=== PATIENT | female | born 1945 | race Caucasian/White ===

== ENCOUNTER 2017-09-17 10:46 | Inpatient (IN) | payer MEDICARE, OTHER ==
[~2017-09-17] VITALS: Ht 144.8 cm; Wt 75.5 kg
[~2017-09-17 10:46] MED LIST: ALEN1TAB48 PO; ASPI81TA23 PO; CALC1TAB55 PO; CLON0.1T PO; FENO145T2 PO; LISI10TA3 PO; LORA1CHW2 CHEW; PROZ40CA PO
[2017-09-17] MEDS: LACTATED RINGER'S 1000 ML IV PRN (11:48)
[2017-09-17] MEDS ORDERED: LACTATED RINGER'S 1000 ML INJ 2,000 ML IV ONE (12:00)
[2017-09-17] MEDS ORDERED: MIDAZOLAM HCL 2 MG/2 ML VIAL IV ONE (12:00)
[2017-09-17] MEDS ORDERED: PROPOFOL 200 MG/20 ML AMP IV ONE (12:00)
[2017-09-17] MEDS ORDERED: PHENYLEPHRINE HCL 10 MG/ML VIAL IV ONE (12:00)
[2017-09-17] MEDS ORDERED: ONDANSETRON HCL 4 MG/2 ML VIAL IV PUSH ONE (12:00)
[2017-09-17] MEDS ORDERED: LIDOCAINE HCL 1% PF 5 ML SYRINGE OTHER ONE (12:00)
[2017-09-17] MEDS ORDERED: ePHEDrine/NS 25 MG/5 ML SYRINGE IV ONE (12:00)
[2017-09-17] MEDS ORDERED: PHENYLEPH/NS 1000 MCG/10 ML SYR IV ONE (12:00)
[2017-09-17] MEDS ORDERED: DEXAMETHASONE SOD PHOS 4 MG/ML VIAL IV ONE (12:00)
[2017-09-17] MEDS ORDERED: ROCURONIUM INJ 50 MG/5 ML SYRINGE IV PUSH ONE (12:00)
[2017-09-17] MEDS ORDERED: NEOSTIGMINE 5 MG/5 ML SYRINGE IV PUSH ONE (12:00)
[2017-09-17] MEDS ORDERED: GLYCOPYRROLATE 1 MG/5 ML SYRINGE IV PUSH ONE (12:00)
[2017-09-17] MEDS ORDERED: CHLORHEXIDINE GLUCONATE 2 % 1 PACK (2 CLOTHS) TOPICAL PRN (12:15)
[2017-09-17] MEDS ORDERED: VANCOMYCIN 1000 MG/NS 250 ML (for <70 kg) IV SCH ×2 (12:15)
[2017-09-17] MEDS ORDERED: POVIDONE IODINE 7.5% SCRUB 118 ML BOTTLE TOPICAL SCH (12:15)
[2017-09-17] MEDS ORDERED: SODIUM CHLORID 0.9% 500 ML IV PRN (12:15)
[2017-09-17] MEDS ORDERED: INSULIN HUMAN REGULAR 1,000 UNITS/10 ML VIAL SQ PRN (12:15)
[2017-09-17] MEDS ORDERED: ceFAZolin 2 GM PREMIX 50 ML IV SCH (12:15)
[2017-09-17] MEDS ORDERED: POVIDONE IODINE 5% (ANTISEPSIS KIT) 4 APPLICATIONS EACH NARE PRN (12:15)
[2017-09-17] MEDS ORDERED: METOPROLOL TARTRATE 25 MG TAB PO PRN (12:15)
[2017-09-17] MEDS ORDERED: GENTAMICIN SULFATE 80 MG/2 ML VIAL ONE (15:20)
[2017-09-17] MEDS ORDERED: VANCOMYCIN HCL 1000 MG VIAL OTHER ONE (18:59)
--- NOTE | 2017-09-17 19:44 | PD.OP ---
cc: Sreedhar Pinedo MD Operative Report Date of Surgery: Sep 17, 2017 Preoperative Diagnosis: Status post lumbar laminectomy and fusion L4 5. Status post lumbar laminectomy L3 4. Recurrent lumbar spinal stenosis L3 4. Instability, L3 4. Foraminal stenosis left L2-3 and L3 4. Herniated nucleus pulposis L2-3, left, foraminal. Left greater than right lumbosacral radiculopathy Postoperative Diagnosis: Same Procedure: Exploration of lumbar spinal fusion with removal of segmental instrumentation L4 to L5. Midline exposure, bilateral lumbar laminectomy from the left L2, L3 with subtotal facet resection and resection herniated nucleus pulposis L2-3, left. Revision lumbar laminectomy left L3 4 with subtotal facet resection, L3 4. Posterior spinal fusion, lateral transverse process technique L2 to the fusion mass of L4. Posterior lateral interbody fusion L4 to 3 and L3 4. Placement of interbody cages L2-3 and L3 4. Bone grafting of the lumbar spine Anesthesia: Gen. Surgeon: Sreedhar Pinedo Tongue Binder(s): AMBER Weiner Operation and Findings: EBL: 500 ml NOTE: Janelle Weiner PA-C was present for the entire surgical procedure as my assistant property manager. In my medical opinion her skill and care was necessary for proper management of this patient INDICATIONS: Is patient is a 72-year-old female status post previous lumbar fusion L4 5 who has done well. The patient had developed debilitating back left hip and leg pain extending into the thigh in a different location than her previous low back condition. Studies shows evidence of transitional instability at the L3 4 level with a high grade recurrent spinal stenosis. There is foraminal stenosis to the left at that level. At L2-3 there is a disc herniation extending into the foramen. She presents for surgical treatment. INSTRUMENTATION: Spine that/[employer] PROCEDURE: The patient brought to the operating room and anesthetized the supine position. The patient positioned prone on the Jamil frame on the Jose table. All pressure points are protected. The back was scrubbed with alcohol followed by Hibiclens followed by ChloraPrep and draped sterilely and antibiotics were given within a routine time window. A timeout was done. Lateral radiographic images used to identify the proper level for the procedure. Compared care for the preoperative studies. Skin markings were made anticipating surgical treatment. A midline incision was made. Exposure continued out to the transverse processes from L2 to the fusion mass of the L4 5 level. The previous instrumentation at the L4 5 level was explored. This was then removed with a sharri was removed and one of the 4 screws was removed. This was prepared for later approach and re-instrumentation. We utilized the same system. We first approached the L2-3 level. We started to the left off midline performing a left-sided laminectomy and extending across midline. A subtotal facet resection on that level on the left was accomplished. There was a large disc herniation extending into the foramen. The exiting L2 nerve root was protected. An annulotomy was performed in a total discectomy accomplished. We removed all cartilaginous material and then used combination of demineralized bone matrix and Nucel stem cells. These were impacted into the disc space to the far side. This then prepared for an expandable cage which was impacted. This was deployed to 10 millimeters. Additional bone grafting was placed in the disc space. The attention was directed to the L3 4 level. The screw on the left side was removed allowing access to that side. A revision laminectomy to the left was accomplished. A high-grade stenosis was found to have significant compression upon the crossing left L. There was a significant foraminal stenosis which was resected also compressing the exiting L3 nerve root. There was a significant amount of scar tissue. The microscope was used during this portion the case of the decompression at both levels. Decompression was felt be very satisfactory. We entered the disc space finding a high-grade instability. All the disc material was removed. We then packed in bone graft as we did at the L2-3 level. A similar cage was positioned and elevated having good correction of the overall sagittal alignment. Under fluoroscopic control, entrance point for made bilaterally L2 and L3. A sequence of a bur followed by a blunt awl and then a tap for placement of 6.5 x 45 mm screws. Each was charged with electric current and there were no motor potentials registered in either lower extremity. We then replaced the left L4 screw with a new screw. We took 90 mm rods and bent them contouring and then reducing the deformity to normal sagittal alignment. This was tightened according to latin dance instructor's recommendation. The wound was irrigated copiously. Bone grafting was placed along the lateral gutter in the region of the transverse processes bilaterally from L2 to the fusion mass of L4. The wound was irrigated copiously. The fascia was closed with interrupted #1 Vicryl. Vancomycin powder was placed along the fascia. The subcutaneous tissue was approximated with interrupted 2-0 Vicryl suture and skin with running intradermal 3-0 Vicryl followed by benzoin and Steri-Strips and a sterile dressing. Intraoperative images were obtained. There is no complication from the hardware position that could be perceived. The sponge count needle counts and into counts were all correct. The patient tolerated procedure well as taken to recovery room in satisfactory condition FINDINGS: There was a high-grade left lateral recess and foraminal stenosis at L3 4. There was a disc herniation to the left at L2-3 associated with a crossing L5 III nerve root compression and exiting L2 nerve root compression. Instability at both levels was seen but was worse at the L3 4 level. Consultation was appreciated. Sreedhar Pinedo MD Sep 17, 2017 19:44
[2017-09-17] MEDS ORDERED: NALOXONE HCL 0.4 MG/ML AMP IV PUSH PRN (19:45)
[2017-09-17] MEDS ORDERED: ALUMINUM/MAGNESIUM/SIMETH 30 ML CUP PO PRN (19:45)
[2017-09-17] MEDS ORDERED: SOD PHOSPHATE/SOD BIPHOSPHATE (ADULT) ENEMA 133ML PR PRN (19:45)
[2017-09-17] MEDS ORDERED: Post-op Orders (for Pharmacy) XX ONE (19:45)
[2017-09-17] MEDS ORDERED: BISACODYL 10 MG SUPP RECTAL PRN (19:45)
[2017-09-17] MEDS ORDERED: HYDR-3580 PO (19:46)
[2017-09-17] MEDS ORDERED: DO NOT ADM ANY ANTICOAGULANT DRUGS PRN (20:08)
[2017-09-17] MEDS ORDERED: *morphine SULFATE 8 MG/ML PERIprocedure ONLY ONE ×3 (20:30→21:21)
[2017-09-17] MEDS ORDERED: PILL SPLITTER OTHER PRN (20:45)
[2017-09-17] MEDS: LACTATED RINGER'S 1000 ML INJ 1,000 ML IV SCH (20:54)
[2017-09-17] MEDS: MORPHINE SULFATE 30 MG/30 ML PCA IV SCH (20:54)
[2017-09-17] MEDS: FLUoxetine HCL 20 MG CAP PO SCH (21:00)
[2017-09-17] MEDS ORDERED: ZOLPIDEM TARTRATE 5 MG TAB PO PRN (21:00)
[2017-09-17] MEDS: LISINOPRIL 10 MG TAB PO SCH (21:00)
--- NOTE | 2017-09-17 21:07 | RADRPT ---
EXAM DATE/TIME: 09/17/2017 19:11 [facility] COMPARISON: No previous studies available for comparison. INDICATIONS : Lumbar fusion. MEDICAL HISTORY : Unobtainable SURGICAL HISTORY : Fusion, lumbar. ENCOUNTER: Initial ACUITY: 1 day PAIN SCORE: Non-responsive. LOCATION: Bilateral lumbar spine FINDINGS: Two view examination was performed. There is fusion of the lumbar spine across 4 contiguous levels. N o complications identified. CONCLUSION: 1. Lumbar spine fusion as above. London Whitman MD on September 17, 2017 at 21:04 Board Certified Radiologist. This report was verified electronically.
[2017-09-17] MEDS ORDERED: *HYDROmorphone PF 1 MG VIAL PERIprocedural Use ONLY ONE ×2 (21:30→21:42)
[2017-09-17] MEDS: PCA - TOTAL MG MORPHINE DELIVERED PER SHIFT SCH (22:00)
[2017-09-17] MEDS ORDERED: METOPROLOL TARTRATE 5 MG/5 ML VIAL ONE (22:25)
[2017-09-17] MEDS ORDERED: MEPERIDINE HCL 25 MG/ML VIAL IV SCH ×2 (22:25→23:26)
[2017-09-17] MEDS ORDERED: METOPROLOL TARTRATE 5 MG/5 ML VIAL IV SCH (22:25)
[2017-09-17] MEDS ORDERED: *MEPERIDINE 25 MG INJ VIAL PERIprocedural Use ONLY ONE (22:28)
[2017-09-17] MEDS ORDERED: *RESP: ALBUTEROL 2.5 MG/3 ML NEB (PRN) PERIprocedural Use ONLY NEB ONE (23:09)
[2017-09-17] MEDS ORDERED: LORazepam 2 MG/ML VIAL ONE (23:18)
[2017-09-17] MEDS ORDERED: METOPROLOL TARTRATE 5 MG/5 ML VIAL IV PUSH SCH (23:26)
[2017-09-17] MEDS ORDERED: LORazepam 2 MG/ML VIAL IV SCH (23:26)
[2017-09-18] VITALS (7 sets, daily range): BP systolic 83–106; BP diastolic 52–63; PULSE 80–98; RESP 16–18; TEMP 96.5–98.9; O2SAT 93–97
--- NOTE | 2017-09-18 00:09 | RADRPT ---
EXAM DATE/TIME: 09/17/2017 23:44 [facility] COMPARISON: No previous studies available for comparison. INDICATIONS : Shortness of breath. MEDICAL HISTORY : Hypertension. SURGICAL HISTORY : None. ENCOUNTER: Initial ACUITY: 1 day PAIN SCORE: Non-responsive. LOCATION: Bilateral chest FINDINGS: A single view of the chest demonstrates the lungs to be symmetrically aerated without evidence of mas s, infiltrate or effusion. The heart is normal size. Moderate tortuosity thoracic aorta.. Osseous structures are intact. CONCLUSION: The lungs are clear. Ramez Milton MD on September 18, 2017 at 0:08 Board Certified Radiologist. This report was verified electronically.
[2017-09-18] MEDS ORDERED: SODIUM CHLORID 0.9% 500 ML INJ 500 ML IV SCH (00:15)
[2017-09-18] MEDS: PCA - TOTAL MG MORPHINE DELIVERED PER SHIFT SCH ×3 (06:00→22:00)
[2017-09-18] MEDS: ONDANSETRON HCL 4 MG/2 ML VIAL IV PUSH PRN (08:37)
[2017-09-18] MEDS: LACTATED RINGER'S 1000 ML INJ 1,000 ML IV SCH ×2 (08:39→20:32)
[2017-09-18] MEDS: FENOFIBRATE 145 MG TAB PO SCH (08:39)
[2017-09-18] MEDS: LISINOPRIL 10 MG TAB PO SCH ×2 (08:39→21:23)
[2017-09-18] MEDS: LORATADINE 10 MG TAB PO SCH (08:39)
[2017-09-18] MEDS ORDERED: WALKER WHEELS/F1 MIS (10:27)
[2017-09-18] MEDS ORDERED: COMMODE 3-IN-11 MIS (10:28)
--- NOTE | 2017-09-18 10:28 | HHI.DCPOC ---
Discharge Care Plan Diagnosis: (1) Degenerative disc disease, lumbar (2) Recurrent herniation of lumbar disc Your Health Problems Are: Difficulty with ADL Incision/Drains Inflammation Goals to Promote Your Health * To prevent worsening of your condition and complications * To maintain your health at the optimal level Directions to Meet Your Goals Take your medications as prescribed Follow your dietary instruction Follow activity as directed Keep your appointments as scheduled Take your immunizations and boosters as scheduled If your symptoms worsen call your PCP, if no PCP go to Urgent Care Center or Emergency Room Smoking is Dangerous to Your Health. Avoid second hand smoke Call the 24-hour hour crisis hotline for domestic abuse at [address] [facility] Sep 18, 2017 10:28
--- NOTE | 2017-09-18 10:31 | HHI.DS ---
Discharge Summary Admission Date Sep 17, 2017 at 10:46 Discharge Date: Sep 19, 2017 Admitting Diagnosis see below Diagnosis: (1) Recurrent herniation of lumbar disc Diagnosis: Principal ICD Codes: M51.26 - Other intervertebral disc displacement, lumbar region (2) Degenerative disc disease, lumbar Diagnosis: Principal ICD Codes: M51.36 - Other intervertebral disc degeneration, lumbar region (3) Lumbar spinal stenosis Diagnosis: Principal ICD Codes: M48.061 - Spinal stenosis, lumbar region without neurogenic claudication Procedures Revision Laminectomy L34, Laminectomy L23, Removal hardware L45, Posterior lumbar fusion L23, L34, Posterolateral interbody fusion with interbody cages L23 , L34, Posterior spinal segmental instrumentation L2-L5, bone graft. Brief History This is a 72 year old female patient.... previous lami L34, L45 with fusion L45. Did well until spring 2016. Increased back and thigh pain. Treatment with... Significant Findings Laboratory Tests Test 09/18/17 00:09 Troponin I LESS THAN 0.02 NG/ML Discharge Disposition: Discharge Home Discharge Instructions Diet Instructions: As Tolerated, No Restrictions, High Fiber Diet Activities You Can Perform: Weight Bearing as Clarisse, See Additionl Instruction Activities to Avoid: Strenuous Activity Additional Activity Instruc.: Brace full-time when out of bed New Medications: Commode 3-in-1 (Commode 3-in-1) 1 Mis Mis EA .ROUTE DIRECTED, #1 0 Refills Walker with Front Wheels (Walker with Front Wheels) 1 Mis Mis EA .ROUTE DIRECTED, #1 0 Refills Hydrocodone/Acetaminophen (Hydrocodone-Acetamin 7.5-325) 7.5 Mg-325 Mg Tablet 1 TAB PO Q4H PRN for PAIN, #50 TAB Continued Medications: Alendronate (Alendronate) 70 Mg Tab 70 MG PO Q7D for Osteporosis Treatment, #4 TAB [address] (Aspirin EC) 81 Mg Tabdr 81 MG PO DAILY, TAB 0 Refills Calcium Carbonate-Cholecalciferol (Calcium 500 +D3) 500-600 Mg-Unit Tab 2 TAB PO BID, TAB Fenofibrate (Fenofibrate) 145 Mg Tab 145 MG PO DAILY, #30 TAB 0 Refills Fluoxetine (Prozac) 40 Mg Cap 80 MG PO HS, #30 CAP 0 Refills Lisinopril (Lisinopril) 10 Mg Tab 10 MG PO BID, #30 TAB 0 Refills Loratadine (Claritin) 5 Mg Chew 5 MG CHEW DAILY for Allergy Management, TAB [address] [facility] Sep 18, 2017 10:31
--- NOTE | 2017-09-18 10:32 | HHI.FF ---
Face to Face Verification Diagnosis: (1) Lumbar spinal stenosis (2) Degenerative disc disease, lumbar (3) Recurrent herniation of lumbar disc Physical Therapy Gait training, Safety evaluation, Transfer training, bed to chair S/P Spinal Fusion: Gait training with walker, Weight bearing as tolerated, No twisting of torso, No bending Additional Instructions PT 4 days/wk for 1 week. Gait training. Out of bed with brace. Nursing RN Days per Week: 2 x Week(s): 1 Dressing Changes: Do not change dressing Additional Instructions No change dressing. Do not change unless saturated or erythema. Vitals assessment. I have seen patient Yissel Salamanca on 09/18/17. My clinical findings support the need for the requested home health care services because: Limited ability to care for self High risk of falls I certify that my clinical findings support that this patient is homebound because: Post-op weakness Unsteady gait/balance [facility] Sep 18, 2017 10:32
--- NOTE | 2017-09-18 13:10 | PD.ORT.PN ---
Subjective Subjective Remarks Doing 'ok'. Some nausea this morning. She has moderate back pain with spasms but her thigh pain is 'gone, its great'. Wheatley cath has not been taken out yet. She has questions about surgery. Denies CP or SOB. Objective Vitals Vital Signs Date Time Temp Pulse Resp B/P (MAP) Pulse Ox O2 Delivery O2 Flow Rate FiO2 09/18/17 12:00 96.5 89 18 97/58 (71) 96 09/18/17 09:31 96 09/18/17 08:52 Nasal Cannula 2.00 09/18/17 08:00 97.2 89 18 106/54 (71) 93 09/18/17 06:00 15 09/18/17 04:00 80 09/18/17 03:00 96.8 86 18 105/63 (77) 97 09/18/17 02:06 98.2 84 107/50 (69) 96 Nasal Cannula 4 09/18/17 02:00 79 12 96/52 (67) 97 Nasal Cannula 4 09/18/17 01:45 83 23 111/55 (73) 94 Nasal Cannula 4 09/18/17 01:30 75 12 103/49 (67) 94 Nasal Cannula 4 09/18/17 01:15 75 12 100/49 (66) 94 Nasal Cannula 4 09/18/17 01:00 79 12 98/50 (66) 94 Nasal Cannula 4 09/18/17 00:45 79 16 94/50 (65) 94 Nasal Cannula 4 09/18/17 00:30 77 13 98/49 (65) 96 Nasal Cannula 4 09/18/17 00:15 79 13 78/47 (57) 94 Nasal Cannula 4 09/18/17 00:00 88 13 82/52 (62) 96 Nasal Cannula 4 09/17/17 23:45 76 19 77/41 (53) 95 Nasal Cannula 4 09/17/17 23:30 79 12 92/55 (67) 95 Nasal Cannula 4 09/17/17 23:15 125 23 93/51 (65) 97 Nasal Cannula 4 09/17/17 23:00 105 20 107/51 (69) 94 Nasal Cannula 4 09/17/17 22:45 87 12 110/58 (75) 96 Nasal Cannula 4 09/17/17 22:30 93 15 122/58 (79) 98 Nasal Cannula 4 09/17/17 22:15 92 13 106/57 (73) 92 Nasal Cannula 2 09/17/17 22:00 20 09/17/17 22:00 114 13 116/57 (76) 92 Nasal Cannula 2 09/17/17 21:45 114 22 116/57 (76) 92 Nasal Cannula 2 09/17/17 21:30 87 22 135/58 (83) 98 Nasal Cannula 2 09/17/17 21:15 79 22 135/57 (83) 98 Nasal Cannula 2 09/17/17 21:00 77 15 112/59 (76) 99 Nasal Cannula 2 09/17/17 20:45 74 10 102/57 (72) 95 Nasal Cannula 4 09/17/17 20:30 85 20 102/55 (71) 97 Nasal Cannula 4 09/17/17 20:15 106 27 105/57 (73) 97 Nasal Cannula 4 09/17/17 20:07 98.1 110 51 108/51 (70) 94 Nasal Cannula 4 I/O 09/17/17 09/17/17 09/17/17 09/18/17 09/18/17 09/18/17 07:00 15:00 23:00 07:00 15:00 23:00 Intake Total 2100 ml 1060 ml Output Total 835 ml 300 ml Balance 1265 ml 760 ml Intake Oral 360 ml IV Total 700 ml Other 2100 ml Output Urine Total 335 ml 300 ml Estimated Blood Loss 500 ml # Bowel Movements 0 Procedures Revision Laminectomy L34, Laminectomy L23, Removal hardware L45, Posterior lumbar fusion L23, L34, Posterolateral interbody fusion with interbody cages L23 , L34, Posterior spinal segmental instrumentation L2-L5, bone graft. Objective Remarks Laying in bed NAD VSS L/S Dressing intact, mild drainage, some spasms paraspinals, no erythema +motor at bilat, +sens, +nvi Neg homans bilat Assessment & Plan Ortho Post Op Day #: 1 Problem List: (1) Recurrent herniation of lumbar disc ICD Codes: M51.26 - Other intervertebral disc displacement, lumbar region (2) Degenerative disc disease, lumbar ICD Codes: M51.36 - Other intervertebral disc degeneration, lumbar region (3) Lumbar spinal stenosis ICD Codes: M48.061 - Spinal stenosis, lumbar region without neurogenic claudication Assessment and Plan pod#1 s/p Rev lami L34, Lami L23, Removal hardward L45, PSF/PLIF L2-L4, PSSI L2- L5 Ortho stable. PO pain meds as needed. Nausea resolved but anti-emetics written as needed. PT - WBAT. Out of bed with brace for 10 weeks. Hold dressing change unless saturated. Encouraged IS. Encouraged hydration. D/C wheatley cath today. D/C planning, home w [facility] tomorrow. F2F written. [facility] Sep 18, 2017 13:10
--- NOTE | 2017-09-18 15:25 | EKG ---
Date Performed: 09/17/2017 Time Performed: 23:46:10 PTAGE: 72 years EKG: Sinus rhythm MODERATE VOLTAGE CRITERIA FOR LVH, CONSIDER NORMAL VARIANT BORDERLINE ECG NO PREVIOUS TRACING DOCTOR: Zach Lane Interpretating Date/Time 09/18/2017 15:23:35
--- NOTE | 2017-09-18 16:00 | EKG ---
Date Performed: 09/17/2017 Time Performed: 12:35:14 PTAGE: 72 years EKG: Sinus rhythm MODERATE VOLTAGE CRITERIA FOR LVH, CONSIDER NORMAL VARIANT BORDERLINE ECG NO PREVIOUS TRACING DOCTOR: Zach Lane Interpretating Date/Time 09/18/2017 15:58:35
[2017-09-18] MEDS: DOCUSATE SODIUM 100 MG CAP PO SCH (21:24)
[2017-09-18] MEDS: FLUoxetine HCL 20 MG CAP PO SCH (21:25)
[2017-09-18 21:32] LABS: HEMATOCRIT 26.7 % (35.0-46.0); REVIEW FLAG FINAL
[2017-09-19] VITALS (10 sets, daily range): BP systolic 76–125; BP diastolic 43–81; PULSE 88–105; RESP 16–18; TEMP 97.1–99.2; O2SAT 90–95
[2017-09-19] MEDS: PCA - TOTAL MG MORPHINE DELIVERED PER SHIFT SCH ×2 (06:00→14:00)
[2017-09-19] MEDS: MORPHINE SULFATE 30 MG/30 ML PCA IV SCH (06:48)
[2017-09-19] MEDS: LORATADINE 10 MG TAB PO SCH (07:57)
[2017-09-19] MEDS: FENOFIBRATE 145 MG TAB PO SCH (07:57)
[2017-09-19] MEDS: LISINOPRIL 10 MG TAB PO SCH ×2 (07:57→21:24)
[2017-09-19] MEDS: DOCUSATE SODIUM 100 MG CAP PO SCH ×2 (07:57→21:24)
--- NOTE | 2017-09-19 07:57 | PD.ORT.PN ---
Subjective Subjective Remarks Complain of spasm of her back. Having some difficulty with breathing because of low back spasm. No leg pain Objective Vitals Vital Signs Date Time Temp Pulse Resp B/P (MAP) Pulse Ox O2 Delivery O2 Flow Rate FiO2 09/19/17 06:48 15 09/19/17 06:00 15 09/19/17 04:00 98.5 102 16 98/50 (66) 94 09/19/17 00:00 98.0 105 16 108/54 (72) 94 09/18/17 22:00 15 09/18/17 20:00 98.9 98 16 92/52 (65) 94 09/18/17 16:00 96.9 90 18 83/54 (64) 96 09/18/17 12:00 96.5 89 18 97/58 (71) 96 09/18/17 09:31 96 09/18/17 08:52 Nasal Cannula 2.00 09/18/17 08:00 97.2 89 18 106/54 (71) 93 I/O 09/18/17 09/18/17 09/18/17 09/19/17 09/19/17 09/19/17 07:00 15:00 23:00 07:00 15:00 23:00 Intake Total 1060 ml 650 ml 240 ml 240 ml Output Total 300 ml 450 ml Balance 760 ml 200 ml 240 ml 240 ml Intake Oral 360 ml 650 ml 240 ml 240 ml IV Total 700 ml Output Urine Total 300 ml 450 ml # Voids 1 1 # Bowel Movements 0 0 0 0 Result Diagram: 09/18/172045 Procedures Revision Laminectomy L34, Laminectomy L23, Removal hardware L45, Posterior lumbar fusion L23, L34, Posterolateral interbody fusion with interbody cages L23 , L34, Posterior spinal segmental instrumentation L2-L5, bone graft. Objective Remarks Laying in bed NAD VSS L/S Dressing intact, mild drainage, some spasms paraspinals, no erythema +motor at bilat, +sens, +nvi Neg homans bilat Assessment & Plan Problem List: (1) Recurrent herniation of lumbar disc ICD Codes: M51.26 - Other intervertebral disc displacement, lumbar region (2) Degenerative disc disease, lumbar ICD Codes: M51.36 - Other intervertebral disc degeneration, lumbar region (3) Lumbar spinal stenosis ICD Codes: M48.061 - Spinal stenosis, lumbar region without neurogenic claudication Assessment and Plan pod#1 s/p Rev lami L34, Lami L23, Removal hardward L45, PSF/PLIF L2-L4, PSSI L2- L5 Ortho stable. PO pain meds as needed. Somma for spasm PT - WBAT. Out of bed with brace for 10 weeks. Hold dressing change unless saturated. Encouraged IS. Encouraged hydration. D/C planning, home w [facility] tomorrow. We'll watch for 1 more day unless she does very well this morning F2F written. Sreedhar Pinedo MD Sep 19, 2017 07:57
[2017-09-19] MEDS: ACETAMINOPHEN/HYDROcodone 325 MG/7.5 MG TAB PO PRN ×2 (08:02→14:27)
[2017-09-19 08:05] LABS: HEMATOCRIT 25.6 % (35.0-46.0); REVIEW FLAG FINAL
[2017-09-19] MEDS: LACTATED RINGER'S 1000 ML INJ 1,000 ML IV SCH ×2 (09:02→14:35)
[2017-09-19] MEDS: CARISOPRODOL 350 MG TAB PO PRN ×2 (09:43→21:24)
[2017-09-19] MEDS: FLUoxetine HCL 20 MG CAP PO SCH (21:24)
[2017-09-20] VITALS (8 sets, daily range): BP systolic 118–153; BP diastolic 60–72; PULSE 94–106; RESP 16–18; TEMP 97.8–99.9; O2SAT 91–94
[2017-09-20] MEDS: ACETAMINOPHEN/HYDROcodone 325 MG/7.5 MG TAB PO PRN ×3 (03:33→20:22)
[2017-09-20] MEDS: PCA - TOTAL MG MORPHINE DELIVERED PER SHIFT SCH (03:34)
--- NOTE | 2017-09-20 08:00 | PD.ORT.PN ---
Subjective Subjective Remarks Complain of spasm of her back, but doing better No leg pain Objective Vitals Vital Signs Date Time Temp Pulse Resp B/P (MAP) Pulse Ox O2 Delivery O2 Flow Rate FiO2 09/20/17 04:00 98.1 101 18 138/69 (92) 93 09/20/17 00:00 99.9 105 16 140/60 (86) 94 09/19/17 20:00 97.7 100 18 120/77 (91) 95 09/19/17 19:55 90 Nasal Cannula 2.00 09/19/17 19:53 96 09/19/17 19:53 Nasal Cannula 2.00 09/19/17 16:00 98.6 93 17 110/57 (74) 90 09/19/17 14:00 18 09/19/17 12:46 88 09/19/17 12:25 91 101/58 (72) 09/19/17 12:00 97.1 89 17 76/43 (54) 93 09/19/17 08:00 99.2 103 17 125/81 (96) 90 I/O 09/19/17 09/19/17 09/19/17 09/20/17 09/20/17 09/20/17 07:00 15:00 23:00 07:00 15:00 23:00 Intake Total 240 ml 698 ml 480 ml 360 ml Balance 240 ml 698 ml 480 ml 360 ml Intake Oral 240 ml 480 ml 480 ml 360 ml IV Total 218 ml # Voids 1 4 2 3 # Bowel Movements 0 0 Result Diagram: 09/19/17 0640 Procedures Revision Laminectomy L34, Laminectomy L23, Removal hardware L45, Posterior lumbar fusion L23, L34, Posterolateral interbody fusion with interbody cages L23 , L34, Posterior spinal segmental instrumentation L2-L5, bone graft. Objective Remarks Laying in bed NAD VSS L/S Dressing intact, mild drainage, some spasms paraspinals, no erythema +motor at bilat, +sens, +nvi Neg homans bilat Assessment & Plan Ortho Post Op Day #: 3 Problem List: (1) Recurrent herniation of lumbar disc ICD Codes: M51.26 - Other intervertebral disc displacement, lumbar region (2) Degenerative disc disease, lumbar ICD Codes: M51.36 - Other intervertebral disc degeneration, lumbar region (3) Lumbar spinal stenosis ICD Codes: M48.061 - Spinal stenosis, lumbar region without neurogenic claudication Assessment and Plan pod#3 s/p Rev lami L34, Lami L23, Removal hardward L45, PSF/PLIF L2-L4, PSSI L2- L5 Ortho stable. PO pain meds as needed. Soma for spasm PT - WBAT. Out of bed with brace for 10 weeks. Hold dressing change unless saturated. Encouraged IS. Encouraged hydration. Discharge today. Follow-up in 2 weeks Sreedhar Pinedo MD Sep 20, 2017 08:00
[2017-09-20] MEDS ORDERED: CARI350T25 PO (08:01)
[2017-09-20] MEDS: LISINOPRIL 10 MG TAB PO SCH ×2 (09:13→20:20)
[2017-09-20] MEDS: LORATADINE 10 MG TAB PO SCH (09:13)
[2017-09-20] MEDS: DOCUSATE SODIUM 100 MG CAP PO SCH ×2 (09:13→20:20)
[2017-09-20] MEDS: CARISOPRODOL 350 MG TAB PO PRN ×2 (09:13→17:37)
[2017-09-20] MEDS: FENOFIBRATE 145 MG TAB PO SCH (09:13)
[2017-09-20] MEDS: FLUoxetine HCL 20 MG CAP PO SCH (20:20)
[2017-09-21] VITALS (16 sets, daily range): BP systolic 123–152; BP diastolic 69–81; PULSE 91–110; RESP 18–28; TEMP 95.7–99; O2SAT 87–98
[2017-09-21] MEDS: ACETAMINOPHEN/HYDROcodone 325 MG/7.5 MG TAB PO PRN ×3 (02:06→19:00)
[2017-09-21] MEDS: PCA - TOTAL MG MORPHINE DELIVERED PER SHIFT SCH ×3 (06:00→21:20)
--- NOTE | 2017-09-21 07:37 | PD.ORT.PN ---
Subjective Subjective Remarks Improving significantly Objective Vitals Vital Signs Date Time Temp Pulse Resp B/P (MAP) Pulse Ox O2 Delivery O2 Flow Rate FiO2 09/21/17 05:00 20 90 09/21/17 00:00 98.7 91 18 124/69 (87) 92 09/20/17 20:26 Nasal Cannula 2.00 09/20/17 20:00 99.6 100 18 153/70 (97) 94 09/20/17 19:13 106 09/20/17 16:29 20 09/20/17 16:00 97.8 94 17 150/72 (98) 93 09/20/17 12:00 99.2 98 17 123/62 (82) 92 09/20/17 10:35 94 Nasal Cannula 2.00 09/20/17 08:00 98.4 104 17 118/62 (80) 91 I/O 09/20/17 09/20/17 09/20/17 09/21/17 09/21/17 09/21/17 07:00 15:00 23:00 07:00 15:00 23:00 Intake Total 360 ml 320 ml 720 ml 480 ml Balance 360 ml 320 ml 720 ml 480 ml Intake Oral 360 ml 320 ml 720 ml 480 ml # Voids 3 4 2 2 # Bowel Movements 1 Result Diagram: 09/19/17 0640 Procedures Revision Laminectomy L34, Laminectomy L23, Removal hardware L45, Posterior lumbar fusion L23, L34, Posterolateral interbody fusion with interbody cages L23 , L34, Posterior spinal segmental instrumentation L2-L5, bone graft. Objective Remarks Laying in bed NAD VSS L/S Dressing intact, mild drainage, some spasms paraspinals, no erythema +motor at bilat, +sens, +nvi Neg homans bilat Assessment & Plan Problem List: (1) Recurrent herniation of lumbar disc ICD Codes: M51.26 - Other intervertebral disc displacement, lumbar region (2) Degenerative disc disease, lumbar ICD Codes: M51.36 - Other intervertebral disc degeneration, lumbar region (3) Lumbar spinal stenosis ICD Codes: M48.061 - Spinal stenosis, lumbar region without neurogenic claudication Assessment and Plan pod#4 s/p Rev lami L34, Lami L23, Removal hardward L45, PSF/PLIF L2-L4, PSSI L2- L5 Ortho stable. PO pain meds as needed. Soma for spasm PT - WBAT. Out of bed with brace for 10 weeks. Hold dressing change unless saturated. Encouraged IS. Encouraged hydration. Discharge today. Follow-up in 2 weeks Da Al Jr. Sep 21, 2017 07:37
[2017-09-21] MEDS: FENOFIBRATE 145 MG TAB PO SCH (07:55)
[2017-09-21] MEDS: DOCUSATE SODIUM 100 MG CAP PO SCH ×2 (07:56→21:00)
[2017-09-21] MEDS: CARISOPRODOL 350 MG TAB PO PRN ×2 (07:56→16:16)
[2017-09-21] MEDS: LORATADINE 10 MG TAB PO SCH (07:56)
[2017-09-21] MEDS: LISINOPRIL 10 MG TAB PO SCH ×2 (09:00→21:00)
--- NOTE | 2017-09-21 10:15 | PD.CONS ---
HPI Service [facility] Consult Requested By Orthopedic surgery Reason for Consult Medical management Primary Care Physician No Primary Care Physician Diagnoses: History of Present Illness 72-year-old female with a history of hypertension, osteoporosis, anxiety, who had a previous lumbar fusion L4-5 , however recently she had developed debilitating back left hip and leg pain extending into the thigh in a different location than her previous low back condition, underwent Rev lami L34, Lami L23 , Removal hardward L45, PSF/PLIF L2-L4, PSSI L2-L5 POD#4. Over the past 24 hrs patient has become short of breath with episode of acute respiratory failure with Hypoxia. Patient reports recent treatment for community-acquired pneumonia 3 weeks ago with Z-Oleksandr .prior to this, she was treated with Medrol taper for some respiratory failure by her PCP. She denies any chest pain.[facility] was consulted for medical management Review of Systems Except as stated in HPI: all other systems reviewed are Neg Past Family Social History Allergies: Coded Allergies: No Known Allergies (Unverified Allergy, Unknown, 09/17/17) Past Medical History Hypertension Hyperlipidemia Anxiety Osteoporosis Past Surgical History s/p Rev lami L34, Lami L23, Removal hardward L45, PSF/PLIF L2-L4, PSSI L2-L5 09/22 Reported Medications See EMR Family History Noncontributory Social History Patient is a former smoker, denies alcohol or illicit drug intake Physical Exam Vital Signs Vital Signs Date Time Temp Pulse Resp B/P (MAP) Pulse Ox O2 Delivery O2 Flow Rate FiO2 09/21/17 09:11 103 09/21/17 08:03 90 Nasal Cannula 4.00 Humidified 09/21/17 07:25 95.7 99 24 141/81 (101) 90 09/21/17 05:00 20 90 09/21/17 00:00 98.7 91 18 124/69 (87) 92 09/20/17 20:26 Nasal Cannula 2.00 09/20/17 20:00 99.6 100 18 153/70 (97) 94 09/20/17 19:13 106 09/20/17 16:29 20 09/20/17 16:00 97.8 94 17 150/72 (98) 93 09/20/17 12:00 99.2 98 17 123/62 (82) 92 09/20/17 10:35 94 Nasal Cannula 2.00 Physical Exam GENERAL: This is a well-nourished, well-developed patient, in no apparent distress. SKIN: No rashes, ecchymoses or lesions. Cool and dry. HEAD: Atraumatic. Normocephalic. No temporal or scalp tenderness. EYES: Pupils equal round and reactive. Extraocular motions intact. No scleral icterus. No injection or drainage. ENT: Nose without bleeding, purulent drainage or septal hematoma. Throat without erythema, tonsillar hypertrophy or exudate. Uvula midline. Airway patent. NECK: Trachea midline. No JVD or lymphadenopathy. Supple, nontender, no meningeal signs. CARDIOVASCULAR: Regular rate and rhythm without murmurs, gallops, or rubs. RESPIRATORY: Clear to auscultation. Breath sounds equal bilaterally. No wheezes , rales, or rhonchi. GASTROINTESTINAL: Abdomen soft, non-tender, nondistended. No hepato-splenomegaly , or palpable masses. No guarding. MUSCULOSKELETAL: Extremities without clubbing, cyanosis, or edema. No joint tenderness, effusion, or edema noted. No calf tenderness. Negative Homans sign bilaterally. NEUROLOGICAL: Awake and alert. Cranial nerves II through XII intact. Motor and sensory grossly within normal limits. Five out of 5 muscle strength in all muscle groups. Normal speech. Laboratory Last Impressions Lumbar Spine X-Ray 09/17/17 0000 Signed Impressions: Service Date/Time: Sunday, September 17, 2017 19:11 - CONCLUSION: 1. Lumbar spine fusion as above. London Whitman MD Chest X-Ray 09/17/17 0000 Signed Impressions: Service Date/Time: Sunday, September 17, 2017 23:44 - CONCLUSION: The lungs are clear. Ramez Milton MD Result Diagram: 09/19/17 0640 Assessment and Plan Assessment and Plan 72 yrs old female with Back pain s/p Rev lami L34, Lami L23, Removal hardware L45, PSF/PLIF L2-L4, PSSI L2-L5 Management per orthopedic surgery Pain management accordingly Acute respiratory failure with hypoxemia Check CTA pulmonary rule out Pulmonary embolism and treat accordingly Continue with pulmonary toilet Incentive spirometry at bedside DuoNeb when necessary May require oxygen on discharge, therefore will perform walk test Hypertension, anxiety Continue Outpatient medications Thank you for this consultation Code Status Full code Discussed Condition With Patient, Samson Cade MD Sep 21, 2017 10:15
[2017-09-21] MEDS: ONDANSETRON HCL 4 MG/2 ML VIAL IV PUSH PRN (11:55)
[2017-09-21 12:36] LABS: AUTOMATED NEUTROPHIL # 16.3 TH/MM3 (1.8-7.7); BASOPHIL % 0.1 % (0.0-2.0); EOSINOPHIL # 0.1 TH/MM3 (0-0.4); EOSINOPHIL % 0.5 % (0.0-4.0); HEMATOCRIT 26.8 % (35.0-46.0); LYMPH % 3.9 % (9.0-44.0); LYMPHOCYTE # 0.7 TH/MM3 (1.0-4.8); MEAN CELL VOLUME 93.2 FL (80.0-100.0); MEAN CORPUSCULAR HGB CONC 33.3 % (32.0-36.0); MONO % 7.7 % (0.0-8.0); NEUT % 87.8 % (16.0-70.0); PLATELET COUNT 385 TH/MM3 (150-450); RED BLOOD COUNT 2.88 MIL/MM3 (4.00-5.30); RED CELL DISTRIBUTION WIDTH 12.5 % (11.6-17.2); WHITE BLOOD COUNT 18.6 TH/MM3 (4.0-11.0)
[2017-09-21 12:37] LABS: HEMO FLAGS AUTO DIFF
[2017-09-21] MEDS: RESP: ALBUTEROL 2.5 MG/IPRATROPIUM 0.5 MG NEB (SCH) NEB ×2 (12:55→15:18)
[2017-09-21 13:02] LABS: ALKALINE PHOSPHATASE 78 U/L (45-117); ALT (GPT) 32 U/L (10-53); ANION GAP 10 MEQ/L (5-15); AST (GOT) 36 U/L (15-37); BICARBONATE 25.5 MEQ/L (21.0-32.0); BLOOD UREA NITROGEN 5 MG/DL (7-18); CHLORIDE 98 MEQ/L (98-107); GLOMERULAR FILTRATION RATE 102 ML/MIN (>89); SODIUM (NA) 133 MEQ/L (136-145); TOTAL BILIRUBIN ADULT 0.6 MG/DL (0.2-1.0)
[2017-09-21 13:04] LABS: POTASSIUM 2.7 MEQ/L (3.5-5.1)
[2017-09-21 13:09] LABS: BANDS 10 % (0-6); EOSINOPHILS 2 % (0-4); METAMYELOCYTES 1 % (0-1); NEUTROPHIL # MANUAL DIFF 16.4 TH/MM3 (1.8-7.7); PLATELET ESTIMATE SMEAR NORMAL (NORMAL); PLATELET MORPHOLOGY NORMAL (NORMAL); POLYS (SEG NEUTROPHILS) 77 % (16-70); SCAN/DIFF FINAL DIFF MANUAL; WBC DIFF SAMPLE 100
[2017-09-21] MEDS ORDERED: POTASSIUM CHLORIDE 10 MEQ CONTROLLED RELEASE TAB PO ONE (13:30)
[2017-09-21] MEDS ORDERED: IOHEXOL 350 MG/ML 10 ML VIAL (for RAD DIAG) IVCONTRAST ONE (13:59)
--- NOTE | 2017-09-21 14:09 | RADRPT ---
EXAM DATE/TIME: 09/21/2017 13:47 [facility] COMPARISON: CHEST SINGLE AP, September 17, 2017, 23:44. INDICATIONS : Shortness of breath. IV CONTRAST: 65 cc Omnipaque 350 (iohexol) IV RADIATION DOSE: 23.00 CTDIvol (mGy) MEDICAL HISTORY : Hypertension. SURGICAL HISTORY : Cholecystectomy. Hysterectomy.Fusion, lumbar. ENCOUNTER: Initial ACUITY: 2 days PAIN SCALE: 0/10 LOCATION: chest TECHNIQUE: Volumetric scanning of the chest was performed using a pulmonary embolism protocol MIP images were re constructed. Using automated exposure control and adjustment of the mA and/or kV according to patien t size, radiation dose was kept as low as reasonably achievable to obtain optimal diagnostic quality images. DICOM format image data is available electronically for review and comparison. Follow-up recommendations for detected pulmonary nodules are based at a minimum on nodule size and pa tient risk factors according to Fleischner Society Guidelines. FINDINGS: PULMONARY ARTERIES: No filling defects are seen in the pulmonary arteries through the segmental level. LUNGS: Interval development of diffuse upper lobe predominant groundglass opacities. PLEURAE: Small bilateral pleural effusions. MEDIASTINUM: Heart is grossly unremarkable without significant pericardial effusion. Several nonspecific right hil ar nodes. MUSCULOSKELETAL: No abnormal lytic or blastic bony lesions. MISCELLANEOUS: The visualized upper abdominal organs demonstrate no acute abnormality. CONCLUSION: 1. No CT evidence for pulmonary embolism. 2. Interval development of diffuse bilateral upper lobe predominant groundglass opacities in a pulmon emily edema pattern. Differential considerations include atypical infection and developing ARDS. Tony Serna MD on September 21, 2017 at 14:02 Board Certified Radiologist. This report was verified electronically.
[2017-09-21] MEDS: LEVOFLOXACIN 750 MG PREMIX INJ 150 ML IV SCH (16:16)
[2017-09-21 16:35] LABS: BLOOD GAS BASE EXCESS 3.1 mmol/L (-2-2); BLOOD GAS CARBOXYHEMOGLOBIN 1.8 % (0-4); BLOOD GAS HCO3 26 mmol/L (22-26); BLOOD GAS METHEMOGLOBIN 0.6 % (0-2); BLOOD GAS O2 HGB SATURATION 93 % (90-100); BLOOD GAS OXYGEN CONTENT 9.5 Vol % (12.0-20.0); BLOOD GAS PCO2 34 mmHg (38-42); BLOOD GAS PO2 66 mmHg (61-120); BLOOD GAS TOTAL HGB 7.2 G/DL (12.0-16.0); CRITICAL VALUE NO; LITER FLOW 9 L/M; OXYGEN DEVICE SIMPLE MASK; TEMP CORR TO 98.6
[2017-09-21 16:36] LABS: DRAW SITE LT RADIAL; NUMBER OF ARTERIAL PUNCTURES 1; STAT YES
[2017-09-21] MEDS ORDERED: FUROSEMIDE 40 MG/4 ML VIAL IV PUSH STA (16:47)
[2017-09-21] MEDS ORDERED: VANCOMYCIN INJ 1,000 MG in SODIUM CHLOR 0.9% 250 ML INJ 250 ML IV ONE (17:00)
--- NOTE | 2017-09-21 17:01 | RADRPT ---
EXAM DATE/TIME: 09/21/2017 16:40 [facility] COMPARISON: CHEST SINGLE AP, September 17, 2017, 23:44. INDICATIONS : Halicat. Respiratory distress. MEDICAL HISTORY : Hypertension. SURGICAL HISTORY : Cholecystectomy. Hysterectomy.Fusion, lumbar. ENCOUNTER: Initial ACUITY: 1 day PAIN SCORE: 0/10 LOCATION: Bilateral chest FINDINGS: Compared with September 17 there is development of hazy airspace disease in both lungs characteristic of mild pulmonary edema. No effusion. No pneumothorax the heart size enlarged. Tortuous aorta. CONCLUSION: 1. Mild pulmonary edema pattern. Additional patchy airspace disease at the bases could represent pneu monia or aspiration. No effusion or pneumothorax. London Whitman MD on September 21, 2017 at 16:57 Board Certified Radiologist. This report was verified electronically.
[2017-09-21] MEDS ORDERED: POTASSIUM CHLORIDE 25 MEQ EFFERVESCENT TAB PO ONE (17:15)
--- NOTE | 2017-09-21 17:20 | PD.CONS ---
[facility] Service Critical Care Medicine Consult Requested By Dr. Camarena Reason for Consult Acute hypoxemic respiratory failure Pulmonary edema Probable pneumonia Severe sepsis Primary Care Physician No Primary Care Physician History of Present Illness Patient is a 72-year-old female with a history of hypertension, osteoporosis, anxiety, long-standing tobacco abuse quit about 10 years ago who underwent revision laminectomy, and lumbar spinal fusion by Dr. Fink on 09/17/17. ( Revision Laminectomy L34, Laminectomy L23, Removal hardware L45, Posterior lumbar fusion L23, L34, Posterolateral interbody fusion with interbody cages L23 , L34, Posterior spinal segmental instrumentation L2-L5, bone graft). Hospitalist was consulted today 09/21 for increasing shortness of breath for the last 24 hours. Recent treatment for community-acquired pneumonia 5 weeks ago with Z-Oleksandr. Patient was seen by Dr. Camarena today who ordered a CT pulmonary angiogram. This showed no pulmonary embolism but there was diffuse predominantly bilateral upper lobe ground glass opacities/ pulmonary edema. Differential atypical infection/ARDS vs CHF. Patient continued to require increasing oxygen and became more short of breath, tachypneic and critical care medicine was consulted [facility]. Patient is currently on 9 L oxygen by simple mask. She is tachypneic breathing 35 breaths per minute and short of breath, maintaining oxygen saturation. I have ordered stat 40 mg Lasix with potassium replacement and then schedule 40 mg every 12. 2-D echo had been ordered, check BNP lactic acid. WBC count is elevated at 18.6 with left shift and bandemia. I have started patient on Zosyn antipseudomonal dose, and one dose of vancomycin. IV Levaquin started by Dr. Camarena will be continued. BiPAP 07/11. With a history of long-standing smoking have added IV steroids and scheduled DuoNeb breathing treatments Review of Systems ROS Limitations: Clinical Condition Past Family Social History Allergies: Coded Allergies: No Known Allergies (Unverified Allergy, Unknown, 09/17/17) Past Medical History Hypertension Chronic back pain Anxiety Osteoporosis Past Surgical History Right total knee replacement Cholecystectomy YAZ Carpal tunnel surgery Previous laminectomy Reported Medications Claritin Carisoprodol Fenofibrate Lisinopril Aspirin Lortab Alendronate Calcium Active Ordered Medications Reviewed Family History Biological mother had cancer Social History Heavy smoker since age of 12 quit 10 years ago No alcohol use Physical Exam Vital Signs Vital Signs Date Time Temp Pulse Resp B/P (MAP) Pulse Ox O2 Delivery O2 Flow Rate FiO2 09/21/17 12:57 92 Nasal Cannula 4.00 09/21/17 11:24 96.1 104 28 147/72 (97) 89 09/21/17 09:11 103 09/21/17 08:03 90 Nasal Cannula 4.00 Humidified 09/21/17 07:25 95.7 99 24 141/81 (101) 90 09/21/17 05:00 20 90 09/21/17 00:00 98.7 91 18 124/69 (87) 92 09/20/17 20:26 Nasal Cannula 2.00 09/20/17 20:00 99.6 100 18 153/70 (97) 94 09/20/17 19:13 106 Physical Exam GENERAL: This is a well-nourished, well-developed patient, lying in bed in moderate distress, tachypneic SKIN: Cool and dry. HEAD: Atraumatic. Normocephalic. EYES: Pupils equal round and reactive. ENT: Uvula midline. Airway patent. NECK: Trachea midline. Positive JVD CARDIOVASCULAR: Regular rate and rhythm without murmurs, gallops, or rubs. RESPIRATORY: Breath sounds equal bilaterally. Bilateral crackles predominantly upper lung no wheezes. Tachypneic breathing about 35 breaths per minute GASTROINTESTINAL: Abdomen soft, non-tender, nondistended. No hepato-splenomegaly , or palpable masses. MUSCULOSKELETAL: Lumbosacral dressing intact NEUROLOGICAL: Awake and alert. Motor and sensory grossly within normal limits. Speech is normal though tachypneic Laboratory Laboratory Tests Test 09/21/17 11:30 09/21/17 16:25 White Blood Count 18.6 Red Blood Count 2.88 Hemoglobin 8.9 Hematocrit 26.8 Mean Corpuscular Volume 93.2 Mean Corpuscular Hemoglobin 31.0 Mean Corpuscular Hemoglobin Concent 33.3 Red Cell Distribution Width 12.5 Platelet Count 385 Mean Platelet Volume 7.6 Neutrophils (%) (Auto) 87.8 Lymphocytes (%) (Auto) 3.9 Monocytes (%) (Auto) 7.7 Eosinophils (%) (Auto) 0.5 Basophils (%) (Auto) 0.1 Neutrophils # (Auto) 16.3 Lymphocytes # (Auto) 0.7 Monocytes # (Auto) 1.4 Eosinophils # (Auto) 0.1 Basophils # (Auto) 0.0 CBC Comment AUTO DIFF Differential Total Cells Counted 100 Neutrophils % (Manual) 77 Band Neutrophils % 10 Lymphocytes % 1 Monocytes % 9 Eosinophils % 2 Neutrophils # (Manual) 16.4 Metamyelocytes 1 Differential Comment FINAL DIFF MANUAL Platelet Estimate NORMAL Platelet Morphology Comment NORMAL Blood Urea Nitrogen 5 Creatinine 0.58 Random Glucose 161 Total Protein 6.5 Albumin 2.2 Calcium Level 8.4 Alkaline Phosphatase 78 Aspartate Amino Transf (AST/SGOT) 36 Alanine Aminotransferase (ALT/SGPT) 32 Total Bilirubin 0.6 Sodium Level 133 Potassium Level 2.7 Chloride Level 98 Carbon Dioxide Level 25.5 Anion Gap 10 Estimat Glomerular Filtration Rate 102 Blood Gas Puncture Site LT RADIAL Blood Gas Patient Temperature 98.6 Blood Gas HCO3 26 Blood Gas Base Excess 3.1 Blood Gas Oxygen Saturation 93 Arterial Blood pH 7.50 Arterial Blood Partial Pressure CO2 34 Arterial Blood Partial Pressure O2 66 Arterial Blood Oxygen Content 9.5 Arterial Blood Carboxyhemoglobin 1.8 Arterial Blood Methemoglobin 0.6 Blood Gas Hemoglobin 7.2 Oxygen Delivery Device SIMPLE MASK Blood Gas Liter Flow 9 Result Diagram: 09/21/17 1130 09/21/[address] pulmonary angiogram - No CT evidence for pulmonary embolism. Interval development of diffuse bilateral upper lobe predominant groundglass opacities in a pulmonary edema pattern. Differential considerations include atypical infection and developing ARDS. Septic Shock Reassessment Septic shock perfusion: reassessment completed Assessment and Plan Assessment and Plan ASSESSMENT: Acute hypoxemic respiratory failure Pulmonary edema Healthcare associated pneumonia Severe sepsis Status status post lumbar laminectomy and fusion Hypokalemia Leukocytosis Hypertension Dyslipidemia Anxiety PLAN: NEURO: - As needed morphine for postoperative pain otherwise minimize sedation RESP: - Place on BiPAP 10 over 5, titrate to keep respiratory rate less than 30 oxygen saturation more than 90% - IV Solu-Medrol 60 mg every 12 hours - DuoNeb every 6 hours scheduled and when necessary - Sputum culture, urine for Legionella and pneumococcal antigen - Empiric Zosyn, Levaquin and one dose of vancomycin CV: - Discontinue all IV fluids - IV Lasix 40 mg 1 stat and 40 every 12 with potassium replacement - Check BNP, check 2-D echo - Cardiac enzymes, EKG GI: - Nothing by mouth except meds. IV famotidine : - Monitor renal function closely. Reza catheter. IV Lasix as above ID: - Blood sputum and urine cultures ordered. Urine for Legionella and pneumococcal antigen - Broad-spectrum antibiotics with single dose of vancomycin, scheduled antipseudomonal dosing of Zosyn and Levaquin IV HEME: - Monitor CBC, CMP ENDO: - Electrolyte Replacement per protocol PROPH: - Bilateral lower extremity SCDs. IV famotidine for GI prophylaxis. Discussed chemical DVT prophylaxis with Dr. Adair, he wants to wait another 24 hours and probably start 09/22/17 at Lovenox 30 mg sq daily LINES: - Utilize peripheral IVs, central line if needed CC time 45 min Code Status Full Discussed Condition With Ana Salinas MD Sep 21, 2017 17:20
[2017-09-21] MEDS ORDERED: POTASSIUM PHOSPHATE INJ 30 MMOL in SODIUM CHLOR 0.9% 250 ML INJ 250 ML IV PRN (17:30)
[2017-09-21] MEDS ORDERED: POTASSIUM PHOSPHATE MONOBASIC 500 MG TAB PO PRN (17:30)
[2017-09-21] MEDS ORDERED: MAGNESIUM SULFATE INJ 2 GM in SODIUM CHLORIDE 0.9% INJ 96 ML IV PRN (17:30)
[2017-09-21] MEDS ORDERED: POTASSIUM CHLORIDE 25 MEQ EFFERVESCENT TAB PO PRN (17:30)
[2017-09-21] MEDS ORDERED: POTASSIUM CHLOR 20 MEQ PREMIX 100 ML IV PRN ×2 (17:30)
[2017-09-21] MEDS ORDERED: POTASSIUM PHOSPHATE MONOBASIC 500 MG TAB PO/TUBE PRN (17:30)
[2017-09-21] MEDS ORDERED: MAGNESIUM SULFATE INJ 4 GM in SODIUM CHLORIDE 0.9% INJ 92 ML IV PRN (17:30)
[2017-09-21] MEDS ORDERED: SODIUM PHOSPHATE INJ 30 MMOL in SODIUM CHLOR 0.9% 250 ML INJ 240 ML IV PRN (17:30)
[2017-09-21] MEDS ORDERED: POTASSIUM CHLOR 40 MEQ PREMIX 100 ML IV PRN ×2 (17:30)
[2017-09-21] MEDS ORDERED: MAGNESIUM OXIDE 400 MG TAB PO PRN (17:30)
--- NOTE | 2017-09-21 18:15 | RADRPT ---
EXAM DATE/TIME: 09/21/2017 17:06 [facility] COMPARISON: CHEST SINGLE AP, September 21, 2017, 16:40. INDICATIONS : Short of breath. MEDICAL HISTORY : None. SURGICAL HISTORY : Fusion, lumbar. ENCOUNTER: Initial ACUITY: 4 - 6 days PAIN SCORE: 6/10 LOCATION: Bilateral chest FINDINGS: Redemonstration of diffuse patchy airspace disease and interstitial prominence. Cardiomedi some conto urs are stable. Remainder of the exam is unchanged. CONCLUSION: 1. Redemonstration of mild pulmonary edema pattern. 2. No significant interval change. Tony Serna MD on September 21, 2017 at 18:11 Board Certified Radiologist. This report was verified electronically.
[2017-09-21] MEDS: FUROSEMIDE 40 MG/4 ML VIAL IV PUSH SCH (18:45)
[2017-09-21] MEDS: FAMOTIDINE 20 MG/2 ML VIAL IV PUSH SCH (18:45)
[2017-09-21] MEDS: PIPERACIL-TAZO 4.5 GM PREMIX 100 ML IV SCH ×2 (18:45→23:16)
[2017-09-21] MEDS ORDERED: ENOXAPARIN SODIUM 40 MG/0.4 ML SYRINGE SQ SCH (19:00)
[2017-09-21 19:49] LABS: MAGNESIUM 1.7 MG/DL (1.5-2.5)
[2017-09-21] MEDS: RESP: ALBUTEROL 2.5 MG/IPRATROPIUM 0.5 MG NEB (PRN) NEB (20:14)
[2017-09-21] MEDS: methylPREDNISolone SOD SUCC 125 MG/2 ML VIAL IV PUSH SCH (20:25)
[2017-09-21] MEDS: POTASSIUM CHLORIDE 25 MEQ EFFERVESCENT TAB PO SCH (20:26)
[2017-09-21] MEDS: FLUoxetine HCL 20 MG CAP PO SCH (20:44)
--- NOTE | 2017-09-21 21:01 | EKG ---
Date Performed: 09/21/2017 Time Performed: 16:45:09 PTAGE: 72 years EKG: SINUS TACHYCARDIA POSSIBLE LEFT ATRIAL ENLARGEMENT NONSPECIFIC ST & T-WAVE ABNORMALITY ABNO RMAL RHYTHM ECG PREVIOUS TRACING : 09/17/2017 23.46 Compared to previous tracing, heart rate has increased. DOCTOR: Nathan Rehman Interpretating Date/Time 09/21/2017 20:59:50
[2017-09-21] MEDS: MORPHINE SULFATE 8 MG/ML INJ IV PUSH PRN (23:16)
[2017-09-22] VITALS (20 sets, daily range): BP systolic 68–175; BP diastolic 51–78; PULSE 68–111; RESP 18–27; TEMP 97.6–99.5; O2SAT 91–99
[2017-09-22] MEDS: RESP: ALBUTEROL 2.5 MG/IPRATROPIUM 0.5 MG NEB (PRN) NEB (03:41)
[2017-09-22] MEDS: CARISOPRODOL 350 MG TAB PO PRN (03:42)
[2017-09-22 04:39] LABS: BLOOD GAS BASE EXCESS 2.9 mmol/L (-2-2); BLOOD GAS CARBOXYHEMOGLOBIN 1.7 % (0-4); BLOOD GAS HCO3 27 mmol/L (22-26); BLOOD GAS METHEMOGLOBIN 0.4 % (0-2); BLOOD GAS O2 HGB SATURATION 93 % (90-100); BLOOD GAS OXYGEN CONTENT 11.2 Vol % (12.0-20.0); BLOOD GAS PCO2 39 mmHg (38-42); BLOOD GAS PO2 66 mmHg (61-120); BLOOD GAS TOTAL HGB 8.6 G/DL (12.0-16.0); CRITICAL VALUE NO; OXYGEN DEVICE BIPAP; TEMP CORR TO 98.6
[2017-09-22 04:40] LABS: DRAW SITE RT RADIAL; FIO2 50 %; NUMBER OF ARTERIAL PUNCTURES 1; STAT NO; ULNAR PULSE PRESENT; VENT SETTINGS IPAP12/EPAP5
[2017-09-22] MEDS: MORPHINE SULFATE 8 MG/ML INJ IV PUSH PRN (05:40)
[2017-09-22] MEDS: PCA - TOTAL MG MORPHINE DELIVERED PER SHIFT SCH ×3 (06:00→21:00)
[2017-09-22] MEDS: PIPERACIL-TAZO 4.5 GM PREMIX 100 ML IV SCH ×3 (06:36→17:19)
--- NOTE | 2017-09-22 07:14 | HHI.CCPN ---
Subjective Remarks/Hospital Course Patient is a 72-year-old female with a history of hypertension, osteoporosis, anxiety, long-standing tobacco abuse quit about 10 years ago who underwent revision laminectomy, and lumbar spinal fusion by Dr. Fink on 09/17/17. ( Revision Laminectomy L34, Laminectomy L23, Removal hardware L45, Posterior lumbar fusion L23, L34, Posterolateral interbody fusion with interbody cages L23 , L34, Posterior spinal segmental instrumentation L2-L5, bone graft). Hospitalist was consulted today 09/21 for increasing shortness of breath for the last 24 hours. Recent treatment for community-acquired pneumonia 5 weeks ago with Z-Oleksandr. Patient was seen by Dr. Camarena today who ordered a CT pulmonary angiogram. This showed no pulmonary embolism but there was diffuse predominantly bilateral upper lobe ground glass opacities/ pulmonary edema. Differential atypical infection/ARDS vs CHF. Patient continued to require increasing oxygen and became more short of breath, tachypneic and critical care medicine was consulted She is tachypneic breathing 35 breaths per minute and short of breath, maintaining oxygen saturation. I have ordered stat 40 mg Lasix with potassium replacement and then schedule 40 mg every 12. 2-D echo had been ordered, check BNP lactic acid. WBC count is elevated at 18.6 with left shift and bandemia. I have started patient on Zosyn antipseudomonal dose, and one dose of vancomycin. IV Levaquin started by Dr. Camarena will be continued. BiPAP 07/11. With a history of long-standing smoking have added IV steroids and scheduled DuoNeb breathing treatments. 09/22: Breathing with increased work today, still on FiO2 0.60. Persistent anxiety but respiratory distress considerably improved. Simple fluid overload would have responded to diuretics by now - suspicious for infectious process. She requires intubation and mechanical ventilation at this point. Objective Vital Signs Date Time Temp Pulse Resp B/P (MAP) Pulse Ox O2 Delivery O2 Flow Rate FiO2 09/22/17 06:00 96 09/22/17 05:45 26 09/22/17 04:30 88 Bi-Pap 09/22/17 04:00 98.5 120/59 (79) 09/22/17 03:43 50 09/21/17 21:44 8.00 Intake and Output 09/22/17 09/22/17 09/23/17 08:00 16:00 00:00 Intake Total 225 ml Output Total 350 ml Balance -125 ml Result Diagram: 09/21/17 1130 09/21/17 1723 Other Results Laboratory Tests Test 09/21/17 16:25 09/22/17 04:30 Blood Gas Puncture Site LT RADIAL RT RADIAL Blood Gas Patient Temperature 98.6 98.6 Blood Gas HCO3 26 mmol/L (22-26) 27 mmol/L (22-26) Blood Gas Base Excess 3.1 mmol/L (-2-2) 2.9 mmol/L (-2-2) Blood Gas Oxygen Saturation 93 % (90-100) 93 % (90-100) Arterial Blood pH 7.50 (7.380-7.420) 7.45 (7.380-7.420) Arterial Blood Partial Pressure CO2 34 mmHg (38-42) 39 mmHg (38-42) Arterial Blood Partial Pressure O2 66 mmHg (61-120) 66 mmHg (61-120) Arterial Blood Oxygen Content 9.5 Vol % (12.0-20.0) 11.2 Vol % (12.0-20.0) Arterial Blood Carboxyhemoglobin 1.8 % (0-4) 1.7 % (0-4) Arterial Blood Methemoglobin 0.6 % (0-2) 0.4 % (0-2) Blood Gas Hemoglobin 7.2 G/DL (12.0-16.0) 8.6 G/DL (12.0-16.0) Oxygen Delivery Device SIMPLE MASK BIPAP Blood Gas Liter Flow 9 L/M Blood Gas Ventilator Setting [id number] Blood Gas Inspired Oxygen 50 % Imaging CT pulmonary angiogram - No CT evidence for pulmonary embolism. Interval development of diffuse bilateral upper lobe predominant groundglass opacities in a pulmonary edema pattern. Differential considerations include atypical infection and developing ARDS. Objective Remarks GENERAL: This is an anxious elderly woman, labored tachypneic SKIN: Cool and dry. HEAD: Atraumatic. Normocephalic. EYES: Pupils equal round and reactive. ENT: Uvula midline. Airway patent. NECK: Trachea midline. Airway widely patent. CARDIOVASCULAR: Tachycardia, Regular rate and rhythm without murmurs, gallops, or rubs. Neck veins full. RESPIRATORY: Breath sounds equal bilaterally. Crackles predominantly upper lung vela, no wheezes. GASTROINTESTINAL: Abdomen soft, non-tender, nondistended. BS active, no guarding. MUSCULOSKELETAL: Lumbosacral dressing intact, dry, clean. NEUROLOGICAL: Awake and alert. Anxious. Motor and sensory grossly within normal limits. Speech is normal. A/P Assessment and Plan ASSESSMENT: Acute hypoxemic respiratory failure Pulmonary edema Healthcare associated pneumonia Status status post lumbar laminectomy and fusion Hypokalemia Leukocytosis Hypertension Dyslipidemia Anxiety PLAN: NEURO: - As needed morphine for postoperative pain otherwise minimize sedation - Propofol. RESP: - Continue BiPAP 10 over 5, titrate to keep respiratory rate less than 30 oxygen saturation more than 90% - IV Solu-Medrol 60 mg every 12 hours - DuoNeb every 6 hours scheduled and when necessary - Sputum culture, urine for Legionella and pneumococcal antigen - Empiric Zosyn, Levaquin and one dose of vancomycin - Intubation and ventilation, PEEP 10 CV: - Discontinue all IV fluids - IV Lasix 40 mg every 12 with potassium replacement - Check BNP -> 200, check 2-D echo - Cardiac enzymes, EKG - ECHO GI: - Nothing by mouth except meds. IV famotidine : - Monitor renal function closely. Reza catheter. IV Lasix as above ID: - Blood sputum and urine cultures ordered. Urine for Legionella and pneumococcal antigen - Broad-spectrum antibiotics with single dose of vancomycin, scheduled antipseudomonal dosing of Zosyn and Levaquin IV HEME: - Monitor CBC, CMP ENDO: - Electrolyte Replacement per protocol PROPH: - Bilateral lower extremity SCDs. IV famotidine for GI prophylaxis. Discussed chemical DVT prophylaxis with Dr. Adair, he wants to wait another 24 hours and probably start 09/22/17 at Lovenox 30 mg sq daily LINES: - Utilize peripheral IVs, central line if needed Overall impression: Patient remains critically ill with hypoxemic respiratory failure. Response to diuretics positive but underlying pneumonitis possible. Leukocytosis from steroids. I think this is simple fluid overload, consistent with bloody frothy red secretions, but she has required mechanical ventilation. Critical Care 60 mins aside from procedures Dominick Solis MD Sep 22, 2017 07:14
[2017-09-22] MEDS ORDERED: ALPRAZolam 0.5 MG TAB PO PRN (07:15)
--- NOTE | 2017-09-22 07:44 | RADRPT ---
EXAM DATE/TIME: 09/22/2017 07:02 [facility] COMPARISON: CHEST SINGLE AP, September 21, 2017, 17:06. INDICATIONS : Shortness of breath. MEDICAL HISTORY : None. SURGICAL HISTORY : None. ENCOUNTER: Initial ACUITY: 1 day PAIN SCORE: Non-responsive. LOCATION: Bilateral chest FINDINGS: Diffuse pulmonary infiltrates are noted bilaterally consistent with moderate to severe pulmonary richard a versus pneumonia. Clinical correlation is recommended. The heart is mildly enlarged. CONCLUSION: 1. Diffuse pulmonary infiltrates consistent with moderate to severe pulmonary edema versus pneumonia. Clinical correlation is recommended. 2. Mild cardiomegaly. Jacques Martínez MD on September 22, 2017 at 7:40 Board Certified Radiologist. This report was verified electronically.
[2017-09-22] MEDS: RESP: ALBUTEROL 2.5 MG/IPRATROPIUM 0.5 MG NEB (SCH) NEB ×3 (07:51→20:21)
[2017-09-22] MEDS: methylPREDNISolone SOD SUCC 125 MG/2 ML VIAL IV PUSH SCH ×2 (08:07→20:26)
[2017-09-22] MEDS: FUROSEMIDE 40 MG/4 ML VIAL IV PUSH SCH ×2 (08:07→17:59)
[2017-09-22 08:08] LABS: AUTOMATED NEUTROPHIL # 20.9 TH/MM3 (1.8-7.7); BASOPHIL % 0.1 % (0.0-2.0); EOSINOPHIL % 0.1 % (0.0-4.0); HEMO FLAGS DIFF FINAL; LYMPH % 2.7 % (9.0-44.0); LYMPHOCYTE # 0.6 TH/MM3 (1.0-4.8); MEAN CELL VOLUME 91.4 FL (80.0-100.0); MEAN CORPUSCULAR HEMOGLOBIN 30.6 PG (27.0-34.0); MEAN CORPUSCULAR HGB CONC 33.5 % (32.0-36.0); MONO % 7.7 % (0.0-8.0); NEUT % 89.4 % (16.0-70.0); PLATELET COUNT 474 TH/MM3 (150-450); RED BLOOD COUNT 2.63 MIL/MM3 (4.00-5.30); RED CELL DISTRIBUTION WIDTH 12.7 % (11.6-17.2); WHITE BLOOD COUNT 23.4 TH/MM3 (4.0-11.0)
[2017-09-22] MEDS: DOCUSATE SODIUM 100 MG CAP PO SCH ×2 (08:08→20:25)
[2017-09-22] MEDS: LORATADINE 10 MG TAB PO SCH (08:08)
[2017-09-22] MEDS: FENOFIBRATE 145 MG TAB PO SCH (08:08)
[2017-09-22] MEDS: POTASSIUM CHLORIDE 25 MEQ EFFERVESCENT TAB PO SCH ×2 (08:08→20:25)
[2017-09-22] MEDS: FAMOTIDINE 20 MG/2 ML VIAL IV PUSH SCH ×2 (08:08→20:26)
[2017-09-22] MEDS: LISINOPRIL 10 MG TAB PO SCH ×2 (08:08→20:25)
[2017-09-22 08:30] LABS: ANION GAP 11 MEQ/L (5-15); AST (GOT) 41 U/L (15-37); BLOOD UREA NITROGEN 8 MG/DL (7-18); CHLORIDE 99 MEQ/L (98-107); GLOMERULAR FILTRATION RATE 100 ML/MIN (>89); MAGNESIUM 1.8 MG/DL (1.5-2.5); POTASSIUM 3.4 MEQ/L (3.5-5.1); SODIUM (NA) 136 MEQ/L (136-145)
[2017-09-22 08:31] LABS: ALT (GPT) 33 U/L (10-53)
[2017-09-22 08:33] LABS: ALKALINE PHOSPHATASE 88 U/L (45-117); TOTAL BILIRUBIN ADULT 0.8 MG/DL (0.2-1.0)
--- NOTE | 2017-09-22 08:53 | PD.ORT.PN ---
Subjective Subjective Remarks pod#5 s/p Rev lami L34, Lami L23, Removal hardward L45, PSF/PLIF L2-L4, PSSI L2- L5 patient was transferred to [facility] yesterday for respiratory distress. doing well currently. no complaints. Objective Vitals Vital Signs Date Time Temp Pulse Resp B/P (MAP) Pulse Ox O2 Delivery O2 Flow Rate FiO2 09/22/17 07:51 93 60 09/22/17 06:00 96 09/22/17 05:45 26 09/22/17 04:42 20 09/22/17 04:30 88 Bi-Pap 09/22/17 04:00 98.5 96 26 120/59 (79) 99 09/22/17 04:00 96 09/22/17 03:43 94 50 09/22/17 02:00 86 09/22/17 00:56 94 50 09/22/17 00:00 92 09/22/17 00:00 97.6 92 24 120/60 (80) 95 09/21/17 22:30 97 50 09/21/17 22:30 90 Bi-Pap 09/21/17 22:00 92 09/21/17 21:44 89 Simple Mask 8.00 09/21/17 21:43 92 Simple Mask 8.00 09/21/17 21:11 90 Nasal Cannula 5.00 09/21/17 21:11 90 Nasal Cannula 5.00 09/21/17 20:00 103 09/21/17 20:00 99.0 103 22 123/73 (90) 94 09/21/17 19:55 96 50 09/21/17 19:00 96 Bi-Pap 09/21/17 18:00 106 09/21/17 17:45 98 50 09/21/17 17:30 98.1 107 23 152/76 (101) 97 09/21/17 16:00 98.8 110 27 133/73 (93) 87 09/21/17 12:57 92 Nasal Cannula 4.00 09/21/17 11:24 96.1 104 28 147/72 (97) 89 09/21/17 09:11 103 I/O 09/21/17 09/21/17 09/21/17 09/22/17 09/22/17 09/22/17 07:00 15:00 23:00 07:00 15:00 23:00 Intake Total 480 ml 480 ml 345 ml Output Total 1675 ml 2350 ml Balance 480 ml 480 ml -1675 ml -2005 ml Intake Oral 480 ml 480 ml 180 ml IV Total 165 ml Output Urine Total 1675 ml 2350 ml # Voids 2 2 # Bowel Movements 1 Result Diagram: 09/22/17 0755 09/22/17 0755 Imaging Last 24 hours Impressions Chest X-Ray 09/22/17 0000 Signed Impressions: Service Date/Time: Friday, September 22, 2017 07:02 - CONCLUSION: 1. Diffuse pulmonary infiltrates consistent with moderate to severe pulmonary edema versus pneumonia. Clinical correlation is recommended. 2. Mild cardiomegaly. Jacques Martínez MD Procedures Revision Laminectomy L34, Laminectomy L23, Removal hardware L45, Posterior lumbar fusion L23, L34, Posterolateral interbody fusion with interbody cages L23 , L34, Posterior spinal segmental instrumentation L2-L5, bone graft. Objective Remarks Laying in bed NAD VSS L/S Dressing intact, noticeable bloody drainage through central part of bandage +motor at bilat, +sens, +nvi Neg homans bilat Assessment & Plan Problem List: (1) Recurrent herniation of lumbar disc ICD Codes: M51.26 - Other intervertebral disc displacement, lumbar region (2) Degenerative disc disease, lumbar ICD Codes: M51.36 - Other intervertebral disc degeneration, lumbar region (3) Lumbar spinal stenosis ICD Codes: M48.061 - Spinal stenosis, lumbar region without neurogenic claudication Assessment and Plan pod#5 s/p Rev lami L34, Lami L23, Removal hardward L45, PSF/PLIF L2-L4, PSSI L2- L5 Ortho stable. PO pain meds as needed. Soma for spasm PT - WBAT. Out of bed with brace for 10 weeks. Encouraged IS. Encouraged hydration. will likely need a few more day of observation for respiratory issues. being managed by golf instructor will maintain drain and have Dr Shahida henning for possible dressing change tomorrow Johnny Silverio PA/[employer] MARICEL Sep 22, 2017 08:53
[2017-09-22] MEDS ORDERED: Vancomycin Consult Pharmacy 1 EA OTHER PRN (13:00)
[2017-09-22] MEDS ORDERED: MIDAZOLAM HCL 5 MG/ML VIAL (1 ML) ONE (13:30)
[2017-09-22] MEDS ORDERED: MIDAZOLAM HCL 5 MG/5 ML VIAL IV PUSH ONE (13:30)
[2017-09-22] MEDS ORDERED: ROCURONIUM INJ 50 MG/5 ML VIAL IV ONE (13:30)
[2017-09-22] MEDS ORDERED: PROPOFOL 500 MG/50 ML INJ 50 ML ONE (13:31)
--- NOTE | 2017-09-22 14:41 | PD.PROCEDR ---
Procedure Note Procedure DX: Hypoxemic Respiratory Failure (J96.01) OP: 1. Orotracheal intubation (64892) 2. Insertion Left Subclavian Central Venous Line (23888) Procedure: Time out. Bag mask ventilation after versed 5 mg iv. Rocuronium 50 mg iv. Intubated orally with 8.0 tube. Position confirmed with CO2 detection, breath sounds, improved sats. Sputum frothy red/sanguinous. Left chest prepped and draped. Left subclavian vein cannulated and wire easily advanced. Catheter passed over wire to 19 cm. Lumens aspirated and flushed. Dressing applied. CXR ordered, will review. Dominick Solis MD Sep 22, 2017 14:41
[2017-09-22] MEDS: PROPOFOL 1000 MG/100 ML INJ 100 ML IV PRN ×2 (14:54→21:14)
[2017-09-22] MEDS: LEVOFLOXACIN 750 MG PREMIX INJ 150 ML IV SCH (14:56)
[2017-09-22] MEDS: METOPROLOL TARTRATE 25 MG TAB PO SCH ×2 (15:34→20:25)
[2017-09-22] MEDS: fentaNYL DRIP 250 ML IV PRN (15:47)
--- NOTE | 2017-09-22 16:15 | RADRPT ---
EXAM DATE/TIME: 09/22/2017 15:32 [facility] COMPARISON: No previous studies available for comparison. INDICATIONS : Confirm placements of E-T tube and also left subclavian central line. MEDICAL HISTORY : Hypertension. SURGICAL HISTORY : None. ENCOUNTER: Subsequent ACUITY: 4 - 6 days PAIN SCORE: Non-responsive. LOCATION: Bilateral chest FINDINGS: A single view of the chest demonstrates the endotracheal tube, nasogastric tube, left central line al l in good position. There is mild pulmonary vascular congestion.. The cardiomediastinal contours are unremarkable. Osseous structures are intact. CONCLUSION: Endotracheal tube, nasogastric and central line all in excellent position. Zach Smith MD on September 22, 2017 at 16:12 Board Certified Radiologist. This report was verified electronically.
[2017-09-22] MEDS: VANCOMYCIN 1,500 MG/NS 500 ML IV SCH ×2 (17:19)
[2017-09-22] MEDS ORDERED: TERBUTALINE INJ 1 MG/ML AMP SQ PRN (18:00)
[2017-09-22] MEDS ORDERED: NOREPINEPHRINE INJ 4 MG in SODIUM CHLOR 0.9% 250 ML INJ 246 ML IV PRN (18:00)
[2017-09-22] MEDS: CHLORHEXIDINE 0.12% (ORAL KIT) 15 ML CUP MT SCH (20:00)
[2017-09-22] MEDS: FLUoxetine HCL 20 MG CAP PO SCH (20:26)
[2017-09-23] VITALS (20 sets, daily range): BP systolic 93–147; BP diastolic 52–78; PULSE 50–74; RESP 14–19; TEMP 98.2–99.3; O2SAT 96–99
[2017-09-23] MEDS: PROPOFOL 1000 MG/100 ML INJ 100 ML IV PRN ×5 (02:42→23:11)
[2017-09-23] MEDS: PIPERACIL-TAZO 4.5 GM PREMIX 100 ML IV SCH ×5 (02:44→18:14)
[2017-09-23 04:43] LABS: AUTOMATED NEUTROPHIL # 15.1 TH/MM3 (1.8-7.7); EOSINOPHIL % 0.3 % (0.0-4.0); LYMPH % 4.4 % (9.0-44.0); LYMPHOCYTE # 0.8 TH/MM3 (1.0-4.8); MEAN CELL VOLUME 92.7 FL (80.0-100.0); MEAN CORPUSCULAR HEMOGLOBIN 31.1 PG (27.0-34.0); MEAN CORPUSCULAR HGB CONC 33.5 % (32.0-36.0); MONO % 6.3 % (0.0-8.0); PLATELET COUNT 459 TH/MM3 (150-450); RED BLOOD COUNT 2.19 MIL/MM3 (4.00-5.30); RED CELL DISTRIBUTION WIDTH 13.1 % (11.6-17.2)
[2017-09-23 04:47] LABS: HEMO FLAGS DIFF FINAL
[2017-09-23 04:51] LABS: HEMATOCRIT 20.3 % (35.0-46.0)
[2017-09-23 04:53] LABS: BICARBONATE 28.4 MEQ/L (21.0-32.0); POTASSIUM 3.6 MEQ/L (3.5-5.1)
[2017-09-23] MEDS ORDERED: SODIUM CHLOR 0.9% 250 ML INJ 250 ML IV ONE (05:00)
[2017-09-23] MEDS: PCA - TOTAL MG MORPHINE DELIVERED PER SHIFT SCH ×3 (05:43→21:48)
[2017-09-23 05:56] LABS: BLOOD GAS BASE EXCESS 3.1 mmol/L (-2-2); BLOOD GAS CARBOXYHEMOGLOBIN 1.5 % (0-4); BLOOD GAS HCO3 28 mmol/L (22-26); BLOOD GAS METHEMOGLOBIN 0.7 % (0-2); BLOOD GAS O2 HGB SATURATION 95 % (90-100); BLOOD GAS OXYGEN CONTENT 9.9 Vol % (12.0-20.0); BLOOD GAS PCO2 47 mmHg (38-42); BLOOD GAS PO2 90 mmHg (61-120); BLOOD GAS TOTAL HGB 7.3 G/DL (12.0-16.0); CRITICAL VALUE NO; DRAW SITE RT RADIAL; FIO2 50 %; NUMBER OF ARTERIAL PUNCTURES 1; OXYGEN DEVICE VENTILATOR; STAT NO; TEMP CORR TO 98.6; ULNAR PULSE PRESENT; VENT SETTINGS PRVC14/500/1.0/+10
--- NOTE | 2017-09-23 06:39 | RADRPT ---
EXAM DATE/TIME: 09/23/2017 05:08 [facility] COMPARISON: CHEST SINGLE AP, September 22, 2017, 15:32. INDICATIONS : Short of breath. MEDICAL HISTORY : Hypertension. SURGICAL HISTORY : ENCOUNTER: Subsequent ACUITY: 4 - 6 days PAIN SCORE: 0/10 LOCATION: Bilateral chest FINDINGS: The tip of the ET tube is 1.4 cm from the jayden. There is a left subclavian line in place. The heart size is normal. There is diffuse increase interstitial markings. Surgical hardware seen in the lumba r spine. CONCLUSION: Diffuse increased interstitial markings likely related to edema. There may be mild improvement compar ed to the prior exam. Geoff Duarte MD on September 23, 2017 at 6:35 Board Certified Radiologist. This report was verified electronically.
--- NOTE | 2017-09-23 07:23 | HHI.CCPN ---
Subjective Remarks/Hospital Course Patient is a 72-year-old female with a history of hypertension, osteoporosis, anxiety, long-standing tobacco abuse quit about 10 years ago who underwent revision laminectomy, and lumbar spinal fusion by Dr. Fink on 09/17/17. ( Revision Laminectomy L34, Laminectomy L23, Removal hardware L45, Posterior lumbar fusion L23, L34, Posterolateral interbody fusion with interbody cages L23 , L34, Posterior spinal segmental instrumentation L2-L5, bone graft). Hospitalist was consulted today 09/21 for increasing shortness of breath for the last 24 hours. Recent treatment for community-acquired pneumonia 5 weeks ago with Z-Oleksandr. Patient was seen by Dr. Camarena today who ordered a CT pulmonary angiogram. This showed no pulmonary embolism but there was diffuse predominantly bilateral upper lobe ground glass opacities/ pulmonary edema. Differential atypical infection/ARDS vs CHF. Patient continued to require increasing oxygen and became more short of breath, tachypneic and critical care medicine was consulted She is tachypneic breathing 35 breaths per minute and short of breath, maintaining oxygen saturation. I have ordered stat 40 mg Lasix with potassium replacement and then schedule 40 mg every 12. 2-D echo had been ordered, check BNP lactic acid. WBC count is elevated at 18.6 with left shift and bandemia. I have started patient on Zosyn antipseudomonal dose, and one dose of vancomycin. IV Levaquin started by Dr. Camarena will be continued. BiPAP 07/11. With a history of long-standing smoking have added IV steroids and scheduled DuoNeb breathing treatments. 09/22: Breathing with increased work today, still on FiO2 0.60. Persistent anxiety but respiratory distress considerably improved. Simple fluid overload would have responded to diuretics by now - suspicious for infectious process. She requires intubation and mechanical ventilation at this point. 09/23: Frothy hemorrhagic sputum is worrisome. Looks like heart failure but BNP 49. CXR clearing with positive airway pressure. Cultures pending result. Upper lobe distribution of infiltrates may require renal workup, ANCA, AWA, etc. Will ask Pulmonary Service to see. Patient responds and communicates on Propofol 50 mics - liver enzymes appear to be revved up from chronic exposure to some 2- carbon fragment. Objective Vital Signs Date Time Temp Pulse Resp B/P (MAP) Pulse Ox O2 Delivery O2 Flow Rate FiO2 09/23/17 06:00 50 09/23/17 06:00 63 09/23/17 04:20 97 09/23/17 04:08 93/52 09/23/17 04:00 99.0 14 09/22/17 19:00 Mechanical Ventilator 09/21/17 21:44 8.00 Intake and Output 09/23/17 09/23/17 09/24/17 08:00 16:00 00:00 Intake Total 260 ml Output Total 400 ml Balance -140 ml Result Diagram: 09/23/17 0419 09/23/17 0419 Other Results Laboratory Tests Test 09/23/17 05:40 Blood Gas Puncture Site RT RADIAL Blood Gas Patient Temperature 98.6 Blood Gas HCO3 28 mmol/L (22-26) Blood Gas Base Excess 3.1 mmol/L (-2-2) Blood Gas Oxygen Saturation 95 % (90-100) Arterial Blood pH 7.39 (7.380-7.420) Arterial Blood Partial Pressure CO2 47 mmHg (38-42) Arterial Blood Partial Pressure O2 90 mmHg (61-120) Arterial Blood Oxygen Content 9.9 Vol % (12.0-20.0) Arterial Blood Carboxyhemoglobin 1.5 % (0-4) Arterial Blood Methemoglobin 0.7 % (0-2) Blood Gas Hemoglobin 7.3 G/DL (12.0-16.0) Oxygen Delivery Device VENTILATOR Blood Gas Ventilator Setting PRVC14/500/1.0/+10 Blood Gas Inspired Oxygen 50 % Imaging CT pulmonary angiogram - No CT evidence for pulmonary embolism. Interval development of diffuse bilateral upper lobe predominant groundglass opacities in a pulmonary edema pattern. Differential considerations include atypical infection and developing ARDS. Objective Remarks GENERAL: Anxious elderly woman, labored tachypneic SKIN: Warm and dry. HEAD: Atraumatic. Normocephalic. EYES: Pupils equal round and reactive. ENT: Uvula midline. Airway patent. NECK: Trachea midline. Orally intubated. CARDIOVASCULAR: Tachycardia, Regular rate and rhythm without murmurs, gallops, or rubs. No JVD. RESPIRATORY: Breath sounds equal bilaterally. Crackles few, no wheezes. Improved exam. GASTROINTESTINAL: Abdomen soft, non-tender, nondistended. BS active, no guarding. MUSCULOSKELETAL: Lumbosacral dressing intact, dry, clean. NEUROLOGICAL: Agitated despite very high dose sedation. Anxious. Motor and sensory grossly within normal limits. A/P Assessment and Plan ASSESSMENT: Acute hypoxemic respiratory failure Pulmonary edema Healthcare associated pneumonia Status status post lumbar laminectomy and fusion Hypokalemia Leukocytosis Hypertension Dyslipidemia Anxiety PLAN: NEURO: - As needed morphine for postoperative pain. - Propofol. Versed prn. RESP: - IV Solu-Medrol 60 mg every 12 hours - DuoNeb every 6 hours scheduled and when necessary - Sputum culture, urine for Legionella and pneumococcal antigen - Empiric Zosyn, Levaquin and one dose of vancomycin - Intubation and ventilation, PEEP 10 - FiO2 100 -> 50%, CXR clearing. Etiology unclear. - Pulmonary Consult for alveolar hemorrhage evaluation. CV: - Discontinue all IV fluids - IV Lasix 40 mg every 12 with potassium replacement - Check BNP -> 49, check 2-D echo - Cardiac enzymes, EKG - ECHO GI: - Nothing by mouth except meds. IV famotidine : - Monitor renal function closely. Reza catheter. IV Lasix as above ID: - Blood sputum and urine cultures ordered. Urine for Legionella and pneumococcal antigen - Broad-spectrum antibiotics with single dose of vancomycin, scheduled antipseudomonal dosing of Zosyn and Levaquin IV HEME: - Monitor CBC, CMP ENDO: - Electrolyte Replacement per protocol PROPH: - Bilateral lower extremity SCDs. IV famotidine for GI prophylaxis. Discussed chemical DVT prophylaxis with Dr. Adair, he wants to wait another 24 hours and probably start 09/22/17 at Lovenox 30 mg sq daily LINES: - Utilize peripheral IVs, central line placed 09/22 Left SCV. Overall impression: Patient remains critically ill with hypoxemic respiratory failure. Leukocytosis from steroids. I think this is simple fluid overload, consistent with bloody frothy red secretions, but she has required mechanical ventilation despite aggressive diuresis. Blood tinged sputum persists and alveolar hemorrhage arises in the differential. Increase steroids? I'll ask Bed Manager. Critical Care 44 mins Dominick Solis MD Sep 23, 2017 07:23
[2017-09-23] MEDS: CHLORHEXIDINE 0.12% (ORAL KIT) 15 ML CUP MT SCH ×2 (07:58→20:04)
[2017-09-23] MEDS: FAMOTIDINE 20 MG/2 ML VIAL IV PUSH SCH ×2 (08:28→20:47)
[2017-09-23] MEDS: methylPREDNISolone SOD SUCC 125 MG/2 ML VIAL IV PUSH SCH (08:28)
[2017-09-23] MEDS: LORATADINE 10 MG TAB PO SCH (08:29)
[2017-09-23] MEDS: POTASSIUM CHLORIDE 25 MEQ EFFERVESCENT TAB PO SCH ×2 (08:29→20:48)
[2017-09-23] MEDS: LISINOPRIL 10 MG TAB PO SCH ×2 (08:29→20:48)
[2017-09-23] MEDS: DOCUSATE SODIUM 100 MG CAP PO SCH ×2 (08:29→20:47)
[2017-09-23] MEDS: METOPROLOL TARTRATE 25 MG TAB PO SCH ×2 (08:29→20:48)
[2017-09-23] MEDS: FENOFIBRATE 145 MG TAB PO SCH (08:30)
[2017-09-23] MEDS: RESP: ALBUTEROL 2.5 MG/IPRATROPIUM 0.5 MG NEB (SCH) NEB ×3 (09:40→16:50)
[2017-09-23] MEDS: FUROSEMIDE 40 MG/4 ML VIAL IV PUSH SCH ×2 (09:58→17:17)
--- NOTE | 2017-09-23 12:38 | PD.ORT.PN ---
Subjective Subjective Remarks Patient intubated. In ISC No leg pain Objective Vitals Vital Signs Date Time Temp Pulse Resp B/P (MAP) Pulse Ox O2 Delivery O2 Flow Rate FiO2 09/23/17 10:00 74 09/23/17 10:00 98.2 74 19 108/60 98 09/23/17 09:33 97 Ventilator 50 09/23/17 09:33 98 50 09/23/17 09:15 98.8 60 18 144/77 98 09/23/17 08:57 98.8 67 19 133/70 98 09/23/17 08:00 50 09/23/17 08:00 98.6 55 18 128/67 (87) 98 09/23/17 08:00 56 09/23/17 07:00 Mechanical Ventilator 50 09/23/17 06:00 50 09/23/17 06:00 63 09/23/17 04:20 97 50 09/23/17 04:08 67 93/52 09/23/17 04:00 67 09/23/17 04:00 50 09/23/17 04:00 99.0 67 14 93/52 (66) 96 09/23/17 03:47 72 103/58 09/23/17 02:00 70 09/23/17 00:06 96 50 09/23/17 00:00 50 09/23/17 00:00 99.3 69 17 112/60 (77) 97 09/23/17 00:00 69 09/22/17 22:00 72 09/22/17 21:00 74 105/63 09/22/17 20:22 67 88/52 09/22/17 20:21 98 60 09/22/17 20:00 68 09/22/17 20:00 97.7 68 18 68/56 (60) 99 09/22/17 20:00 70 09/22/17 19:00 98 Mechanical Ventilator 70 09/22/17 19:00 66 80/50 09/22/17 18:00 80 09/22/17 16:05 98 80 09/22/17 16:00 99.5 84 18 95/51 (66) 95 09/22/17 16:00 84 09/22/17 16:00 80 09/22/17 14:00 111 09/22/17 13:55 95 100 09/22/17 13:45 100 I/O 09/22/17 09/22/17 09/22/17 09/23/17 09/23/17 09/23/17 07:00 15:00 23:00 07:00 15:00 23:00 Intake Total 345 ml 100 ml 1115 ml 260 ml 400 ml Output Total 2350 ml 1750 ml 400 ml Balance -2005 ml 100 ml -635 ml -140 ml 400 ml Intake Oral 180 ml 250 ml IV Total 165 ml 100 ml 865 ml 200 ml Packed Cells 400 ml Other 60 ml Output Urine Total 2350 ml 1750 ml 350 ml Gastric Drainage Total 50 ml # Bowel Movements 0 Result Diagram: 09/23/17 0419 09/23/17 0419 Imaging Last 24 hours Impressions Chest X-Ray 09/22/17 0000 Signed Impressions: Service Date/Time: Friday, September 22, 2017 07:02 - CONCLUSION: 1. Diffuse pulmonary infiltrates consistent with moderate to severe pulmonary edema versus pneumonia. Clinical correlation is recommended. 2. Mild cardiomegaly. Jacques Martínez MD Procedures Revision Laminectomy L34, Laminectomy L23, Removal hardware L45, Posterior lumbar fusion L23, L34, Posterolateral interbody fusion with interbody cages L23 , L34, Posterior spinal segmental instrumentation L2-L5, bone graft. Objective Remarks Laying in bed. Intubated. No focal complaints of pain. Dressing with minimal drainage. Motor examination both legs normal Assessment & Plan Ortho Post Op Day #: 6 Problem List: (1) Recurrent herniation of lumbar disc ICD Codes: M51.26 - Other intervertebral disc displacement, lumbar region (2) Degenerative disc disease, lumbar ICD Codes: M51.36 - Other intervertebral disc degeneration, lumbar region (3) Lumbar spinal stenosis ICD Codes: M48.061 - Spinal stenosis, lumbar region without neurogenic claudication Assessment and Plan pod#6 s/p Rev lami L34, Lami L23, Removal hardward L45, PSF/PLIF L2-L4, PSSI L2- L5 Orthopedically stable. Patient was intubated because of concern of infection/pulmonary edema. Case discussed with medication manager. Patient getting transfused. We'll reevaluate tomorrow Sreedhar Pinedo MD Sep 23, 2017 12:38
[2017-09-23] MEDS: fentaNYL DRIP 250 ML IV PRN (14:18)
--- NOTE | 2017-09-23 15:00 | ECHRPT ---
Indication: SHORTNESS OF BREATH CONCLUSIONS Normal LV systolic function (EF 60-65%) The left atrial size is satj-se-cwmvmtkzzl dilated. Mild mitral annular calcification. Dwswe-ig-mhqg mitral valve regurgitation. Aortic valve sclerosis is present. There is mild to moderate tricuspid valve regurgitation. The estimated pulmonary arterial pressure is 42 mmHg. Left atrial mobile density (? thrombus or vegetation). BP: 93 / 52 HR: 63 Rhythm: Sinus MEASUREMENTS (Male / Female) Normal Values Technical Quality:Fair 2D ECHO LV Diastolic Diameter PLAX 4.4 cm 4.2 - 5.9 / 3.9 - 5.3 cm LV Systolic Diameter PLAX 3.5 cm IVS Diastolic Thickness 0.8 cm 0.6 - 1.0 / 0.6 - 0.9 cm LVPW Diastolic Thickness 0.8 cm 0.6 - 1.0 / 0.6 - 0.9 cm LV Relative Wall Thickness 0.4 LVOT Diameter 1.9 cm Aortic Root Diameter 2.6 cm LA Systolic Diameter LX 2.7 cm 3.0 - 4.0 / 2.7 - 3.8 cm M-MODE AV Cusp Separation MM 1.6 cm DOPPLER AV Peak Velocity 221.5 cm/s AV Peak Gradient 19.6 mmHg AV Mean Gradient 10.0 mmHg AV Velocity Time Integral 45.5 cm LVOT Peak Velocity 113.0 cm/s LVOT Peak Gradient 5.1 mmHg LVOT Velocity Time Integral 26.6 cm AV Area Cont Eq vti 1.7 cm AV Area Cont Eq pk 1.4 cm Mitral E Point Velocity 72.5 cm/s Mitral A Point Velocity 68.1 cm/s Mitral E to A Ratio 1.1 LV E' Lateral Velocity 9.9 cm/s Mitral E to LV E' Lateral Ratio 7.3 LV E' Septal Velocity 7.2 cm/s Mitral E to LV E' Septal Ratio 10.1 TR Peak Velocity 281.0 cm/s TR Peak Gradient 31.6 mmHg Right Atrial Pressure 10.0 mmHg Pulmonary Artery Systolic Pressu 41.6 mmHg Right Ventricular Systolic Press 41.6 mmHg PV Peak Velocity 51.1 cm/s PV Peak Gradient 1.0 mmHg FINDINGS LEFT VENTRICLE Normal left ventricular size and wall thickness. The left ventricular systolic function is normal wi th an estimated ejection fraction in the range of 60-65%. Left ventricular diastolic function parameters a re normal. RIGHT VENTRICLE Normal right ventricular size and systolic function. LEFT ATRIUM The left atrial size is vcal-zr-gtwhhksygg dilated. Left atrial mobile density (? thrombus or vegetation). RIGHT ATRIUM The right atrial size is normal. ATRIAL SEPTUM Normal atrial septal thickness without atrial level shunting by limited color doppler interrogation. AORTA The aortic root and proximal ascending aorta are normal in size on limited imaging. MITRAL VALVE Mild mitral annular calcification. Dvezh-en-bqfj mitral valve regurgitation. AORTIC VALVE Aortic valve sclerosis is present. TRICUSPID VALVE There is mild to moderate tricuspid valve regurgitation. The estimated pulmonary arterial pressure is 41.6 mmHg. PULMONARY VALVE No pulmonary valve regurgitation or stenosis. VESSELS The inferior vena cava is normal in size. PERICARDIUM No pericardial effusion. Kip Carter MD, FACC (Electronically Signed) Final Date:23 September 2017 14:59 Amended: 23 September 2017 15:35
[2017-09-23] MEDS: LEVOFLOXACIN 750 MG PREMIX INJ 150 ML IV SCH (17:17)
[2017-09-23] MEDS: VANCOMYCIN 1,500 MG/NS 500 ML IV SCH ×2 (17:17)
[2017-09-23] MEDS: FLUoxetine HCL 20 MG CAP PO SCH (20:49)
[2017-09-23 20:58] LABS: APTT (PATIENT) 29.6 SEC (24.3-30.1); INTERNATIONAL NORMALIZED RATIO 1.2 RATIO; PROTHROMBIN TIME - PATIENT 12.2 SEC (9.8-11.6)
[2017-09-24] VITALS (16 sets, daily range): BP systolic 99–136; BP diastolic 56–75; PULSE 46–59; RESP 18–19; TEMP 98.4–99.1; O2SAT 98–100
[2017-09-24] MEDS: methylPREDNISolone SOD SUCC 125 MG/2 ML VIAL IV PUSH SCH ×5 (00:04→23:39)
[2017-09-24] MEDS: PIPERACIL-TAZO 4.5 GM PREMIX 100 ML IV SCH ×5 (00:04→23:39)
[2017-09-24] MEDS: fentaNYL DRIP 250 ML IV PRN ×2 (01:56→16:00)
[2017-09-24] MEDS: PROPOFOL 1000 MG/100 ML INJ 100 ML IV PRN ×5 (02:08→23:39)
[2017-09-24 05:03] LABS: AUTOMATED NEUTROPHIL # 14.4 TH/MM3 (1.8-7.7); BASOPHIL % 0.1 % (0.0-2.0); EOSINOPHIL # 0.6 TH/MM3 (0-0.4); EOSINOPHIL % 3.4 % (0.0-4.0); HEMATOCRIT 24.5 % (35.0-46.0); LYMPH % 6.7 % (9.0-44.0); LYMPHOCYTE # 1.1 TH/MM3 (1.0-4.8); MEAN CELL VOLUME 89.8 FL (80.0-100.0); MEAN CORPUSCULAR HEMOGLOBIN 30.6 PG (27.0-34.0); MONO % 5.2 % (0.0-8.0); NEUT % 84.6 % (16.0-70.0); PLATELET COUNT 524 TH/MM3 (150-450); RED BLOOD COUNT 2.73 MIL/MM3 (4.00-5.30); RED CELL DISTRIBUTION WIDTH 14.8 % (11.6-17.2)
[2017-09-24 05:06] LABS: HEMO FLAGS AUTO DIFF
[2017-09-24] MEDS: PCA - TOTAL MG MORPHINE DELIVERED PER SHIFT SCH ×3 (05:33→20:02)
[2017-09-24 05:37] LABS: BICARBONATE 25.8 MEQ/L (21.0-32.0); POTASSIUM 4.3 MEQ/L (3.5-5.1)
--- NOTE | 2017-09-24 05:55 | MB ---
cc: ESTER CARRANZA DATE OF CONSULTATION 09/23/[address] Neff REASON FOR CONSULTATION Pulmonary management. HISTORY OF PRESENT ILLNESS Ms. Salamanca is a 72-year-old female with history of hypertension, osteoporosis. She underwent revision laminectomy of L3-L4, removal of the hardware and posterior lumbar fusion. The patient did have shortness of breath. She was transferred to the intensive care unit. She was managed on BiPAP. Today she was worse, getting more shortness of breath and she is intubated. She had a CT scan of the chest done which he does not show any pulmonary embolism but it shows diffuse bilateral upper lobe predominance, ground glass opacities. She has a decrease in her hemoglobin, her WBC count is 17.0 and hemoglobin 6.8, hematocrit 20.3, MCV of 92, platelet count 459. Her BMP shows sodium of 131, potassium 3.6, chloride 99, CO2 28, BUN 17, creatinine 0.65. BNP is 49. Her echocardiogram shows ejection fraction of 60-65% and estimated pulmonary arterial pressure is 42. She has aortic valve sclerosis. The patient is intubated it is noted she has pink frothy secretions but no babak blood was noted. PAST MEDICAL HISTORY Significant for hypertension. PAST SURGICAL HISTORY Lumbar spine surgery. MEDICATIONS She is currently taking - 1. Vancomycin IV. 2. She was on Levophed which was weaned off. 3. Brethine 1 mg p.r.n. 4. Fentanyl drip. 5. Propofol drip. 6. Solu-Medrol 6 mg q. 12-hours. 7. Zosyn IV. 8. Lasix 40 mg twice a day. 9. Famotidine 20 mg a day. 10. Lisinopril 10 mg twice a day. ALLERGIES No known drug allergies. SOCIAL HISTORY Not available. REVIEW OF SYSTEMS Unavailable. The patient is intubated. PHYSICAL EXAMINATION GENERAL: An elderly female intubated and sedated. VITAL SIGNS: Her blood pressure is 120/68, heart rate 56, respirations 16, temperature 98.4. HEENT EXAMINATION: Pupils are equal and reactive. She is orally intubated. NECK: Supple. JVP not raised. CHEST: She has scattered rales. CV: S1 and S2 normal. ABDOMEN: Soft, nontender, nondistended. Bowel sounds are present. EXTREMITIES: No edema. IMPRESSION 1. Ventilator-dependent respiratory failure. 2. Diffuse bilateral pulmonary infiltrate. Her BNP is normal. Possible the patient has alveolitis. It is unlikely she has pulmonary hemorrhages. There is no significant blood in from the endotracheal tube with the suction. 3. Anemia. Loss of blood loss is not clear, unlikely from the lung. 4. Status post lumbar spine surgery. PLAN 1. We will increase her Solu-Medrol to 60 mg q. 6 hours. 2. Continue ventilator support. 3. Check her coagulation profile. 4. She is being diuresed. 5. Monitor her hemoglobin and hematocrit. If there is any further drop, then probably she will need abdominal CT scan to find any source for possible blood loss. Further treatment will depend on the course in the hospital. Thank you Dr. Neff for this consult. MD ARIELA Castaneda/SSB /7:28 PM /5:37 AM
[2017-09-24 05:56] LABS: CALCIUM-PROTEIN CORRECTED 7.8 MG/DL (8.5-10.1)
--- NOTE | 2017-09-24 06:18 | RADRPT ---
EXAM DATE/TIME: 09/24/2017 05:05 [facility] COMPARISON: CHEST SINGLE AP, September 23, 2017, 5:08. INDICATIONS : Short of breath. MEDICAL HISTORY : Hypertension. SURGICAL HISTORY : None. ENCOUNTER: Subsequent ACUITY: 4 - 6 days PAIN SCORE: Non-responsive. LOCATION: Bilateral chest FINDINGS: ET tube and NG tube and left subclavian line are well placed. The heart size is within normal limits. There is mild increased density at the left base. There is focal density at the right upper lung. CONCLUSION: Mild atelectasis or consolidation at the left base and the right upper lung. Geoff Duarte MD on September 24, 2017 at 6:16 Board Certified Radiologist. This report was verified electronically.
[2017-09-24 06:52] LABS: BANDS 9 % (0-6); EOSINOPHILS 3 % (0-4); METAMYELOCYTES 1 % (0-1); NEUTROPHIL # MANUAL DIFF 14.6 TH/MM3 (1.8-7.7); PLATELET ESTIMATE SMEAR HIGH (NORMAL); PLATELET MORPHOLOGY NORMAL (NORMAL); POLYS (SEG NEUTROPHILS) 76 % (16-70); WBC DIFF SAMPLE 100
[2017-09-24 06:53] LABS: SCAN/DIFF FINAL DIFF MANUAL
--- NOTE | 2017-09-24 07:35 | PD.ORT.PN ---
Subjective Subjective Remarks Patient intubated. In ISC No leg pain. On 40%, 100% saturation Objective Vitals Vital Signs Date Time Temp Pulse Resp B/P (MAP) Pulse Ox O2 Delivery O2 Flow Rate FiO2 09/24/17 06:00 51 09/24/17 04:30 40 09/24/17 04:27 100 40 09/24/17 04:00 50 09/24/17 04:00 99.0 56 18 126/61 (82) 100 09/24/17 04:00 56 09/24/17 02:00 57 09/24/17 00:09 100 50 09/24/17 00:00 55 09/24/17 00:00 98.6 55 18 122/59 (80) 100 09/24/17 00:00 50 09/23/17 22:00 55 09/23/17 21:14 99 50 09/23/17 20:00 50 09/23/17 20:00 98.2 50 18 101/59 (73) 98 09/23/17 20:00 50 09/23/17 19:00 95 Mechanical Ventilator 50 09/23/17 18:00 54 09/23/17 16:51 99 50 09/23/17 16:00 98.4 56 18 120/68 (85) 98 09/23/17 16:00 56 09/23/17 16:00 50 09/23/17 16:00 56 120/68 09/23/17 14:00 62 09/23/17 13:32 98 50 09/23/17 13:30 65 156/86 09/23/17 12:00 50 09/23/17 12:00 98.6 55 18 147/78 (101) 98 09/23/17 12:00 55 09/23/17 10:00 74 09/23/17 10:00 98.2 74 19 108/60 98 09/23/17 09:33 97 Ventilator 50 09/23/17 09:33 98 50 09/23/17 09:15 98.8 60 18 144/77 98 09/23/17 08:57 98.8 67 19 133/70 98 09/23/17 08:00 50 09/23/17 08:00 98.6 55 18 128/67 (87) 98 09/23/17 08:00 56 I/O 1209/23/17 09/23/17 09/24/17 09/24/17 09/24/17 07:00 15:00 23:00 07:00 15:00 23:00 Intake Total 260 ml 500 ml 1645 ml 850 ml Output Total 400 ml 1300 ml 1150 ml Balance -140 ml 500 ml 345 ml -300 ml IV Total 200 ml 100 ml 1645 ml 750 ml Packed Cells 400 ml Tube Irrigant 100 ml Other 60 ml Output Urine Total 350 ml 1250 ml 1100 ml Gastric Drainage Total 50 ml 50 ml 50 ml # Bowel Movements 0 0 0 Result Diagram: 09/24/177 09/24/177 Other Results Laboratory Tests Test 09/23/17 20:16 Prothromb Time International Ratio 1.2 RATIO Prothrombin Time 12.2 SEC (9.8-11.6) Imaging Last 24 hours Impressions Chest X-Ray 09/22/17 0000 Signed Impressions: Service Date/Time: Friday, September 22, 2017 07:02 - CONCLUSION: 1. Diffuse pulmonary infiltrates consistent with moderate to severe pulmonary edema versus pneumonia. Clinical correlation is recommended. 2. Mild cardiomegaly. Jacques Martínez MD Procedures Revision Laminectomy L34, Laminectomy L23, Removal hardware L45, Posterior lumbar fusion L23, L34, Posterolateral interbody fusion with interbody cages L23 , L34, Posterior spinal segmental instrumentation L2-L5, bone graft. Objective Remarks Laying in bed. Intubated. No focal complaints of pain. Dressing with minimal drainage, small area of dried blood. No active bleeding Motor examination both legs normal Assessment & Plan Ortho Post Op Day #: 7 Problem List: (1) Recurrent herniation of lumbar disc ICD Codes: M51.26 - Other intervertebral disc displacement, lumbar region (2) Degenerative disc disease, lumbar ICD Codes: M51.36 - Other intervertebral disc degeneration, lumbar region (3) Lumbar spinal stenosis ICD Codes: M48.061 - Spinal stenosis, lumbar region without neurogenic claudication Assessment and Plan Lumbar spinal stenosis. Status post lumbar fusion, L4 5. Transitional instability. Lumbar radiculopathy. Exploration lumbar spinal fusion, revision lumbar instrumentation, laminectomy L23 and L3 4, revision and L3 4, PSSI L2 to L5, PLIF, L2-3 and L3 4: POD #7 PLAN: Orthopedically stable. Palmar function improving Case discussed with nurses Hemoglobin improved after 1 unit packed red blood cells Okay to mobilize out of bed Sreedhar Pinedo MD Sep 24, 2017 07:35
[2017-09-24] MEDS: CHLORHEXIDINE 0.12% (ORAL KIT) 15 ML CUP MT SCH ×2 (08:00→20:13)
[2017-09-24] MEDS: RESP: ALBUTEROL 2.5 MG/IPRATROPIUM 0.5 MG NEB (SCH) NEB ×2 (08:42→19:19)
[2017-09-24] MEDS: DOCUSATE SODIUM 100 MG CAP PO SCH ×2 (09:00→20:13)
[2017-09-24] MEDS ORDERED: HEPARIN - 10,000 UNITS/ML IV ADDITIVE IV PUSH STA (09:04)
--- NOTE | 2017-09-24 09:14 | HHI.CCPN ---
Subjective Remarks/Hospital Course Patient is a 72-year-old female with a history of hypertension, osteoporosis, anxiety, long-standing tobacco abuse quit about 10 years ago who underwent revision laminectomy, and lumbar spinal fusion by Dr. Fink on 09/17/17. ( Revision Laminectomy L34, Laminectomy L23, Removal hardware L45, Posterior lumbar fusion L23, L34, Posterolateral interbody fusion with interbody cages L23 , L34, Posterior spinal segmental instrumentation L2-L5, bone graft). Hospitalist was consulted today 09/21 for increasing shortness of breath for the last 24 hours. Recent treatment for community-acquired pneumonia 5 weeks ago with Z-Oleksandr. Patient was seen by Dr. Camarena today who ordered a CT pulmonary angiogram. This showed no pulmonary embolism but there was diffuse predominantly bilateral upper lobe ground glass opacities/ pulmonary edema. Differential atypical infection/ARDS vs CHF. Patient continued to require increasing oxygen and became more short of breath, tachypneic and critical care medicine was consulted She is tachypneic breathing 35 breaths per minute and short of breath, maintaining oxygen saturation. I have ordered stat 40 mg Lasix with potassium replacement and then schedule 40 mg every 12. 2-D echo had been ordered, check BNP lactic acid. WBC count is elevated at 18.6 with left shift and bandemia. I have started patient on Zosyn antipseudomonal dose, and one dose of vancomycin. IV Levaquin started by Dr. Camarena will be continued. BiPAP 07/11. With a history of long-standing smoking have added IV steroids and scheduled DuoNeb breathing treatments. 09/22: Breathing with increased work today, still on FiO2 0.60. Persistent anxiety but respiratory distress considerably improved. Simple fluid overload would have responded to diuretics by now - suspicious for infectious process. She requires intubation and mechanical ventilation at this point. 09/23: Frothy hemorrhagic sputum is worrisome. Looks like heart failure but BNP 49. CXR clearing with positive airway pressure. Cultures pending result. Upper lobe distribution of infiltrates may require renal workup, ANCA, AWA, etc. Will ask Pulmonary Service to see. Patient responds and communicates on Propofol 50 mics - liver enzymes appear to be revved up from chronic exposure to some 2- carbon fragment. 09/24: Dayday exchange inproved. CXR clearing. Possible left atrial thrombus on ECHO. Will anticoagulate with heparin so I can reverse it if lung secretions appear hemorrhagic. Consult Cardiology for evaluation of mass in [place]. Objective Vital Signs Date Time Temp Pulse Resp B/P (MAP) Pulse Ox O2 Delivery O2 Flow Rate FiO2 09/24/17 08:51 98 40 09/24/17 08:51 Ventilator 09/24/17 06:00 51 09/24/17 04:00 99.0 18 126/61 (82) 09/21/17 21:44 8.00 Intake and Output 09/24/17 09/24/17 09/25/17 08:00 16:00 00:00 Intake Total 850 ml Output Total 1150 ml Balance -300 ml Result Diagram: 09/24/17 0447 09/24/17 0447 Other Results Microbiology Date/Time Source Procedure Growth Status 09/21/17 17:50 Urine Catheterized Urine Urine Culture - Final NO GROWTH IN [address] pulmonary angiogram - No CT evidence for pulmonary embolism. Interval development of diffuse bilateral upper lobe predominant groundglass opacities in a pulmonary edema pattern. Differential considerations include atypical infection and developing ARDS. Objective Remarks GENERAL: Anxious elderly woman, labored tachypneic SKIN: Warm and dry. HEAD: Atraumatic. Normocephalic. EYES: Pupils equal round and reactive. ENT: Uvula midline. Airway patent. NECK: Trachea midline. Orally intubated. CARDIOVASCULAR: Tachycardia, Regular rate and rhythm without murmurs, gallops, or rubs. No JVD. RESPIRATORY: Breath sounds equal bilaterally. Crackles few, no wheezes. Improved exam. GASTROINTESTINAL: Abdomen soft, non-tender, nondistended. BS active, no guarding. MUSCULOSKELETAL: Lumbosacral dressing intact, dry, clean. NEUROLOGICAL: Agitated despite very high dose sedation. Anxious. Motor and sensory grossly within normal limits. A/P Assessment and Plan ASSESSMENT: Acute hypoxemic respiratory failure Pulmonary edema Healthcare associated pneumonia Status status post lumbar laminectomy and fusion Hypokalemia Leukocytosis Hypertension Dyslipidemia Anxiety PLAN: NEURO: - As needed morphine for postoperative pain. - Propofol. Versed prn. RESP: - IV Solu-Medrol 60 mg every 12 hours - DuoNeb every 6 hours scheduled and when necessary - Sputum culture, urine for Legionella and pneumococcal antigen - Empiric Zosyn, Levaquin and one dose of vancomycin - Intubation and ventilation, PEEP 10 - FiO2 100 -> 50%, CXR clearing. Etiology unclear. - Pulmonary Consult for alveolar hemorrhage evaluation. - Steroids increased to 60 q6h. CV: - Discontinue all IV fluids - IV Lasix 40 mg every 12 with potassium replacement - Check BNP -> 49, check 2-D echo - Cardiac enzymes, EKG - ECHO GI: - Nothing by mouth except meds. IV famotidine : - Monitor renal function closely. Reza catheter. IV Lasix as above ID: - Blood sputum and urine cultures ordered. Urine for Legionella and pneumococcal antigen - Broad-spectrum antibiotics with single dose of vancomycin, scheduled antipseudomonal dosing of Zosyn and Levaquin IV HEME: - Monitor CBC, CMP ENDO: - Electrolyte Replacement per protocol PROPH: - Bilateral lower extremity SCDs. IV famotidine for GI prophylaxis. Discussed chemical DVT prophylaxis with Dr. Adair, he wants to wait another 24 hours and probably start 09/22/17 at Lovenox 30 mg sq daily LINES: - Utilize peripheral IVs, central line placed 09/22 Left SCV. Overall impression: Patient remains critically ill with hypoxemic respiratory failure. Leukocytosis from steroids. I think this is simple fluid overload, consistent with bloody frothy red secretions, but she has required mechanical ventilation despite aggressive diuresis. Appreciate input from Dr. Mott. Critical Care 39 mins Dominick Solis MD Sep 24, 2017 09:14
[2017-09-24] MEDS: METOPROLOL TARTRATE 25 MG TAB PO SCH ×2 (09:15→20:01)
[2017-09-24] MEDS ORDERED: HEPARIN-D5W 25,000 U/250 ML 250 ML IV PRN (09:15)
[2017-09-24] MEDS: POTASSIUM CHLORIDE 25 MEQ EFFERVESCENT TAB PO SCH ×2 (09:15→20:13)
[2017-09-24] MEDS: FUROSEMIDE 40 MG/4 ML VIAL IV PUSH SCH ×2 (09:16→17:40)
[2017-09-24] MEDS: FENOFIBRATE 145 MG TAB PO SCH (09:16)
[2017-09-24] MEDS: LISINOPRIL 10 MG TAB PO SCH ×2 (09:16→20:14)
[2017-09-24] MEDS: LORATADINE 10 MG TAB PO SCH (09:16)
[2017-09-24] MEDS: FAMOTIDINE 20 MG/2 ML VIAL IV PUSH SCH ×2 (09:16→20:13)
[2017-09-24] MEDS: METOCLOPRAMIDE HCL 10 MG/2 ML VIAL IV PUSH SCH ×2 (11:25→17:40)
[2017-09-24] MEDS ORDERED: HEPARIN SODIUM - IV 10,000 UNITS/10 ML VIAL IV PUSH PRN (15:15)
[2017-09-24] MEDS ORDERED: HEPARIN - 10,000 UNITS/ML IV ADDITIVE IV PUSH PRN (15:15)
[2017-09-24] MEDS: LEVOFLOXACIN 750 MG PREMIX INJ 150 ML IV SCH (15:56)
[2017-09-24] MEDS ORDERED: PHARMACY ORDERED LAB ONE (17:45)
--- NOTE | 2017-09-24 17:56 | ECHRPT ---
Indication: Left atrial mass CONCLUSIONS The left ventricular systolic function is normal with an estimated ejection fraction in the range of 60-65%. 3/4 pulmonary veins were found with no masses/thrombus noted. Normal left atrial appendage size with no evidence of thrombus formation. The velocities in the left atrial appendage are normal. [id number]-[id number] mitral valve regurgitation. There is trace tricuspid valve regurgitation. BP: / HR: Rhythm: Technical Quality: Medications Complications Proc. Components Patient intubated on sedation during the procedure. FINDINGS LEFT VENTRICLE Normal left ventricular size. The left ventricular systolic function is normal with an estimated ejection fraction in the range of 60-65%. No regional wall motion abnormalities are present. RIGHT VENTRICLE The right ventricular size is normal. LEFT ATRIUM The left atrial size is mildly dilated. No masses noted. 3/4 pulmonary veins were found with no masses/thrombus noted. RIGHT ATRIUM The right atrial size is normal. ATRIAL APPENDAGES Normal left atrial appendage size with no evidence of thrombus formation. The velocities in the left atrial appendage are normal. There is a shadowing noted in the ostium of the appendage, but is a mirror artifact. ATRIAL SEPTUM Normal atrial septal thickness. No atrial level shunt is demonstrated by color flow Doppler interrogation. No atrial level shunt is observed with agitated saline contrast administration. AORTA Descending aorta with no dissection noted MITRAL VALVE Structurally normal mitral valve. [id number] mitral valve regurgitation. No mitral valve stenosis. AORTIC VALVE Trileaflet aortic valve. No aortic valve regurgitation. No aortic valve stenosis. TRICUSPID VALVE Structurally normal tricuspid valve. There is trace tricuspid valve regurgitation. No tricuspid valv e stenosis. VESSELS Grossly normal. No pulmonary valve regurgitation. PERICADIUM There is no pericardial effusion. Cyril Aguillon DO (Electronically Signed) Final Date:24 September 2017 17:54
[2017-09-24] MEDS: VANCOMYCIN 1,500 MG/NS 500 ML IV SCH ×2 (19:05)
--- NOTE | 2017-09-24 19:37 | MB ---
cc: CYRIL MCGEE DO DATE OF CONSULTATION 09/24/2017 REASON FOR CONSULTATION Possible left atrial mass. HISTORY OF PRESENT ILLNESS Yissel Salamanca is a 72-year-old female who originally underwent a laminectomy on September 17, 2017. While in the hospital recovering from this she started to have acute hypoxia and was then seen by the critical care team and intubated. During this time she was noted to have frothy hemorrhagic sputum and there was a concern for heart failure although her BNP was 49. An echocardiogram was done and showed an ejection fraction of 60-65% but there was a question of possible left atrial mobile density noted. I was consulted for further recommendations on this. In seeing her she is currently hemodynamically stable on the ventilator. PAST MEDICAL HISTORY 1. Hypertension. 2. Hyperlipidemia. 3. Anxiety. 4. Osteoporosis. PAST SURGICAL HISTORY Status revision of lumbar laminectomy left L3-L4, posterior spinal fusion L2-L4, placement of interbody cage L2-L4 (September 17, 2017). ALLERGIES NO KNOWN DRUG ALLERGIES. MEDICATIONS 1. Claritin 5 mg daily. 2. Carisoprodol 350 mg every 8 hours as needed. 3. Fenofibrate 145 mg daily. 4. Lisinopril 10 mg b.i.d. 5. Aspirin 81 mg daily. 6. Hydrocodone / acetaminophen 7.5 / 325 mg every 4 hours as needed for pain. 7. Prozac 80 mg every night. 8. Alendronate 70 mg weekly. FAMILY HISTORY Denies premature coronary artery disease or sudden cardiac within the family. SOCIAL HISTORY The patient is a former smoker. Denies alcohol or drug abuse. REVIEW OF SYSTEMS Unable to obtain at this time as the patient is intubated and sedated. PHYSICAL EXAMINATION VITAL SIGNS: Temperature 99.1, heart rate 55, blood pressure 100/56, respirations 19, pulse ox 98% on the ventilator. GENERAL: In general the patient is currently lightly sedated on the ventilator unable to follow simple commands. HEENT: Pupils are equal and round bilaterally. Mucous membranes moist. ET tube in place. NECK: Supple. No JVD at 45 degrees. No carotid bruits heard bilaterally. Carotid upstroke is brisk in nature. CARDIOVASCULAR: Heart is regular rate and rhythm. Positive first and second heart sounds with no noted murmurs, gallops or rubs. LUNGS: Clear to auscultation bilaterally. No wheezes, rales or rhonchi. ABDOMEN: Soft, nontender, nondistended. No organomegaly noted. EXTREMITIES: Show no clubbing, cyanosis or edema. Femoral and distal pulses intact bilaterally. NEUROLOGIC: No focal deficits. SKIN: Warm, dry and intact. OSTEOPATHIC: Mild lordosis. No kyphoscoliosis or paraspinal tender points. LABORATORY FINDINGS Hemoglobin 8.3, hematocrit 24.5, platelets 524. Potassium 4.3, BUN 19, creatinine 0.64. Echocardiogram (September 23, 2017) ejection fraction 60-65%, trace to mild mitral regurgitation, mild to moderate tricuspid regurgitation, possible left atrial mobile density (thrombus versus vegetation). IMPRESSION 1. Possible left atrial mass noted on echocardiogram. 2. Acute hypoxic respiratory failure currently on ventilator. 3. Pulmonary edema of unknown cause. 4. Status post lumbar laminectomy and fusion. 5. History of hypertension. 6. History of dyslipidemia. RECOMMENDATIONS 1. Ms. Salamanca on echocardiogram was noted to possibly have a mass noted in the left atrium. 2. Because of this she will be recommended transesophageal echocardiogram for further definition. 3. Consents will be obtained from her . 4. Further recommendations will be made after AMANDA. Thank you for allowing me to see Yissel Salamanca. If there are any questions please do not hesitate to call. Cyril Mcgee DO VGP/KK /6:36 PM /7:07 PM
--- NOTE | 2017-09-24 20:02 | HHI.PR ---
Subjective Remarks 72 YOWF with VDRF,Mild hemoptysis Weaned to Fi02 40% Opens eyes follows commands Did't tolerate CPAP Had AMANDA Objective Vital Signs Vital Signs Date Time Temp Pulse Resp B/P (MAP) Pulse Ox O2 Delivery O2 Flow Rate FiO2 09/24/17 19:20 100 40 09/24/17 19:00 98 Mechanical Ventilator 40 09/24/17 17:25 99 40 09/24/17 16:00 99.0 53 18 128/68 (88) 99 09/24/17 16:00 53 09/24/17 12:37 98 40 09/24/17 12:00 55 09/24/17 12:00 99.1 55 19 99/56 (70) 98 09/24/17 08:51 98 40 09/24/17 08:51 98 Ventilator 40 09/24/17 08:45 40 09/24/17 08:00 40 09/24/17 08:00 46 09/24/17 08:00 98.4 46 18 136/75 (95) 98 09/24/17 06:00 51 09/24/17 04:30 40 09/24/17 04:27 100 40 09/24/17 04:00 50 09/24/17 04:00 99.0 56 18 126/61 (82) 100 09/24/17 04:00 56 09/24/17 02:00 57 09/24/17 00:09 100 50 09/24/17 00:00 55 09/24/17 00:00 98.6 55 18 122/59 (80) 100 09/24/17 00:00 50 09/23/17 22:00 55 09/23/17 21:14 99 50 09/23/17 20:00 50 09/23/17 20:00 98.2 50 18 101/59 (73) 98 09/23/17 20:00 50 I/O 09/23/17 09/23/17 09/23/17 09/24/17 09/24/17 09/24/17 07:00 15:00 23:00 07:00 15:00 23:00 Intake Total 260 ml 500 ml 1645 ml 850 ml 200 ml 600 ml Output Total 400 ml 1300 ml 1150 ml 1800 ml Balance -140 ml 500 ml 345 ml -300 ml 200 ml -1200 ml IV Total 200 ml 100 ml 1645 ml 750 ml 200 ml 600 ml Packed Cells 400 ml Tube Irrigant 100 ml Other 60 ml Output Urine Total 350 ml 1250 ml 1100 ml 1700 ml Gastric Drainage Total 50 ml 50 ml 50 ml 100 ml Tube Feeding Residual Discard 0 ml # Bowel Movements 0 0 0 0 Result Diagram: 09/24/1744609/24/17446 Objective Remarks GENERAL: Elderly WF, on Vent SKIN: Warm and dry. HEAD: Normocephalic. EYES: No scleral icterus. No injection or drainage. NECK: Supple, trachea midline. No JVD or lymphadenopathy. CARDIOVASCULAR: Regular rate and rhythm without murmurs, gallops, or rubs. RESPIRATORY: Breath sounds equal bilaterally. No accessory muscle use. GASTROINTESTINAL: Abdomen soft, non-tender, nondistended. MUSCULOSKELETAL: No cyanosis, or edema. BACK: Nontender without obvious deformity. No CVA tenderness. A/P Assessment and Plan VDRF Bilat infilt likly Alveolitis Mild Hemoptysis Anemea, had 1 unit PRBC yesterday PLAN: Cont Vent support IV Solumedrol Cont Abx CPAP trial in AM DW Dr. Will Mott,Jae Flanagan MD Sep 24, 2017 20:02
[2017-09-24] MEDS: FLUoxetine HCL 20 MG CAP PO SCH (20:14)
[2017-09-25] VITALS (12 sets, daily range): BP systolic 99–121; BP diastolic 54–70; PULSE 50–79; RESP 9–20; TEMP 98.4–99.7; O2SAT 20–98
[2017-09-25] MEDS: METOCLOPRAMIDE HCL 10 MG/2 ML VIAL IV PUSH SCH ×3 (03:04→18:00)
[2017-09-25 04:39] LABS: AUTOMATED NEUTROPHIL # 14.1 TH/MM3 (1.8-7.7); BASOPHIL % 0.1 % (0.0-2.0); EOSINOPHIL # 0.1 TH/MM3 (0-0.4); EOSINOPHIL % 0.6 % (0.0-4.0); HEMATOCRIT 25.3 % (35.0-46.0); LYMPH % 6.9 % (9.0-44.0); LYMPHOCYTE # 1.1 TH/MM3 (1.0-4.8); MEAN CELL VOLUME 89.7 FL (80.0-100.0); MEAN CORPUSCULAR HEMOGLOBIN 29.8 PG (27.0-34.0); MEAN CORPUSCULAR HGB CONC 33.3 % (32.0-36.0); MONO % 4.8 % (0.0-8.0); NEUT % 87.6 % (16.0-70.0); PLATELET COUNT 568 TH/MM3 (150-450); RED BLOOD COUNT 2.82 MIL/MM3 (4.00-5.30); RED CELL DISTRIBUTION WIDTH 14.7 % (11.6-17.2); WHITE BLOOD COUNT 16.1 TH/MM3 (4.0-11.0)
[2017-09-25] MEDS: PCA - TOTAL MG MORPHINE DELIVERED PER SHIFT SCH ×3 (04:39→20:55)
[2017-09-25] MEDS: PIPERACIL-TAZO 4.5 GM PREMIX 100 ML IV SCH ×3 (04:40→18:00)
[2017-09-25] MEDS: methylPREDNISolone SOD SUCC 125 MG/2 ML VIAL IV PUSH SCH ×3 (04:40→18:00)
[2017-09-25 04:49] LABS: HEMO FLAGS AUTO DIFF
[2017-09-25] MEDS: fentaNYL DRIP 250 ML IV PRN (04:49)
[2017-09-25 04:58] LABS: BICARBONATE 27.8 MEQ/L (21.0-32.0); POTASSIUM 4.2 MEQ/L (3.5-5.1)
[2017-09-25 05:10] LABS: CALCIUM-PROTEIN CORRECTED 7.9 MG/DL (8.5-10.1)
--- NOTE | 2017-09-25 05:58 | RADRPT ---
EXAM DATE/TIME: 09/25/2017 04:45 [facility] COMPARISON: CHEST SINGLE AP, September 24, 2017, 5:05. INDICATIONS : Shortness of breath. MEDICAL HISTORY : Hypertension. SURGICAL HISTORY : Cholecystectomy. Hysterectomy.Fusion, lumbar ENCOUNTER: Subsequent ACUITY: 1 week PAIN SCORE: Non-responsive. LOCATION: Bilateral chest FINDINGS: The ET tube, NG tube and left subclavian line are in good position. The heart is normal. There is mil d increased density at the left base with silhouetting the lateral aspect of the left hemidiaphragm. The right lung is clear. Surgical hardware seen in the lumbar spine. CONCLUSION: Mild persistent left lower lobe consolidation or atelectasis. Geoff Duarte MD on September 25, 2017 at 5:56 Board Certified Radiologist. This report was verified electronically.
[2017-09-25] MEDS: PROPOFOL 1000 MG/100 ML INJ 100 ML IV PRN (06:54)
[2017-09-25 07:40] LABS: BANDS 12 % (0-6); METAMYELOCYTES 2 % (0-1); MYELOCYTES 1 % (0-0); NEUTROPHIL # MANUAL DIFF 14.3 TH/MM3 (1.8-7.7); PLATELET ESTIMATE SMEAR HIGH (NORMAL); PLATELET MORPHOLOGY NORMAL (NORMAL); POLYS (SEG NEUTROPHILS) 74 % (16-70); SCAN/DIFF FINAL DIFF MANUAL; WBC DIFF SAMPLE 100
[2017-09-25] MEDS: CHLORHEXIDINE 0.12% (ORAL KIT) 15 ML CUP MT SCH ×2 (08:00→20:54)
[2017-09-25] MEDS: FUROSEMIDE 40 MG/4 ML VIAL IV PUSH SCH ×2 (08:20→18:00)
[2017-09-25] MEDS: FENOFIBRATE 145 MG TAB PO SCH (08:21)
[2017-09-25] MEDS: LORATADINE 10 MG TAB PO SCH (08:21)
[2017-09-25] MEDS: LISINOPRIL 10 MG TAB PO SCH ×2 (08:21→20:55)
[2017-09-25] MEDS: DOCUSATE SODIUM 100 MG CAP PO SCH ×2 (08:21→20:55)
[2017-09-25] MEDS: POTASSIUM CHLORIDE 25 MEQ EFFERVESCENT TAB PO SCH ×2 (08:21→20:55)
[2017-09-25] MEDS: FAMOTIDINE 20 MG/2 ML VIAL IV PUSH SCH ×2 (08:21→20:54)
[2017-09-25] MEDS: RESP: ALBUTEROL 2.5 MG/IPRATROPIUM 0.5 MG NEB (SCH) NEB ×2 (08:28→13:38)
[2017-09-25] MEDS: METOPROLOL TARTRATE 25 MG TAB PO SCH ×2 (09:00→20:55)
--- NOTE | 2017-09-25 11:10 | HHI.CCPN ---
Subjective Remarks/Hospital Course Patient is a 72-year-old female with a history of hypertension, osteoporosis, anxiety, long-standing tobacco abuse quit about 10 years ago who underwent revision laminectomy, and lumbar spinal fusion by Dr. Fink on 09/17/17. ( Revision Laminectomy L34, Laminectomy L23, Removal hardware L45, Posterior lumbar fusion L23, L34, Posterolateral interbody fusion with interbody cages L23 , L34, Posterior spinal segmental instrumentation L2-L5, bone graft). Hospitalist was consulted today 09/21 for increasing shortness of breath for the last 24 hours. Recent treatment for community-acquired pneumonia 5 weeks ago with Z-Oleksandr. Patient was seen by Dr. Camarena today who ordered a CT pulmonary angiogram. This showed no pulmonary embolism but there was diffuse predominantly bilateral upper lobe ground glass opacities/ pulmonary edema. Differential atypical infection/ARDS vs CHF. Patient continued to require increasing oxygen and became more short of breath, tachypneic and critical care medicine was consulted She is tachypneic breathing 35 breaths per minute and short of breath, maintaining oxygen saturation. I have ordered stat 40 mg Lasix with potassium replacement and then schedule 40 mg every 12. 2-D echo had been ordered, check BNP lactic acid. WBC count is elevated at 18.6 with left shift and bandemia. I have started patient on Zosyn antipseudomonal dose, and one dose of vancomycin. IV Levaquin started by Dr. Camarena will be continued. BiPAP 07/11. With a history of long-standing smoking have added IV steroids and scheduled DuoNeb breathing treatments. 09/22: Breathing with increased work today, still on FiO2 0.60. Persistent anxiety but respiratory distress considerably improved. Simple fluid overload would have responded to diuretics by now - suspicious for infectious process. She requires intubation and mechanical ventilation at this point. 09/23: Frothy hemorrhagic sputum is worrisome. Looks like heart failure but BNP 49. CXR clearing with positive airway pressure. Cultures pending result. Upper lobe distribution of infiltrates may require renal workup, ANCA, AWA, etc. Will ask Pulmonary Service to see. Patient responds and communicates on Propofol 50 mics - liver enzymes appear to be revved up from chronic exposure to some 2- carbon fragment. 09/24: Gas exchange improved. CXR clearing. Possible left atrial thrombus on ECHO. Will anticoagulate with heparin so I can reverse it if lung secretions appear hemorrhagic. Consult Cardiology for evaluation of mass in LA. 09/25: AMANDA shows no LA mass. Stop anticoagulation. Interestingly there was no lung bleeding with heparin. CXR clearing, continue to wean vent. Objective Vital Signs Date Time Temp Pulse Resp B/P (MAP) Pulse Ox O2 Delivery O2 Flow Rate FiO2 09/25/17 08:35 40 09/25/17 08:29 20 09/25/17 08:00 98.8 58 18 121/70 (87) 09/24/17 19:00 Mechanical Ventilator 09/21/17 21:44 8.00 Intake and Output 09/25/17 09/25/17 09/26/17 08:00 16:00 00:00 Intake Total 981 ml Output Total 975.0 ml Balance 6.0 ml Result Diagram: 09/25/17 0422 09/25/17 0422 Other Results Microbiology Date/Time Source Procedure Growth Status 09/22/17 14:45 Sputum Endotracheal Gram Stain - Final Complete 09/22/17 14:45 Sputum Endotracheal Sputum Culture - Final NO GROWTH IN [address] pulmonary angiogram - No CT evidence for pulmonary embolism. Interval development of diffuse bilateral upper lobe predominant groundglass opacities in a pulmonary edema pattern. Differential considerations include atypical infection and developing ARDS. Objective Remarks GENERAL: Anxious elderly woman, now sedated SKIN: Warm and dry. HEAD: Atraumatic. Normocephalic. EYES: Pupils equal round and reactive. ENT: Uvula midline. Airway patent. NECK: Trachea midline. Orally intubated. CARDIOVASCULAR: Regular rate and rhythm without murmurs, gallops, or rubs. No JVD. RESPIRATORY: Breath sounds equal bilaterally. Crackles resolved, no wheezes. Improved exam. GASTROINTESTINAL: Abdomen soft, non-tender, nondistended. BS active, no guarding. MUSCULOSKELETAL: Lumbosacral dressing intact, dry, clean. NEUROLOGICAL: Anxious. Motor and sensory grossly within normal limits. A/P Assessment and Plan ASSESSMENT: Acute hypoxemic respiratory failure Pulmonary edema Healthcare associated pneumonia Status status post lumbar laminectomy and fusion Hypokalemia Leukocytosis Hypertension Dyslipidemia Anxiety PLAN: NEURO: - As needed morphine for postoperative pain. - Propofol. Versed prn. RESP: - IV Solu-Medrol 60 mg every 12 hours - DuoNeb every 6 hours scheduled and when necessary - Sputum culture, urine for Legionella and pneumococcal antigen - Empiric Zosyn, Levaquin and one dose of vancomycin - Intubation and ventilation, PEEP 10 - FiO2 100 -> 50%, CXR clearing. Etiology unclear. - Pulmonary Consult for alveolar hemorrhage evaluation. - Steroids increased to 60 q6h. CV: - Discontinue all IV fluids - IV Lasix 40 mg every 12 with potassium replacement - Check BNP -> 49, check 2-D echo - Cardiac enzymes, EKG - ECHO GI: - Nothing by mouth except meds. IV famotidine : - Monitor renal function closely. Reza catheter. IV Lasix as above ID: - Blood sputum and urine cultures ordered. Urine for Legionella and pneumococcal antigen - Broad-spectrum antibiotics with single dose of vancomycin, scheduled antipseudomonal dosing of Zosyn and Levaquin IV HEME: - Monitor CBC, CMP ENDO: - Electrolyte Replacement per protocol PROPH: - Bilateral lower extremity SCDs. IV famotidine for GI prophylaxis. Discussed chemical DVT prophylaxis with Dr. Adair, he wants to wait another 24 hours and probably start 09/22/17 at Lovenox 30 mg sq daily LINES: - Utilize peripheral IVs, central line placed 09/22 Left SCV. Overall impression: Patient remains critically ill but improving with hypoxemic respiratory failure. Leukocytosis from steroids. Appreciate input from Dr. Mott. Continue steroids, continue antibiotics because of bandemia. Check procalcitonin. Critical Care 35 mins Dominick Solis MD Sep 25, 2017 11:10
--- NOTE | 2017-09-25 11:40 | PD.CARD.PN ---
Subjective Subjective Remarks No events overnight Awake and alert on the vent, answers simple question yes and no Objective Medications Current Medications Medications (Trade) Dose Ordered Sig/Nikki Route Start Time Stop Time Status Last Admin (Tricor) 145 mg DAILY PO 09/18/17 09:00 09/25/17 08:21 (Prinivil) 10 mg BID PO 09/17/17 21:00 09/25/17 08:21 (Claritin) 5 mg DAILY PO 09/18/17 09:00 09/25/17 08:21 (PROzac) 80 mg HS PO 09/17/17 21:00 09/24/17 20:14 (Hinkle 7.5-325 Mg) 1 tab Q4H PRN PO 09/17/17 19:45 09/21/17 11:41 (Hinkle 7.5-325 Mg) 2 tab Q6H PRN PO 09/17/17 19:45 09/21/17 19:00 (Zofran Inj) 4 mg Q6H PRN IV PUSH 09/17/17 19:45 09/21/17 11:55 (Colace) 100 mg BID PO 09/18/17 21:00 09/25/17 08:21 (Mag-Al Plus Susp Liq) 30 ml Q6H PRN PO 09/17/17 19:45 (Ambien) 5 mg HS PRN PO 09/17/17 21:00 (Dulcolax Supp) 10 mg DAILY PRN RECTAL 09/17/17 19:45 (Fleets Enema (Adult)) 133 ml DAILY PRN SC 09/17/17 19:45 09/20/17 12:15 (Narcan Inj) 0.4 mg UNSCH PRN IV PUSH 09/17/17 19:45 (Morphine 1 Mg/ ml GENER[employer]ER) 30 mg UNSCH IV 09/17/17 19:45 09/19/17 06:48 GENERAL UTILITY WORKER Dosage Infused (Pha) 1 Q8HR .XX 09/17/17 22:00 09/20/17 03:34 (Morphine Inj) 5 mg Q4H PRN IV PUSH 09/17/17 19:45 09/22/17 05:40 (Pill Splitter) 1 ea UNSCH PRN OTHER 09/17/17 20:45 (Soma) 350 mg Q8H PRN PO 09/19/17 08:00 09/22/17 03:42 (Duoneb Neb) 1 ampule Q6HR WHILE AWAKE NEB NEB 09/21/17 14:00 09/25/17 08:28 (Duoneb Neb) 1 ampule Q2HR NEB PRN NEB 09/21/17 11:30 09/22/17 03:41 Levofloxacin/ Dextrose 150 ml @ 100 mls/hr Q24H IV 09/21/17 16:00 09/24/17 15:56 Piperacillin Sod/ Tazobactam Sod 100 ml @ 200 mls/hr Q6H IV 09/21/17 18:00 09/25/17 04:40 (Lasix Inj) 40 mg BID@,18 IV PUSH 09/21/17 18:00 09/25/17 08:20 (K-Lyte Cl Eff) 25 meq Q12HR PO 09/21/17 21:00 09/25/17 08:21 Potassium Chloride 100 ml @ 50 mls/hr Q2H PRN IV 09/21/17 17:30 Potassium Chloride 100 ml @ 50 mls/hr Q2H PRN IV 09/21/17 17:30 (K-Lyte Cl Eff) 50 meq UNSCH PRN PO 09/21/17 17:30 Potassium Chloride 100 ml @ 25 mls/hr UNSCH PRN IV 09/21/17 17:30 09/24/17 02:08 Potassium Chloride 100 ml @ 50 mls/hr Q2H PRN IV 09/21/17 17:30 Magnesium Sulfate 4 gm/Sodium Chloride 100 ml @ 50 mls/hr UNSCH PRN IV 09/21/17 17:30 (Mag-Ox) 800 mg UNSCH PRN PO 09/21/17 17:30 Magnesium Sulfate 2 gm/Sodium Chloride 100 ml @ 50 mls/hr UNSCH PRN IV 09/21/17 17:30 (K-Phos) 2,000 mg Q4H PRN PO 09/21/17 17:30 Sodium Phosphate 30 mmol/Sodium Chloride 250 ml @ 42 mls/hr UNSCH PRN IV 09/21/17 17:30 (K-Phos) 2,000 mg UNSCH PRN PO/TUBE 09/21/17 17:30 Potassium Phosphate 30 mmol/ Sodium Chloride 260 ml @ 42 mls/hr UNSCH PRN IV 09/21/17 17:30 (Pepcid Inj) 20 mg Q12HR IV PUSH 09/21/17 18:00 09/25/17 08:21 (Xanax) 0.5 mg Q8H PRN PO 09/22/17 07:15 09/22/17 08:09 Pharmacy Profile Note 0 ml @ 0 mls/hr UNSCH PRN OTHER 09/22/17 13:00 (Peridex 0.12% Liq) 15 ml BID@08,20 MT 09/22/17 20:00 09/25/17 08:00 Propofol 100 ml @ 2.361 mls/ hr TITRATE PRN IV 09/22/17 13:30 09/25/17 06:54 (Lopressor) 25 mg Q12HR PO 09/22/17 14:30 09/24/17 09:15 Fentanyl Citrate 250 ml @ 5 mls/hr TITRATE PRN IV 09/22/17 15:30 09/25/17 04:49 Norepinephrine Bitartrate 4 mg/ Sodium Chloride 250 ml @ 7.5 mls/hr TITRATE PRN IV 09/22/17 18:00 09/22/17 19:00 (Brethine Inj) 1 mg UNSCH PRN SQ 09/22/17 18:00 (SoluMEDROL INJ) 60 mg Q6HR IV PUSH 09/24/17 00:00 09/25/17 04:40 (Reglan Inj) 10 mg Q8H IV PUSH 09/24/17 10:00 09/25/17 10:00 Vancomycin HCl 1500 mg/Sodium Chloride 515 ml @ 257.5 mls/ hr Q18H IV 09/25/17 12:00 Miscellaneous Information SPECIFIC LAB TO BE ARELI... ONCE ONCE .XX 09/26/17 23:45 09/26/17 23:46 Vital Signs / I&O Vital Signs Date Time Temp Pulse Resp B/P (MAP) Pulse Ox O2 Delivery O2 Flow Rate FiO2 09/25/17 08:35 40 09/25/17 08:29 40 09/25/17 08:29 20 40 09/25/17 08:00 98.8 58 18 121/70 (87) 98 09/25/17 08:00 58 09/25/17 06:00 50 09/25/17 04:54 98 40 09/25/17 04:00 99.0 52 18 105/56 (72) 97 09/25/17 04:00 52 09/25/17 04:00 40 09/25/17 02:00 63 09/25/17 00:00 54 09/25/17 00:00 99.0 54 18 99/54 (69) 98 09/25/17 00:00 40 09/24/17 23:50 98 40 09/24/17 22:00 50 09/24/17 20:00 40 09/24/17 20:00 59 09/24/17 20:00 98.4 59 19 130/60 (83) 98 09/24/17 19:20 100 40 09/24/17 19:00 98 Mechanical Ventilator 40 09/24/17 17:25 99 40 09/24/17 16:00 99.0 53 18 128/68 (88) 99 09/24/17 16:00 53 09/24/17 12:37 98 40 09/24/17 12:00 55 09/24/17 12:00 99.1 55 19 99/56 (70) 98 I/O 09/24/17 09/24/17 09/24/17 09/25/17 09/25/17 09/25/17 07:00 15:00 23:00 07:00 15:00 23:00 Intake Total 850 ml 200 ml 600 ml 1596 ml Output Total 1150 ml 1800 ml 975 ml 0 ml Balance -300 ml 200 ml -1200 ml 621 ml 0 ml IV Total 750 ml 200 ml 600 ml 1165 ml Tube Feeding 311 ml Tube Irrigant 100 ml Other 120 ml Output Urine Total 1100 ml 1700 ml 975 ml Gastric Drainage Total 50 ml 100 ml Tube Feeding Residual Discard 0 ml 0 ml # Bowel Movements 0 0 0 Physical Exam GENERAL: NAD, awake on the vent SKIN: Warm and dry. HEAD: Atraumatic. Normocephalic. EYES: Pupils equal and round. No scleral icterus. No injection or drainage. ENT: No nasal bleeding or discharge. Mucous membranes pink and moist. NECK: Trachea midline. No JVD. CARDIOVASCULAR: Regular rate and rhythm. RESPIRATORY: No accessory muscle use. Clear to auscultation. Breath sounds equal bilaterally. GASTROINTESTINAL: Abdomen soft, non-tender, nondistended. Hepatic and splenic margins not palpable. MUSCULOSKELETAL: Extremities without clubbing, cyanosis, or edema. No obvious deformities. NEUROLOGICAL: Awake and alert, follows simple commands on the vent Laboratory Laboratory Tests Test 09/24/17 17:50 09/25/17 04:22 Vancomycin Level Trough 10.6 MCG/ML White Blood Count 16.1 TH/MM3 Red Blood Count 2.82 MIL/MM3 Hemoglobin 8.4 GM/DL Hematocrit 25.3 % Mean Corpuscular Volume 89.7 FL Mean Corpuscular Hemoglobin 29.8 PG Mean Corpuscular Hemoglobin Concent 33.3 % Red Cell Distribution Width 14.7 % Platelet Count 568 TH/MM3 Mean Platelet Volume 6.7 FL Neutrophils (%) (Auto) 87.6 % Lymphocytes (%) (Auto) 6.9 % Monocytes (%) (Auto) 4.8 % Eosinophils (%) (Auto) 0.6 % Basophils (%) (Auto) 0.1 % Neutrophils # (Auto) 14.1 TH/MM3 Lymphocytes # (Auto) 1.1 TH/MM3 Monocytes # (Auto) 0.8 TH/MM3 Eosinophils # (Auto) 0.1 TH/MM3 Basophils # (Auto) 0.0 TH/MM3 CBC Comment AUTO DIFF Differential Total Cells Counted 100 Neutrophils % (Manual) 74 % Band Neutrophils % 12 % Lymphocytes % 5 % Monocytes % 6 % Neutrophils # (Manual) 14.3 TH/MM3 Metamyelocytes 2 % Myelocytes 1 % Differential Comment FINAL DIFF MANUAL Platelet Estimate HIGH Platelet Morphology Comment NORMAL Blood Urea Nitrogen 29 MG/DL Creatinine 0.70 MG/DL Random Glucose 178 MG/DL Total Protein 6.0 GM/DL Calcium Level 7.3 MG/DL Sodium Level 139 MEQ/L Potassium Level 4.2 MEQ/L Chloride Level 105 MEQ/L Carbon Dioxide Level 27.8 MEQ/L Anion Gap 6 MEQ/L Estimat Glomerular Filtration Rate 82 ML/MIN Protein Corrected Calcium 7.9 MG/DL Imaging Last 24 hours Impressions Chest X-Ray 09/25/17 0400 Signed Impressions: Service Date/Time: Monday, September 25, 2017 04:45 - CONCLUSION: Mild persistent left lower lobe consolidation or atelectasis. Geoff Duarte MD Assessment and Plan Problem List: (1) Respiratory failure ICD Codes: J96.90 - Respiratory failure, unspecified, unspecified whether with hypoxia or hypercapnia (2) Recurrent herniation of lumbar disc ICD Codes: M51.26 - Other intervertebral disc displacement, lumbar region (3) Degenerative disc disease, lumbar ICD Codes: M51.36 - Other intervertebral disc degeneration, lumbar region (4) Lumbar spinal stenosis ICD Codes: M48.061 - Spinal stenosis, lumbar region without neurogenic claudication Assessment and Plan 1. Possible left atrial mass noted on echocardiogram. AMANDA done yesterday, no mass noted in the left atrium Would not recommend further treatment at this time, as no mass was noted 2. Acute hypoxic respiratory failure currently on ventilator. Per critical care 3. Will see PRN, call with questions Cyril Aguillon DO Sep 25, 2017 11:40
[2017-09-25] MEDS: VANCOMYCIN 1,500 MG/NS 500 ML IV SCH ×2 (11:46)
--- NOTE | 2017-09-25 17:15 | HHI.PR ---
Subjective Remarks 72 YOWF with VDRF,Mild hemoptysis Had AMANDA Extubated Weaned to NC Up in chair Objective Vital Signs Vital Signs Date Time Temp Pulse Resp B/P (MAP) Pulse Ox O2 Delivery O2 Flow Rate FiO2 09/25/17 16:00 99.5 76 20 102/58 (73) 93 09/25/17 16:00 76 09/25/17 12:15 94 Nasal Cannula 2.00 09/25/17 12:00 62 09/25/17 12:00 98.4 62 9 105/56 (72) 97 09/25/17 11:25 40 09/25/17 08:35 40 09/25/17 08:29 40 09/25/17 08:29 20 40 09/25/17 08:00 98.8 58 18 121/70 (87) 98 09/25/17 08:00 58 09/25/17 06:00 50 09/25/17 04:54 98 40 09/25/17 04:00 99.0 52 18 105/56 (72) 97 09/25/17 04:00 52 09/25/17 04:00 40 09/25/17 02:00 63 09/25/17 00:00 54 09/25/17 00:00 99.0 54 18 99/54 (69) 98 09/25/17 00:00 40 09/24/17 23:50 98 40 09/24/17 22:00 50 09/24/17 20:00 40 09/24/17 20:00 59 09/24/17 20:00 98.4 59 19 130/60 (83) 98 09/24/17 19:20 100 40 09/24/17 19:00 98 Mechanical Ventilator 40 09/24/17 17:25 99 40 I/O 09/24/17 09/24/17 09/24/17 09/25/17 09/25/17 09/25/17 07:00 15:00 23:00 07:00 15:00 23:00 Intake Total 850 ml 200 ml 600 ml 1596 ml 154 ml Output Total 1150 ml 1800 ml 975 ml 0 ml Balance -300 ml 200 ml -1200 ml 621 ml 154 ml IV Total 750 ml 200 ml 600 ml 1165 ml 154 ml Tube Feeding 311 ml Tube Irrigant 100 ml Other 120 ml Output Urine Total 1100 ml 1700 ml 975 ml Gastric Drainage Total 50 ml 100 ml Tube Feeding Residual Discard 0 ml 0 ml # Bowel Movements 0 0 0 Result Diagram: 09/25/1742109/25/17421 Objective Remarks GENERAL: Elderly WF, NAD SKIN: Warm and dry. HEAD: Normocephalic. EYES: No scleral icterus. No injection or drainage. NECK: Supple, trachea midline. No JVD or lymphadenopathy. CARDIOVASCULAR: Regular rate and rhythm without murmurs, gallops, or rubs. RESPIRATORY: Breath sounds equal bilaterally. No accessory muscle use. GASTROINTESTINAL: Abdomen soft, non-tender, nondistended. MUSCULOSKELETAL: No cyanosis, or edema. BACK: Nontender without obvious deformity. No CVA tenderness. A/P Assessment and Plan VDRF, s/p Extubation 09/25 Bilat infilt likly Alveolitis Mild Hemoptysis Anemia PLAN: IV Solumedrol Cont Abx Supplement 02 Start Jae De Leon MD Sep 25, 2017 17:15
[2017-09-25] MEDS: LEVOFLOXACIN 750 MG PREMIX INJ 150 ML IV SCH (18:32)
[2017-09-25] MEDS: FLUoxetine HCL 20 MG CAP PO SCH (20:55)
[2017-09-25] MEDS: ACETAMINOPHEN/HYDROcodone 325 MG/7.5 MG TAB PO PRN (21:02)
[2017-09-26] VITALS (13 sets, daily range): BP systolic 115–148; BP diastolic 57–77; PULSE 58–76; RESP 12–18; TEMP 98.2–99.7; O2SAT 90–96
[2017-09-26] MEDS: PIPERACIL-TAZO 4.5 GM PREMIX 100 ML IV SCH ×2 (00:02→05:39)
[2017-09-26] MEDS: methylPREDNISolone SOD SUCC 125 MG/2 ML VIAL IV PUSH SCH ×4 (00:03→18:21)
[2017-09-26] MEDS: METOCLOPRAMIDE HCL 10 MG/2 ML VIAL IV PUSH SCH ×3 (01:11→18:20)
[2017-09-26] MEDS: ACETAMINOPHEN/HYDROcodone 325 MG/7.5 MG TAB PO PRN (01:11)
[2017-09-26] MEDS: PCA - TOTAL MG MORPHINE DELIVERED PER SHIFT SCH ×2 (05:39→14:00)
[2017-09-26] MEDS: VANCOMYCIN 1,500 MG/NS 500 ML IV SCH ×2 (06:16)
[2017-09-26] MEDS: CHLORHEXIDINE 0.12% (ORAL KIT) 15 ML CUP MT SCH ×2 (08:00→20:00)
--- NOTE | 2017-09-26 08:43 | PD.ORT.PN ---
Subjective Subjective Remarks She continues to improve. She states her back pain is 'surprisingly well controlled'. She has little to no thigh pain at this point. She feels her breathing has improved. She coughed less last night but still has a wet cough. Reza cath is present. Central line in. She denies any substantial shortness of breath or chest pain today though she does note lack of energy and stamina. Objective Vitals Vital Signs Date Time Temp Pulse Resp B/P (MAP) Pulse Ox O2 Delivery O2 Flow Rate FiO2 09/26/17 08:20 95 Nasal Cannula 2.00 09/26/17 06:00 66 09/26/17 04:00 68 09/26/17 04:00 99.3 68 12 134/71 (92) 95 09/26/17 02:11 12 09/26/17 02:00 67 09/26/17 00:00 99.7 73 15 120/68 (85) 90 09/26/17 00:00 69 09/25/17 22:00 68 09/25/17 20:00 99.7 79 14 118/66 (83) 95 09/25/17 20:00 79 09/25/17 19:43 92 Nasal Cannula 2.00 09/25/17 19:00 95 Nasal Cannula 3.00 09/25/17 18:57 96 3.00 09/25/17 18:45 90 Nasal Cannula 4.00 09/25/17 16:00 99.5 76 20 102/58 (73) 93 09/25/17 16:00 76 09/25/17 12:15 94 Nasal Cannula 2.00 09/25/17 12:00 62 09/25/17 12:00 98.4 62 9 105/56 (72) 97 09/25/17 11:25 40 I/O 09/25/17 09/25/17 09/25/17 09/26/17 09/26/17 09/26/17 07:00 15:00 23:00 07:00 15:00 23:00 Intake Total 1596 ml 669 ml 470 ml 580 ml Output Total 975 ml 0 ml 1200 ml 1875 ml Balance 621 ml 669 ml -730 ml -1295 ml Intake Oral 220 ml 480 ml IV Total 1165 ml 669 ml 250 ml 100 ml Tube Feeding 311 ml Other 120 ml Output Urine Total 975 ml 1200 ml 1875 ml Tube Feeding Residual Discard 0 ml # Bowel Movements 0 0 0 Result Diagram: 09/25/172 09/25/17 0422 Imaging Last 24 hours Impressions Chest X-Ray 09/22/17 0000 Signed Impressions: Service Date/Time: Friday, September 22, 2017 07:02 - CONCLUSION: 1. Diffuse pulmonary infiltrates consistent with moderate to severe pulmonary edema versus pneumonia. Clinical correlation is recommended. 2. Mild cardiomegaly. Jacques Martínez MD Procedures Revision Laminectomy L34, Laminectomy L23, Removal hardware L45, Posterior lumbar fusion L23, L34, Posterolateral interbody fusion with interbody cages L23 , L34, Posterior spinal segmental instrumentation L2-L5, bone graft. Objective Remarks Sitting up in bed NAD VSS Nasal cannula in place Reza cath in place L/S Dressing c/d/i, no new drainage, mild warmth but no erythema +AT motor strength bilaterally, +sens, +nvi Neg homans bilaterally, mild swelling of both feet Assessment & Plan Ortho Post Op Day #: 9 Problem List: (1) Recurrent herniation of lumbar disc ICD Codes: M51.26 - Other intervertebral disc displacement, lumbar region (2) Degenerative disc disease, lumbar ICD Codes: M51.36 - Other intervertebral disc degeneration, lumbar region (3) Lumbar spinal stenosis ICD Codes: M48.061 - Spinal stenosis, lumbar region without neurogenic claudication Assessment and Plan pod#9 s/p Exploration lumbar spinal fusion, revision lumbar instrumentation, laminectomy L23 and L3 4, revision and L3 4, PSSI L2 to L5, PLIF, L2-3 and L3 4 Lumbar spinal stenosis. Status post lumbar fusion, L45 (2012) Transitional instability. Lumbar radiculopathy. PLAN: Ortho stable. Lumbar pain well controlled. On nasal cannula with improving pulmonary function. Will order PT eval and treat - OOB w brace. Ambulate with walker. LE exercises from chair as tolerated. IS initiated yesterday. Encouraged hourly as tolerated. Hold dressing changes unless saturated. Critical care to continue to monitor. Ct Negrete Sep 26, 2017 08:43
--- NOTE | 2017-09-26 09:45 | HHI.CCPN ---
Subjective Remarks/Hospital Course Patient is a 72-year-old female with a history of hypertension, osteoporosis, anxiety, long-standing tobacco abuse quit about 10 years ago who underwent revision laminectomy, and lumbar spinal fusion by Dr. Fink on 09/17/17. ( Revision Laminectomy L34, Laminectomy L23, Removal hardware L45, Posterior lumbar fusion L23, L34, Posterolateral interbody fusion with interbody cages L23 , L34, Posterior spinal segmental instrumentation L2-L5, bone graft). Hospitalist was consulted today 09/21 for increasing shortness of breath for the last 24 hours. Recent treatment for community-acquired pneumonia 5 weeks ago with Z-Oleksandr. Patient was seen by Dr. Camarena today who ordered a CT pulmonary angiogram. This showed no pulmonary embolism but there was diffuse predominantly bilateral upper lobe ground glass opacities/ pulmonary edema. Differential atypical infection/ARDS vs CHF. Patient continued to require increasing oxygen and became more short of breath, tachypneic and critical care medicine was consulted She is tachypneic breathing 35 breaths per minute and short of breath, maintaining oxygen saturation. I have ordered stat 40 mg Lasix with potassium replacement and then schedule 40 mg every 12. 2-D echo had been ordered, check BNP lactic acid. WBC count is elevated at 18.6 with left shift and bandemia. I have started patient on Zosyn antipseudomonal dose, and one dose of vancomycin. IV Levaquin started by Dr. Camarena will be continued. BiPAP 07/11. With a history of long-standing smoking have added IV steroids and scheduled DuoNeb breathing treatments. 09/22: Breathing with increased work today, still on FiO2 0.60. Persistent anxiety but respiratory distress considerably improved. Simple fluid overload would have responded to diuretics by now - suspicious for infectious process. She requires intubation and mechanical ventilation at this point. 09/23: Frothy hemorrhagic sputum is worrisome. Looks like heart failure but BNP 49. CXR clearing with positive airway pressure. Cultures pending result. Upper lobe distribution of infiltrates may require renal workup, ANCA, AWA, etc. Will ask Pulmonary Service to see. Patient responds and communicates on Propofol 50 mics - liver enzymes appear to be revved up from chronic exposure to some 2- carbon fragment. 09/24: Gas exchange improved. CXR clearing. Possible left atrial thrombus on ECHO. Will anticoagulate with heparin so I can reverse it if lung secretions appear hemorrhagic. Consult Cardiology for evaluation of mass in LA. 09/25: AMANDA shows no LA mass. Stop anticoagulation. Interestingly there was no lung bleeding with heparin. CXR clearing, continue to wean vent. 09/26: Continued improvement in oxygenation and work of breathing. Dr. Mott recommended high dose steroids and that appeared to start the improvement process. Procalcitonin not elevated and sputum cultures negative despite diffuse alveolar inflammation and bloody sputum. BNP not elevated.No PE. Suspect this may be some connective tissue disorder, studies pending. Of note, she developed a severe "cold" with breathing trouble about 5 weeks ago which got better when her PCP started Prednisone. Followup with Dr. Mott after discharge will be important. Objective Vital Signs Date Time Temp Pulse Resp B/P (MAP) Pulse Ox O2 Delivery O2 Flow Rate FiO2 09/26/17 08:20 95 Nasal Cannula 2.00 09/26/17 06:00 66 09/26/17 04:00 99.3 12 134/71 (92) 09/25/17 11:25 40 Intake and Output 09/26/17 09/26/17 09/27/17 08:00 16:00 00:00 Intake Total 580 ml Output Total 1875 ml Balance -1295 ml Result Diagram: 09/25/1742109/25/[address] pulmonary angiogram - No CT evidence for pulmonary embolism. Interval development of diffuse bilateral upper lobe predominant groundglass opacities in a pulmonary edema pattern. Differential considerations include atypical infection and developing ARDS. Objective Remarks GENERAL: Anxious elderly woman, now sedated SKIN: Warm and dry. HEAD: Atraumatic. Normocephalic. EYES: Pupils equal round and reactive. ENT: Uvula midline. Airway patent. NECK: Trachea midline. Orally intubated. CARDIOVASCULAR: Regular rate and rhythm without murmurs, gallops, or rubs. No JVD. RESPIRATORY: Breath sounds equal bilaterally. Crackles resolved, no wheezes. Improved exam. GASTROINTESTINAL: Abdomen soft, non-tender, nondistended. BS active, no guarding. MUSCULOSKELETAL: Lumbosacral dressing intact, dry, clean. NEUROLOGICAL: Calm, alert, O X 3. Motor and sensory grossly within normal limits. Legs and feet normal motor function. A/P Assessment and Plan ASSESSMENT: Acute hypoxemic respiratory failure Pulmonary edema Healthcare associated pneumonia Status status post lumbar laminectomy and fusion Hypokalemia Leukocytosis Hypertension Dyslipidemia Anxiety PLAN: NEURO: - As needed morphine for postoperative pain. - Propofol. Versed prn. RESP: - IV Solu-Medrol 60 mg every 12 hours - DuoNeb every 6 hours scheduled and when necessary - Sputum culture, urine for Legionella and pneumococcal antigen - Empiric Zosyn, Levaquin and one dose of vancomycin - Intubation and ventilation, PEEP 10 - FiO2 100 -> 50%, CXR clearing. Etiology unclear. - Pulmonary Consult for alveolar hemorrhage evaluation. - Steroids increased to 60 q6h. - Extubated 09/25. CV: - Discontinue all IV fluids - IV Lasix 40 mg every 12 with potassium replacement - Check BNP -> 49, check 2-D echo - Cardiac enzymes, EKG - ECHO GI: - Nothing by mouth except meds. IV famotidine : - Monitor renal function closely. Reza catheter. IV Lasix as above ID: - Blood sputum and urine cultures ordered. Urine for Legionella and pneumococcal antigen - Broad-spectrum antibiotics with single dose of vancomycin, scheduled antipseudomonal dosing of Zosyn and Levaquin IV HEME: - Monitor CBC, CMP ENDO: - Electrolyte Replacement per protocol PROPH: - Bilateral lower extremity SCDs. IV famotidine for GI prophylaxis. Discussed chemical DVT prophylaxis with Dr. Adair, he wants to wait another 24 hours and probably start 09/22/17 at Lovenox 30 mg sq daily LINES: - Utilize peripheral IVs, central line placed 09/22 Left SCV. Overall impression: Patient remains critically ill but improving with hypoxemic respiratory failure. Leukocytosis from steroids. Appreciate input from Dr. Mott. Continue steroids, stop antibiotics. Watch closely. Dominick Solis MD Sep 26, 2017 09:45
[2017-09-26] MEDS: POTASSIUM CHLORIDE 25 MEQ EFFERVESCENT TAB PO SCH ×2 (10:28→21:06)
[2017-09-26] MEDS: FAMOTIDINE 20 MG/2 ML VIAL IV PUSH SCH ×2 (10:28→21:06)
[2017-09-26] MEDS: FUROSEMIDE 40 MG/4 ML VIAL IV PUSH SCH (10:29)
[2017-09-26] MEDS: DOCUSATE SODIUM 100 MG CAP PO SCH ×2 (10:29→21:00)
[2017-09-26] MEDS: LISINOPRIL 10 MG TAB PO SCH ×2 (10:30→21:05)
[2017-09-26] MEDS: METOPROLOL TARTRATE 25 MG TAB PO SCH ×2 (10:30→21:12)
[2017-09-26] MEDS: FENOFIBRATE 145 MG TAB PO SCH (10:30)
[2017-09-26] MEDS: LORATADINE 10 MG TAB PO SCH (10:30)
--- NOTE | 2017-09-26 12:45 | PD.CARD.PN ---
Subjective Subjective Remarks No events overnight Extubated, up to the chair Objective Medications Current Medications Medications (Trade) Dose Ordered Sig/Nikki Route Start Time Stop Time Status Last Admin (Tricor) 145 mg DAILY PO 09/18/17 09:00 09/26/17 10:30 (Prinivil) 10 mg BID PO 09/17/17 21:00 09/26/17 10:30 (Claritin) 5 mg DAILY PO 09/18/17 09:00 09/26/17 10:30 (PROzac) 80 mg HS PO 09/17/17 21:00 09/25/17 20:55 (Bryant 7.5-325 Mg) 1 tab Q4H PRN PO 09/17/17 19:45 09/26/17 01:11 (Bryant 7.5-325 Mg) 2 tab Q6H PRN PO 09/17/17 19:45 09/21/17 19:00 (Zofran Inj) 4 mg Q6H PRN IV PUSH 09/17/17 19:45 09/21/17 11:55 (Colace) 100 mg BID PO 09/18/17 21:00 09/26/17 10:29 (Mag-Al Plus Susp Liq) 30 ml Q6H PRN PO 09/17/17 19:45 (Ambien) 5 mg HS PRN PO 09/17/17 21:00 (Dulcolax Supp) 10 mg DAILY PRN RECTAL 09/17/17 19:45 (Fleets Enema (Adult)) 133 ml DAILY PRN UT 09/17/17 19:45 09/20/17 12:15 (Narcan Inj) 0.4 mg UNSCH PRN IV PUSH 09/17/17 19:45 (Morphine 1 Mg/ ml GUN FITTER) 30 mg UNSCH IV 09/17/17 19:45 09/19/17 06:48 GUN FITTER Dosage Infused (Pha) 1 Q8HR .XX 09/17/17 22:00 09/20/17 03:34 (Morphine Inj) 5 mg Q4H PRN IV PUSH 09/17/17 19:45 09/22/17 05:40 (Pill Splitter) 1 ea UNSCH PRN OTHER 09/17/17 20:45 (Soma) 350 mg Q8H PRN PO 09/19/17 08:00 09/22/17 03:42 (Duoneb Neb) 1 ampule Q2HR NEB PRN NEB 09/21/17 11:30 09/22/17 03:41 (K-Lyte Cl Eff) 25 meq Q12HR PO 09/21/17 21:00 09/26/17 10:28 Potassium Chloride 100 ml @ 50 mls/hr Q2H PRN IV 09/21/17 17:30 Potassium Chloride 100 ml @ 50 mls/hr Q2H PRN IV 09/21/17 17:30 (K-Lyte Cl Eff) 50 meq UNSCH PRN PO 09/21/17 17:30 Potassium Chloride 100 ml @ 25 mls/hr UNSCH PRN IV 09/21/17 17:30 09/24/17 02:08 Potassium Chloride 100 ml @ 50 mls/hr Q2H PRN IV 09/21/17 17:30 Magnesium Sulfate 4 gm/Sodium Chloride 100 ml @ 50 mls/hr UNSCH PRN IV 09/21/17 17:30 (Mag-Ox) 800 mg UNSCH PRN PO 09/21/17 17:30 Magnesium Sulfate 2 gm/Sodium Chloride 100 ml @ 50 mls/hr UNSCH PRN IV 09/21/17 17:30 (K-Phos) 2,000 mg Q4H PRN PO 09/21/17 17:30 Sodium Phosphate 30 mmol/Sodium Chloride 250 ml @ 42 mls/hr UNSCH PRN IV 09/21/17 17:30 (K-Phos) 2,000 mg UNSCH PRN PO/TUBE 09/21/17 17:30 Potassium Phosphate 30 mmol/ Sodium Chloride 260 ml @ 42 mls/hr UNSCH PRN IV 09/21/17 17:30 (Pepcid Inj) 20 mg Q12HR IV PUSH 09/21/17 18:00 09/26/17 10:28 (Xanax) 0.5 mg Q8H PRN PO 09/22/17 07:15 09/22/17 08:09 (Peridex 0.12% Liq) 15 ml BID@08,20 MT 09/22/17 20:00 09/25/17 20:54 Propofol 100 ml @ 2.361 mls/ hr TITRATE PRN IV 09/22/17 13:30 09/25/17 06:54 (Lopressor) 25 mg Q12HR PO 09/22/17 14:30 09/26/17 10:30 Fentanyl Citrate 250 ml @ 5 mls/hr TITRATE PRN IV 09/22/17 15:30 09/25/17 04:49 Norepinephrine Bitartrate 4 mg/ Sodium Chloride 250 ml @ 7.5 mls/hr TITRATE PRN IV 09/22/17 18:00 09/22/17 19:00 (Brethine Inj) 1 mg UNSCH PRN SQ 09/22/17 18:00 (SoluMEDROL INJ) 60 mg Q6HR IV PUSH 09/24/17 00:00 09/26/17 05:39 (Reglan Inj) 10 mg Q8H IV PUSH 09/24/17 10:00 09/26/17 10:28 (Lasix Inj) 40 mg DAILY IV PUSH 09/27/17 09:00 09/26/17 10:29 Vital Signs / I&O Vital Signs Date Time Temp Pulse Resp B/P (MAP) Pulse Ox O2 Delivery O2 Flow Rate FiO2 09/26/17 08:20 95 Nasal Cannula 2.00 09/26/17 08:00 70 09/26/17 08:00 98.8 70 18 148/77 (100) 93 09/26/17 07:00 97 Nasal Cannula 4.00 09/26/17 06:00 66 09/26/17 04:00 68 09/26/17 04:00 99.3 68 12 134/71 (92) 95 09/26/17 02:11 12 09/26/17 02:00 67 09/26/17 00:00 99.7 73 15 120/68 (85) 90 09/26/17 00:00 69 09/25/17 22:00 68 09/25/17 20:00 99.7 79 14 118/66 (83) 95 09/25/17 20:00 79 09/25/17 19:43 92 Nasal Cannula 2.00 09/25/17 19:00 95 Nasal Cannula 3.00 09/25/17 18:57 96 3.00 09/25/17 18:45 90 Nasal Cannula 4.00 09/25/17 16:00 99.5 76 20 102/58 (73) 93 09/25/17 16:00 76 I/O 12/20/17 09/25/17 09/25/17 09/26/17 09/26/17 09/26/17 07:00 15:00 23:00 07:00 15:00 23:00 Intake Total 1596 ml 669 ml 470 ml 680 ml 528 ml Output Total 975 ml 0 ml 1200 ml 1875 ml Balance 621 ml 669 ml -730 ml -1195 ml 528 ml Intake Oral 220 ml 480 ml IV Total 1165 ml 669 ml 250 ml 200 ml 528 ml Tube Feeding 311 ml Other 120 ml Output Urine Total 975 ml 1200 ml 1875 ml Tube Feeding Residual Discard 0 ml # Bowel Movements 0 0 0 Physical Exam GENERAL: NAD SKIN: Warm and dry. HEAD: Atraumatic. Normocephalic. EYES: Pupils equal and round. No scleral icterus. No injection or drainage. ENT: No nasal bleeding or discharge. Mucous membranes pink and moist. NECK: Trachea midline. No JVD. CARDIOVASCULAR: Regular rate and rhythm. RESPIRATORY: No accessory muscle use. Clear to auscultation. Breath sounds equal bilaterally. GASTROINTESTINAL: Abdomen soft, non-tender, nondistended. Hepatic and splenic margins not palpable. MUSCULOSKELETAL: Extremities without clubbing, cyanosis, or edema. No obvious deformities. NEUROLOGICAL: Awake and alert, no focal deficits Laboratory Laboratory Tests Test 09/25/17 18:10 Procalcitonin 0.08 ng/mL Assessment and Plan Problem List: (1) Respiratory failure ICD Codes: J96.90 - Respiratory failure, unspecified, unspecified whether with hypoxia or hypercapnia (2) Recurrent herniation of lumbar disc ICD Codes: M51.26 - Other intervertebral disc displacement, lumbar region (3) Degenerative disc disease, lumbar ICD Codes: M51.36 - Other intervertebral disc degeneration, lumbar region (4) Lumbar spinal stenosis ICD Codes: M48.061 - Spinal stenosis, lumbar region without neurogenic claudication Assessment and Plan 1. Possible left atrial mass noted on echocardiogram. AMANDA done, no mass noted in the left atrium Would not recommend further treatment at this time, as no mass was noted 2. Acute hypoxic respiratory failure Extubated, further recommendations per critical care 3. Will see PRN, call with questions Cyril Aguillon DO Sep 26, 2017 12:45
--- NOTE | 2017-09-26 17:52 | HHI.PR ---
Subjective Remarks 72 YOWF with VDRF,Mild hemoptysis Had AMANDA Extubated 09/25 Weaned to NC Up in chair Feels much better Objective Vital Signs Vital Signs Date Time Temp Pulse Resp B/P (MAP) Pulse Ox O2 Delivery O2 Flow Rate FiO2 09/26/17 16:00 98.2 76 18 116/57 (76) 92 09/26/17 16:00 76 09/26/17 14:00 58 09/26/17 12:00 99.0 60 16 121/58 (79) 96 09/26/17 12:00 60 09/26/17 10:00 70 09/26/17 08:20 95 Nasal Cannula 2.00 09/26/17 08:00 70 09/26/17 08:00 98.8 70 18 148/77 (100) 93 09/26/17 07:00 97 Nasal Cannula 4.00 09/26/17 06:00 66 09/26/17 04:00 68 09/26/17 04:00 99.3 68 12 134/71 (92) 95 09/26/17 02:11 12 09/26/17 02:00 67 09/26/17 00:00 99.7 73 15 120/68 (85) 90 09/26/17 00:00 69 09/25/17 22:00 68 09/25/17 20:00 99.7 79 14 118/66 (83) 95 09/25/17 20:00 79 09/25/17 19:43 92 Nasal Cannula 2.00 09/25/17 19:00 95 Nasal Cannula 3.00 09/25/17 18:57 96 3.00 09/25/17 18:45 90 Nasal Cannula 4.00 I/O 09/25/17 09/25/17 09/25/17 09/26/17 09/26/17 09/26/17 07:00 15:00 23:00 07:00 15:00 23:00 Intake Total 1596 ml 669 ml 470 ml 680 ml 528 ml Output Total 975 ml 0 ml 1200 ml 1875 ml Balance 621 ml 669 ml -730 ml -1195 ml 528 ml Intake Oral 220 ml 480 ml IV Total 1165 ml 669 ml 250 ml 200 ml 528 ml Tube Feeding 311 ml Other 120 ml Output Urine Total 975 ml 1200 ml 1875 ml Tube Feeding Residual Discard 0 ml # Bowel Movements 0 0 0 Result Diagram: 09/25/1742109/25/17421 Objective Remarks GENERAL: Elderly WF, NAD SKIN: Warm and dry. HEAD: Normocephalic. EYES: No scleral icterus. No injection or drainage. NECK: Supple, trachea midline. No JVD or lymphadenopathy. CARDIOVASCULAR: Regular rate and rhythm without murmurs, gallops, or rubs. RESPIRATORY: Breath sounds equal bilaterally. No accessory muscle use. GASTROINTESTINAL: Abdomen soft, non-tender, nondistended. MUSCULOSKELETAL: No cyanosis, or edema. BACK: Nontender without obvious deformity. No CVA tenderness. A/P Assessment and Plan VDRF, s/p Extubation 09/25 Bilat infilt likly Alveolitis Mild Hemoptysis Anemia PLAN: IV Solumedrol Cont Abx Supplement 02 Start po Encourage to use Acapella Donnell pt and Family Jae Mott MD Sep 26, 2017 17:52
[2017-09-26 17:53] LABS: MYELOPEROXIDASE LESS THAN 1.0 AI (<1.0); PROTEINASE-3 LESS THAN 1.0 AI (<1.0)
[2017-09-26] MEDS: FLUoxetine HCL 20 MG CAP PO SCH (21:05)
[2017-09-26] MEDS ORDERED: PHARMACY ORDERED LAB ONE (23:45)
[2017-09-27] VITALS (10 sets, daily range): BP systolic 119–143; BP diastolic 57–83; PULSE 57–73; RESP 16–20; TEMP 97.7–98.8; O2SAT 94–98
[2017-09-27] MEDS: methylPREDNISolone SOD SUCC 125 MG/2 ML VIAL IV PUSH SCH ×4 (00:30→18:03)
[2017-09-27] MEDS: METOCLOPRAMIDE HCL 10 MG/2 ML VIAL IV PUSH SCH ×2 (01:37→09:41)
[2017-09-27] MEDS: PCA - TOTAL MG MORPHINE DELIVERED PER SHIFT SCH ×2 (06:00→14:00)
[2017-09-27 06:07] LABS: HEMATOCRIT 28.8 % (35.0-46.0); MEAN CELL VOLUME 90.3 FL (80.0-100.0); MEAN CORPUSCULAR HEMOGLOBIN 30.4 PG (27.0-34.0); MEAN CORPUSCULAR HGB CONC 33.7 % (32.0-36.0); PLATELET COUNT 703 TH/MM3 (150-450); RED BLOOD COUNT 3.19 MIL/MM3 (4.00-5.30); RED CELL DISTRIBUTION WIDTH 14.7 % (11.6-17.2); REVIEW FLAG FINAL; WHITE BLOOD COUNT 20.9 TH/MM3 (4.0-11.0)
[2017-09-27 06:30] LABS: BICARBONATE 29.4 MEQ/L (21.0-32.0); POTASSIUM 3.7 MEQ/L (3.5-5.1)
[2017-09-27] MEDS: CHLORHEXIDINE 0.12% (ORAL KIT) 15 ML CUP MT SCH (07:44)
--- NOTE | 2017-09-27 08:21 | PD.ORT.PN ---
Subjective Subjective Remarks Patient doing better. Still in ISC. Breathing improved. High-dose steroid for underlying pulmonary dysfunction. No leg pain. Objective Vitals Vital Signs Date Time Temp Pulse Resp B/P (MAP) Pulse Ox O2 Delivery O2 Flow Rate FiO2 09/27/17 06:00 57 09/27/17 04:00 58 09/27/17 04:00 98.7 59 18 119/59 (79) 97 09/27/17 02:00 59 09/27/17 00:00 63 09/27/17 00:00 98.5 64 20 138/66 (90) 94 09/26/17 22:00 76 09/26/17 20:00 98.2 64 18 115/58 (77) 96 09/26/17 20:00 63 09/26/17 19:00 96 Nasal Cannula 4.00 09/26/17 18:00 65 09/26/17 16:00 98.2 76 18 116/57 (76) 92 09/26/17 16:00 76 09/26/17 14:00 58 09/26/17 12:00 99.0 60 16 121/58 (79) 96 09/26/17 12:00 60 09/26/17 10:00 70 09/26/17 08:20 95 Nasal Cannula 2.00 I/O 09/26/17 09/26/17 09/26/17 09/27/17 09/27/17 09/27/17 07:00 15:00 23:00 07:00 15:00 23:00 Intake Total 680 ml 528 ml 480 ml 420 ml Output Total 1875 ml 2400 ml Balance -1195 ml 528 ml -1920 ml 420 ml Intake Oral 480 ml 480 ml 420 ml IV Total 200 ml 528 ml Output Urine Total 1875 ml 2400 ml # Voids 3 # Bowel Movements 0 1 0 Result Diagram: 09/27/17 0540 09/27/17 0540 Imaging Last 24 hours Impressions Chest X-Ray 09/22/17 0000 Signed Impressions: Service Date/Time: Friday, September 22, 2017 07:02 - CONCLUSION: 1. Diffuse pulmonary infiltrates consistent with moderate to severe pulmonary edema versus pneumonia. Clinical correlation is recommended. 2. Mild cardiomegaly. Jaqcues Martínez MD Procedures Revision Laminectomy L34, Laminectomy L23, Removal hardware L45, Posterior lumbar fusion L23, L34, Posterolateral interbody fusion with interbody cages L23 , L34, Posterior spinal segmental instrumentation L2-L5, bone graft. Objective Remarks Sitting Company in bed. Still having significant pulmonary secretions No leg pain. Dressing is dry but rolling up at the edges and there was previous drainage which is now not increasing. Moderate low back ecchymosis. Motor examination both legs normal Assessment & Plan Problem List: (1) Recurrent herniation of lumbar disc ICD Codes: M51.26 - Other intervertebral disc displacement, lumbar region (2) Degenerative disc disease, lumbar ICD Codes: M51.36 - Other intervertebral disc degeneration, lumbar region (3) Lumbar spinal stenosis ICD Codes: M48.061 - Spinal stenosis, lumbar region without neurogenic claudication Assessment and Plan pod#10 s/p Exploration lumbar spinal fusion, revision lumbar instrumentation, laminectomy L23 and L3 4, revision and L3 4, PSSI L2 to L5, PLIF, L2-3 and L3 4 Lumbar spinal stenosis. Status post lumbar fusion, L45 (2013) Transitional instability. Lumbar radiculopathy. PLAN: Ortho stable. Lumbar pain well controlled. On nasal cannula with improving pulmonary function. Ambulate with walker. LE exercises from chair as tolerated. IS initiated yesterday. Encouraged hourly as tolerated. Dressing change once today Critical care to continue to monitor. [place] for pain. Brace when out of bed Sreedahr Pinedo MD Sep 27, 2017 08:21
[2017-09-27] MEDS: DOCUSATE SODIUM 100 MG CAP PO SCH ×2 (09:00→21:45)
[2017-09-27] MEDS: FENOFIBRATE 145 MG TAB PO SCH (09:39)
[2017-09-27] MEDS: FAMOTIDINE 20 MG/2 ML VIAL IV PUSH SCH (09:39)
[2017-09-27] MEDS: FUROSEMIDE 40 MG/4 ML VIAL IV PUSH SCH (09:39)
[2017-09-27] MEDS: LISINOPRIL 10 MG TAB PO SCH ×2 (09:40→21:44)
[2017-09-27] MEDS: LORATADINE 10 MG TAB PO SCH (09:40)
[2017-09-27] MEDS: METOPROLOL TARTRATE 25 MG TAB PO SCH ×2 (09:40→21:45)
[2017-09-27] MEDS: POTASSIUM CHLORIDE 25 MEQ EFFERVESCENT TAB PO SCH ×2 (09:41→21:46)
--- NOTE | 2017-09-27 14:37 | HHI.CCPN ---
Subjective Remarks/Hospital Course Patient is a 72-year-old female with a history of hypertension, osteoporosis, anxiety, long-standing tobacco abuse quit about 10 years ago who underwent revision laminectomy, and lumbar spinal fusion by Dr. Fink on 09/17/17. ( Revision Laminectomy L34, Laminectomy L23, Removal hardware L45, Posterior lumbar fusion L23, L34, Posterolateral interbody fusion with interbody cages L23 , L34, Posterior spinal segmental instrumentation L2-L5, bone graft). Hospitalist was consulted today 09/21 for increasing shortness of breath for the last 24 hours. Recent treatment for community-acquired pneumonia 5 weeks ago with Z-Oleksandr. Patient was seen by Dr. Camarena today who ordered a CT pulmonary angiogram. This showed no pulmonary embolism but there was diffuse predominantly bilateral upper lobe ground glass opacities/ pulmonary edema. Differential atypical infection/ARDS vs CHF. Patient continued to require increasing oxygen and became more short of breath, tachypneic and critical care medicine was consulted She is tachypneic breathing 35 breaths per minute and short of breath, maintaining oxygen saturation. [facility] ordered stat 40 mg Lasix with potassium replacement and then schedule 40 mg every 12. 2-D echo had been ordered, check BNP lactic acid. WBC count is elevated at 18.6 with left shift and bandemia. [facility] started patient on Zosyn antipseudomonal dose, and one dose of vancomycin. IV Levaquin started by Dr. Camarena will be continued. BiPAP 07/11. With a history of long-standing smoking have added IV steroids and scheduled DuoNeb breathing treatments. 09/22: Breathing with increased work today, still on FiO2 0.60. Persistent anxiety but respiratory distress considerably improved. Simple fluid overload would have responded to diuretics by now - suspicious for infectious process. She requires intubation and mechanical ventilation at this point. 09/23: Frothy hemorrhagic sputum is worrisome. Looks like heart failure but BNP 49. CXR clearing with positive airway pressure. Cultures pending result. Upper lobe distribution of infiltrates may require renal workup, ANCA, AWA, etc. Will ask Pulmonary Service to see. Patient responds and communicates on Propofol 50 mics - liver enzymes appear to be revved up from chronic exposure to some 2- carbon fragment. 09/24: Gas exchange improved. CXR clearing. Possible left atrial thrombus on ECHO. Will anticoagulate with heparin so I can reverse it if lung secretions appear hemorrhagic. Consult Cardiology for evaluation of mass in LA. 09/25: AMANDA shows no LA mass. Stop anticoagulation. Interestingly there was no lung bleeding with heparin. CXR clearing, continue to wean vent. 09/26: Continued improvement in oxygenation and work of breathing. Dr. Mott recommended high dose steroids and that appeared to start the improvement process. Procalcitonin not elevated and sputum cultures negative despite diffuse alveolar inflammation and bloody sputum. BNP not elevated.No PE. Suspect this may be some connective tissue disorder, studies pending. Of note, she developed a severe "cold" with breathing trouble about 5 weeks ago which got better when her PCP started Prednisone. Followup with Dr. Mott after discharge will be important. Subjective: 09/27 On NC. Was out of bed to chair 5 hours today. She says still having a lot of clear nasal drainage and clear sputum. Says she quit smoking 2 months ago and I have advised her never to resume.. Afebrile Objective Vital Signs Date Time Temp Pulse Resp B/P (MAP) Pulse Ox O2 Delivery O2 Flow Rate FiO2 09/27/17 11:00 94 Nasal Cannula 3.00 09/27/17 10:00 60 09/27/17 08:00 98.4 18 126/60 (82) 09/25/17 11:25 40 Intake and Output 09/27/17 09/27/17 09/27/17 07:59 15:59 23:59 Intake Total 420 ml Balance 420 ml Result Diagram: 09/27/17 0540 09/27/[address] pulmonary angiogram - No CT evidence for pulmonary embolism. Interval development of diffuse bilateral upper lobe predominant groundglass opacities in a pulmonary edema pattern. Differential considerations include atypical infection and developing ARDS. Objective Remarks GENERAL: Very pleasant female who is laying in ISC bed on NC. SKIN: Warm and dry. HEAD: Atraumatic. Normocephalic. EYES: Pupils equal round and reactive. ENT: MMM NECK: Trachea midline. Airway patent. CARDIOVASCULAR: Regular rate and rhythm without murmurs, gallops, or rubs. No JVD. RESPIRATORY: Breathing is nonlabored. Breath sounds equal bilaterally. No w/r /r. GASTROINTESTINAL: Abdomen soft, non-tender, nondistended. BS active, no guarding. : Voids . MUSCULOSKELETAL: Lumbosacral dressing intact, dry, clean. NEUROLOGICAL: Calm, alert, O X 3. Motor and sensory grossly within normal limits. Moving all extremities with no focal deficit. A/P Problem List: (1) Lumbar spinal stenosis ICD Code: M48.061 - Spinal stenosis, lumbar region without neurogenic claudication (2) Degenerative disc disease, lumbar ICD Code: M51.36 - Other intervertebral disc degeneration, lumbar region (3) Recurrent herniation of lumbar disc ICD Code: M51.26 - Other intervertebral disc displacement, lumbar region (4) Respiratory failure ICD Code: J96.90 - Respiratory failure, unspecified, unspecified whether with hypoxia or hypercapnia Status: Resolved (5) Tobacco abuse ICD Code: Z72.0 - Tobacco use Status: Resolved (6) ARDS (adult respiratory distress syndrome) ICD Code: J80 - Acute respiratory distress syndrome Status: Resolved (7) HTN (hypertension) ICD Code: I10 - Essential (primary) hypertension Status: Chronic (8) Leukocytosis ICD Code: D72.829 - Elevated white blood cell count, unspecified (9) Anemia ICD Code: D64.9 - Anemia, unspecified Assessment and Plan ASSESSMENT: Acute hypoxemic respiratory failure Pulmonary edema Healthcare associated pneumonia Status status post lumbar laminectomy and fusion Hypokalemia Leukocytosis Hypertension Dyslipidemia Anxiety PLAN: NEURO: Postoperative pain (improved) Depression Anxiety Lortab as needed for pain. Morphine as needed for breakthrough pain 7-10. Soma 350 mg by mouth every 8 hours as needed for muscle spasm per orthopedics d/c sedatives from DEC. Continue Prozac 80 mill grams by mouth daily at bedtime Xanax when necessary anxiety RESP: Acute respiratory failure (resolved) ARDS ?steroid responsive alveolitis Mild hemoptysis (resolved) Bronchitis H/o tobacco abuse CT pulmonary angiogram 09/21 - negative for PE diffuse groundglass opacities - IV Solu-Medrol 60 mg every 6hours per pulmonology. - DuoNeb every 6 hours scheduled and when necessary - Sputum culture was negative 09/22. - Extubated 09/25. - ON NC, wean as tolerated. Not previously on home O2 - Pulmonary following, Dr. Mott. -Connective tissue w/u negative thus far. AWA negative, GBM Ab negative. ANCA and RF pending. She believed a past RF was negative. - I discussed smoking cessation with patient and her 09/27 Allergic rhinitis. Increase Claritin to 10 mg by mouth daily CV: Hypertension - Off all IVF - IV Lasix 40 mg daily, diuresing to assist with noncardiogenic pulmonary edema and to optimize respiratory status. No peripheral edema, monitor creatinine daily. - BNP was 49 on 09/23. -TTE Echo - EFT 60-65% with multiple density of the left atrium. Underwent AMANDA 09/24 no evidence of thrombus. EF 60-65%. Troponins were negative Continue lisinopril 10 mg by mouth twice a day. Continue metoprolol 25 mg by mouth every 12 Hypertriglyceridemia Continue fenofibrate 145 mill grams by mouth daily GI: -Heart healthy diet. Change famotidine to by mouth. Discontinue when off steroids. : - Monitor renal function closely. Voiding. IV Lasix as above. BMP in a.m. Discontinue Reglan as it is no longer indicated ID: Probable Noninfectious alveolitis, ?post-viral - Blood, sputum , and urine cultures from 09/21 were negative. Urine for Legionella and pneumococcal antigen were ordered previously but were not performed. -Patient may have had a viral process about 6 weeks prior to admission. Will check influenza which will not change current management if positive but would help explain process perhaps as bacterial infection seems unlikely. -Previously on Broad-spectrum antibiotics with vancomycin, scheduled antipseudomonal dosing of Zosyn and Levaquin IV. These were discontinued 09/26 and she is being monitored off antibiotics. - Pro calcitonin is low 09/25 which would argue against bacterial infection. Leukocytosis - ?steroid induced. Afebrile. HEME: Acute blood loss anemia Hemoglobin dropped from 8-6.8. Has subsequently been stable following transfusion 09/23/17. Was on heparin drip 09/24 when there was concern for possibility of atrial thrombus and had no issues with bleeding. - Monitor CBC ENDO: Low-dose insulin sliding scale ac/hs while on steroids. PROPH: - Bilateral lower extremity SCDs. famotidine for GI po prophylaxis. Lovenox subcut for DVT prophylaxis. LINES: - Utilize peripheral IVs, L subclavian central line placed 09/22 #6. D/c now. Transfer to floor. Hospitalist consult. Dr. Tiera parham. Level 2 followup Problem Qualifiers (1) Respiratory failure: (2) HTN (hypertension): Qualified Codes: I10 - Essential (primary) hypertension [place] Monae MD Sep 27, 2017 14:37
[2017-09-27] MEDS ORDERED: DEXTROSE 50% IN WATER 50 ML VIAL(D50) IV PUSH PRN (15:45)
[2017-09-27] MEDS ORDERED: GLUCAGON 1 MG/ML VIAL OTHER PRN (15:45)
[2017-09-27 16:35] LABS: RHEUMATOID FACTOR TRIGGER 10.7 IU/ML (0.0-14.9)
[2017-09-27] MEDS: INSULIN ASPART SUPPLEMENTAL SCALE SQ SCH ×2 (17:00→20:26)
[2017-09-27] MEDS: ENOXAPARIN SODIUM 40 MG/0.4 ML SYRINGE SQ SCH (18:03)
--- NOTE | 2017-09-27 18:51 | HHI.PR ---
Subjective Remarks 72 YOWF with VDRF,Mild hemoptysis Had AMANDA Extubated 09/25 Weaned to NC Up in chair Feels much better transferred to Floor Objective Vital Signs Vital Signs Date Time Temp Pulse Resp B/P (MAP) Pulse Ox O2 Delivery O2 Flow Rate FiO2 09/27/17 16:00 65 09/27/17 16:00 98.1 73 16 137/57 (83) 95 09/27/17 14:00 64 09/27/17 12:00 97.7 58 16 122/57 (78) 98 09/27/17 12:00 58 09/27/17 11:00 94 Nasal Cannula 3.00 09/27/17 10:00 60 09/27/17 08:00 65 09/27/17 08:00 98.4 58 18 126/60 (82) 96 09/27/17 07:00 94 Nasal Cannula 4.00 09/27/17 06:00 57 09/27/17 04:00 58 09/27/17 04:00 98.7 59 18 119/59 (79) 97 09/27/17 02:00 59 09/27/17 00:00 63 09/27/17 00:00 98.5 64 20 138/66 (90) 94 09/26/17 22:00 76 09/26/17 20:00 98.2 64 18 115/58 (77) 96 09/26/17 20:00 63 09/26/17 19:00 96 Nasal Cannula 4.00 I/O 09/26/17 09/26/17 09/26/17 09/27/17 09/27/17 09/27/17 07:00 15:00 23:00 07:00 15:00 23:00 Intake Total 680 ml 528 ml 480 ml 420 ml 480 ml Output Total 1875 ml 2400 ml 1400 ml Balance -1195 ml 528 ml -1920 ml 420 ml -920 ml Intake Oral 480 ml 480 ml 420 ml 480 ml IV Total 200 ml 528 ml Output Urine Total 1875 ml 2400 ml 1400 ml # Voids 3 # Bowel Movements 0 1 0 2 Result Diagram: 09/27/1753909/27/17 0540 Objective Remarks GENERAL: Elderly WF, NAD SKIN: Warm and dry. HEAD: Normocephalic. EYES: No scleral icterus. No injection or drainage. NECK: Supple, trachea midline. No JVD or lymphadenopathy. CARDIOVASCULAR: Regular rate and rhythm without murmurs, gallops, or rubs. RESPIRATORY: Breath sounds equal bilaterally. No accessory muscle use. GASTROINTESTINAL: Abdomen soft, non-tender, nondistended. MUSCULOSKELETAL: No cyanosis, or edema. BACK: Nontender without obvious deformity. No CVA tenderness. A/P Assessment and Plan VDRF, s/p Extubation 09/25 Bilat infilt likly Alveolitis Mild Hemoptysis Anemia PLAN: DC Solumedrol Prednisone 20 mg po bid Cont Abx Supplement 02 Start po Encourage to use Jae Guerrero MD Sep 27, 2017 18:51
[2017-09-27] MEDS: FLUoxetine HCL 20 MG CAP PO SCH (21:44)
[2017-09-27] MEDS: predniSONE 20 MG TAB PO SCH (21:45)
[2017-09-27] MEDS: FAMOTIDINE 20 MG TAB PO SCH (21:45)
[2017-09-28] VITALS: BP 140/68; PULSE 63; RESP 16; TEMP 97.9; O2SAT 96
[2017-09-28 07:01] LABS: POTASSIUM 3.6 MEQ/L (3.5-5.1)
[2017-09-28 08:00] VITALS: BP 125/69; PULSE 61; RESP 18; TEMP 98.2; O2SAT 93
[2017-09-28] MEDS: INSULIN ASPART SUPPLEMENTAL SCALE SQ SCH ×3 (08:00→17:00)
[2017-09-28] MEDS: predniSONE 20 MG TAB PO SCH (08:24)
[2017-09-28] MEDS: FENOFIBRATE 145 MG TAB PO SCH (08:24)
[2017-09-28] MEDS: METOPROLOL TARTRATE 25 MG TAB PO SCH (08:24)
[2017-09-28] MEDS: DOCUSATE SODIUM 100 MG CAP PO SCH (08:25)
[2017-09-28] MEDS: LISINOPRIL 10 MG TAB PO SCH (08:25)
[2017-09-28] MEDS: FAMOTIDINE 20 MG TAB PO SCH (08:25)
[2017-09-28] MEDS: POTASSIUM CHLORIDE 25 MEQ EFFERVESCENT TAB PO SCH (08:25)
[2017-09-28] MEDS: FUROSEMIDE 40 MG/4 ML VIAL IV PUSH SCH (08:26)
[2017-09-28] MEDS ORDERED: LORATADINE 10 MG TAB PO SCH (09:00)
[2017-09-28 12:00] VITALS: BP 102/58; PULSE 70; RESP 18; TEMP 98.2; O2SAT 94
[2017-09-28 12:06] VITALS: O2SAT 93
--- NOTE | 2017-09-28 13:10 | HHI.PR ---
Subjective Remarks patient looks and feels great did very well with therapy pain controlled Objective Vitals Vital Signs Date Time Temp Pulse Resp B/P (MAP) Pulse Ox O2 Delivery O2 Flow Rate FiO2 09/28/17 12:06 93 09/28/17 08:00 98.2 61 18 125/69 (87) 93 09/28/17 00:00 97.9 63 16 140/68 (92) 96 09/27/17 22:21 Nasal Cannula 3.00 09/27/17 20:00 98.8 64 17 140/83 (102) 94 09/27/17 16:00 97.8 65 16 143/72 (95) 97 09/27/17 16:00 65 09/27/17 16:00 98.1 73 16 137/57 (83) 95 09/27/17 14:00 64 I/O 09/27/17 09/27/17 09/27/17 09/28/17 09/28/17 09/28/17 07:00 15:00 23:00 07:00 15:00 23:00 Intake Total 420 ml 480 ml 780 ml Output Total 1400 ml Balance 420 ml -920 ml 780 ml Intake Oral 420 ml 480 ml 780 ml Output Urine Total 1400 ml # Voids 3 2 # Bowel Movements 0 2 1 Result Diagram: 09/27/17 0540 09/28/17 0557 Imaging Last Impressions Chest X-Ray 09/25/17 0400 Signed Impressions: Service Date/Time: Monday, September 25, 2017 04:45 - CONCLUSION: Mild persistent left lower lobe consolidation or atelectasis. Geoff Duarte MD CT Angiography 09/21/17 0000 Signed Impressions: Service Date/Time: Thursday, September 21, 2017 13:47 - CONCLUSION: 1. No CT evidence for pulmonary embolism. 2. Interval development of diffuse bilateral upper lobe predominant groundglass opacities in a pulmonary edema pattern. Differential considerations include atypical infection and developing ARDS. Tony Serna MD Lumbar Spine X-Ray 09/17/17 0000 Signed Impressions: Service Date/Time: Sunday, September 17, 2017 19:11 - CONCLUSION: 1. Lumbar spine fusion as above. London Whitman MD Objective Remarks awake and alert oriented x 3 anicteric no nuchal rigidity no rales or wheezes regular rhythm abdomen- soft, nontender xtremiteis no edema moves all extremities spontaenously walked with PT- did very well Procedures 09/17- lumbar laminectomy 09/22- endotracheal intubation 09/25- extubation A/P Assessment and Plan NEURO: Postoperative pain (improved) Depression Anxiety Lortab as needed for pain. Morphine as needed for breakthrough pain 7-10. Soma 350 mg by mouth every 8 hours as needed for muscle spasm per orthopedics Continue Prozac 80 mill grams by mouth daily at bedtime Xanax when necessary anxiety very motivated with therapy and dc planning RESP: Acute respiratory failure (resolved) ARDS ?steroid responsive alveolitis Mild hemoptysis (resolved) Bronchitis H/o tobacco abuse CT pulmonary angiogram 09/21 - negative for PE diffuse groundglass opacities - changed to Prednisone 20 mg po bid - quick taper - Sputum culture was negative 09/22. - Extubated 09/25. - ON NC, wean as tolerated. Not previously on home O2 - Pulmonary following, Dr. Mott. -Connective tissue w/u negative thus far. AWA negative, GBM Ab negative. ANCA and RF pending. She believed a past RF was negative. - smoking cessation with patient and her 09/27 Allergic rhinitis. Claritin to 10 mg by mouth daily CV: Hypertension - Off all IVF - IV Lasix 40 mg daily- change to po once daily 20 mg 09/29 -, diuresing to assist with noncardiogenic pulmonary edema and to optimize respiratory status. No peripheral edema, monitor creatinine daily. - BNP was 49 on 09/23. -TTE Echo - EFT 60-65% with multiple density of the left atrium. Underwent AMANDA 09/24 no evidence of thrombus. EF 60-65%. Troponins were negative Continue lisinopril 10 mg by mouth twice a day. Continue metoprolol 25 mg by mouth every 12 Hypertriglyceridemia Continue fenofibrate 145 mill grams by mouth daily GI: -Heart healthy diet. Change famotidine to by mouth. Discontinue when off steroids. : - Monitor renal function closely. Voiding. IV Lasix as above. BMP in a.m. Discontinue Reglan as it is no longer indicated ID: Probable Noninfectious alveolitis, ?post-viral, off antibiotics- sputum per patient clear. minimal rare cough - Blood, sputum , and urine cultures from 09/21 were negative. Urine for Legionella and pneumococcal antigen were ordered previously but were not performed. -Patient may have had a viral process about 6 weeks prior to admission. - Influenza test negative -S/P Zosyn and Levaquin IV. - These were discontinued 09/26 and she is being monitored off antibiotics. - Pro calcitonin is low 09/25 which would argue against bacterial infection. Leukocytosis - ?steroid induced. Afebrile. HEME: Acute blood loss anemia Hemoglobin dropped from 8-6.8. Has subsequently been stable following transfusion 09/23/17. Was on heparin drip 09/24 when there was concern for possibility of atrial thrombus and had no issues with bleeding. Leukocytosis- secondary to steroids - afebrile S/P course of antibiotics ENDO: Low-dose insulin sliding scale ac/hs while on steroids. -good readings PROPH: - Bilateral lower extremity SCDs. famotidine for GI po prophylaxis. Lovenox subcut for DVT prophylaxis. CM consult for DC planning- home with home health care if DC ff up with PCP FF up with Dr. Mott in 1 week _ SNF if arranged and cleared by primary service reinforced AcapellAlbert Geiger MD Sep 28, 2017 13:10
[2017-09-28] MEDS ORDERED: FURO20TA PO (13:45)
[2017-09-28] MEDS ORDERED: FAMO20TA2 PO (13:47)
[2017-09-28] MEDS ORDERED: PRED5TAB PO (13:52)
[2017-09-28] MEDS ORDERED: KLYTECL PO (13:59)
[2017-09-28] MEDS ORDERED: METO25TA3 PO (13:59)
--- NOTE | 2017-09-28 14:39 | PD.ORT.PN ---
Subjective Post Op Day #: 11 Subjective Remarks Patient downgraded to ortho and appears stable. Patient denies any back or LE pain. Patient breathing without difficulty on room air. Objective Vitals Vital Signs Date Time Temp Pulse Resp B/P (MAP) Pulse Ox O2 Delivery O2 Flow Rate FiO2 09/28/17 12:06 93 09/28/17 12:00 98.2 70 18 102/58 (73) 94 09/28/17 08:00 98.2 61 18 125/69 (87) 93 09/28/17 00:00 97.9 63 16 140/68 (92) 96 09/27/17 22:21 Nasal Cannula 3.00 09/27/17 20:00 98.8 64 17 140/83 (102) 94 09/27/17 16:00 97.8 65 16 143/72 (95) 97 09/27/17 16:00 65 09/27/17 16:00 98.1 73 16 137/57 (83) 95 I/O 09/27/17 09/27/17 09/27/17 09/28/17 09/28/17 09/28/17 07:00 15:00 23:00 07:00 15:00 23:00 Intake Total 420 ml 480 ml 780 ml Output Total 1400 ml Balance 420 ml -920 ml 780 ml Intake Oral 420 ml 480 ml 780 ml Output Urine Total 1400 ml # Voids 3 2 # Bowel Movements 0 2 1 Result Diagram: 09/27/17 0540 09/28/17 0557 Imaging Last 24 hours Impressions Chest X-Ray 09/22/17 0000 Signed Impressions: Service Date/Time: Friday, September 22, 2017 07:02 - CONCLUSION: 1. Diffuse pulmonary infiltrates consistent with moderate to severe pulmonary edema versus pneumonia. Clinical correlation is recommended. 2. Mild cardiomegaly. Jacques Martínez MD Procedures Revision Laminectomy L34, Laminectomy L23, Removal hardware L45, Posterior lumbar fusion L23, L34, Posterolateral interbody fusion with interbody cages L23 , L34, Posterior spinal segmental instrumentation L2-L5, bone graft. Objective Remarks Sitting comfortably in bed. Decreased pulmonary secretions No leg pain. Dressing is C/D/I. Moderate low back ecchymosis. Motor examination both legs normal Assessment & Plan Problem List: (1) Recurrent herniation of lumbar disc ICD Codes: M51.26 - Other intervertebral disc displacement, lumbar region (2) Degenerative disc disease, lumbar ICD Codes: M51.36 - Other intervertebral disc degeneration, lumbar region (3) Lumbar spinal stenosis ICD Codes: M48.061 - Spinal stenosis, lumbar region without neurogenic claudication Assessment and Plan pod#11 s/p Exploration lumbar spinal fusion, revision lumbar instrumentation, laminectomy L23 and L3 4, revision and L3 4, PSSI L2 to L5, PLIF, L2-3 and L3 4 Lumbar spinal stenosis. Status post lumbar fusion, L45 (2013) Transitional instability. Lumbar radiculopathy. PLAN: Ortho stable. Lumbar pain well controlled. On room air with improving pulmonary function. Ambulate with walker. LE exercises from chair as tolerated. Continue with IS hourly as tolerated. Dressing change daily. Patient downgraded to ortho floor. cleared from medical standpoint for discharge. Concerned for leukocytosis. Will order UA to r/o infection. Stable per ortho for discharge to if f/u call to medical regarding leukocytosis is cleared. [place] for pain. Brace when out of bed Patricio Mera Sep 28, 2017 14:39
[2017-09-28 15:58] LABS: BLOOD, URINE NEG (NEG); COMMENT (UR) CULT NOT INDICATED; CULTURE IF INDICATED CULT NOT INDICATED; GLUCOSE,URINE NEG (NEG); KETONE, URINE NEG (NEG); NITRITE,URINE NEG (NEG); SQUAMOUS EPITHELIAL CELL URINE <1 /hpf (0-5); TRANSITIONAL EPI CELLS, URINE <1 /hpf; URINE COLOR LIGHT-YELLOW (YELLW/STRAW)
[2017-09-28] MEDS ORDERED: DOCU1CAP39 PO (16:15)
[2017-09-28] MEDS: ENOXAPARIN SODIUM 40 MG/0.4 ML SYRINGE SQ SCH (16:21)
--- NOTE | 2017-09-28 17:19 | HHI.PR ---
Subjective Remarks 72 YOWF with VDRF,Mild hemoptysis Had AMANDA Extubated 09/25 Weaned to NC Up in chair Feels much better Ambulates Anxious to go home Objective Vital Signs Vital Signs Date Time Temp Pulse Resp B/P (MAP) Pulse Ox O2 Delivery O2 Flow Rate FiO2 09/28/17 12:06 93 09/28/17 12:00 98.2 70 18 102/58 (73) 94 09/28/17 08:00 98.2 61 18 125/69 (87) 93 09/28/17 00:00 97.9 63 16 140/68 (92) 96 09/27/17 22:21 Nasal Cannula 3.00 09/27/17 20:00 98.8 64 17 140/83 (102) 94 I/O 09/27/17 09/27/17 09/27/17 09/28/17 09/28/17 09/28/17 07:00 15:00 23:00 07:00 15:00 23:00 Intake Total 420 ml 480 ml 780 ml 720 ml Output Total 1400 ml Balance 420 ml -920 ml 780 ml 720 ml Intake Oral 420 ml 480 ml 780 ml 720 ml Output Urine Total 1400 ml # Voids 3 2 4 # Bowel Movements 0 2 1 2 Result Diagram: 09/27/17 0540 09/28/17 0557 Objective Remarks GENERAL: Elderly WF, NAD SKIN: Warm and dry. HEAD: Normocephalic. EYES: No scleral icterus. No injection or drainage. NECK: Supple, trachea midline. No JVD or lymphadenopathy. CARDIOVASCULAR: Regular rate and rhythm without murmurs, gallops, or rubs. RESPIRATORY: Breath sounds equal bilaterally. No accessory muscle use. GASTROINTESTINAL: Abdomen soft, non-tender, nondistended. MUSCULOSKELETAL: No cyanosis, or edema. BACK: Nontender without obvious deformity. No CVA tenderness. A/P Assessment and Plan VDRF, s/p Extubation 09/25 Bilat infilt likly Alveolitis Mild Hemoptysis Anemia PLAN: Prednisone 20 mg po bid Cont Abx Supplement 02 Encourage to use Acapella Stable from Pulm standpoint Will FU in office Jae Mott MD Sep 28, 2017 17:19
[2017-09-29] MEDS ORDERED: FUROSEMIDE 20 MG TAB PO SCH (09:00)
[2017-10-03 03:51] LABS: MYELOPEROXIDASE LESS THAN 1.0 AI (<1.0); PROTEINASE-3 LESS THAN 1.0 AI (<1.0)
== END 2017-09-28 18:06 | disposition home health service (06) | DRG 459 ==
LOC: HSDI 10:46 → N06A 09-18 02:30 → N03B 09-21 17:34 → N06B 09-27 16:56
PROVIDERS: ADMIT Orthopaedic Surgery Orthopaedic Surgery of the Spine; ATTEND Orthopaedic Surgery Orthopaedic Surgery of the Spine
PROC: 0ST20ZZ Resection of Lumbar Vertebral Disc, Open Approach (ICD-10-PCS; 2017-09-17)
PROC: 00NY0ZZ Release Lumbar Spinal Cord, Open Approach (ICD-10-PCS; 2017-09-17)
PROC: 0SP004Z Removal of Internal Fixation Device from Lumbar Vertebral Joint, Open Approach (ICD-10-PCS; 2017-09-17)
PROC: 0SG10AJ Fusion of 2 or more Lumbar Vertebral Joints with Interbody Fusion Device, Posterior Approach, Anterior Column, Open Approach (ICD-10-PCS; principal; 2017-09-17 15:38)
PROC: 5A1945Z Respiratory Ventilation, 24-96 Consecutive Hours (ICD-10-PCS; 2017-09-22)
PROC: 0BH17EZ Insertion of Endotracheal Airway into Trachea, Via Natural or Artificial Opening (ICD-10-PCS; 2017-09-22)
PROC: 05H633Z Insertion of Infusion Device into Left Subclavian Vein, Percutaneous Approach (ICD-10-PCS; 2017-09-22)
PROC: 30233N1 Transfusion of Nonautologous Red Blood Cells into Peripheral Vein, Percutaneous Approach (ICD-10-PCS; 2017-09-23)
DX: M51.16 Intervertebral disc disorders with radiculopathy, lumbar region (principal); J96.01 Acute respiratory failure with hypoxia; R65.20 Severe sepsis without septic shock; J18.9 Pneumonia, unspecified organism; J81.1 Chronic pulmonary edema; A41.9 Sepsis, unspecified organism; J80 Acute respiratory distress syndrome; R04.2 Hemoptysis; D62 Acute posthemorrhagic anemia; M53.2X6 Spinal instabilities, lumbar region; M48.061 Spinal stenosis, lumbar region without neurogenic claudication; Z98.1 Arthrodesis status; M62.830 Muscle spasm of back; E78.5 Hyperlipidemia, unspecified; F41.9 Anxiety disorder, unspecified; Y95 Nosocomial condition; E87.6 Hypokalemia; J30.9 Allergic rhinitis, unspecified; F32.9 Major depressive disorder, single episode, unspecified; J40 Bronchitis, not specified as acute or chronic; I10 Essential (primary) hypertension; E78.1 Pure hyperglyceridemia; D72.829 Elevated white blood cell count, unspecified; T38.0X5A Adverse effect of glucocorticoids and synthetic analogues, initial encounter; Z87.891 Personal history of nicotine dependence
CPT/HCPCS: 31500; 36430; 36556; 36600; 71010; 71275; 72100; 76000; 80048; 80053; 80202; 81001; 82805; 82948; 83520; 83605; 83735; 83880; 84100; 84132; 84145; 84155; 84484; 85007; 85014; 85018; 85025; 85027; 85610; 85730; 86021; 86038; 86430; 86850; 86900; 86901; 86920; 87040; 87070; 87086; 87205; 87804; 93005; 93306; 93312; 93320; 93325; 94002; 94003; 94150; 94640; 94664; 94667; 94668; C1713; J0690; J1100; J1170; J1580; J1650; J1940; J1956; J2060; J2175; J2250; J2270; J2370; J2405; J2543; J2710; J2765; J2930; J3010; J3370; J3480; J7040; J7050; J7120; J7512; J7613; P9016; Q9967

== ENCOUNTER 2018-05-18 01:53 | Observation (INO) ==
[2018-05-18 03:06] LABS: Baso % (Auto) 0.5 % (0.0-2.0); Eos # (Auto) 0.4 th/mm3 (0.0-0.4); Eos % (Auto) 4.3 % (0.0-4.0); Hematocrit 37.1 % (35.0-46.0); Hemoglobin 12.9 gm/dL (11.6-15.3); Lymph # (Auto) 3.2 th/mm3 (1.0-4.8); Lymph % (Auto) 34.5 % (9.0-44.0); Mean Corpuscular HGB Conc 34.8 % (32.0-36.0); Mean Corpuscular Hemoglobin 31.5 pg (27.0-34.0); Mean Corpuscular Volume 90.4 fL (80.0-100.0); Mean Platelet Volume 7.9 fL (7.0-11.0); Mono # (Auto) 0.9 th/mm3 (0.0-0.9); Mono % (Auto) 10.1 % (0.0-8.0); Neut # (Auto) 4.8 th/mm3 (1.8-7.7); Neut % (Auto) 50.6 % (16.0-70.0); Platelet Count 407 th/mm3 (150-450); White Blood Count 9.4 th/mm3 (4.0-11.0)
--- NOTE | 2018-05-18 03:24 | XR ---
EXAM DATE: 05/18/2018 3:07 AM EDT AGE/SEX: 73 years / Female INDICATIONS: Shortness of breath. CLINICAL DATA: This is the patient's initial encounter. Patient reports that signs and symptoms have been present for 1 day and indicates a pain score of 0/10. MEDICAL/SURGICAL HISTORY: Hypertension. None. COMPARISON: [facility], XR CHEST PA AND LAT, 11/13/2017. . FINDINGS: Portable AP view of the chest demonstrates a normal-sized cardiac silhouette. No effusion, consolidat ion, or pneumothorax is identified. The bones and soft tissues demonstrate no acute finding. EKG line s overlie the patient. Partially visualized lumbar spine hardware is present. CONCLUSION: No acute cardiopulmonary abnormality is identified. Electronically signed by: Geoff Mcgill MD 05/18/2018 3:23 AM EDT
[2018-05-18] MEDS ORDERED: Acetaminophen 325 MG Tablet PO PRN (05:05)
[2018-05-18] MEDS ORDERED: Temazepam 15 MG Capsule PO PRN (05:05)
[2018-05-18] MEDS ORDERED: Bisacodyl 10 MG Supp RECTAL PRN (05:05)
--- NOTE | 2018-05-18 05:44 | ED ---
HPI General Chief Complaint: Chest Pain Stated Complaint: cardiac Time Seen by Provider: 05/18/18 03:38 History of Present Illness HPI narrative: 73-year-old female presents with chest pain. Pain is midsternal and nonradiating. She has had episodes that are similar in the past. She also describes some shortness of breath. She has no known cardiac disease. She has been hospitalized for shortness of breath and chest pain in the past however she believes it may be a lung issue as she follows with a licensed life and health agent and did improve with steroids. She is a non-smoker, she does not drink alcohol. Patient has never had a stress test or catheterization in the past. Complete Quality Measures for STEMI Alert Patients Related Data Home Medications Medication Instructions Recorded Confirmed Calcium 600 with Vitamin D3 2 tab PO DAILY 05/18/18 05/18/18 alendronate 70 mg PO QWEEK 05/18/18 05/18/18 alprazolam 0.25 mg PO PRN 05/18/18 aspirin [Aspirin Childrens] 1 tab PO DAILY 05/18/18 05/18/18 cholecalciferol (vitamin D3) 2,000 unit PO DAILY 05/18/18 05/18/18 [Vitamin D3] fenofibrate 145 mg PO DAILY 05/18/18 05/18/18 fluoxetine [Prozac] 80 mg PO DAILY 05/18/18 05/18/18 lisinopril 10 mg PO BID 05/18/18 05/18/18 naproxen sodium [Aleve] 440 mg PO BID 05/18/18 05/18/18 Allergies Allergy/AdvReac Type Severity Reaction Status Date / Time No Known Allergies Allergy Unknown Uncoded 09/17/17 11:23 Review of Systems ROS: all other systems reviewed are negative Constitutional Reports fatigue and Denies fever(s) ENT Denies nasal congestion Cardiovascular Reports chest pain, Denies claudication and Denies lightheadedness Respiratory Denies chest congestion, Reports dyspnea and Denies dyspnea on exertion Gastrointestinal Denies change in bowel habits, Denies change in stool character, Denies nausea and Denies vomiting Genitourinary Denies urinary frequency Musculoskeletal Denies myalgias and Denies arthralgias Integumentary/Breasts Denies rash [facility] Medical History Medical History Clinical depression (Acute) Endotracheally intubated (Acute) FH: cholecystectomy (Acute) Hypercholesteremia (Acute) Hypertension (Acute) Osteoarthritis (Acute) Pneumonia (Acute) Surgical History Surgical History History of back surgery (Acute) History of bladder suspension procedure (Acute) History of carpal tunnel release of both wrists (Acute) History of total abdominal hysterectomy (Acute) History of total right knee replacement (Acute) Family History Family History Other Family history of hypertension Social History Social History Substance History: No History of Abuse Second Hand Smoke Exposure: No Smoking Status: Former smoker Tobacco Type: Cigarettes How Often Do You Have a Drink Containing Alcohol: Monthly or less Hx Recent Travel: No Recent Travel in [facility] within the Last 8 Weeks: No Recent Out of Country Travel within the Last 8 Weeks: No Immunization History Tetanus Immunization: >5 Years Hx Influenza Vaccine This Season: No Exam Narrative Exam Narrative: GENERAL: Well-appearing 73-year-old female in no distress. SKIN: Focused skin assessment warm/dry. HEAD: Atraumatic. Normocephalic. EYES: Pupils equal and round. No scleral icterus. No injection or drainage. ENT: No nasal bleeding or discharge. Mucous membranes pink and moist. NECK: Trachea midline. No JVD. CARDIOVASCULAR: Regular rate and rhythm. No murmur appreciated. RESPIRATORY: No accessory muscle use. Clear to auscultation. Breath sounds equal bilaterally. GASTROINTESTINAL: Abdomen soft, non-tender, nondistended. Hepatic and splenic margins not palpable. MUSCULOSKELETAL: No obvious deformities. No clubbing. No cyanosis. No edema. NEUROLOGICAL: Awake and alert. No obvious cranial nerve deficits. Motor grossly within normal limits. Normal speech. PSYCHIATRIC: Appropriate mood and affect; insight and judgment normal. Course Initial Documented Vital Signs Pulse Rate 75 05/18/18 02:00 Respiratory Rate 22 05/18/18 02:00 Blood Pressure 109/81 05/18/18 02:00 Pulse Oximetry 95 05/18/18 02:00 Last Documented Vital Signs Temperature 98.4 F 05/19/18 03:43 Pulse Rate 68 05/19/18 03:43 Respiratory Rate 16 05/19/18 03:43 Blood Pressure 142/72 H 05/19/18 03:43 Pulse Oximetry 97 05/19/18 03:43 Medical Decision Making MDM Narrative Medical decision making narrative: Patient was seen and evaluated in the emergency department. Her initial EKG was normal and did not demonstrate any acute ST segment elevation or depression. Given her age and the fact that she had not had a formal cardiac workup she was admitted for chest pain and shortness of breath. Lab Data Result diagrams: 05/18/18 02:55 05/18/18 13:36 Lab Results 05/18/18 05/18/18 05/18/18 Range/Units 02:55 02:55 02:55 WBC 9.4 (4.0-11.0) th/mm3 RBC 4.10 (4.00-5.30) mil/mm3 Hgb 12.9 (11.6-15.3) gm/dL Hct 37.1 (35.0-46.0) % MCV 90.4 (80.0-100.0) fL MCH 31.5 (27.0-34.0) pg MCHC 34.8 (32.0-36.0) % RDW 13.0 (11.6-17.2) % Plt Count 407 (150-450) th/mm3 MPV 7.9 (7.0-11.0) fL Neut % (Auto) 50.6 (16.0-70.0) % Lymph % (Auto) 34.5 (9.0-44.0) % Dunn % (Auto) 10.1 H (0.0-8.0) % Eos % (Auto) 4.3 H (0.0-4.0) % Baso % (Auto) 0.5 (0.0-2.0) % Neut # (Auto) 4.8 (1.8-7.7) th/mm3 Lymph # (Auto) 3.2 (1.0-4.8) th/mm3 Dunn # (Auto) 0.9 (0.0-0.9) th/mm3 Eos # (Auto) 0.4 (0.0-0.4) th/mm3 Baso # (Auto) 0.0 (0.0-0.2) th/mm3 WBC Differential . Differential Comment Auto diff final APTT 25.4 (24.3-30.1) sec Sodium (136-145) meq/L Potassium (3.5-5.1) meq/L Chloride (98-107) meq/L Carbon Dioxide (21.0-32.0) meq/L Anion Gap (5-15) meq/L BUN (7-18) mg/dL Creatinine (0.50-1.00) mg/dL Estimated GFR (>89) mL/min Random Glucose (74-106) mg/dL Calcium (8.5-10.1) mg/dL Magnesium (1.5-2.5) mg/dL Total Bilirubin (0.2-1.0) mg/dL AST (15-37) U/L ALT (10-53) U/L Alkaline Phosphatase (45-117) U/L Total Creatine Kinase (26-192) U/L Troponin I Less than 0.02 L (0.02-0.05) ng/mL B-Natriuretic Peptide (0-100) pg/mL Total Protein (6.4-8.2) g/dL Albumin (3.4-5.0) g/dL TSH (0.358-3.740) uIU/mL Free T4 (0.76-1.46) ng/dL Ur Collection Type Urine Color Urine Clarity Urine pH Ur Specific [place] Urine Protein Urine Glucose (UA) Urine Ketones Urine Occult Blood Urine Nitrate Urine Bilirubin Urine Ictotest Urine Urobilinogen Ur Leukocyte Esterase Urine RBC Urine WBC Urine WBC Clumps Ur Squamous Epith Cells Ur Transition Epith Cell Ur Renal Epithelial Cell Calcium Carbonate Cryst Calcium Oxalate Crystal Leucine Crystals Cystine Crystals Uric Acid Crystals Triple Phos Crystals Cholesterol Crystals Tyrosine Crystals Amorphous Sediment Urine Bacteria Hyaline Casts Granular Casts Fine Granular Casts Coarse Granular Casts Waxy Casts RBC Casts WBC Casts Urine Mucus Urine Trichomonas Urine Yeast Ur Yeast w Hyphae Urine Sperm Ur Oval Fat Bodies Micro UA Comment Urine Culture Comments Urine Collection Time Urine Comment 05/18/18 05/18/18 05/18/18 Range/Units 02:55 10:00 10:00 WBC (4.0-11.0) th/mm3 RBC (4.00-5.30) mil/mm3 Hgb (11.6-15.3) gm/dL Hct (35.0-46.0) % MCV (80.0-100.0) fL MCH (27.0-34.0) pg MCHC (32.0-36.0) % RDW (11.6-17.2) % Plt Count (150-450) th/mm3 MPV (7.0-11.0) fL Neut % (Auto) (16.0-70.0) % Lymph % (Auto) (9.0-44.0) % Dunn % (Auto) (0.0-8.0) % Eos % (Auto) (0.0-4.0) % Baso % (Auto) (0.0-2.0) % Neut # (Auto) (1.8-7.7) th/mm3 Lymph # (Auto) (1.0-4.8) th/mm3 Dunn # (Auto) (0.0-0.9) th/mm3 Eos # (Auto) (0.0-0.4) th/mm3 Baso # (Auto) (0.0-0.2) th/mm3 WBC Differential Differential Comment APTT (24.3-30.1) sec Sodium (136-145) meq/L Potassium (3.5-5.1) meq/L Chloride (98-107) meq/L Carbon Dioxide (21.0-32.0) meq/L Anion Gap (5-15) meq/L BUN (7-18) mg/dL Creatinine (0.50-1.00) mg/dL Estimated GFR (>89) mL/min Random Glucose (74-106) mg/dL Calcium (8.5-10.1) mg/dL Magnesium (1.5-2.5) mg/dL Total Bilirubin (0.2-1.0) mg/dL AST (15-37) U/L ALT (10-53) U/L Alkaline Phosphatase (45-117) U/L Total Creatine Kinase (26-192) U/L Troponin I (0.02-0.05) ng/mL B-Natriuretic Peptide 24 (0-100) pg/mL Total Protein (6.4-8.2) g/dL Albumin (3.4-5.0) g/dL TSH (0.358-3.740) uIU/mL Free T4 (0.76-1.46) ng/dL Ur Collection Type Cancelled Urine Color Cancelled Yellow Urine Clarity Cancelled Hazy H Urine pH Cancelled 6.0 Ur Specific [place] Cancelled 1.016 Urine Protein Cancelled Negative Urine Glucose (UA) Cancelled Negative Urine Ketones Cancelled Negative Urine Occult Blood Cancelled Negative Urine Nitrate Cancelled Negative Urine Bilirubin Cancelled Negative Urine Ictotest Cancelled Urine Urobilinogen Cancelled Less than 2 Ur Leukocyte Esterase Cancelled Moderate H Urine RBC Cancelled 3 Urine WBC Cancelled 5 Urine WBC Clumps Cancelled Ur Squamous Epith Cells Cancelled 1 Ur Transition Epith Cell Cancelled Ur Renal Epithelial Cell Cancelled Calcium Carbonate Cryst Cancelled Calcium Oxalate Crystal Cancelled Leucine Crystals Cancelled Cystine Crystals Cancelled Uric Acid Crystals Cancelled Triple Phos Crystals Cancelled Cholesterol Crystals Cancelled Tyrosine Crystals Cancelled Amorphous Sediment Cancelled Urine Bacteria Cancelled Rare H Hyaline Casts Cancelled Granular Casts Cancelled Fine Granular Casts Cancelled Coarse Granular Casts Cancelled Waxy Casts Cancelled RBC Casts Cancelled WBC Casts Cancelled Urine Mucus Cancelled Few H Urine Trichomonas Cancelled Urine Yeast Cancelled Ur Yeast w Hyphae Cancelled Urine Sperm Cancelled Ur Oval Fat Bodies Cancelled Micro UA Comment Cancelled Culture not ind Urine Culture Comments Culture not ind Urine Collection Time Cancelled Urine Comment Cancelled 05/18/18 05/18/18 05/18/18 Range/Units 10:51 13:36 13:36 WBC (4.0-11.0) th/mm3 RBC (4.00-5.30) mil/mm3 Hgb (11.6-15.3) gm/dL Hct (35.0-46.0) % MCV (80.0-100.0) fL MCH (27.0-34.0) pg MCHC (32.0-36.0) % RDW (11.6-17.2) % Plt Count (150-450) th/mm3 MPV (7.0-11.0) fL Neut % (Auto) (16.0-70.0) % Lymph % (Auto) (9.0-44.0) % Dunn % (Auto) (0.0-8.0) % Eos % (Auto) (0.0-4.0) % Baso % (Auto) (0.0-2.0) % Neut # (Auto) (1.8-7.7) th/mm3 Lymph # (Auto) (1.0-4.8) th/mm3 Dunn # (Auto) (0.0-0.9) th/mm3 Eos # (Auto) (0.0-0.4) th/mm3 Baso # (Auto) (0.0-0.2) th/mm3 WBC Differential Differential Comment APTT (24.3-30.1) sec Sodium 142 (136-145) meq/L Potassium 3.8 (3.5-5.1) meq/L Chloride 106 (98-107) meq/L Carbon Dioxide 28.6 (21.0-32.0) meq/L Anion Gap 7 (5-15) meq/L BUN 19 H (7-18) mg/dL Creatinine 0.87 (0.50-1.00) mg/dL Estimated GFR 64 L (>89) mL/min Random Glucose 80 (74-106) mg/dL Calcium 9.0 (8.5-10.1) mg/dL Magnesium (1.5-2.5) mg/dL Total Bilirubin 0.3 (0.2-1.0) mg/dL AST 36 (15-37) U/L ALT 34 (10-53) U/L Alkaline Phosphatase 53 (45-117) U/L Total Creatine Kinase 85 90 (26-192) U/L Troponin I Less than 0.02 L Less than 0.02 L (0.02-0.05) ng/mL B-Natriuretic Peptide (0-100) pg/mL Total Protein 7.2 (6.4-8.2) g/dL Albumin 3.7 (3.4-5.0) g/dL TSH (0.358-3.740) uIU/mL Free T4 (0.76-1.46) ng/dL Ur Collection Type Urine Color Urine Clarity Urine pH Ur Specific [place] Urine Protein Urine Glucose (UA) Urine Ketones Urine Occult Blood Urine Nitrate Urine Bilirubin Urine Ictotest Urine Urobilinogen Ur Leukocyte Esterase Urine RBC Urine WBC Urine WBC Clumps Ur Squamous Epith Cells Ur Transition Epith Cell Ur Renal Epithelial Cell Calcium Carbonate Cryst Calcium Oxalate Crystal Leucine Crystals Cystine Crystals Uric Acid Crystals Triple Phos Crystals Cholesterol Crystals Tyrosine Crystals Amorphous Sediment Urine Bacteria Hyaline Casts Granular Casts Fine Granular Casts Coarse Granular Casts Waxy Casts RBC Casts WBC Casts Urine Mucus Urine Trichomonas Urine Yeast Ur Yeast w [place]phae Urine Sperm Ur Oval Fat Bodies Micro UA Comment Urine Culture Comments Urine Collection Time Urine Comment 05/18/18 05/18/18 Range/Units 13:36 13:36 WBC (4.0-11.0) th/mm3 RBC (4.00-5.30) mil/mm3 Hgb (11.6-15.3) gm/dL Hct (35.0-46.0) % MCV (80.0-100.0) fL MCH (27.0-34.0) pg MCHC (32.0-36.0) % RDW (11.6-17.2) % Plt Count (150-450) th/mm3 MPV (7.0-11.0) fL Neut % (Auto) (16.0-70.0) % Lymph % (Auto) (9.0-44.0) % Dunn % (Auto) (0.0-8.0) % Eos % (Auto) (0.0-4.0) % Baso % (Auto) (0.0-2.0) % Neut # (Auto) (1.8-7.7) th/mm3 Lymph # (Auto) (1.0-4.8) th/mm3 Dunn # (Auto) (0.0-0.9) th/mm3 Eos # (Auto) (0.0-0.4) th/mm3 Baso # (Auto) (0.0-0.2) th/mm3 WBC Differential Differential Comment APTT (24.3-30.1) sec Sodium (136-145) meq/L Potassium (3.5-5.1) meq/L Chloride (98-107) meq/L Carbon Dioxide (21.0-32.0) meq/L Anion Gap (5-15) meq/L BUN (7-18) mg/dL Creatinine (0.50-1.00) mg/dL Estimated GFR (>89) mL/min Random Glucose (74-106) mg/dL Calcium (8.5-10.1) mg/dL Magnesium 1.8 (1.5-2.5) mg/dL Total Bilirubin (0.2-1.0) mg/dL AST (15-37) U/L ALT (10-53) U/L Alkaline Phosphatase (45-117) U/L Total Creatine Kinase (26-192) U/L Troponin I (0.02-0.05) ng/mL B-Natriuretic Peptide (0-100) pg/mL Total Protein (6.4-8.2) g/dL Albumin (3.4-5.0) g/dL TSH 0.864 (0.358-3.740) uIU/mL Free T4 1.01 (0.76-1.46) ng/dL Ur Collection Type Urine Color Urine Clarity Urine pH Ur Specific [place] Urine Protein Urine Glucose (UA) Urine Ketones Urine Occult Blood Urine Nitrate Urine Bilirubin Urine Ictotest Urine Urobilinogen Ur Leukocyte Esterase Urine RBC Urine WBC Urine WBC Clumps Ur Squamous Epith Cells Ur Transition Epith Cell Ur Renal Epithelial Cell Calcium Carbonate Cryst Calcium Oxalate Crystal Leucine Crystals Cystine Crystals Uric Acid Crystals Triple Phos Crystals Cholesterol Crystals Tyrosine Crystals Amorphous Sediment Urine Bacteria Hyaline Casts Granular Casts Fine Granular Casts Coarse Granular Casts Waxy Casts RBC Casts WBC Casts Urine Mucus Urine Trichomonas Urine Yeast Ur Yeast w Hyphae Urine Sperm Ur Oval Fat Bodies Micro UA Comment Urine Culture Comments Urine Collection Time Urine Comment Imaging Data Radiologist's impression: Carotid Doppler Study 05/18/18 00:00 CONCLUSION: No hemodynamically significant stenosis in either carotid artery Chest X-Ray 05/18/18 00:00 CONCLUSION: No acute cardiopulmonary abnormality is identified. Head CT 05/18/18 00:00 CONCLUSION: 1. Unremarkable CT brain for patient's age. . Discharge Plan Discharge Disposition Patient Disposition: 30 Still Patient Discharge Condition Condition: Stable Discharge Details Diagnosis: Chest pain, Syncope Physicians Team ED Provider: Yoana Duncan Primary Care Provider: Primary Care Anne-Marie Vazquez Attending Provider: Alon Collins Status ED Status: Left Department Discharge Information Discharge Date/Time: 05/18/18 07:59
[2018-05-18] MEDS: Sod Chloride 0.9% Inj 1,000 ML IV.CONT SCH ×2 (06:48→17:52)
[2018-05-18] MEDS: Heparin - SQ 10,000 UNITS/ML Vial SQ SCH ×2 (06:59→17:54)
--- NOTE | 2018-05-18 08:45 | ECG ---
Date Performed: 05/18/2018 Time Performed: 01:57:41 PTAGE: 73 years EKG: Sinus rhythm NONSPECIFIC T-WAVE ABNORMALITY ABNORMAL ECG PREVIOUS TRACING : 09/21/2017 16.45 DOCTOR: Zach Lane Interpretating Date/Time 05/18/2018 08:38:25
[2018-05-18] MEDS: Senna/Docusate Sodium 8.6/50 MG Tablet PO SCH ×2 (09:20→22:16)
--- NOTE | 2018-05-18 09:51 | US ---
EXAM DATE: 05/18/2018 9:43 AM EDT AGE/SEX: 73 years / Female INDICATIONS: Syncope. CLINICAL DATA: This is the patient's initial encounter. Patient reports that signs and symptoms have been present for 1 day and indicates a pain score of 0/10. MEDICAL/SURGICAL HISTORY: Hypercholesterolemia. Hypertension. Endotracheal intubated. . Rick k surgery. Cardiac catheter. COMPARISON: No prior exams available for comparison. VELOCITY PARAMETERS: ICA/CCA Ratio: Right 1.4 , Left 1.3 ICA: Right 92 cm/sec, Left 82 cm/sec CCA: Right 64 cm/sec, Left 63 cm/sec ECA: Right 60 cm/sec, Left 82 cm/sec Vertebral: Right 105 cm/sec antegrade, Left 58 cm/sec antegrade FINDINGS: Right Carotid: No significant plaque is visualized.The waveforms are within normal limits. Left Carotid: No significant plaque is visualized. The waveforms are within normal limits. Other: None. CONCLUSION: No hemodynamically significant stenosis in either carotid artery Electronically signed by: Samson Simmons MD 05/18/2018 9:49 AM EDT
--- NOTE | 2018-05-18 09:52 | P.HPIM ---
History of Present Illness Service: [facility] Primary Care Physician: NEISHA Chief Complaint: POSSIBLE CHEST PAIN AND NEAR SYNCOPE History of Present Illness: Patient is a 73-year-old female who presented to the emergency department after waking up last night and then feeling like she was going to pass out when she sat up. She never got out of bed she never tried to get out of bed. She had some pain across her chest/abdomen. She never officially passed out Had some shortness of breath with this and some possible chest pain was given nitroglycerin and aspirin by the [facility] Currently now she is chest pain-free and has no visual complaints at this time Past medical history is significant for hypertension, depression, anxiety, osteoporosis, history of back surgery, and hyperlipidemia Review of Systems All other systems reviewed negative except as stated in [facility] - History History Provided By: Patient - Medical History Medical History: Medical History (Last Updated 05/18/18 @ 10:07 by Alon Collins DO) Clinical depression Endotracheally intubated FH: cholecystectomy Hypercholesteremia Hypertension Osteoarthritis Pneumonia - Surgical History Surgical History: Surgical History (Last Updated 05/18/18 @ 10:08 by Alon Collins DO) History of back surgery History of bladder suspension procedure History of carpal tunnel release of both wrists History of total abdominal hysterectomy History of total right knee replacement - Family History Family History: Family History (Last Updated 05/18/18 @ 09:41 by Alon Collins DO) Other Family history of hypertension - Tobacco History Second Hand Smoke Exposure: No Tobacco Use In Past 30 Days: No Smoking Status: Former smoker - Alcohol History How Often Do You Have a Drink Containing Alcohol: Monthly or less - Substance Use History Substance History: No History of Abuse - Travel History History of Recent Travel: No Recent Travel in the [place] Within the Last 8 Weeks: No Recent Travel Out of the Country Within the Last 8 Weeks: No - Immunization History Tetanus Immunization: >5 Years Hx Influenza Vaccine This Season: No Medications and Allergies Active Medications: Active Medications Acetaminophen (Tylenol) 650 mg PO Q4H PRN PRN Reason: Temp > 100.4 Al Hydroxide/Mg Hydroxide (Milk Of Magnesia Liq) 30 ml PO Q12H PRN PRN Reason: Mild Constipation Bisacodyl (Dulcolax Supp) 10 mg RECTAL DAILY PRN PRN Reason: SEVERE CONSITIPATION Heparin Sodium (Porcine) (Heparin Inj) 5,000 units SQ Q12H REPLACED BY [facility] Last Admin: 05/18/18 06:59 Dose: 5,000 units Sodium Chloride (Ns Inj) 1,000 mls @ 100 mls/hr IV.CONT .Q10H REPLACED BY [facility] Last Admin: 05/18/18 06:48 Dose: 100 mls/hr Lactulose (Lactulose Liq) 30 ml PO DAILY PRN PRN Reason: SEVERE CONSITIPATION Ondansetron HCl (Zofran Inj) 4 mg IV.PUSH Q6H PRN PRN Reason: NAUSEA OR VOMITING Senna/Docusate Sodium (Latha-Colace) 1 tab PO BID REPLACED BY [facility] Last Admin: 05/18/18 09:20 Dose: Not Given Sennosides (Senokot) 17.2 mg PO Q12H PRN PRN Reason: Moderate Constipation Temazepam (Restoril) 15 mg PO HS PRN PRN Reason: INSOMNIA Allergies Allergy/AdvReac Type Severity Reaction Status Date / Time No Known Allergies Allergy Unknown Uncoded 09/17/17 11:23 Home Medications Medication Instructions Recorded Confirmed Type Calcium 600 with Vitamin D3 2 tab PO DAILY 05/18/18 05/18/18 History alendronate 70 mg PO QWEEK 05/18/18 05/18/18 History alprazolam 0.25 mg PO PRN 05/18/18 History aspirin [Aspirin Childrens] 1 tab PO DAILY 05/18/18 05/18/18 History cholecalciferol (vitamin D3) 2,000 unit PO DAILY 05/18/18 05/18/18 History [Vitamin D3] fenofibrate 145 mg PO DAILY 05/18/18 05/18/18 History fluoxetine [Prozac] 80 mg PO DAILY 05/18/18 05/18/18 History lisinopril 10 mg PO BID 05/18/18 05/18/18 History naproxen sodium [Aleve] 440 mg PO BID 05/18/18 05/18/18 History Exam Vital signs: Vital Signs 05/18/18 02:00 05/18/18 06:05 05/18/18 06:52 Temperature Pulse Rate 75 75 78 Respiratory Rate 22 18 18 Blood Pressure 109/81 141/71 H 141/71 H Pulse Oximetry 95 97 95 05/18/18 08:00 Temperature 98.1 F Pulse Rate 68 Respiratory Rate 16 Blood Pressure 130/74 Pulse Oximetry 98 Intake & Output 05/17/18 05/18/18 05/18/18 18:59 06:59 18:59 Weight 72.557 kg Narrative: GENERAL: Awake alert and oriented 3 talkative and cooperative SKIN: Warm and dry. HEAD: Atraumatic. Normocephalic. EYES: Pupils equal and round. No scleral icterus. No injection or drainage. EOMI ENT: No nasal bleeding or discharge. Mucous membranes pink and moist. Tongue is midline NECK: Trachea midline. No JVD. Supple CARDIOVASCULAR: Regular rate and rhythm. S1-S2 no S3 or S4 RESPIRATORY: No accessory muscle use. Clear to auscultation. Breath sounds equal bilaterally. GASTROINTESTINAL: Abdomen soft, non-tender, nondistended. Hepatic and splenic margins not palpable. MUSCULOSKELETAL: Extremities without clubbing, cyanosis, or edema. No obvious deformities. NEUROLOGICAL: Awake and alert. No obvious cranial nerve deficits. Motor grossly within normal limits. Five out of 5 muscle strength in the arms and legs. Normal speech. PSYCHIATRIC: Appropriate mood and affect; insight and judgment normal. Results - Labs CBC & Chem 7: 05/18/18 02:55 05/18/18 13:36 Labs: Short CBC 05/18/18 Range/Units 02:55 WBC 9.4 (4.0-11.0) th/mm3 Hgb 12.9 (11.6-15.3) gm/dL Hct 37.1 (35.0-46.0) % Plt Count 407 (150-450) th/mm3 Cardiac Enzymes 05/18/18 Range/Units 02:55 Troponin I Less than 0.02 L (0.02-0.05) ng/mL - Imaging Impressions Chest X-Ray 05/18/18 00:00 CONCLUSION: No acute cardiopulmonary abnormality is identified. Caprini VTE Risk Assessment Caprini VTE Risk Assessment: Moderate/High Risk (score >= 2) Caprini Risk Assessment Model: Point Value = 1 Point Value = 2 Point Value = 3 Point Value = 5 Age 41-60 Minor surgery BMI > 25 kg/m2 Swollen legs Varicose veins or History of unexplained or recurrent spontaneous Oral contraceptives or hormone replacement Sepsis (< 1 month) Serious lung disease, including pneumonia (< 1 month) Abnormal pulmonary function Acute myocardial infarction Congestive heart failure (< 1 month) History of inflammatory bowel disease Medical patient at bed rest Age 61-74 Arthroscopic surgery Major open surgery (> 45 min) Laparoscopic surgery (> 45 min) Malignancy Confined to bed (> 72 hours) Immobilizing plaster cast Central venous access Age >= 75 History of VTE Family history of VTE Factor V Leiden Prothrombin [id number] Lupus anticoagulant Anticardiolipin antibodies Elevated serum homocysteine Heparin-induced thrombocytopenia Other congenital or acquired thrombophilia Stroke (< 1 month) Elective arthroplasty Hip, pelvis, or leg fracture Acute spinal cord injury (< 1 month) Prophylaxis Regimen: Total Risk Factor Score Risk Level Prophylaxis Regimen 0-1 Low Early ambulation 2 Moderate Order ONE of the following: *Sequential Compression Device (SCD) *Heparin 5000 units SQ BID 3-4 Higher Order ONE of the following medications: *Heparin 5000 units SQ TID *Enoxaparin/Lovenox 40 mg SQ daily (WT < 150 kg, CrCl > 30 mL/min) *Enoxaparin/Lovenox 30 mg SQ daily (WT < 150 kg, CrCl > 10-29 mL/min) *Enoxaparin/Lovenox 30 mg SQ BID (WT < 150 kg, CrCl > 30 mL/min) AND/OR *Sequential Compression Device (SCD) 5 or more Highest Order ONE of the following medications: *Heparin 5000 units SQ TID (Preferred with Epidurals) *Enoxaparin/Lovenox 40 mg SQ daily (WT < 150 kg, CrCl > 30 mL/min) *Enoxaparin/Lovenox 30 mg SQ daily (WT < 150 kg, CrCl > 10-29 mL/min) *Enoxaparin/Lovenox 30 mg SQ BID (WT < 150 kg, CrCl > 30 mL/min) AND *Sequential Compression Device (SCD) Assessment and Plan - Plan Near-syncope/presyncope patient states she was sleeping and then woke up and when she sat up she felt like she was going to pass out but she never got out of bed. Patient states she also had some chest pain and therefore called EMS and was brought to the emergency department for evaluation was given an aspirin and nitroglycerin prior to presentation to the hospital Near-syncope/syncope--chest pain -We will get an echo -We will get carotids -We will trend troponins and cardiac enzymes POSSIBLE SOB Hypertension resume home medications once available for review Hyperlipidemia resume home medications once available for review Depression anxiety resume her home medications Osteoporosis takes Fosamax once weekly History of back surgery in the past We will check a urinalysis MILD UTI WILL START ROCEPHIN 1 GRAM IV DAILY INCREASE ACTIVITY HOPEFULLY IF ALL NEGATIVE MAY DC LATER TODAY Code Status: FULL CODE Discussed Condition With: RN AND PT Discharge Planning: PENDING ALL REPORTS BEING NEGATIVE
[2018-05-18 10:56] LABS: Bacteria,Urine Rare /hpf; Bilirubin,Urine Negative (Negative); Clarity,Urine Hazy (Clear); Color,Urine Yellow (Yellw/Straw); Glucose,Urine (UA) Negative (Negative); Leukocyte Esterase,Urine Moderate (Negative); Mucus,Urine Few /lpf (Occasional); Nitrite,Urine Negative (Negative); Specific Gravity,Urine 1.016 (1.002-1.035); Squamous Epithelial Cell,Urine 1 /hpf (0-5)
[2018-05-18] MEDS ORDERED: ALPRAZolam 0.25 MG Tablet PO PRN (12:35)
[2018-05-18 13:01] LABS: Creatine Kinase 85 U/L (26-192)
--- NOTE | 2018-05-18 13:41 | CT ---
EXAM DATE: 05/18/2018 1:30 PM EDT AGE/SEX: 73 years / Female INDICATIONS: Syncope last night CLINICAL DATA: This is the patient's initial encounter. Patient reports that signs and symptoms have been present for 1 day and indicates a pain score of 0/10. MEDICAL/SURGICAL HISTORY: Hypertension. . Back surgery RADIATION DOSE: 33.73 CTDI (mGy) COMPARISON: No prior exams available for comparison. TECHNIQUE: CT of the head without contrast. Using automated exposure control and adjustment of the mA and/or kV according to patient size, radiation dose was kept as low as reasonably achievable to ob tain optimal diagnostic quality images. DICOM format image data is available electronically for revi ew and comparison. FINDINGS: Cerebrum: The ventricles are normal for age. There is bilateral cortical atrophy and chronic white m atter changes. No evidence of midline shift, mass lesion, hemorrhage or acute infarction. No extraa xial fluid collections are seen. Posterior Fossa: The cerebellum and brainstem are intact. The 4th ventricle is midline. The cerebe llopontine angle is unremarkable. Extracranial: The visualized portion of the orbits is intact. Skull: The calvaria is intact. No evidence of skull fracture. CONCLUSION: 1. Unremarkable CT brain for patient's age. . Electronically signed by: Stephon Cosme MD 05/18/2018 1:39 PM EDT
[2018-05-18 14:14] LABS: Alanine Aminotransferase 34 U/L (10-53); Albumin 3.7 g/dL (3.4-5.0); Aspartate Aminotransferase 36 U/L (15-37); Blood Urea Nitrogen 19 mg/dL (7-18); Carbon Dioxide 28.6 meq/L (21.0-32.0); Glomerular Filtration Rate 64 mL/min (>89); Glucose,Random 80 mg/dL (74-106); Magnesium 1.8 mg/dL (1.5-2.5)
[2018-05-18 14:23] LABS: Thyroid Stimulating Hormone 0.864 uIU/mL (0.358-3.740)
[2018-05-18 14:43] LABS: Alkaline Phosphatase 53 U/L (45-117); Anion Gap 7 meq/L (5-15); Chloride 106 meq/L (98-107); Potassium 3.8 meq/L (3.5-5.1); Sodium 142 meq/L (136-145); Total Protein 7.2 g/dL (6.4-8.2)
[2018-05-18 15:56] LABS: Creatine Kinase 90 U/L (26-192)
[2018-05-18] MEDS: Lisinopril 10 MG Tablet PO SCH (22:15)
[2018-05-19] MEDS: Sod Chloride 0.9% Inj 1,000 ML IV.CONT SCH (02:38)
[2018-05-19] MEDS: Heparin - SQ 10,000 UNITS/ML Vial SQ SCH (05:20)
[2018-05-19 08:50] VITALS: PULSE 70
[2018-05-19] MEDS: Senna/Docusate Sodium 8.6/50 MG Tablet PO SCH (08:54)
[2018-05-19] MEDS: Lisinopril 10 MG Tablet PO SCH (08:54)
[2018-05-19] MEDS ORDERED: Fenofibrate 145 MG Tablet PO SCH (09:00)
[2018-05-19] MEDS ORDERED: Calcium/Vitamin D 250/125 MG Tablet PO SCH (09:00)
[2018-05-19] MEDS ORDERED: FLUoxetine 20 MG Capsule PO SCH (09:00)
[2018-05-19] MEDS ORDERED: Aspirin 325 MG Tablet PO SCH (09:00)
--- NOTE | 2018-05-19 09:47 | P.PNIM ---
Subjective Interval history: Patient is a 73-year-old female who presented to the emergency department after waking up last night and then feeling like she was going to pass out when she sat up. She never got out of bed she never tried to get out of bed. She had some pain across her chest/abdomen. She never officially passed out Had some shortness of breath with this and some possible chest pain was given nitroglycerin and aspirin by the [facility] Currently now she is chest pain-free and has no visual complaints at this time Past medical history is significant for hypertension, depression, anxiety, osteoporosis, history of back surgery, and hyperlipidemia 8-13 ECHO NOT EVEN DONE FEELS MUCH BETTER SWITCH TO PO ANTIBIOTICS AND DC TO HOME TODAY LABS WERE STABLE DC TO HOME Physical Exam Vital signs: Vital Signs 05/18/18 11:56 05/18/18 12:35 05/18/18 16:00 Temperature 97.6 F 98.5 F Pulse Rate 76 68 66 Respiratory Rate 16 16 Blood Pressure 143/86 H 138/65 Pulse Oximetry 98 96 05/18/18 20:00 05/19/18 00:00 05/19/18 03:43 Temperature 98.6 F 98.2 F 98.4 F Pulse Rate 67 68 68 Respiratory Rate 18 15 16 Blood Pressure 156/81 H 139/71 142/72 H Pulse Oximetry 97 97 97 05/19/18 04:59 05/19/18 08:00 Temperature 97.7 F Pulse Rate 74 70 Respiratory Rate 12 Blood Pressure 149/77 H Pulse Oximetry 96 Intake & Output 05/18/18 05/19/18 05/19/18 18:59 06:59 18:59 Intake Total 1000 / 1000 100 / 100 Balance 1000 / 1000 100 / 100 Weight 72.557 kg Intake: IV 1000 / 1000 100 / 100 NS Inj 1,000 ML @ 100 mls/hr IV 1000 / 1000 0 / 0 .CONT .Q10H ANGELI Rx#:[id number] Rocephin Inj 1,000 MG In NS Inj 100 / 100 100 ML @ 200 mls/hr IV.SIG Q24H ANGELI Rx#:[id number] Other: # Voids 5 Date of Last Bowel Movement 05/17/18 Narrative: GENERAL: Awake alert and oriented 3 talkative and cooperative SKIN: Warm and dry. HEAD: Atraumatic. Normocephalic. EYES: Pupils equal and round. No scleral icterus. No injection or drainage. EOMI ENT: No nasal bleeding or discharge. Mucous membranes pink and moist. Tongue is midline NECK: Trachea midline. No JVD. Supple CARDIOVASCULAR: Regular rate and rhythm. S1-S2 no S3 or S4 RESPIRATORY: No accessory muscle use. Clear to auscultation. Breath sounds equal bilaterally. GASTROINTESTINAL: Abdomen soft, non-tender, nondistended. Hepatic and splenic margins not palpable. MUSCULOSKELETAL: Extremities without clubbing, cyanosis, or edema. No obvious deformities. NEUROLOGICAL: Awake and alert. No obvious cranial nerve deficits. Motor grossly within normal limits. Five out of 5 muscle strength in the arms and legs. Normal speech. PSYCHIATRIC: Appropriate mood and affect; insight and judgment normal. Results - Labs CBC & Chem 7: 05/18/18 02:55 05/18/18 13:36 Laboratory Results - last 24 hr 05/18/18 05/18/18 05/18/18 10:00 10:00 10:51 Sodium Potassium Chloride Carbon Dioxide Anion Gap BUN Creatinine Estimated GFR Random Glucose Calcium Magnesium Total Bilirubin AST ALT Alkaline Phosphatase Total Creatine Kinase 85 Troponin I Less than 0.02 L Total Protein Albumin TSH Free T4 Ur Collection Type Cancelled Urine Color Cancelled Yellow Urine Clarity Cancelled Hazy H Urine pH Cancelled 6.0 Ur Specific [place] Cancelled 1.016 Urine Protein Cancelled Negative Urine Glucose (UA) Cancelled Negative Urine Ketones Cancelled Negative Urine Occult Blood Cancelled Negative Urine Nitrate Cancelled Negative Urine Bilirubin Cancelled Negative Urine Ictotest Cancelled Urine Urobilinogen Cancelled Less than 2 Ur Leukocyte Esterase Cancelled Moderate H Urine RBC Cancelled 3 Urine WBC Cancelled 5 Urine WBC Clumps Cancelled Ur Squamous Epith Cells Cancelled 1 Ur Transition Epith Cell Cancelled Ur Renal Epithelial Cell Cancelled Calcium Carbonate Cryst Cancelled Calcium Oxalate Crystal Cancelled Leucine Crystals Cancelled Cystine Crystals Cancelled Uric Acid Crystals Cancelled Triple Phos Crystals Cancelled Cholesterol Crystals Cancelled Tyrosine Crystals Cancelled Amorphous Sediment Cancelled Urine Bacteria Cancelled Rare H Hyaline Casts Cancelled Granular Casts Cancelled Fine Granular Casts Cancelled Coarse Granular Casts Cancelled Waxy Casts Cancelled RBC Casts Cancelled WBC Casts Cancelled Urine Mucus Cancelled Few H Urine Trichomonas Cancelled Urine Yeast Cancelled Ur Yeast w Hyphae Cancelled Urine Sperm Cancelled Ur Oval Fat Bodies Cancelled Micro UA Comment Cancelled Culture not ind Urine Culture Comments Culture not ind Urine Collection Time Cancelled Urine Comment Cancelled 05/18/18 05/18/18 05/18/18 13:36 13:36 13:36 Sodium 142 Potassium 3.8 Chloride 106 Carbon Dioxide 28.6 Anion Gap 7 BUN 19 H Creatinine 0.87 Estimated GFR 64 L Random Glucose 80 Calcium 9.0 Magnesium Total Bilirubin 0.3 AST 36 ALT 34 Alkaline Phosphatase 53 Total Creatine Kinase 90 Troponin I Less than 0.02 L Total Protein 7.2 Albumin 3.7 TSH Free T4 1.01 Ur Collection Type Urine Color Urine Clarity Urine pH Ur Specific [place] Urine Protein Urine Glucose (UA) Urine Ketones Urine Occult Blood Urine Nitrate Urine Bilirubin Urine Ictotest Urine Urobilinogen Ur Leukocyte Esterase Urine RBC Urine WBC Urine WBC Clumps Ur Squamous Epith Cells Ur Transition Epith Cell Ur Renal Epithelial Cell Calcium Carbonate Cryst Calcium Oxalate Crystal Leucine Crystals Cystine Crystals Uric Acid Crystals Triple Phos Crystals Cholesterol Crystals Tyrosine Crystals Amorphous Sediment Urine Bacteria Hyaline Casts Granular Casts Fine Granular Casts Coarse Granular Casts Waxy Casts RBC Casts WBC Casts Urine Mucus Urine Trichomonas Urine Yeast Ur Yeast w Hyphae Urine Sperm Ur Oval Fat Bodies Micro UA Comment Urine Culture Comments Urine Collection Time Urine Comment 05/18/18 13:36 Sodium Potassium Chloride Carbon Dioxide Anion Gap BUN Creatinine Estimated GFR Random Glucose Calcium Magnesium 1.8 Total Bilirubin AST ALT Alkaline Phosphatase Total Creatine Kinase Troponin I Total Protein Albumin TSH 0.864 Free T4 Ur Collection Type Urine Color Urine Clarity Urine pH Ur Specific [place] Urine Protein Urine Glucose (UA) Urine Ketones Urine Occult Blood Urine Nitrate Urine Bilirubin Urine Ictotest Urine Urobilinogen Ur Leukocyte Esterase Urine RBC Urine WBC Urine WBC Clumps Ur Squamous Epith Cells Ur Transition Epith Cell Ur Renal Epithelial Cell Calcium Carbonate Cryst Calcium Oxalate Crystal Leucine Crystals Cystine Crystals Uric Acid Crystals Triple Phos Crystals Cholesterol Crystals Tyrosine Crystals Amorphous Sediment Urine Bacteria Hyaline Casts Granular Casts Fine Granular Casts Coarse Granular Casts Waxy Casts RBC Casts WBC Casts Urine Mucus Urine Trichomonas Urine Yeast Ur Yeast w Hyphae Urine Sperm Ur Oval Fat Bodies Micro UA Comment Urine Culture Comments Urine Collection Time Urine Comment - Imaging Impressions Carotid Doppler Study 05/18/18 00:00 CONCLUSION: No hemodynamically significant stenosis in either carotid artery Head CT 05/18/18 00:00 CONCLUSION: 1. Unremarkable CT brain for patient's age. . Assessment and Plan - Plan Near-syncope/presyncope patient states she was sleeping and then woke up and when she sat up she felt like she was going to pass out but she never got out of bed. Patient states she also had some chest pain and therefore called EMS and was brought to the emergency department for evaluation was given an aspirin and nitroglycerin prior to presentation to the hospital Near-syncope/syncope--chest pain -DENIES CHEST PAIN -We will get carotids -We will trend troponins and cardiac enzymes- ALL VERY NEGATIVE POSSIBLE SOB Hypertension resume home medications once available for review Hyperlipidemia resume home medications once available for review Depression anxiety resume her home medications Osteoporosis takes Fosamax once weekly History of back surgery in the past We will check a urinalysis MILD UTI WILL START ROCEPHIN 1 GRAM IV DAILY INCREASE ACTIVITY DC LATER TODAY DC TO HOME TODAY Code Status: FULL CODE Discussed Condition With: RN AND PT Discharge Planning: DC TO HOME TODAY
--- NOTE | 2018-05-19 09:55 | P.DS ---
Date of admission: 05/18/18 05:40 Primary care physician: No Primary Care Physician Attending physician on discharge: Alon Collins Anticipated date of discharge: 05/19/18 Brief History from admission: Patient is a 73-year-old female who presented to the emergency department after waking up last night and then feeling like she was going to pass out when she sat up. She never got out of bed she never tried to get out of bed. She had some pain across her chest/abdomen. She never officially passed out Had some shortness of breath with this and some possible chest pain was given nitroglycerin and aspirin by the EVAC Currently now she is chest pain-free and has no visual complaints at this time Past medical history is significant for hypertension, depression, anxiety, osteoporosis, history of back surgery, and hyperlipidemia DS: Diagnosis - Discharge Diagnosis (1) Urinary tract infection Status: Acute (2) Chest pain Status: Acute (3) Syncope Status: Acute DS: Medications - Discharge Medications Prescriptions: cefuroxime axetil 250 mg PO Q12H #20 tab Lactobacillus acidoph-L.bulgar [Lactinex] 1 tab PO TID #30 tab DS: Summary Hospital Course: Patient is a 73-year-old female who presented to the emergency department after waking up last night and then feeling like she was going to pass out when she sat up. She never got out of bed she never tried to get out of bed. She had some pain across her chest/abdomen. She never officially passed out Had some shortness of breath with this and some possible chest pain was given nitroglycerin and aspirin by the EVAC Currently now she is chest pain-free and has no visual complaints at this time Past medical history is significant for hypertension, depression, anxiety, osteoporosis, history of back surgery, and hyperlipidemia 8-13 ECHO NOT EVEN DONE FEELS MUCH BETTER SWITCH TO PO ANTIBIOTICS AND DC TO HOME TODAY LABS WERE STABLE DC TO HOME - Time Spent with Patient Total time spent providing and/or coordinating discharge services: Less than 30 minutes - Quality: VTE Deep Vein Thrombosis/Pulmonary Embolism Present on Admission: No Exam Vital signs: Vital Signs 05/18/18 11:56 05/18/18 12:35 05/18/18 16:00 Temperature 97.6 F 98.5 F Pulse Rate 76 68 66 Respiratory Rate 16 16 Blood Pressure 143/86 H 138/65 Pulse Oximetry 98 96 05/18/18 20:00 05/19/18 00:00 05/19/18 03:43 Temperature 98.6 F 98.2 F 98.4 F Pulse Rate 67 68 68 Respiratory Rate 18 15 16 Blood Pressure 156/81 H 139/71 142/72 H Pulse Oximetry 97 97 97 05/19/18 04:59 05/19/18 08:00 Temperature 97.7 F Pulse Rate 74 70 Respiratory Rate 12 Blood Pressure 149/77 H Pulse Oximetry 96 Intake & Output 05/18/18 05/19/18 05/19/18 18:59 06:59 18:59 Intake Total 1000 / 1000 100 / 100 Balance 1000 / 1000 100 / 100 Weight 72.557 kg Intake: IV 1000 / 1000 100 / 100 NS Inj 1,000 ML @ 100 mls/hr IV 1000 / 1000 0 / 0 .CONT .Q10H ANGELI Rx#:[id number] Rocephin Inj 1,000 MG In NS Inj 100 / 100 100 ML @ 200 mls/hr IV.SIG Q24H ANGELI Rx#:[id number] Other: # Voids 5 Date of Last Bowel Movement 05/17/18 Narrative: GENERAL: Awake alert and oriented 3 talkative and cooperative SKIN: Warm and dry. HEAD: Atraumatic. Normocephalic. EYES: Pupils equal and round. No scleral icterus. No injection or drainage. EOMI ENT: No nasal bleeding or discharge. Mucous membranes pink and moist. Tongue is midline NECK: Trachea midline. No JVD. Supple CARDIOVASCULAR: Regular rate and rhythm. S1-S2 no S3 or S4 RESPIRATORY: No accessory muscle use. Clear to auscultation. Breath sounds equal bilaterally. GASTROINTESTINAL: Abdomen soft, non-tender, nondistended. Hepatic and splenic margins not palpable. MUSCULOSKELETAL: Extremities without clubbing, cyanosis, or edema. No obvious deformities. NEUROLOGICAL: Awake and alert. No obvious cranial nerve deficits. Motor grossly within normal limits. Five out of 5 muscle strength in the arms and legs. Normal speech. PSYCHIATRIC: Appropriate mood and affect; insight and judgment normal. Results Procedures completed during hospitalization: none Completed studies during hospitalization: Laboratory Results WBC 9.4 th/mm3 (4.0-11.0) 05/18/18 02:55 RBC 4.10 mil/mm3 (4.00-5.30) 05/18/18 02:55 Hgb 12.9 gm/dL (11.6-15.3) 05/18/18 02:55 Hct 37.1 % (35.0-46.0) 05/18/18 02:55 MCV 90.4 fL (80.0-100.0) 05/18/18 02:55 MCH 31.5 pg (27.0-34.0) 05/18/18 02:55 MCHC 34.8 % (32.0-36.0) 05/18/18 02:55 RDW 13.0 % (11.6-17.2) 05/18/18 02:55 Plt Count 407 th/mm3 (150-450) 05/18/18 02:55 MPV 7.9 fL (7.0-11.0) 05/18/18 02:55 Neut % (Auto) 50.6 % (16.0-70.0) 05/18/18 02:55 Lymph % (Auto) 34.5 % (9.0-44.0) 05/18/18 02:55 Karnes % (Auto) 10.1 % (0.0-8.0) H 05/18/18 02:55 Eos % (Auto) 4.3 % (0.0-4.0) H 05/18/18 02:55 Baso % (Auto) 0.5 % (0.0-2.0) 05/18/18 02:55 Neut # (Auto) 4.8 th/mm3 (1.8-7.7) 05/18/18 02:55 Lymph # (Auto) 3.2 th/mm3 (1.0-4.8) 05/18/18 02:55 Karnes # (Auto) 0.9 th/mm3 (0.0-0.9) 05/18/18 02:55 Eos # (Auto) 0.4 th/mm3 (0.0-0.4) 05/18/18 02:55 Baso # (Auto) 0.0 th/mm3 (0.0-0.2) 05/18/18 02:55 WBC Differential . 05/18/18 02:55 Differential Comment Auto diff final 05/18/18 02:55 APTT 25.4 sec (24.3-30.1) 05/18/18 02:55 Sodium 142 meq/L (136-145) 05/18/18 13:36 Potassium 3.8 meq/L (3.5-5.1) 05/18/18 13:36 Chloride 106 meq/L (98-107) 05/18/18 13:36 Carbon Dioxide 28.6 meq/L (21.0-32.0) 05/18/18 13:36 Anion Gap 7 meq/L (5-15) 05/18/18 13:36 BUN 19 mg/dL (7-18) H 05/18/18 13:36 Creatinine 0.87 mg/dL (0.50-1.00) 05/18/18 13:36 Estimated GFR 64 mL/min (>89) L 05/18/18 13:36 Random Glucose 80 mg/dL (74-106) 05/18/18 13:36 Calcium 9.0 mg/dL (8.5-10.1) 05/18/18 13:36 Magnesium 1.8 mg/dL (1.5-2.5) 05/18/18 13:36 Total Bilirubin 0.3 mg/dL (0.2-1.0) 05/18/18 13:36 AST 36 U/L (15-37) 05/18/18 13:36 ALT 34 U/L (10-53) 05/18/18 13:36 Alkaline Phosphatase 53 U/L (45-117) 05/18/18 13:36 Total Creatine Kinase 90 U/L (26-192) 05/18/18 13:36 Troponin I Less than 0.02 ng/mL (0.02-0.05) L 05/18/18 13:36 B-Natriuretic Peptide 24 pg/mL (0-100) 05/18/18 02:55 Total Protein 7.2 g/dL (6.4-8.2) 05/18/18 13:36 Albumin 3.7 g/dL (3.4-5.0) 05/18/18 13:36 TSH 0.864 uIU/mL (0.358-3.740) 05/18/18 13:36 Free T4 1.01 ng/dL (0.76-1.46) 05/18/18 13:36 Ur Collection Type Cancelled 05/18/18 10:00 Urine Color Yellow (Yellw/Straw) 05/18/18 10:00 Urine Clarity Hazy (Clear) H 05/18/18 10:00 Urine pH 6.0 (5.0-8.5) 05/18/18 10:00 Ur Specific Bradley 1.016 (1.002-1.035) 05/18/18 10:00 Urine Protein Negative mg/dL (Neg-Trace) 05/18/18 10:00 Urine Glucose (UA) Negative mg/dL (Negative) 05/18/18 10:00 Urine Ketones Negative mg/dL (Negative) 05/18/18 10:00 Urine Occult Blood Negative (Negative) 05/18/18 10:00 Urine Nitrate Negative (Negative) 05/18/18 10:00 Urine Bilirubin Negative (Negative) 05/18/18 10:00 Urine Ictotest Cancelled 05/18/18 10:00 Urine Urobilinogen Less than 2 mg/dL (Less than 2) 05/18/18 10:00 Ur Leukocyte Esterase Moderate (Negative) H 05/18/18 10:00 Urine RBC 3 /hpf (0-3) 05/18/18 10:00 Urine WBC 5 /hpf (0-5) 05/18/18 10:00 Urine WBC Clumps Cancelled 05/18/18 10:00 Ur Squamous Epith Cells 1 /hpf (0-5) 05/18/18 10:00 Ur Transition Epith Cell Cancelled 05/18/18 10:00 Ur Renal Epithelial Cell Cancelled 05/18/18 10:00 Calcium Carbonate Cryst Cancelled 05/18/18 10:00 Calcium Oxalate Crystal Cancelled 05/18/18 10:00 Leucine Crystals Cancelled 05/18/18 10:00 Cystine Crystals Cancelled 05/18/18 10:00 Uric Acid Crystals Cancelled 05/18/18 10:00 Triple Phos Crystals Cancelled 05/18/18 10:00 Cholesterol Crystals Cancelled 05/18/18 10:00 Tyrosine Crystals Cancelled 05/18/18 10:00 Amorphous Sediment Cancelled 05/18/18 10:00 Urine Bacteria Rare /hpf (None) H 05/18/18 10:00 Hyaline Casts Cancelled 05/18/18 10:00 Granular Casts Cancelled 05/18/18 10:00 Fine Granular Casts Cancelled 05/18/18 10:00 Coarse Granular Casts Cancelled 05/18/18 10:00 Waxy Casts Cancelled 05/18/18 10:00 RBC Casts Cancelled 05/18/18 10:00 WBC Casts Cancelled 05/18/18 10:00 Urine Mucus Few /lpf (Occasional) H 05/18/18 10:00 Urine Trichomonas Cancelled 05/18/18 10:00 Urine Yeast Cancelled 05/18/18 10:00 Ur Yeast w Hyphae Cancelled 05/18/18 10:00 Urine Sperm Cancelled 05/18/18 10:00 Ur Oval Fat Bodies Cancelled 05/18/18 10:00 Micro UA Comment Culture not ind 05/18/18 10:00 Urine Culture Comments Culture not ind 05/18/18 10:00 Urine Collection Time Cancelled 05/18/18 10:00 Urine Comment Cancelled 05/18/18 10:00 Impressions Carotid Doppler Study 05/18/18 00:00 CONCLUSION: No hemodynamically significant stenosis in either carotid artery Chest X-Ray 05/18/18 00:00 CONCLUSION: No acute cardiopulmonary abnormality is identified. Head CT 05/18/18 00:00 CONCLUSION: 1. Unremarkable CT brain for patient's age. . Labs on day of discharge: Labs from last 24 hours 05/18/18 05/18/18 05/18/18 13:36 13:36 13:36 Sodium Potassium Chloride Carbon Dioxide Anion Gap BUN Creatinine Estimated GFR Random Glucose Hemoglobin A1c Pending Calcium Magnesium 1.8 Total Bilirubin AST ALT Alkaline Phosphatase Total Creatine Kinase Troponin I Total Protein Albumin TSH 0.864 Free T4 1.01 Ur Collection Type Urine Color Urine Clarity Urine pH Ur Specific Bradley Urine Protein Urine Glucose (UA) Urine Ketones Urine Occult Blood Urine Nitrate Urine Bilirubin Urine Ictotest Urine Urobilinogen Ur Leukocyte Esterase Urine RBC Urine WBC Urine WBC Clumps Ur Squamous Epith Cells Ur Transition Epith Cell Ur Renal Epithelial Cell Calcium Carbonate Cryst Calcium Oxalate Crystal Leucine Crystals Cystine Crystals Uric Acid Crystals Triple Phos Crystals Cholesterol Crystals Tyrosine Crystals Amorphous Sediment Urine Bacteria Hyaline Casts Granular Casts Fine Granular Casts Coarse Granular Casts Waxy Casts RBC Casts WBC Casts Urine Mucus Urine Trichomonas Urine Yeast Ur Yeast w Hyphae Urine Sperm Ur Oval Fat Bodies Micro UA Comment Urine Culture Comments Urine Collection Time Urine Comment 05/18/18 05/18/18 05/18/18 13:36 13:36 10:51 Sodium 142 Potassium 3.8 Chloride 106 Carbon Dioxide 28.6 Anion Gap 7 BUN 19 H Creatinine 0.87 Estimated GFR 64 L Random Glucose 80 Hemoglobin A1c Calcium 9.0 Magnesium Total Bilirubin 0.3 AST 36 ALT 34 Alkaline Phosphatase 53 Total Creatine Kinase 90 85 Troponin I Less than 0.02 L Less than 0.02 L Total Protein 7.2 Albumin 3.7 TSH Free T4 Ur Collection Type Urine Color Urine Clarity Urine pH Ur Specific Bradley Urine Protein Urine Glucose (UA) Urine Ketones Urine Occult Blood Urine Nitrate Urine Bilirubin Urine Ictotest Urine Urobilinogen Ur Leukocyte Esterase Urine RBC Urine WBC Urine WBC Clumps Ur Squamous Epith Cells Ur Transition Epith Cell Ur Renal Epithelial Cell Calcium Carbonate Cryst Calcium Oxalate Crystal Leucine Crystals Cystine Crystals Uric Acid Crystals Triple Phos Crystals Cholesterol Crystals Tyrosine Crystals Amorphous Sediment Urine Bacteria Hyaline Casts Granular Casts Fine Granular Casts Coarse Granular Casts Waxy Casts RBC Casts WBC Casts Urine Mucus Urine Trichomonas Urine Yeast Ur Yeast w Hyphae Urine Sperm Ur Oval Fat Bodies Micro UA Comment Urine Culture Comments Urine Collection Time Urine Comment 05/18/18 05/18/18 10:00 10:00 Sodium Potassium Chloride Carbon Dioxide Anion Gap BUN Creatinine Estimated GFR Random Glucose Hemoglobin A1c Calcium Magnesium Total Bilirubin AST ALT Alkaline Phosphatase Total Creatine Kinase Troponin I Total Protein Albumin TSH Free T4 Ur Collection Type Cancelled Urine Color Yellow Cancelled Urine Clarity Hazy H Cancelled Urine pH 6.0 Cancelled Ur Specific Bradley 1.016 Cancelled Urine Protein Negative Cancelled Urine Glucose (UA) Negative Cancelled Urine Ketones Negative Cancelled Urine Occult Blood Negative Cancelled Urine Nitrate Negative Cancelled Urine Bilirubin Negative Cancelled Urine Ictotest Cancelled Urine Urobilinogen Less than 2 Cancelled Ur Leukocyte Esterase Moderate H Cancelled Urine RBC 3 Cancelled Urine WBC 5 Cancelled Urine WBC Clumps Cancelled Ur Squamous Epith Cells 1 Cancelled Ur Transition Epith Cell Cancelled Ur Renal Epithelial Cell Cancelled Calcium Carbonate Cryst Cancelled Calcium Oxalate Crystal Cancelled Leucine Crystals Cancelled Cystine Crystals Cancelled Uric Acid Crystals Cancelled Triple Phos Crystals Cancelled Cholesterol Crystals Cancelled Tyrosine Crystals Cancelled Amorphous Sediment Cancelled Urine Bacteria Rare H Cancelled Hyaline Casts Cancelled Granular Casts Cancelled Fine Granular Casts Cancelled Coarse Granular Casts Cancelled Waxy Casts Cancelled RBC Casts Cancelled WBC Casts Cancelled Urine Mucus Few H Cancelled Urine Trichomonas Cancelled Urine Yeast Cancelled Ur Yeast w Hyphae Cancelled Urine Sperm Cancelled Ur Oval Fat Bodies Cancelled Micro UA Comment Culture not ind Cancelled Urine Culture Comments Culture not ind Urine Collection Time Cancelled Urine Comment Cancelled - Impressions ITS Impressions Carotid Doppler Study 05/18/18 00:00 CONCLUSION: No hemodynamically significant stenosis in either carotid artery Chest X-Ray 05/18/18 00:00 CONCLUSION: No acute cardiopulmonary abnormality is identified. Head CT 05/18/18 00:00 CONCLUSION: 1. Unremarkable CT brain for patient's age. . Discharge Plan - Discharge Disposition Patient Disposition: 01 Discharge Home - Discharge Condition Condition: Stable - Discharge Order Discharge Orders: Discharge Order (Routine); Ordered 05/19/18 Ordered By: Alon Collins - Discharge Details Anticipated Discharge Date: 05/19/18 Discharge Comment: dc to home - Physicians Team Primary Care Provider: Primary Care Elsiei,No Attending Provider: Alon Collins
[2018-05-19 12:21] VITALS: BP 125/60; RESP 16; TEMP 98.4; O2SAT 95
[2018-05-19 16:41] LABS: Hemoglobin A1c 5.6 % (4.3-6.0)
== END 2018-05-19 13:27 | disposition home or self-care (01) ==
LOC: NEPC 01:53 → NEDA 01:53 → NEPGCP 01:53 → NEDA 07:59 → NEPGCP 08:03
PROVIDERS: ADMIT Hospitalist; ATTEND Hospitalist
DX: Z79.82 Long term (current) use of aspirin; M81.0 Age-related osteoporosis without current pathological fracture; Z79.83 Long term (current) use of bisphosphonates; F41.8 Other specified anxiety disorders; E78.5 Hyperlipidemia, unspecified; Z90.710 Acquired absence of both cervix and uterus; Z82.49 Family history of ischemic heart disease and other diseases of the circulatory system; M19.90 Unspecified osteoarthritis, unspecified site; N39.0 Urinary tract infection, site not specified; A59.9 Trichomoniasis, unspecified; R94.31 Abnormal electrocardiogram [ECG] [EKG]; R07.2 Precordial pain; I10 Essential (primary) hypertension; Z96.651 Presence of right artificial knee joint; E78.00 Pure hypercholesterolemia, unspecified; R55 Syncope and collapse; F17.210 Nicotine dependence, cigarettes, uncomplicated

== ENCOUNTER 2018-09-16 09:53 | Inpatient (IN) ==
[2018-09-16] MEDS ORDERED: Sodium Chlor 0.9% Inj 250 ML ONE (10:28)
[2018-09-16] MEDS ORDERED: Metoprolol Tartrate 25 MG Tablet PO ONE (10:49)
[2018-09-16] MEDS ORDERED: Chlorhexidine Gluconate 2% 1 Pack (2 Cloths) TOPICAL ONE (10:49)
[2018-09-16] MEDS ORDERED: Vancomycin Inj 1,000 MG in Sodium Chlor 0.9% Inj 250 ML IV.SIG SCH (11:00)
[2018-09-16] MEDS ORDERED: ceFAZolin 2 GM Premix Inj 2 GM/50 ML PIGGYBACK IV.SIG SCH (11:00)
[2018-09-16] MEDS ORDERED: Chlorhexidine 4% Topical 120 APPLIC/120 ML Bottle TOPICAL SCH (11:00)
[2018-09-16] MEDS ORDERED: Sodium Chlor 0.9% Inj 500 ML IV.SIG ONE (11:00)
[2018-09-16] MEDS ORDERED: Sodium Chloride 0.9% 2 ML Flush PRN IV.FLUSH (11:15)
[2018-09-16] MEDS ORDERED: Bupivacaine/Epinephrine PF Inj 0.5% 30 ML Vial ONE (12:20)
[2018-09-16] MEDS ORDERED: Betamethasone Sod Phos/Acetate Inj 30 MG/5 ML Vial IM ONE (12:20)
[2018-09-16] MEDS ORDERED: Sugammadex Inj 200 MG/2 ML Vial IV.PUSH ONE (12:42)
[2018-09-16] MEDS ORDERED: MethylPREDNISolone Sod Succinate Inj 125 MG/2 ML Vial ONE (12:48)
[2018-09-16] MEDS ORDERED: ceFAZolin 1 GM Premix Inj 1 GM/50 ML PIGGYBACK IV.SIG ONE (17:19)
[2018-09-16] MEDS ORDERED: Temazepam 15 MG Capsule PO PRN (17:56)
[2018-09-16] MEDS ORDERED: Post-op Orders (for Pharmacy) OTHER STA (17:56)
[2018-09-16] MEDS ORDERED: Morphine Inj 4 MG/ML Vial IV.PUSH PRN (17:56)
[2018-09-16] MEDS ORDERED: Bisacodyl 10 MG Supp RECTAL PRN (17:56)
--- NOTE | 2018-09-16 18:08 | P.OP ---
- Preoperative Diagnosis (1) Lumbar spinal stenosis Preoperative Diagnosis: Status post laminectomy and fusion L2- L5, stable. Transitional instability, L1-2. Lumbar spinal stenosis, L1-2. Left greater than right lumbosacral radiculopathy. Date of procedure: 09/16/18 Procedure: Exploration of lumbar spinal fusion L2-L5. Removal of segmental instrumentation L2-L3 with transection of lumbar rods L2-3. Bilateral lumbar laminectomy L1-L2 with bilateral lateral recess decompression and left subtotal facet resection. Posterior lateral interbody fusion with interbody cage, L1-2. Posterior spinal fusion lateral transverse process technique T10 to the fusion mass of L3. Posterior spinal segmental instrumentation T10-L3. Major bone grafting of the lumbar spine Anesthesia: GETA Surgeon: Sreedhar Pinedo MD Drill Setup Operator: Morena Moscoso PA-C Operation and Findings: EBL: 500 ml NOTE: Morena Moscoso PA-C was present for the entire surgical procedure as my assistant superintendent for curriculum. In my medical opinion her skill and care was necessary for proper management of this patient INDICATIONS: This patient is a 73-year-old female status post previous fusion L2 -L5 who has done well. The patient has developed progressive instability and severe radiating left greater than right leg pain related to foraminal and central stenosis. The patient now presents for surgical treatment. INSTRUMENTATION: Spine wave PROCEDURE: The patient brought to the operating room and anesthetized the supine position. The patient positioned prone on the Jamil frame on the Jose table. All pressure points are protected. The back was scrubbed with alcohol followed by Hibiclens followed by ChloraPrep and draped sterilely and antibiotics were given within a routine time window. A timeout was done. Lateral radiographic images used to identify the proper level for the procedure. Compared care for the preoperative studies. Skin markings were made anticipating surgical treatment. The previous incision was excised. A midline incision was accomplished. Dissection continued out to the transverse process and ribs from T10 down to L4. The previous rods were identified between L2 and L3. The rods were cut and removed above that level. The L2 screws were removed. A bilateral laminectomy was accomplished under the microscope at L2-3. There is a high- grade stenosis and significant instability. A subtotal facet resection was accomplished on the left side. A total discectomy was accomplished. Bone graft was placed into the disc space followed by placement of a Stax cage which was elevated to 9 mm. Position was felt to be very satisfactory. There is no complication appreciated. We used sharri extenders between L2 and L3. We placed new screws at T10 bilaterally, T11 bilaterally and L1 bilaterally. Screw position appeared to be satisfactory. Each screw was charged with electric current in the no abnormal motor potentials registered in either lower extremity. A proper length sharri was cut and contoured and attached to the previous sharri extenders. There were tightened according to process design chemical engineer recommendation. Bone grafting using autogenous bone graft and the mineralized bone matrix with stem cells was positioned in the lateral gutters down to the L3 level. The wound had been irrigated multiple times. Hemostasis was controlled. The fascia was closed with interrupted #1 Vicryl suture, subcu tissue 2-0 Vicryl suture and skin with running intradermal 3-0 Vicryl followed by benzoin and Steri-Strips FINDINGS: There was a very unstable segment at L1 to. High-grade stenosis was found. A severe left lateral recess stenosis was noted. There was some irregularity along the edge of the exiting L1 nerve root to the left side. 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
--- NOTE | 2018-09-16 18:10 | XR ---
EXAM DATE: 09/16/2018 5:56 PM EST AGE/SEX: 73 years / Female INDICATIONS: T10-L2 Fusion. CLINICAL DATA: This is the patient's subsequent encounter. Patient reports that signs and symptoms h ave been present for 1 day and indicates a pain score of Nonresponsive. MEDICAL/SURGICAL HISTORY: Non-responsive. Non-responsive. COMPARISON: [facility] [place] [facility] (AP & LAT), 09/17/2017. . FINDINGS: Multiple coned down views of the lower thoracic and upper lumbar spine were obtained and demonstrate at the patient is status post multilevel fusion with pedicle screws and posterior fixation rods. [place] llic markers are noted multiple interspaces. CONCLUSION: Status post multilevel fusion. Electronically signed by: Da Ritchie MD 09/16/2018 6:08 PM EST
[2018-09-16] MEDS ORDERED: *Meperidine Inj 25 MG/ML Vial PERIprocedural Use ONLY ONE (18:23)
[2018-09-16] MEDS ORDERED: fentaNYL Citrate Inj 100 MCG/2 ML Ampul ONE ×2 (19:04)
[2018-09-16] MEDS: Senna/Docusate Sodium 8.6/50 MG Tablet PO SCH (21:04)
[2018-09-16] MEDS: Lisinopril 10 MG Tablet PO SCH ×2 (21:05→21:10)
[2018-09-16] MEDS: Sodium Chloride 0.9% 2 ML Flush BID IV.FLUSH SCH (21:05)
[2018-09-16] MEDS: Multivitamin/Minerals Therapeutic Tablet PO SCH (21:08)
[2018-09-16] MEDS: ceFAZolin 1 GM Premix Inj 1 GM/50 ML PIGGYBACK IV.SIG SCH (21:08)
[2018-09-16] MEDS: ALPRAZolam 0.25 MG Tablet PO PRN (21:51)
--- NOTE | 2018-09-16 23:29 | P.DS ---
Date of admission: 09/16/18 18:06 Primary care physician: Kishan Thayer MD Attending physician on discharge: Sreedhar Pinedo Anticipated date of discharge: 09/18/18 Brief History from admission: Ms. Salamanca underwent previous lumbar fusions, most recently in 2017 at L2-3 ( previously L34 and L45 in 2012). She did very well for 4-6 months. She began having increased low back pain that radiated to the thigh that did not respond to supervised physical therapy and appropriate restrictions. Imaging studies showed adjacent level collapse and spinal stenosis at L12. Her function declined rapidly that last 2 months. Surgical treatment was eventually recommended in the form of laminectomy and decompression L12, posterior interbody fusion with interbody cage L12, with extension posterior segmental instrumentation up to T10. The patient agreed and now presents for the above. DS: Diagnosis - Discharge Diagnosis (1) Lumbar spinal stenosis Status: Acute DS: Summary Hospital Course: Surgical treatment was performed on the day of admission without complication. She recovered well in PACU and was transferred to the orthopaedic floor. Pain was controlled with IV and oral medications. A wheatley catheter had been placed intraoperatively and was discontinued day 2. She was compliant with her therapy and lumbar brace precautions. After 2 days she was found to be stable and discharged home with home health care. She was instructed to continue her lumbar brace time clock inspector for 10-12 weeks, to ice her lumbar spine twice daily and to pursue a high fiber diet. She was given a prescription for norco. - Time Spent with Patient Total time spent providing and/or coordinating discharge services: Greater than 30 minutes - Quality: VTE Deep Vein Thrombosis/Pulmonary Embolism Present on Admission: No Exam Vital signs: Vital Signs 09/16/18 10:50 09/16/18 18:11 09/16/18 18:15 Temperature 97.7 F 98.6 F Pulse Rate 94 H 17 L 112 H Respiratory Rate 18 17 21 Blood Pressure 111/69 159/54 H 153/57 H Pulse Oximetry 95 95 98 09/16/18 18:30 09/16/18 18:45 09/16/18 19:00 Temperature Pulse Rate 101 H 107 H 99 H Respiratory Rate 16 18 14 Blood Pressure 112/55 L 113/59 L 104/57 L Pulse Oximetry 99 97 95 09/16/18 20:44 Temperature 97.3 F L Pulse Rate 85 Respiratory Rate 16 Blood Pressure 104/54 L Pulse Oximetry 96 Intake & Output 09/16/18 09/16/18 09/17/18 06:59 18:59 06:59 Intake Total 2850 / 2850 50 / 50 Output Total 600 / 600 100 / 100 Balance 2250 / 2250 -50 / -50 Weight 73.1 kg 76.2 kg Intake: IV 1350 / 1350 50 / 50 LR 1000 mL Inj 1,000 ML @ 30 1000 / 1000 mls/hr IV.SIG .Q24H ANGELI Rx#: [id number] Vancomycin Inj 1,000 MG In NS 250 / 250 Inj 250 ML @ 250 mls/hr IV.SIG BICYCLE FITTER ANGELI Rx#:[id number] Ancef 1 GM Premix Inj 1 gm In 50 / 50 50 / 50 50 ml @ 100 mls/hr IV.SIG Q6H ANGELI Rx#:[id number] Ancef 2 GM Premix Inj 2 gm In 50 / 50 50 ml @ 100 mls/hr IV.SIG BICYCLE FITTER ANGELI Rx#:[id number] Anesthesia Amount 1500 / 1500 Output: Estimated Blood Loss 500 / 500 Urine Amount (Catheter) 100 / 100 100 / 100 Indwelling Urethral Catheter 100 / 100 100 / 100 Other: Weight On Admission 73.1 kg Results Labs on day of discharge: Labs from last 24 hours 09/16/18 10:50 Blood Type O Positive Blood Type Recheck Not needed Antibody Screen Negative - Impressions ITS Impressions Thoracolumbar Spine 09/16/18 00:00 CONCLUSION: Status post multilevel fusion. Discharge Plan - Discharge Disposition Patient Disposition: /Home Health Service - Discharge Condition Condition: Stable - Discharge Order Discharge Orders: Discharge Order (Routine); Ordered 09/18/18 Ordered By: Sreedhar Pinedo - Physicians Team Primary Care Provider: Kishan Thayer Attending Provider: Sreedhar Pinedo Other Providers: [facility] - Rxs /Orders / Referrals /Forms Prescriptions: No Action alendronate 70 mg Tablet 70 mg PO QWEEK alprazolam 0.25 mg Tablet 0.25 mg PO Q6HR PRN (Reason: Anxiety) aspirin [Aspirin Childrens] 81 mg Tablet,Chewable 1 tab PO DAILY cholecalciferol (vitamin D3) [Vitamin D3] 2,000 unit Capsule 2,000 unit PO DAILY fenofibrate 150 mg Capsule 145 mg PO DAILY fluoxetine [Prozac] 40 mg Capsule 80 mg PO DAILY Lactobacillus acidoph-L.bulgar [Lactinex] 1 million cell Tablet,Chewable 1 tab PO TID Qty: 30 RF: 0 lisinopril 10 mg Tablet 10 mg PO BID naproxen sodium [Aleve] 220 mg Tablet 440 mg PO BID Referrals: Kishan Thayer MD [Primary Care Provider] - See Instructions - Discharge Instructions Patient Printed Instructions: Laminectomy (DC) - Post Discharge Care Plan Care Plan Goals: Your Health Problems: Lumbar spinal stenosis Degenerative disc disease L12 Previous lumbar fusion Goals to Promote Your Health: * To prevent worsening of your condition * To maintain your health at the optimal level Directions to Meet Your Goals: * Take your medications as prescribed * Follow your dietary instruction. A high fiber diet is encouraged for 3-5 days following surgery to help prevent constipation. * Follow activity as directed. Wear your brace time clock inspector when you are out of bed. Avoid repetitive bending and lifting. * Remove your brace when in bed and apply ice to the surgical site twice daily for 7-10 days after your surgical procedure. * Keep your appointments as scheduled * Take your immunizations and boosters as scheduled * If your symptoms worsen call your PCP * If no PCP go to Urgent Care or Emergency Room Smoking is dangerous to your health. Avoid second hand smoke. You may reach the 24-hour crisis hotline for domestic abuse at .
--- NOTE | 2018-09-16 23:32 | P.DCO ---
- Physical Therapy Physical Therapy: Gait training, Safety evaluation S/P Spinal Fusion: Gait training with walker, Weight bearing as tolerated, No twisting of torso, No bending Additional instructions: Home PT 3x/week for 2 weeks. To begin 24 hours after hospital discharge. WBAT. Out of bed with brace for 10-12 weeks postop. Lower extremity strengthening. - Nursing RN days per week: 2 x week(s): 1 Dressing changes: Do not change dressing Additional instructions: Vitals assessment. Dressing assessment - do not change unless saturated or erythema. Ok to begin showering pod#5 if kept sealed and dry. If dressing gets saturated ok to change daily with alcohol. - Certification Need for Home Health services: I have seen patient Yissel Salamanca on 09/16/18. My clinical findings support the need for the requested home health care services because: Need for Home Health Services: Deconditioned with increased weakness, High risk of falls Homebound Certification: I certify that my clinical findings support that this patient is homebound because: Homebound Certification: Post-op weakness, Unsteady gait/balance
[2018-09-17] MEDS: ceFAZolin 1 GM Premix Inj 1 GM/50 ML PIGGYBACK IV.SIG SCH ×2 (01:52→10:18)
[2018-09-17] MEDS: Lisinopril 10 MG Tablet PO SCH ×2 (10:17→21:09)
[2018-09-17] MEDS: FLUoxetine 20 MG Capsule PO SCH (10:17)
[2018-09-17] MEDS: Multivitamin/Minerals Therapeutic Tablet PO SCH ×2 (10:17→21:10)
[2018-09-17] MEDS: Fenofibrate 145 MG Tablet PO SCH (10:17)
[2018-09-17] MEDS: Sodium Chloride 0.9% 2 ML Flush BID IV.FLUSH SCH ×2 (10:18→21:11)
[2018-09-17] MEDS: Senna/Docusate Sodium 8.6/50 MG Tablet PO SCH ×2 (10:19→21:09)
[2018-09-17] MEDS: ALPRAZolam 0.25 MG Tablet PO PRN ×2 (10:30→21:10)
--- NOTE | 2018-09-17 13:02 | P.PNOP ---
Subjective Interval history: Moderate to severe low and midback pain. She states its as expected. No new leg pain. Wheatley cath still present. Questions about surgery. Anxiety is better controlled. No new CP or SOB. No new cough. Patient is coming off of a recovery from bronchitis last week. Physical Exam Vital signs: Vital Signs 09/16/18 18:11 09/16/18 18:15 09/16/18 18:30 Temperature 98.6 F Pulse Rate 17 L 112 H 101 H Respiratory Rate 17 21 16 Blood Pressure 159/54 H 153/57 H 112/55 L Pulse Oximetry 95 98 99 09/16/18 18:45 09/16/18 19:00 09/16/18 20:44 Temperature 97.3 F L Pulse Rate 107 H 99 H 85 Respiratory Rate 18 14 16 Blood Pressure 113/59 L 104/57 L 104/54 L Pulse Oximetry 97 95 96 09/16/18 23:49 09/17/18 04:11 09/17/18 08:00 Temperature 97.8 F 97.8 F 98.2 F Pulse Rate 94 H 88 99 H Respiratory Rate 18 16 18 Blood Pressure 113/53 L 121/58 L 114/54 L Pulse Oximetry 95 98 98 09/17/18 08:26 Temperature Pulse Rate Respiratory Rate Blood Pressure Pulse Oximetry 97 Intake & Output 09/16/18 09/17/18 09/17/18 18:59 06:59 18:59 Intake Total 2850 / 2850 580 / 580 Output Total 600 / 600 600 / 600 Balance 2250 / 2250 -20 / -20 Weight 73.1 kg 76.8 kg Intake: IV 1350 / 1350 100 / 100 LR 1000 mL Inj 1,000 ML @ 30 1000 / 1000 mls/hr IV.SIG .Q24H ANGELI Rx#: [id number] Vancomycin Inj 1,000 MG In NS 250 / 250 Inj 250 ML @ 250 mls/hr IV.SIG RN GYNECOLOGY ANGELI Rx#:[id number] Ancef 1 GM Premix Inj 1 gm In 50 / 50 100 / 100 50 ml @ 100 mls/hr IV.SIG Q6H ANGELI Rx#:[id number] Ancef 2 GM Premix Inj 2 gm In 50 / 50 50 ml @ 100 mls/hr IV.SIG RN GYNECOLOGY ANGELI Rx#:[id number] Oral 480 / 480 Anesthesia Amount 1500 / 1500 Output: Stool 0 / 0 Estimated Blood Loss 500 / 500 Urine Amount (Catheter) 100 / 100 600 / 600 Indwelling Urethral Catheter 100 / 100 600 / 600 Other: Date of Last Bowel Movement 09/15/18 Weight On Admission 73.1 kg Narrative: Sitting bedside No acute distress Wearing lumbar brace L/S Dressing intact, mild SS drainage, no erythema +motor at bilat, +sens, +nvi Neg homans bilat - Constitutional no acute distress - Urinary Catheter Management Indwelling Urethral Catheter Cath placed during this visit: yes Reason for continuing: Hourly intake/output Insertion date: 09/16/18 Insertion time: 13:30 Results - Imaging Impressions Thoracolumbar Spine 09/16/18 00:00 CONCLUSION: Status post multilevel fusion. - Procedures Lumbar laminectomy L12, lateral recessdecomrpession, posterior spinal fusion and interbody cage L12, segmental instrumentation L1-T10. Assessment and Plan - Ortho Post Op Day # 1 - Problem List (1) Lumbar spinal stenosis Code(s): M48.061 - Spinal stenosis, lumbar region without neurogenic claudication Status: Acute - Assessment and Plan pod#1 s/p Lami Fusion L12 with extended instrumentation up to T10 Pain moderately controlled. Spasms and sharps pains with transitions. Would prefer to avoid use of morphine. Ortho stable. PO pain control. Continue use of lumbar brace when out of bed. Hold dressing changes unless saturated. Pull wheatley cath later today if urine output satisfactory. Encouraged IS as she recently had bronchitis. No cough today. Will re-eval tomorrow and consider d/c at that time. D/C planning, [facility] or saturday.
[2018-09-18] MEDS: ALPRAZolam 0.25 MG Tablet PO PRN ×3 (03:21→16:48)
[2018-09-18 05:52] LABS: Hematocrit 22.5 % (35.0-46.0); Hemoglobin 7.6 gm/dL (11.6-15.3)
[2018-09-18] MEDS: Lisinopril 10 MG Tablet PO SCH ×3 (07:49→21:10)
[2018-09-18] MEDS: Multivitamin/Minerals Therapeutic Tablet PO SCH ×3 (07:50→21:11)
[2018-09-18] MEDS: Fenofibrate 145 MG Tablet PO SCH ×2 (07:50→11:08)
[2018-09-18] MEDS: Senna/Docusate Sodium 8.6/50 MG Tablet PO SCH ×3 (07:50→21:10)
[2018-09-18] MEDS: FLUoxetine 20 MG Capsule PO SCH ×2 (07:50→11:08)
--- NOTE | 2018-09-18 07:52 | P.PNOP ---
Subjective Interval history: Feels weak all over. No leg pain. Moderate low back pain. Difficulty with transitioning from bed to standing Physical Exam Vital signs: Vital Signs 09/17/18 08:00 09/17/18 08:26 09/17/18 12:00 Temperature 98.2 F 98 F Pulse Rate 99 H 95 H Respiratory Rate 18 18 Blood Pressure 114/54 L 121/62 Pulse Oximetry 98 97 99 09/17/18 16:00 09/17/18 20:00 09/18/18 00:00 Temperature 97.7 F 98.6 F 98.3 F Pulse Rate 96 H 101 H 74 Respiratory Rate 17 18 18 Blood Pressure 107/53 L 110/52 L 98/66 L Pulse Oximetry 94 L 93 L 96 09/18/18 02:13 09/18/18 03:20 09/18/18 04:00 Temperature 97.9 F Pulse Rate 108 H Respiratory Rate 20 18 18 Blood Pressure 106/59 L Pulse Oximetry 93 L Intake & Output 09/17/18 09/18/18 09/18/18 18:59 06:59 18:59 Intake Total 960 / 960 Balance 960 / 960 Weight 77.2 kg Intake: Oral 960 / 960 Other: # Voids 2 Date of Last Bowel Movement 09/15/18 09/15/18 Narrative: Sitting bedside No acute distress Wearing lumbar brace L/S Dressing intact, mild SS drainage, no erythema +motor at bilat, +sens, +nvi Neg homans bilat - Urinary Catheter Management Indwelling Urethral Catheter Cath placed during this visit: yes, but has since been removed by the nurse Reason for continuing: Decision to DC catheter Insertion date: 09/16/18 Insertion time: 13:30 Removal date: 09/17/18 Removal time: 22:05 Results - Labs CBC & Chem 7: 09/18/18 05:17 Laboratory Results - last 24 hr 09/18/18 05:17 Hgb 7.6 L Hct 22.5 L - Procedures Lumbar laminectomy L12, lateral recessdecomrpession, posterior spinal fusion and interbody cage L12, segmental instrumentation L1-T10. Assessment and Plan - Problem List (1) Lumbar spinal stenosis Code(s): M48.061 - Spinal stenosis, lumbar region without neurogenic claudication Status: Acute - Assessment and Plan pod#2 s/p Lami Fusion L12 with extended instrumentation up to T10 Pain moderately controlled. Spasms and sharps pains with transitions. Would prefer to avoid use of morphine. Ortho stable. PO pain control. Continue use of lumbar brace when out of bed. Hold dressing changes unless saturated. Catheter discontinued Encouraged IS as she recently had bronchitis. No cough today. Transfused 2 units packed red blood cells. Hemoglobin less than 8. Probable discharge tomorrow to home. Possible [facility] backup
[2018-09-18] MEDS: Sodium Chloride 0.9% 2 ML Flush BID IV.FLUSH SCH ×2 (11:08→21:11)
[2018-09-19 05:19] LABS: Hematocrit 32.8 % (35.0-46.0)
[2018-09-19] MEDS: ALPRAZolam 0.25 MG Tablet PO PRN ×2 (06:55→16:12)
--- NOTE | 2018-09-19 07:55 | P.PNOP ---
Subjective Interval history: Doing better. Feels better after transfusion. Limited ambulation yesterday Physical Exam Vital signs: Vital Signs 09/18/18 08:00 09/18/18 11:11 09/18/18 12:00 Temperature 97.9 F 97.6 F Pulse Rate 101 H 96 H Respiratory Rate 16 18 16 Blood Pressure 116/59 L 100/58 L Pulse Oximetry 93 L 93 L 09/18/18 13:15 09/18/18 13:16 09/18/18 13:42 Temperature 98.1 F 98.1 F Pulse Rate 103 H 95 H Respiratory Rate 18 18 16 Blood Pressure 94/50 L 119/61 Pulse Oximetry 09/18/18 15:12 09/18/18 16:13 09/18/18 16:32 Temperature 98.2 F 98.3 F Pulse Rate 95 H 97 H Respiratory Rate 16 20 Blood Pressure 139/65 135/73 Pulse Oximetry 93 L 93 L 09/18/18 16:48 09/18/18 17:49 09/18/18 21:30 Temperature 98.4 F Pulse Rate 96 H Respiratory Rate 20 20 19 Blood Pressure 130/64 Pulse Oximetry 92 L 09/19/18 00:00 09/19/18 03:25 Temperature 98.4 F 98.3 F Pulse Rate 97 H 101 H Respiratory Rate 18 17 Blood Pressure 152/80 H 148/74 H Pulse Oximetry 94 L 92 L Intake & Output 09/18/18 09/19/18 09/19/18 18:59 06:59 18:59 Intake Total 1600 / 1600 960 / 960 Output Total 1450 / 1450 0 / 0 Balance 150 / 150 960 / 960 Weight 79 kg Intake: Oral 1200 / 1200 560 / 560 Intake (Blood Product) Amt 400 / 400 400 / 400 Rbc As-3 Leukoreduced Unit 0 / 0 400 / 400 [id number] Rbc As-3 Leukoreduced Unit 400 / 400 [id number] Output: Urine 500 / 500 Stool 0 / 0 Urine Amount (Catheter) 950 / 950 Straight 950 / 950 Other: # Voids 1 5 Date of Last Bowel Movement 09/15/18 09/18/18 09/18/18 # Bowel Movements 0 Narrative: Sitting bedside No acute distress Wearing lumbar brace L/S Dressing intact, mild SS drainage, no erythema +motor at bilat, +sens, +nvi Neg homans bilat - Urinary Catheter Management Indwelling Urethral Catheter Cath placed during this visit: yes, but has since been removed by the nurse Reason for continuing: Not indwelling catheter Insertion date: 09/16/18 Insertion time: 13:30 Removal date: 09/17/18 Removal time: 22:05 Straight Cath placed during this visit: yes, but has since been removed by the nurse Reason for continuing: Not indwelling catheter Insertion date: 09/18/18 Insertion time: 10:00 Removal date: 09/18/18 Removal time: 10:05 Results - Labs CBC & Chem 7: 09/19/18 04:26 Laboratory Results - last 24 hr 09/18/18 09/19/18 12:19 04:26 Hgb 11.0 L D Hct 32.8 L MTS Gel Crossmatch See Detail - Procedures Lumbar laminectomy L12, lateral recessdecomrpession, posterior spinal fusion and interbody cage L12, segmental instrumentation L1-T10. Assessment and Plan - Problem List (1) Lumbar spinal stenosis Code(s): M48.061 - Spinal stenosis, lumbar region without neurogenic claudication Status: Acute - Assessment and Plan pod#3 s/p Lami Fusion L12 with extended instrumentation up to T10 Pain moderately controlled. Spasms and sharps pains with transitions. Would prefer to avoid use of morphine. Ortho stable. PO pain control. Continue use of lumbar brace when out of bed. Hold dressing changes unless saturated. Encouraged IS as she recently had bronchitis. No cough today. Hemoglobin 11 after transfusion Probable discharge today. Possibly home if does well with physical therapy. Otherwise SNF
[2018-09-19] MEDS: Lisinopril 10 MG Tablet PO SCH ×2 (08:06→21:00)
[2018-09-19] MEDS: FLUoxetine 20 MG Capsule PO SCH (08:06)
[2018-09-19] MEDS: Senna/Docusate Sodium 8.6/50 MG Tablet PO SCH ×2 (08:06→21:43)
[2018-09-19] MEDS: Multivitamin/Minerals Therapeutic Tablet PO SCH ×2 (08:06→21:55)
[2018-09-19] MEDS: Fenofibrate 145 MG Tablet PO SCH (08:06)
[2018-09-19] MEDS: Sodium Chloride 0.9% 2 ML Flush BID IV.FLUSH SCH ×2 (08:07→21:42)
--- NOTE | 2018-09-19 17:55 | P.CONIM ---
History of Present Illness Reason for Consult: post-op medical management Primary Care Provider: Kishan Thayer MD Chief Complaint: shortness of breath History of Present Illness: patient is a 73 y/o female with history of spinal stenosis, hypertension, history of smoking for years, underwent lumbar spine laminectomy on 09/16/18. she was notoed to have worsening sob along with a drop in her O2 sat to 87%. she was placed on oxygen via N/C. at the time of my evaluation she was fairly comfortable and said that her sob was better. she has occasional cough. she's a afebrile. she denies any chest pain. she has post-op anemia for which she received two units of PRBC yesterday. Review of Systems Review of Systems: all other systems reviewed are negative [facility] Medical History Medical History Clinical depression (Acute) Endotracheally intubated (Acute) FH: cholecystectomy (Acute) [place] (hard of hearing) (Acute) Hypercholesteremia (Acute) Hypertension (Acute) Osteoarthritis (Acute) Pneumonia (Acute) Wears hearing aid (Acute) Surgical History Surgical History History of (Acute) History of cholecystectomy (Acute) History of back surgery (Acute) History of bladder suspension procedure (Acute) History of carpal tunnel release of both wrists (Acute) History of cataract extraction with lens replacement (Acute) History of total abdominal hysterectomy (Acute) History of total right knee replacement (Acute) Family History Family History Other Family history of hypertension Social History Social History Substance History: No History of Abuse Second Hand Smoke Exposure: No Smoking Status: Former smoker Tobacco Type: Cigarettes How Often Do You Have a Drink Containing Alcohol: Never Hx Recent Travel: No Immunization History Tetanus Immunization: <5 Years Hx Influenza Vaccine This Season: Yes Medications and Allergies Allergies Allergy/AdvReac Type Severity Reaction Status Date / Time No Known Allergies Allergy Verified 09/15/18 11:29 Home Medications Medication Instructions Recorded Confirmed Type alprazolam 0.25 mg PO Q6HR PRN 08/12/18 12/11/18 History aspirin [Aspirin Childrens] 1 tab PO DAILY 05/18/18 09/16/18 History cholecalciferol (vitamin D3) 2,000 unit PO DAILY 05/18/18 09/16/18 History [Vitamin D3] fenofibrate 145 mg PO DAILY 05/18/18 09/16/18 History fluoxetine [Prozac] 80 mg PO DAILY 05/18/18 09/16/18 History lisinopril 10 mg PO BID 05/18/18 09/16/18 History naproxen sodium [Aleve] 440 mg PO BID 05/18/18 09/16/18 History alendronate 70 mg PO QWEEK 09/15/18 09/16/18 History Active Medications: Active Medications Hydrocodone Bitart/Acetaminophen ([place] 10/325) 1 tab PO Q4H PRN PRN Reason: PAIN LESS THAN 5 ON SCALE Last Admin: 09/18/18 21:12 Dose: 1 tab Hydrocodone Bitart/Acetaminophen ([place] 10/325) 1 tab PO Q4H PRN PRN Reason: PAIN SCALE 5 TO 10 Last Admin: 09/19/18 16:12 Dose: 1 tab Al Hydroxide/Mg Hydroxide (Milk Of Kristine Lidorita) 30 ml PO BID PRN PRN Reason: Mild Constipation Alprazolam (Xanax) 0.25 mg PO Q6HR PRN PRN Reason: Anxiety Last Admin: 09/19/18 16:12 Dose: 0.25 mg Aspirin (Aspirin Chew) 81 mg PO DAILY ANGELI Last Admin: 09/19/18 08:06 Dose: 81 mg Bisacodyl (Dulcolax Supp) 10 mg RECTAL DAILY PRN PRN Reason: SEVERE CONSITIPATION Chlorhexidine Gluconate (Hibiclens 4% Topical) 1 applicatio TOPICAL ONCE [facility] Stop: 09/20/18 10:59 Cyclobenzaprine HCl (Flexeril) 10 mg PO Q8HR PRN PRN Reason: SPASM Last Admin: 09/19/18 16:12 Dose: 10 mg Diphenhydramine HCl (Benadryl) 25 mg PO Q6H PRN PRN Reason: ITCHING Fenofibrate (Tricor) 145 mg PO DAILY ANGELI Last Admin: 09/19/18 08:06 Dose: 145 mg Fluoxetine HCl (Prozac) 80 mg PO DAILY [facility] Last Admin: 09/19/18 08:06 Dose: 80 mg Cefazolin Sodium/Dextrose (Ancef 2 Gm Premix Inj) 2 gm in 50 mls @ 100 mls/hr IV.SIG PRIMARY CARE COORDINATOR [facility] Stop: 09/20/18 10:59 Last Infusion: 09/16/18 13:34 Dose: Infused Lactated Ringer's (Lr 1000 Ml Inj) 1,000 mls @ 80 mls/hr IV.CONT .[id number] [facility] Last Admin: 09/19/18 10:44 Dose: Not Given Lactulose (Lactulose Liq) 30 ml PO DAILY PRN PRN Reason: SEVERE CONSITIPATION Last Admin: 09/18/18 07:49 Dose: 30 ml Lisinopril (Prinivil) 10 mg PO BID [facility] Last Admin: 09/19/18 08:06 Dose: 10 mg Morphine Sulfate (Morphine Inj) 4 mg IV.PUSH Q2H PRN PRN Reason: BREAKTHROUGH PAIN Last Admin: 09/18/18 03:21 Dose: 4 mg Multivitamins/Minerals (Theragran-M) 1 tab PO BID [facility] Stop: 11/15/18 20:59 Last Admin: 09/19/18 08:06 Dose: 1 tab Ondansetron HCl (Zofran Inj) 4 mg IV.PUSH Q6H PRN PRN Reason: NAUSEA OR VOMITING Last Admin: 09/16/18 21:25 Dose: 4 mg Senna/Docusate Sodium (Latha-Colace) 1 tab PO BID [facility] Last Admin: 09/19/18 08:06 Dose: 1 tab Sennosides (Senokot) 17.2 mg PO BID PRN PRN Reason: Moderate Constipation Sodium Chloride (Ns Flush) 2 ml IV.FLUSH BID [facility] Last Admin: 09/19/18 08:07 Dose: 2 ml Sodium Chloride (Ns Flush) 2 ml IV.FLUSH PRN PRN PRN Reason: FLUSH AFTER USING IV ACCESS Sodium Chloride (Ns Flush) 2 ml IV.FLUSH BID [facility] Last Admin: 09/19/18 08:07 Dose: Not Given Sodium Chloride (Ns Flush) 2 ml IV.FLUSH PRN PRN PRN Reason: FLUSH AFTER USING IV ACCESS Temazepam (Restoril) 15 mg PO HS PRN PRN Reason: INSOMNIA Physical Exam Vital signs: Last Vital Signs Temp 97.9 F 09/19/18 15:50 Pulse 95 H 09/19/18 15:50 Resp 18 09/19/18 16:12 BP 137/65 09/19/18 15:50 Pulse Ox 93 L 09/19/18 15:50 Intake & Output 09/17/18 09/18/18 09/19/18 09/20/18 06:59 06:59 06:59 06:59 Intake Total 3430 / 3430 960 / 960 2560 / 2560 Output Total 1200 / 1200 1450 / 1450 Balance 2230 / 2230 960 / 960 1110 / 1110 Weight 76.8 kg 77.2 kg 79 kg Constitutional no acute distress Routine HEENT Exam Eye: Present PERRL Routine Neck Exam Present supple Routine Respiratory Exam Present wheezes Comments: minimal wheezing. Routine Cardiovascular Exam Present RRR Routine Abdominal Exam Present soft Routine Extremities Exam Comments: no pedal edema. Routine Neurological Exam Present alert and oriented X3 Results Labs CBC & Chem 7: 09/19/18 04:26 Assessment and Plan (1) Lumbar spinal stenosis: Code(s): M48.061 - Spinal stenosis, lumbar region without neurogenic claudication Status: Acute Plan A/P - hypoxemia/ possible COPD exacerbation continue with oxygen via N/C to keep O2 sat > 90%- will add neb treatment. check CXR. -spinal stenosis- s/p laminectomy- management per ortho. -hypertension; continue Lisinopril -DVT prophylaxis; per ortho. Thank you for the consult. Discussed Condition With: the patient and RN. _ (1) Lumbar spinal stenosis Qualifiers: Neurogenic claudication status:
--- NOTE | 2018-09-19 19:48 | XR ---
EXAM DATE: 09/19/2018 7:45 PM EST AGE/SEX: 73 years / Female INDICATIONS: Shortness of breath. CLINICAL DATA: This is the patient's initial encounter. Patient reports that signs and symptoms have been present for 1 day and indicates a pain score of 0/10. MEDICAL/SURGICAL HISTORY: . Hypercholesterolemia. Hypertension. Endotracheal intubated. . Back surgery. Cardiac catheter. . COMPARISON: [facility], CHEST 1V SINGLE AP, 05/18/2018. . FINDINGS: Diffuse interstitial prominence similar to previous exam. The cardiomediastinal contours are stable. Partially imaged fixation hardware in the thoracolumbar spine. Osseous structures are intact. CONCLUSION: 1. Mildly increased diffuse interstitial prominence which may reflect mild interstitial edema superi mposed on chronic changes. Electronically signed by: Tony Serna MD Board Certified Radiologist 09/19/2018 7:46 PM NILES T
[2018-09-19] MEDS ORDERED: Furosemide 40 MG Tablet PO ONE (20:31)
[2018-09-20] MEDS: ALPRAZolam 0.25 MG Tablet PO PRN (04:11)
--- NOTE | 2018-09-20 06:55 | P.PNOP ---
Subjective Interval history: Resting in bed comfortably. States she is improving well and is looking forward to going home today. Physical Exam Vital signs: Vital Signs 09/19/18 08:07 09/19/18 11:44 09/19/18 11:45 Temperature 98.4 F 97.6 F Pulse Rate 112 H 97 H Respiratory Rate 19 22 22 Blood Pressure 142/91 H 146/73 H Pulse Oximetry 94 L 97 Pulse Oximetry [Resting on Room Air] Pulse Oximetry [Resting with Oxygen] 09/19/18 13:08 09/19/18 13:54 09/19/18 15:50 Temperature 97.9 F Pulse Rate 95 H Respiratory Rate 18 23 Blood Pressure 137/65 Pulse Oximetry 95 93 L Pulse Oximetry [Resting on Room Air] 87 L Pulse Oximetry [Resting with Oxygen] 95 09/19/18 16:12 09/19/18 17:00 09/19/18 20:04 Temperature 98.4 F Pulse Rate 104 H Respiratory Rate 18 18 18 Blood Pressure 136/64 Pulse Oximetry 92 L Pulse Oximetry [Resting on Room Air] Pulse Oximetry [Resting with Oxygen] 09/19/18 21:18 09/19/18 23:59 09/20/18 04:15 Temperature 97.8 F 97.8 F Pulse Rate 100 H 103 H 102 H Respiratory Rate 20 19 22 Blood Pressure 162/82 H 136/64 Pulse Oximetry 93 L 92 L 92 L Pulse Oximetry [Resting on Room Air] Pulse Oximetry [Resting with Oxygen] Intake & Output 09/19/18 09/19/18 09/20/18 06:59 18:59 06:59 Intake Total 960 / 960 Output Total 0 / 0 Balance 960 / 960 Weight 79 kg Intake: Oral 560 / 560 Intake (Blood Product) Amt 400 / 400 Rbc As-3 Leukoreduced Unit 400 / 400 [id number] Output: Stool 0 / 0 Other: # Voids 5 3 Date of Last Bowel Movement 09/18/18 09/18/18 09/18/18 Narrative: Clean dry dressings intact. Minimal swelling. Bilateral lower extremities with active dorsiflexion and plantarflexion of bilateral feet. Intact distal pulses with good capillary refills. Intact distal sensation - Constitutional no acute distress - Urinary Catheter Management Indwelling Urethral Catheter Cath placed during this visit: yes, but has since been removed by the nurse Reason for continuing: Not indwelling catheter Insertion date: 09/16/18 Insertion time: 13:30 Removal date: 09/17/18 Removal time: 22:05 Straight Cath placed during this visit: yes, but has since been removed by the nurse Reason for continuing: Not indwelling catheter Insertion date: 09/18/18 Insertion time: 10:00 Removal date: 09/18/18 Removal time: 10:05 Results - Labs CBC & Chem 7: 09/19/18 04:26 - Imaging Impressions Chest X-Ray 09/19/18 00:00 CONCLUSION: 1. Mildly increased diffuse interstitial prominence which may reflect mild interstitial edema superimposed on chronic changes. - Procedures Lumbar laminectomy L12, lateral recessdecomrpession, posterior spinal fusion and interbody cage L12, segmental instrumentation L1-T10. Assessment and Plan - Problem List (1) Lumbar spinal stenosis Code(s): M48.061 - Spinal stenosis, lumbar region without neurogenic claudication Status: Acute - Assessment and Plan pod#4 s/p Lami Fusion T12 with extended instrumentation up to T10 Pain moderately controlled. Spasms and sharps pains with transitions. Would prefer to avoid use of morphine. Ortho stable. PO pain control. Continue use of lumbar brace when out of bed. Hold dressing changes unless saturated. Encouraged IS as she recently had bronchitis. No cough today. Hemoglobin 11 after transfusion Probable discharge today to home if doing well with physical therapy
[2018-09-20 07:12] LABS: Baso % (Auto) 0.2 % (0.0-2.0); Eos # (Auto) 0.2 th/mm3 (0.0-0.4); Eos % (Auto) 1.4 % (0.0-4.0); Hematocrit 30.4 % (35.0-46.0); Hemoglobin 10.7 gm/dL (11.6-15.3); Lymph # (Auto) 1.5 th/mm3 (1.0-4.8); Lymph % (Auto) 8.7 % (9.0-44.0); Mean Corpuscular HGB Conc 35.3 % (32.0-36.0); Mean Corpuscular Hemoglobin 30.8 pg (27.0-34.0); Mean Corpuscular Volume 87.3 fL (80.0-100.0); Mono # (Auto) 1.3 th/mm3 (0.0-0.9); Mono % (Auto) 7.8 % (0.0-8.0); Neut % (Auto) 81.9 % (16.0-70.0); Platelet Count 470 th/mm3 (150-450); Red Blood Count 3.48 mil/mm3 (4.00-5.30); Red Cell Distribution Width 14.7 % (11.6-17.2); White Blood Count 17.1 th/mm3 (4.0-11.0)
[2018-09-20 07:34] LABS: Anion Gap 9 meq/L (5-15); Blood Urea Nitrogen 8 mg/dL (7-18); Calcium 8.5 mg/dL (8.5-10.1); Carbon Dioxide 26.7 meq/L (21.0-32.0); Chloride 99 meq/L (98-107); Glomerular Filtration Rate Greater Than 89 mL/min (>89); Glucose,Random 101 mg/dL (74-106); Potassium 3.1 meq/L (3.5-5.1); Sodium 135 meq/L (136-145)
[2018-09-20] MEDS: Senna/Docusate Sodium 8.6/50 MG Tablet PO SCH ×2 (08:23→23:32)
[2018-09-20] MEDS: Fenofibrate 145 MG Tablet PO SCH (08:23)
[2018-09-20] MEDS: Lisinopril 10 MG Tablet PO SCH ×2 (08:23→23:32)
[2018-09-20] MEDS: Multivitamin/Minerals Therapeutic Tablet PO SCH ×2 (08:24→23:35)
[2018-09-20] MEDS: Sodium Chloride 0.9% 2 ML Flush BID IV.FLUSH SCH ×2 (08:24→23:33)
[2018-09-20] MEDS: FLUoxetine 20 MG Capsule PO SCH (08:24)
[2018-09-20] MEDS: levoFLOXacin 750 MG Tablet PO SCH (15:00)
--- NOTE | 2018-09-20 16:10 | P.PNIM ---
Subjective Interval history: Patient is seen sitting up in chair. is at bedside. She tells me that her pain is well controlled. She is feeling that she has some chest congestion and shortness of breath. Reports that she was being treated for bronchitis just prior to surgery. Also tells me that she has had pneumonia multiple times in the past. She does have a cough that is productive of yellowish sputum. No fevers or chills. No chest pain. No nausea vomiting or diarrhea. Physical Exam Vital signs: Last Vital Signs Temp 97.5 F L 09/20/18 11:42 Pulse 100 H 09/20/18 14:54 Resp 23 09/20/18 14:54 BP 92/58 L 09/20/18 11:42 Pulse Ox 94 L 09/20/18 11:42 Intake & Output 09/18/18 09/19/18 09/20/18 09/21/18 06:59 06:59 06:59 06:59 Intake Total 960 / 960 2560 / 2560 Output Total 1450 / 1450 Balance 960 / 960 1110 / 1110 Weight 77.2 kg 79 kg Narrative: GENERAL: Well-nourished, well-developed adult female in no obvious distress. SKIN: Warm and dry. HEAD: Atraumatic. Normocephalic. CARDIOVASCULAR: Regular rate and rhythm. RESPIRATORY: No accessory muscle use. Rhonchi clears with cough. Breath sounds equal bilaterally. GASTROINTESTINAL: Abdomen soft, non-tender, distended. Positive bowel sounds. MUSCULOSKELETAL: Extremities without clubbing, cyanosis, or edema. No obvious deformities. Bilateral lower extremities neurovascularly intact. Back brace on. NEUROLOGICAL: Awake and alert. No obvious cranial nerve deficits. Motor grossly within normal limits. Normal speech. PSYCHIATRIC: Appropriate mood and affect; insight and judgment good. Urinary Catheter Management Indwelling Urethral Catheter: Cath placed during this visit: yes, but has since been removed by the nurse Insertion date: 09/16/18 Insertion time: 13:30 Removal date: 09/17/18 Removal time: 22:05 Straight: Cath placed during this visit: yes, but has since been removed by the nurse Insertion date: 09/18/18 Insertion time: 10:00 Removal date: 09/18/18 Removal time: 10:05 Results Labs CBC & Chem 7: 09/20/18 06:28 09/20/18 06:28 Imaging Imaging: Impressions Chest X-Ray 09/19/18 00:00 CONCLUSION: 1. Mildly increased diffuse interstitial prominence which may reflect mild interstitial edema superimposed on chronic changes. Procedures Procedures: Lumbar laminectomy L12, lateral recessdecomrpession, posterior spinal fusion and interbody cage L12, segmental instrumentation L1-T10. Assessment and Plan (1) Lumbar spinal stenosis: Code(s): M48.061 - Spinal stenosis, lumbar region without neurogenic claudication Status: Acute Plan Patient is a 73-year-old female with a past medical history of hypertension, hyperlipidemia depression, anxiety, osteoporosis, and chronic back pain with previous surgery. She is admitted with increased back pain with plans for laminectomy. spinal stenosis and chronic back pain - s/p laminectomy- management per ortho. -Postsurgical anemia; improved after transfusion COPD/SOB/bronchitis -WBC 17.1 on 09/20 -Start Levaquin -Encourage IS; duo nebs ordered -Monitor for fluid overload Hypokalemia -Replace and monitor -hypertension -chronic continue Lisinopril -DVT prophylaxis; per ortho. Progress Note: Quality VTE Deep Vein Thrombosis/Pulmonary Embolism Present on Admission: No _ (1) Lumbar spinal stenosis Qualifiers: Neurogenic claudication status:
--- NOTE | 2018-09-21 06:45 | P.PNOP ---
Subjective Interval history: . Resting comfortably at the moment. She has just been repositioned and given pain meds. Physical Exam Vital signs: Vital Signs 09/20/18 08:16 09/20/18 08:25 09/20/18 09:38 Temperature 97.3 F L Pulse Rate 98 H 101 H Respiratory Rate 19 20 19 Blood Pressure 142/70 H Pulse Oximetry 94 L 94 L 09/20/18 11:42 09/20/18 13:30 09/20/18 14:00 Temperature 97.5 F L Pulse Rate 98 H Respiratory Rate 19 18 18 Blood Pressure 92/58 L Pulse Oximetry 94 L 09/20/18 14:54 09/20/18 15:06 09/20/18 17:24 Temperature 98.4 F Pulse Rate 100 H 102 H Respiratory Rate 23 19 18 Blood Pressure 120/74 Pulse Oximetry 93 L 09/20/18 18:07 09/20/18 19:37 09/20/18 21:04 Temperature 97.8 F Pulse Rate 97 H 95 H Respiratory Rate 18 20 18 Blood Pressure 125/58 L Pulse Oximetry 94 L 95 09/20/18 23:13 09/21/18 04:02 Temperature 97.5 F L 97.8 F Pulse Rate 93 H 97 H Respiratory Rate 20 20 Blood Pressure 137/65 111/54 L Pulse Oximetry 92 L 92 L Intake & Output 09/20/18 09/20/18 09/21/18 06:59 18:59 06:59 Intake Total 960 / 960 360 / 360 Balance 960 / 960 360 / 360 Weight 79 kg Intake: Oral 960 / 960 360 / 360 Other: # Voids 3 1 Date of Last Bowel Movement 09/18/18 # Bowel Movements 0 Narrative: Alert and oriented to person place and time. No acute distress Clean dry dressings intact. Mild swelling. Bilateral lower extremities with active dorsiflexion and plantarflexion of bilateral feet. Intact distal pulses and good capillary refills. - Urinary Catheter Management Indwelling Urethral Catheter Cath placed during this visit: yes, but has since been removed by the nurse Reason for continuing: Not indwelling catheter Insertion date: 09/16/18 Insertion time: 13:30 Removal date: 09/17/18 Removal time: 22:05 Straight Cath placed during this visit: yes, but has since been removed by the nurse Reason for continuing: Not indwelling catheter Insertion date: 09/18/18 Insertion time: 10:00 Removal date: 09/18/18 Removal time: 10:05 Results - Labs CBC & Chem 7: 09/20/18 06:28 09/20/18 06:28 Laboratory Results - last 24 hr 09/20/18 09/20/18 09/20/18 06:28 06:28 11:38 WBC 17.1 H RBC 3.48 L Hgb 10.7 L Hct 30.4 L MCV 87.3 MCH 30.8 MCHC 35.3 RDW 14.7 Plt Count 470 H MPV 7.0 Neut % (Auto) 81.9 H Lymph % (Auto) 8.7 L Donley % (Auto) 7.8 Eos % (Auto) 1.4 Baso % (Auto) 0.2 Neut # (Auto) 14.0 H Lymph # (Auto) 1.5 Donley # (Auto) 1.3 H Eos # (Auto) 0.2 Baso # (Auto) 0.0 WBC Differential . Differential Comment Auto diff final Sodium 135 L Potassium 3.1 L Chloride 99 Carbon Dioxide 26.7 Anion Gap 9 BUN 8 Creatinine 0.58 Estimated GFR Greater than 89 Random Glucose 101 Calcium 8.5 B-Natriuretic Peptide 48 Procalcitonin 09/20/18 11:38 WBC RBC Hgb Hct MCV MCH MCHC RDW Plt Count MPV Neut % (Auto) Lymph % (Auto) Donley % (Auto) Eos % (Auto) Baso % (Auto) Neut # (Auto) Lymph # (Auto) Donley # (Auto) Eos # (Auto) Baso # (Auto) WBC Differential Differential Comment Sodium Potassium Chloride Carbon Dioxide Anion Gap BUN Creatinine Estimated GFR Random Glucose Calcium B-Natriuretic Peptide Procalcitonin 0.14 H - Procedures Lumbar laminectomy L12, lateral recessdecomrpession, posterior spinal fusion and interbody cage L12, segmental instrumentation L1-T10. Assessment and Plan - Problem List (1) Lumbar spinal stenosis Code(s): M48.061 - Spinal stenosis, lumbar region without neurogenic claudication Status: Acute - Assessment and Plan pod#5 s/p Lami Fusion T12 with extended instrumentation up to T10 Pain moderately controlled. Spasms and sharps pains with transitions. Would prefer to avoid use of morphine. Ortho stable. PO pain control. Continue use of lumbar brace when out of bed. Hold dressing changes unless saturated. Medical continuing to manage upper respiratory. Encouraged IS as she recently had bronchitis. No cough today. WBC 17.1 yesterday Hemoglobin 11 after transfusion Physical therapy to work with patient to evaluate home discharge versus SNF
[2018-09-21 07:26] LABS: Baso # (Auto) 0.1 th/mm3 (0.0-0.2); Baso % (Auto) 0.4 % (0.0-2.0); Eos # (Auto) 0.6 th/mm3 (0.0-0.4); Eos % (Auto) 4.3 % (0.0-4.0); Hematocrit 29.7 % (35.0-46.0); Hemoglobin 10.2 gm/dL (11.6-15.3); Lymph # (Auto) 1.7 th/mm3 (1.0-4.8); Lymph % (Auto) 12.4 % (9.0-44.0); Mean Corpuscular HGB Conc 34.3 % (32.0-36.0); Mean Corpuscular Hemoglobin 30.6 pg (27.0-34.0); Mean Corpuscular Volume 89.1 fL (80.0-100.0); Mean Platelet Volume 6.8 fL (7.0-11.0); Mono # (Auto) 1.3 th/mm3 (0.0-0.9); Mono % (Auto) 9.2 % (0.0-8.0); Neut # (Auto) 10.3 th/mm3 (1.8-7.7); Neut % (Auto) 73.7 % (16.0-70.0); Platelet Count 512 th/mm3 (150-450); Red Blood Count 3.33 mil/mm3 (4.00-5.30); Red Cell Distribution Width 14.5 % (11.6-17.2)
[2018-09-21 07:49] LABS: Calcium 8.3 mg/dL (8.5-10.1); Carbon Dioxide 28.8 meq/L (21.0-32.0); Potassium 3.4 meq/L (3.5-5.1)
--- NOTE | 2018-09-21 08:13 | P.PNIM ---
Subjective Interval history: Patient seen lying in bed. She is in some mild distress immediately following nebulizer treatment. Reports that she feels very shaky. Her sinuses are congested and she does not feel like she is getting enough oxygen through her nasal cannula. Increased O2 flow to 4 L and placed cannula close to mouth which did help. Continues to produce sputum however today she says it is much clearer than yesterday. No fevers or chills. No nausea vomiting or diarrhea. Physical Exam Vital signs: Last Vital Signs Temp 97.8 F 09/21/18 04:02 Pulse 97 H 09/21/18 04:02 Resp 20 09/21/18 04:02 BP 111/54 L 09/21/18 04:02 Pulse Ox 92 L 09/21/18 04:02 Intake & Output 09/19/18 09/20/18 09/21/18 09/22/18 06:59 06:59 06:59 06:59 Intake Total 2560 / 2560 1320 / 1320 Output Total 1450 / 1450 Balance 1110 / 1110 1320 / 1320 Weight 79 kg 79 kg Narrative: GENERAL: Well-nourished, well-developed adult female SKIN: Warm and dry. HEAD: Atraumatic. Normocephalic. CARDIOVASCULAR: Regular rate and rhythm. RESPIRATORY: No accessory muscle use. Rhonchi clears with cough. Breath sounds equal bilaterally. GASTROINTESTINAL: Abdomen soft, non-tender, distended. Positive bowel sounds. MUSCULOSKELETAL: Extremities without clubbing, cyanosis, or edema. No obvious deformities. Bilateral lower extremities neurovascularly intact. Back brace on. NEUROLOGICAL: Awake and alert. No obvious cranial nerve deficits. Motor grossly within normal limits. Normal speech. PSYCHIATRIC: Appropriate mood and affect; insight and judgment good. Urinary Catheter Management Indwelling Urethral Catheter: Cath placed during this visit: yes, but has since been removed by the nurse Insertion date: 09/16/18 Insertion time: 13:30 Removal date: 09/17/18 Removal time: 22:05 Straight: Cath placed during this visit: yes, but has since been removed by the nurse Insertion date: 09/18/18 Insertion time: 10:00 Removal date: 09/18/18 Removal time: 10:05 Results Labs CBC & Chem 7: 09/21/18 06:40 09/21/18 06:40 Procedures Procedures: Lumbar laminectomy L12, lateral recessdecomrpession, posterior spinal fusion and interbody cage L12, segmental instrumentation L1-T10. Assessment and Plan (1) Lumbar spinal stenosis: Code(s): M48.061 - Spinal stenosis, lumbar region without neurogenic claudication Status: Acute Plan Patient is a 73-year-old female with a past medical history of hypertension, hyperlipidemia depression, anxiety, osteoporosis, and chronic back pain with previous surgery. She is admitted with increased back pain with plans for laminectomy. spinal stenosis and chronic back pain - s/p laminectomy- management per ortho. -Postsurgical anemia; improved after transfusion COPD/SOB/bronchitis -WBC 17.1 on 09/20; improved to 14.0 -Start Levaquin - WBC could be reactionary however patient has not had recent steroid use. Will continue Levaquin based on history of recent bronchitis as well as respiratory failure previously post surgery. -Encourage IS; nebs ordered -Monitor for fluid overload; repeat chest x-ray shows some edema; may need BiPAP Hypokalemia -Replace and monitor -hypertension -chronic continue Lisinopril -DVT prophylaxis; per ortho. Discharge planning: Not yet ready for discharge, continue to monitor due to mild respiratory distress today. will defer decision for HH versus SNF to primary/Ortho. Progress Note: Quality VTE Deep Vein Thrombosis/Pulmonary Embolism Present on Admission: No _ (1) Lumbar spinal stenosis Qualifiers: Neurogenic claudication status:
[2018-09-21] MEDS: Lisinopril 10 MG Tablet PO SCH ×2 (09:00→22:59)
[2018-09-21] MEDS: Sodium Chloride 0.9% 2 ML Flush BID IV.FLUSH SCH ×2 (09:00→23:00)
[2018-09-21] MEDS: FLUoxetine 20 MG Capsule PO SCH (10:31)
[2018-09-21] MEDS: Senna/Docusate Sodium 8.6/50 MG Tablet PO SCH ×2 (10:32→22:58)
[2018-09-21] MEDS: Multivitamin/Minerals Therapeutic Tablet PO SCH ×2 (10:32→22:59)
[2018-09-21] MEDS: Fenofibrate 145 MG Tablet PO SCH (10:32)
--- NOTE | 2018-09-21 10:37 | XR ---
EXAM DATE: 09/21/2018 10:28 AM EST AGE/SEX: 73 years / Female INDICATIONS: Shortness of breath, chest tightness and wheezing since back surgery 5 days ago. CLINICAL DATA: This is the patient's subsequent encounter. Patient reports that signs and symptoms h ave been present for 4 - 6 days and indicates a pain score of 7/10. MEDICAL/SURGICAL HISTORY: None. . Back surgery. COMPARISON: [facility] [place] 1[place]ING[place] AP, 09/19/2018. [facility] [place]UL[place]IOGRAM, 09/21/2017. [facility], CHEST SINGLE AP, 09/25/2017. [facility], CHEST 1V SINGLE AP, 05/18/2018. . FINDINGS: The lungs are adequately inflated with interstitial prominence seen throughout the lungs. No evidence of pneumothorax or focal airspace consolidation. Heart size is normal. Surgical hardware within the thoracolumbar junction. CONCLUSION: Diffuse reticular interstitial prominence without enlargement of the cardiac silhouette or focal airs pace consolidation. Findings are new as compared to prior exams. This may represent interstitial richard a. Electronically signed by: Nesha Loza MD Board Certified Radiologist 09/21/2018 10:36 AM E
[2018-09-21] MEDS: ALPRAZolam 0.25 MG Tablet PO PRN (10:38)
[2018-09-21] MEDS: levoFLOXacin 750 MG Tablet PO SCH (16:09)
[2018-09-22] MEDS: ALPRAZolam 0.25 MG Tablet PO PRN (07:06)
[2018-09-22 07:16] LABS: Alanine Aminotransferase 32 U/L (10-53); Albumin 2.1 g/dL (3.4-5.0); Anion Gap 5 meq/L (5-15); Aspartate Aminotransferase 28 U/L (15-37); Blood Urea Nitrogen 14 mg/dL (7-18); Calcium 8.9 mg/dL (8.5-10.1); Carbon Dioxide 30.6 meq/L (21.0-32.0); Chloride 100 meq/L (98-107); Glomerular Filtration Rate 77 mL/min (>89); Glucose,Random 99 mg/dL (74-106); Magnesium 2.1 mg/dL (1.5-2.5); Potassium 3.7 meq/L (3.5-5.1); Sodium 136 meq/L (136-145)
[2018-09-22 07:19] LABS: Alkaline Phosphatase 91 U/L (45-117); Total Protein 6.7 g/dL (6.4-8.2)
[2018-09-22 08:34] LABS: ABG Base Excess 0.8 mmol/L (-2-2); ABG PCO2 18 mmHg (38-42); ABG PO2 104 mmHg (61-120)
--- NOTE | 2018-09-22 08:57 | XR ---
EXAM DATE: 09/22/2018 8:31 AM EST AGE/SEX: 73 years / Female INDICATIONS: Evaluate for respiratory distress, shortness of breath. CLINICAL DATA: This is the patient's subsequent encounter. Patient reports that signs and symptoms h ave been present for 2 days and indicates a pain score of 7/10. MEDICAL/SURGICAL HISTORY: None. . Back Surgery COMPARISON: [facility], CHEST 1V SINGLE AP, 09/21/2018. . FINDINGS: The heart is enlarged. Mild interstitial edema is evident, improved in the interval. There is no pneu mothorax or other consolidation. Transpedicular spinal fixation is evident. CONCLUSION: Interval improvement with less interstitial edema Electronically signed by: Alon Juarez MD Board Certified Radiologist 09/22/2018 8:56 AM EST
[2018-09-22] MEDS ORDERED: MethylPREDNISolone Sod Succinate Inj 125 MG/2 ML Vial IV.PUSH ONE (09:00)
--- NOTE | 2018-09-22 09:40 | US ---
EXAM DATE: 09/22/2018 9:32 AM EST AGE/SEX: 73 years / Female INDICATIONS: Bilateral leg pain. CLINICAL DATA: This is the patient's initial encounter. Patient reports that signs and symptoms have been present for 4 - 6 days and indicates a pain score of 3/10. MEDICAL/SURGICAL HISTORY: Hypercholesterolemia. Hypertension. Osteoarthritis. Endotracheal i ntubated. Pneumonia. Cholecystectomy. section. Hysterectomy. Back surgery. Bladder suspe nsion. Carpal tunnel release. Knee replacement. COMPARISON: No prior exams available for comparison. TECHNIQUE: Venous ultrasound of both lower extremities was performed from the inguinal ligament to t he proximal calf. Real-time, color Doppler and spectral tracing, compression and augmentation techni ques were used. FINDINGS: Right Leg: Normal compression of the deep venous system from the inguinal region to the proximal jamie f. No echogenic clot is seen. Normal response of the venous system to augmentation and respiration. Left Leg: Normal compression of the deep venous system from the inguinal region to the proximal calf . No echogenic clot is seen. Normal response of the venous system to augmentation and respiration. Other: None. CONCLUSION: 1. The study is negative for bilateral lower extremity deep venous thrombosis. Electronically signed by: Jacques Martínez MD Board Certified Radiologist 09/22/2018 9:39 AM EST
[2018-09-22 09:42] LABS: Baso # (Auto) 0.1 th/mm3 (0.0-0.2); Baso % (Auto) 0.3 % (0.0-2.0); Eos # (Auto) 0.5 th/mm3 (0.0-0.4); Eos % (Auto) 2.4 % (0.0-4.0); Hematocrit 31.7 % (35.0-46.0); Hemoglobin 10.4 gm/dL (11.6-15.3); Lymph # (Auto) 1.3 th/mm3 (1.0-4.8); Mean Corpuscular HGB Conc 32.8 % (32.0-36.0); Mean Corpuscular Hemoglobin 29.3 pg (27.0-34.0); Mean Corpuscular Volume 89.1 fL (80.0-100.0); Mean Platelet Volume 6.7 fL (7.0-11.0); Mono # (Auto) 1.7 th/mm3 (0.0-0.9); Mono % (Auto) 8.8 % (0.0-8.0); Neut # (Auto) 15.3 th/mm3 (1.8-7.7); Neut % (Auto) 81.5 % (16.0-70.0); Platelet Count 604 th/mm3 (150-450); Red Blood Count 3.56 mil/mm3 (4.00-5.30); Red Cell Distribution Width 14.5 % (11.6-17.2); White Blood Count 18.7 th/mm3 (4.0-11.0)
[2018-09-22 10:11] LABS: Albumin 2.3 g/dL (3.4-5.0); Anion Gap 11 meq/L (5-15); Aspartate Aminotransferase 38 U/L (15-37); Blood Urea Nitrogen 15 mg/dL (7-18); Calcium 8.4 mg/dL (8.5-10.1); Carbon Dioxide 22.9 meq/L (21.0-32.0); Chloride 102 meq/L (98-107); Glomerular Filtration Rate 89 mL/min (>89); Glucose,Random 124 mg/dL (74-106); Potassium 3.2 meq/L (3.5-5.1); Sodium 136 meq/L (136-145)
[2018-09-22 10:14] LABS: Alanine Aminotransferase 33 U/L (10-53); Alkaline Phosphatase 101 U/L (45-117)
[2018-09-22] MEDS: FLUoxetine 20 MG Capsule PO SCH (10:21)
[2018-09-22] MEDS: Lisinopril 10 MG Tablet PO SCH ×2 (10:21→20:13)
[2018-09-22] MEDS: Multivitamin/Minerals Therapeutic Tablet PO SCH ×2 (10:22→20:14)
[2018-09-22] MEDS: Fenofibrate 145 MG Tablet PO SCH (11:38)
--- NOTE | 2018-09-22 12:34 | CT ---
EXAM DATE: 09/22/2018 12:27 PM EST AGE/SEX: 73 years / Female INDICATIONS: Shortness of breath. CLINICAL DATA: This is the patient's initial encounter. Patient reports that signs and symptoms have been present for 1 day and indicates a pain score of 0/10. MEDICAL/SURGICAL HISTORY: Hypertension. Cholecystectomy. Hysterectomy. spinal surgery RADIATION DOSE: 10.89 CTDI (mGy) [place] [facility] [place]. . TECHNIQUE: Volumetric scanning was performed using a multi-row detector CT scanner during bolus infu richmond of 65 ml Omnipaque 350 (iohexol) nonionic water-soluble contrast as a single exam dose. The mitul a was post processed with a variety of visualization algorithms including full volume maximum intensi ty projection and sliding thin slab reformation. Using automated exposure control and adjustment of t he mA and/or kV according to patient size, radiation dose was kept as low as reasonably achievable to obtain optimal diagnostic quality images. DICOM format image data is available electronically for r eview and comparison. FINDINGS: Pulmonary Arteries: No filling defects are seen in the pulmonary arteries out to the subsegmental ve ssels. The left and right pulmonary arteries are normal in diameter. Lung: Scattered bilateral ground-glass infiltrates are noted consistent with mild pulmonary edema or developing pneumonia. Clinical correlation is recommended. Effusion: Minimal posterior pleural thickening is noted bilaterally. Tiny bilateral pleural effusion s are also noted. Mediastinum: No evidence of mediastinal or hilar adenopathy. Cardiomegaly is noted. Other: The axilla is unremarkable. Degenerative changes are noted throughout the thoracic spine. CONCLUSION: 1. This study is negative for pulmonary embolism. 2. Scattered bilateral ground-glass infiltrates are noted consistent with mild pulmonary edema or de veloping pneumonia. Clinical correlation is recommended. 3. Minimal posterior pleural thickening bilaterally and tiny bilateral pleural effusions 4. Cardiomegaly. 5. Degenerative changes throughout the thoracic spine. Electronically signed by: Jacques Martínez MD Board Certified Radiologist 09/22/2018 12:32 PM EST
[2018-09-22] MEDS: Senna/Docusate Sodium 8.6/50 MG Tablet PO SCH ×2 (14:00→20:13)
[2018-09-22] MEDS: levoFLOXacin 750 MG Tablet PO SCH (14:00)
[2018-09-22 14:23] LABS: ABG Base Excess 0.4 mmol/L (-2-2); ABG PCO2 39 mmHg (38-42); ABG PO2 182 mmHg (61-120)
--- NOTE | 2018-09-22 14:58 | P.CONCC ---
History of Present Illness Service: critical care medicine Consult date: 09/22/18 Requesting Physician: Rachel Pedro Reason for Consult: ACUTE RESPIRATORY FAILURE Primary Care Provider: Kishan Thayer MD Chief Complaint: shortness of breath History of Present Illness: 73-year-old female with a medical history significant for long-standing smoking , hypertension but spinal stenosis who underwent lumbar spine laminectomy on under general anesthesia. Postop course was complicated with drop in O2 sats for which she was placed on nasal cannula on the floor and was evaluated by hospitalist service was started on nebulizer treatments for suspected COPD. She was transfused 2 units PRBCs on 09/18 postoperatively. On the morning of 09/22, rapid response team was activated as patient developed worsening shortness of breath with tachypnea with respiratory rate in the 40s with drop in O2 sats for which she was placed on a nonrebreather facemask and transferred to the ICU. Critical care consult was requested by Dr. Aguilar for acute respiratory failure. I evaluated the patient immediately on her arrival to the ICU. She was breathing in the 40s however was awake and alert and denied any chest pain, fever, chills, abdominal pain nausea or vomiting. She does have a history of anxiety. Chest x-ray done following onset of symptoms showed well-expanded lung vela bilaterally with scattered infiltrates however no major change compared to prior chest x-ray. Patient was given Solu-Medrol 125 mg IV stat for suspected COPD exacerbation and was placed on BiPAP. CTA chest was negative for PE and showed interstitial infiltrates. Review of Systems unobtainable due to mental condition (As per HPI, details not obtained due to respiratorydistress requiring BiPAP) PMFSH - History History Provided By: Patient, Family Member - Medical History Medical History: Medical History (Last Reviewed 09/22/18 @ 08:10 by Kevin Villanueva) Clinical depression Endotracheally intubated FH: cholecystectomy [place] (hard of hearing) Hypercholesteremia Hypertension Osteoarthritis Pneumonia Wears hearing aid - Surgical History Surgical History: Surgical History (Last Reviewed 09/21/18 @ 15:25 by Kristi Chaparro) History of History of cholecystectomy History of back surgery History of bladder suspension procedure History of carpal tunnel release of both wrists History of cataract extraction with lens replacement History of total abdominal hysterectomy History of total right knee replacement - Family History Family History: Family History (Last Reviewed 09/22/18 @ 08:10 by Kevin Villanueva) Other Family history of hypertension - Tobacco History Second Hand Smoke Exposure: No Smoking Status: Former smoker Tobacco Type: Cigarettes - Alcohol History How Often Do You Have a Drink Containing Alcohol: Never - Substance Use History Substance History: No History of Abuse - Travel History History of Recent Travel: No - Immunization History Tetanus Immunization: <5 Years Hx Influenza Vaccine This Season: Yes Medications and Allergies Active Medications: Active Medications Hydrocodone Bitart/Acetaminophen ([place] 10/325) 1 tab PO Q4H PRN PRN Reason: PAIN LESS THAN 5 ON SCALE Last Admin: 09/22/18 07:09 Dose: 1 tab Hydrocodone Bitart/Acetaminophen ([place] 10/325) 1 tab PO Q4H PRN PRN Reason: PAIN SCALE 5 TO 10 Last Admin: 09/21/18 23:02 Dose: 1 tab Al Hydroxide/Mg Hydroxide (Milk Of Magnsam Liq) 30 ml PO BID PRN PRN Reason: Mild Constipation Albuterol (Albuterol Neb (Prn)) 1.25 mg NEB Q2HR NEB PRN PRN Reason: sob Albuterol (Duoneb Neb (Nikki)) 1 ampul NEB Q4HR NEB NIKKI Last Admin: 09/22/18 11:50 Dose: Not Given Albuterol (Duoneb Neb (Prn)) 1 ampul NEB Q6HR WHILE AWAKE NEB PRN PRN Reason: SHORTNESS OF BREATH Alprazolam (Xanax) 0.25 mg PO Q6HR PRN PRN Reason: Anxiety Last Admin: 09/22/18 07:06 Dose: 0.25 mg Aspirin (Aspirin Chew) 81 mg PO DAILY NIKKI Last Admin: 09/22/18 10:22 Dose: 81 mg Bisacodyl (Dulcolax Supp) 10 mg RECTAL DAILY PRN PRN Reason: SEVERE CONSITIPATION Cyclobenzaprine HCl (Flexeril) 10 mg PO Q8HR PRN PRN Reason: SPASM Last Admin: 09/20/18 08:24 Dose: 10 mg Diphenhydramine HCl (Benadryl) 25 mg PO Q6H PRN PRN Reason: ITCHING Fenofibrate (Tricor) 145 mg PO DAILY NIKKI Last Admin: 09/22/18 11:38 Dose: Not Given Fluoxetine HCl (Prozac) 80 mg PO DAILY [facility] Last Admin: 09/22/18 10:21 Dose: 80 mg Lactulose (Lactulose Liq) 30 ml PO DAILY PRN PRN Reason: SEVERE CONSITIPATION Last Admin: 09/18/18 07:49 Dose: 30 ml Levofloxacin (Levaquin) 750 mg PO Q24H [facility] Last Admin: 09/22/18 14:00 Dose: 750 mg Lisinopril (Prinivil) 10 mg PO BID [facility] Last Admin: 09/22/18 10:21 Dose: 10 mg Lorazepam (Ativan Inj) 1 mg IV.PUSH Q6H PRN PRN Reason: SHORTNESS OF BREATH Morphine Sulfate (Morphine Inj) 4 mg IV.PUSH Q2H PRN PRN Reason: BREAKTHROUGH PAIN Last Admin: 09/18/18 03:21 Dose: 4 mg Multivitamins/Minerals (Theragran-M) 1 tab PO BID [facility] Stop: 11/15/18 20:59 Last Admin: 09/22/18 10:22 Dose: 1 tab Ondansetron HCl (Zofran Inj) 4 mg IV.PUSH Q6H PRN PRN Reason: NAUSEA OR VOMITING Last Admin: 09/16/18 21:25 Dose: 4 mg Senna/Docusate Sodium (Latha-Colace) 1 tab PO BID [facility] Last Admin: 09/22/18 14:00 Dose: Not Given Sennosides (Senokot) 17.2 mg PO BID PRN PRN Reason: Moderate Constipation Sodium Chloride (Ns Flush) 2 ml IV.FLUSH BID [facility] Last Admin: 09/22/18 10:22 Dose: 2 ml Sodium Chloride (Ns Flush) 2 ml IV.FLUSH PRN PRN PRN Reason: FLUSH AFTER USING IV ACCESS Temazepam (Restoril) 15 mg PO HS PRN PRN Reason: INSOMNIA Allergies Allergy/AdvReac Type Severity Reaction Status Date / Time No Known Allergies Allergy Verified 09/15/18 11:29 Home Medications Medication Instructions Recorded Confirmed Type alprazolam 0.25 mg PO Q6HR PRN 05/18/18 09/16/18 History aspirin [Aspirin Childrens] 1 tab PO DAILY 05/18/18 09/16/18 History cholecalciferol (vitamin D3) 2,000 unit PO DAILY 05/18/18 09/16/18 History [Vitamin D3] fenofibrate 145 mg PO DAILY 05/18/18 09/16/18 History fluoxetine [Prozac] 80 mg PO DAILY 05/18/18 09/16/18 History lisinopril 10 mg PO BID 05/18/18 09/16/18 History naproxen sodium [Aleve] 440 mg PO BID 05/18/18 09/16/18 History alendronate 70 mg PO QWEEK 09/15/18 09/16/18 History Physical Exam Vital signs: Vital Signs 09/21/18 16:00 09/21/18 19:33 09/21/18 19:35 Temperature 97.6 F 97.7 F Pulse Rate 92 H 92 H 96 H Respiratory Rate 18 18 18 Blood Pressure 121/63 119/57 L Pulse Oximetry 92 L 96 96 09/21/18 20:00 09/21/18 23:50 09/22/18 08:00 Temperature 98.1 F Pulse Rate 95 H 82 Respiratory Rate 18 42 H Blood Pressure 118/62 Pulse Oximetry 96 94 L 88 L 09/22/18 09:00 09/22/18 09:15 09/22/18 09:30 Temperature Pulse Rate 104 H 108 H 109 H Respiratory Rate 32 H 30 H 28 H Blood Pressure 116/69 127/66 132/60 Pulse Oximetry 100 99 98 09/22/18 09:45 09/22/18 10:00 09/22/18 10:29 Temperature Pulse Rate 105 H 102 H Respiratory Rate 36 H 29 H Blood Pressure 129/65 122/62 Pulse Oximetry 98 98 99 09/22/18 11:00 09/22/18 12:00 09/22/18 13:00 Temperature 98.8 F Pulse Rate 103 H 100 H 95 H Respiratory Rate 27 H 25 H 25 H Blood Pressure 120/65 119/67 Pulse Oximetry 97 98 98 09/22/18 14:00 Temperature Pulse Rate 100 H Respiratory Rate 36 H Blood Pressure 115/81 Pulse Oximetry 97 Intake & Output 09/21/18 09/22/18 09/22/18 18:59 06:59 18:59 Intake Total 480 / 480 360 / 360 Balance 480 / 480 360 / 360 Weight 79 kg Intake: Oral 480 / 480 360 / 360 Other: # Voids 1 Date of Last Bowel Movement 09/18/18 09/18/18 # Bowel Movements 0 Narrative: GENERAL: Well-nourished, well-developed adult female, appears tachypneic and dyspneic on nonrebreather facemask prior to initiating BiPAP SKIN: Warm and dry. HEAD: Atraumatic. Normocephalic. CARDIOVASCULAR: Regular rate and rhythm. RESPIRATORY: Good air entry bilaterally, scattered rhonchi, no wheezing. GASTROINTESTINAL: Abdomen soft, non-tender, distended. Positive bowel sounds. MUSCULOSKELETAL: Extremities without clubbing, cyanosis, or edema. No obvious deformities. Bilateral lower extremities neurovascularly intact. Back brace on. NEUROLOGICAL: Awake and alert. No obvious cranial nerve deficits. Motor grossly within normal limits. Normal speech. PSYCHIATRIC: Appropriate mood and affect; insight and judgment good. - Urinary Catheter Management Indwelling Urethral Catheter Cath placed during this visit: yes, but has since been removed by the nurse Reason for continuing: Not indwelling catheter Insertion date: 09/16/18 Insertion time: 13:30 Removal date: 09/17/18 Removal time: 22:05 Straight Cath placed during this visit: yes, but has since been removed by the nurse Reason for continuing: Not indwelling catheter Insertion date: 09/18/18 Insertion time: 10:00 Removal date: 09/18/18 Removal time: 10:05 Assessment and Plan - Assessment and Plan Plan: 73-year-old female with: Acute respiratory failure Suspect COPD exacerbation Anxiety disorder with possible panic attack Spinal stenosis status post lumbar laminectomy Hypertension Acute blood loss anemia status post transfusions. Plan: Neuro: Continue pain medications as ordered. Xanax/Ativan as needed for anxiety. Follow neuro status. Cardiovascular: Continue antihypertensives. Pulmonary: Supplemental O2 as needed. Placed on BiPAP. Bronchodilators. Solu- Medrol 125 mg IV stat followed by 80 mg IV every 12 hourly. CTA chest negative for PE and showed interstitial infiltrates. GI/liver: P.o. diet if respiratory status permits. Renal/: Strict intake output, monitor and replete elect lites, follow BUN/creatinine. ID: Placed on Levaquin for empiric antibiotic coverage per hospitalist service which will be continued. Heme: Follow CBC. Transfuse 2 units PRBCs postoperatively for anemia. Endocrine: Watch for hypoglycemia, SSI for glycemic control if needed Prophylaxis: Start Lovenox 40 mg subcutaneously daily for DVT prophylaxis which was cleared with orthopedics. Discussed with AUTOMOTIVE PARTS COUNTER PERSON, discussed with [employer] INTERN. Condition critical. Time spent on critical care excluding procedures 60 minutes
--- NOTE | 2018-09-22 15:36 | P.PNIM ---
Subjective Interval history: Responded to [facility] called due to patient respiratory distress. Upon entering room patient was being attended by respiratory therapy who had placed her on nonrebreather mask due to respiratory rate of over 40 on prior 4 L nasal cannula. Patient alert and oriented but very anxious. Sats were 79% initially and quickly increased to 98% on nonrebreather. BP 140/65 and heart rate 104. BGM 96. Chest x-ray and ABGs ordered. Decision was made to transfer patient to [facility] bed for balance wheel screw hole tapper assistance and BiPAP. Physical Exam Vital signs: Last Vital Signs Temp 98.8 F 09/22/18 12:00 Pulse 98 H 09/22/18 15:00 Resp 30 H 09/22/18 15:00 BP 125/53 L 09/22/18 15:00 Pulse Ox 95 09/22/18 15:00 Intake & Output 09/20/18 09/21/18 09/22/18 09/23/18 06:59 06:59 06:59 06:59 Intake Total 1320 / 1320 840 / 840 Balance 1320 / 1320 840 / 840 Weight 79 kg 79 kg Narrative: GENERAL: Well-nourished, well-developed adult female, dyspneic on nonrebreather facemask; her anxious SKIN: Warm and dry. HEAD: Atraumatic. Normocephalic. CARDIOVASCULAR: Regular rate and rhythm. RESPIRATORY: Good air entry bilaterally, scattered rhonchi, no wheezing. GASTROINTESTINAL: Abdomen soft, non-tender, non-distended. Positive bowel sounds. MUSCULOSKELETAL: Extremities without clubbing, cyanosis, or edema. No obvious deformities. Bilateral lower extremities neurovascularly intact. NEUROLOGICAL: Awake and alert. No obvious cranial nerve deficits. Motor grossly within normal limits. Normal speech. . Urinary Catheter Management Indwelling Urethral Catheter: Cath placed during this visit: yes, but has since been removed by the nurse Insertion date: 09/16/18 Insertion time: 13:30 Removal date: 09/17/18 Removal time: 22:05 Straight: Cath placed during this visit: yes, but has since been removed by the nurse Insertion date: 09/18/18 Insertion time: 10:00 Removal date: 09/18/18 Removal time: 10:05 Results Labs CBC & Chem 7: 09/22/18 09:31 09/22/18 09:31 Imaging Imaging: Impressions Chest CTA 09/22/18 00:00 CONCLUSION: 1. This study is negative for pulmonary embolism. 2. Scattered bilateral ground-glass infiltrates are noted consistent with mild pulmonary edema or developing pneumonia. Clinical correlation is recommended. 3. Minimal posterior pleural thickening bilaterally and tiny bilateral pleural effusions 4. Cardiomegaly. 5. Degenerative changes throughout the thoracic spine. Chest X-Ray 09/22/18 08:11 CONCLUSION: Interval improvement with less interstitial edema Venous Doppler Study 09/22/18 08:43 CONCLUSION: 1. The study is negative for bilateral lower extremity deep venous thrombosis. Procedures Procedures: Lumbar laminectomy L12, lateral recessdecomrpession, posterior spinal fusion and interbody cage L12, segmental instrumentation L1-T10. Assessment and Plan (1) Lumbar spinal stenosis: Code(s): M48.061 - Spinal stenosis, lumbar region without neurogenic claudication Status: Acute Plan Patient is a 73-year-old female with a past medical history of hypertension, hyperlipidemia depression, anxiety, osteoporosis, and chronic back pain with previous surgery. She is admitted with increased back pain with plans for laminectomy. spinal stenosis and chronic back pain - s/p laminectomy- management per ortho. COPD/SOB/bronchitis -Patient was transferred to intensive care due to respiratory distress. Please see balance wheel screw hole tapper note for same day for further details of current plan. This is a non-billable note Progress Note: Quality VTE Deep Vein Thrombosis/Pulmonary Embolism Present on Admission: No _ (1) Lumbar spinal stenosis Qualifiers: Neurogenic claudication status:
[2018-09-22] MEDS: Enoxaparin Inj 40 MG/0.4 ML Syringe SQ SCH (16:51)
[2018-09-22] MEDS: MethylPREDNISolone Sod Succinate Inj 40 MG/ML Vial IV.PUSH SCH (20:13)
[2018-09-23] MEDS: ALPRAZolam 0.25 MG Tablet PO PRN (07:33)
[2018-09-23] MEDS: FLUoxetine 20 MG Capsule PO SCH (08:09)
[2018-09-23] MEDS: Senna/Docusate Sodium 8.6/50 MG Tablet PO SCH ×2 (08:09→20:07)
[2018-09-23] MEDS: Fenofibrate 145 MG Tablet PO SCH (08:09)
[2018-09-23] MEDS: MethylPREDNISolone Sod Succinate Inj 40 MG/ML Vial IV.PUSH SCH ×2 (08:10→20:08)
[2018-09-23] MEDS: Multivitamin/Minerals Therapeutic Tablet PO SCH ×2 (08:10→20:07)
[2018-09-23] MEDS: Lisinopril 10 MG Tablet PO SCH ×2 (08:10→20:08)
[2018-09-23] MEDS: Enoxaparin Inj 40 MG/0.4 ML Syringe SQ SCH (08:10)
[2018-09-23 10:44] LABS: Baso % (Auto) 0.1 % (0.0-2.0); Eos # (Auto) 0.1 th/mm3 (0.0-0.4); Eos % (Auto) 0.6 % (0.0-4.0); Hematocrit 30.9 % (35.0-46.0); Hemoglobin 10.2 gm/dL (11.6-15.3); Lymph # (Auto) 1.4 th/mm3 (1.0-4.8); Lymph % (Auto) 8.1 % (9.0-44.0); Mean Corpuscular HGB Conc 32.9 % (32.0-36.0); Mean Corpuscular Hemoglobin 29.6 pg (27.0-34.0); Mean Platelet Volume 6.8 fL (7.0-11.0); Mono # (Auto) 0.8 th/mm3 (0.0-0.9); Neut # (Auto) 14.4 th/mm3 (1.8-7.7); Neut % (Auto) 86.2 % (16.0-70.0); Platelet Count 677 th/mm3 (150-450); Red Blood Count 3.44 mil/mm3 (4.00-5.30); Red Cell Distribution Width 14.9 % (11.6-17.2); White Blood Count 16.7 th/mm3 (4.0-11.0)
[2018-09-23 11:05] LABS: Carbon Dioxide 27.8 meq/L (21.0-32.0); Magnesium 2.3 mg/dL (1.5-2.5); Potassium 3.5 meq/L (3.5-5.1)
--- NOTE | 2018-09-23 13:09 | P.PNOP ---
Subjective Interval history: Doing much better. In ISC. Very comfortable with pain well controlled Physical Exam Vital signs: Vital Signs 09/22/18 14:00 09/22/18 15:00 09/22/18 15:47 Temperature Pulse Rate 100 H 98 H 98 H Respiratory Rate 36 H 30 H 18 Blood Pressure 115/81 125/53 L Pulse Oximetry 97 95 09/22/18 16:00 09/22/18 17:00 09/22/18 18:00 Temperature 98.8 F 98.8 F Pulse Rate 105 H 105 H 98 H Respiratory Rate 29 H 22 25 H Blood Pressure 99/54 L 104/57 L Pulse Oximetry 97 95 09/22/18 18:20 09/22/18 19:00 09/22/18 19:38 Temperature Pulse Rate 98 H 97 H 91 H Respiratory Rate 29 H 25 H 20 Blood Pressure 109/60 112/65 Pulse Oximetry 87 L 95 96 09/22/18 20:00 09/22/18 21:00 09/22/18 22:00 Temperature 98.4 F Pulse Rate 91 H 91 H 94 H Respiratory Rate 21 45 H 28 H Blood Pressure 101/69 111/57 L 117/58 L Pulse Oximetry 95 98 94 L 09/22/18 23:00 09/22/18 23:15 09/23/18 00:00 Temperature 98.6 F Pulse Rate 90 84 91 H Respiratory Rate 25 H 18 24 Blood Pressure 128/67 125/64 Pulse Oximetry 94 L 93 L 09/23/18 01:00 09/23/18 02:00 09/23/18 03:00 Temperature Pulse Rate 90 92 H 77 Respiratory Rate 32 H 26 H 18 Blood Pressure 134/62 140/67 171/77 H Pulse Oximetry 90 L 09/23/18 03:09 09/23/18 04:00 09/23/18 05:00 Temperature 98.0 F Pulse Rate 92 H 89 89 Respiratory Rate 18 19 22 Blood Pressure 122/63 124/71 Pulse Oximetry 94 L 93 L 09/23/18 06:00 09/23/18 07:00 09/23/18 07:04 Temperature Pulse Rate 85 97 H 94 H Respiratory Rate 20 29 H 48 H Blood Pressure 120/59 L 133/81 Pulse Oximetry 95 89 L 09/23/18 07:31 09/23/18 08:00 12/18/18 09:00 Temperature 97.7 F Pulse Rate 83 86 81 Respiratory Rate 17 24 23 Blood Pressure 122/66 117/72 Pulse Oximetry 98 97 98 09/23/18 09:29 09/23/18 09:38 09/23/18 10:00 Temperature Pulse Rate 88 Respiratory Rate 58 H Blood Pressure 132/58 L 116/67 Pulse Oximetry 96 95 09/23/18 10:45 09/23/18 11:00 09/23/18 11:01 Temperature Pulse Rate 96 H Respiratory Rate 42 H Blood Pressure 110/52 L Pulse Oximetry 93 L 94 L 09/23/18 11:18 Temperature Pulse Rate 82 Respiratory Rate 18 Blood Pressure Pulse Oximetry Intake & Output 09/22/18 09/23/18 09/23/18 18:59 06:59 18:59 Intake Total 400 / 400 240 / 240 Output Total 250 / 250 Balance 400 / 400 -10 / -10 Weight 74.2 kg Intake: Oral 400 / 400 240 / 240 Output: Urine 250 / 250 Other: # Voids 1 # Incontinent Voids 1 Date of Last Bowel Movement 09/18/18 09/18/18 # Bowel Movements 0 # Incontinent Bowel Movements 0 Narrative: Lumbar incision dry. Mild swelling. Mild ecchymosis. Motor exam both legs normal. No calf tenderness or abnormal swelling - Urinary Catheter Management Indwelling Urethral Catheter Cath placed during this visit: yes, but has since been removed by the nurse Reason for continuing: Not indwelling catheter Insertion date: 09/16/18 Insertion time: 13:30 Removal date: 09/17/18 Removal time: 22:05 Straight Cath placed during this visit: yes, but has since been removed by the nurse Reason for continuing: Not indwelling catheter Insertion date: 09/18/18 Insertion time: 10:00 Removal date: 09/18/18 Removal time: 10:05 Results - Labs CBC & Chem 7: 09/23/18 10:13 09/23/18 10:13 Laboratory Results - last 24 hr 09/22/18 09/22/18 09/23/18 09:43 14:16 10:13 WBC 16.7 H RBC 3.44 L Hgb 10.2 L Hct 30.9 L MCV 90.0 MCH 29.6 MCHC 32.9 RDW 14.9 Plt Count 677 H MPV 6.8 L Neut % (Auto) 86.2 H Lymph % (Auto) 8.1 L Burke % (Auto) 5.0 Eos % (Auto) 0.6 Baso % (Auto) 0.1 Neut # (Auto) 14.4 H Lymph # (Auto) 1.4 Burke # (Auto) 0.8 Eos # (Auto) 0.1 Baso # (Auto) 0.0 WBC Differential . Differential Comment Auto diff final Puncture Site Left radial Patient Temperature 98.6 O2 Saturation 97 ABG pH 7.42 ABG pCO2 39 ABG pO2 182 H ABG HCO3 24 ABG O2 Content 15.4 ABG Base Excess 0.4 ABG Methemoglobin 1.0 Bharath Test Present Hemoglobin 11.0 L Carboxyhemoglobin 0.9 O2 Delivery Device Partial-rebreather Liter Flow 12.00 Critical Value No Sodium Potassium Chloride Carbon Dioxide Anion Gap BUN Creatinine Estimated GFR Random Glucose Calcium Magnesium Nasal Screen MRSA (PCR) Not detected 09/23/18 10:13 WBC RBC Hgb Hct MCV MCH MCHC RDW Plt Count MPV Neut % (Auto) Lymph % (Auto) Burke % (Auto) Eos % (Auto) Baso % (Auto) Neut # (Auto) Lymph # (Auto) Burke # (Auto) Eos # (Auto) Baso # (Auto) WBC Differential Differential Comment Puncture Site Patient Temperature O2 Saturation ABG pH ABG pCO2 ABG pO2 ABG HCO3 ABG O2 Content ABG Base Excess ABG Methemoglobin Bharath Test Hemoglobin Carboxyhemoglobin O2 Delivery Device Liter Flow Critical Value Sodium 137 Potassium 3.5 Chloride 101 Carbon Dioxide 27.8 Anion Gap 8 BUN 18 Creatinine 0.67 Estimated GFR 86 L Random Glucose 127 H Calcium 9.0 Magnesium 2.3 Nasal Screen MRSA (PCR) - Procedures Lumbar laminectomy L12, lateral recessdecomrpession, posterior spinal fusion and interbody cage L12, segmental instrumentation L1-T10. Assessment and Plan - Problem List (1) Lumbar spinal stenosis Code(s): M48.061 - Spinal stenosis, lumbar region without neurogenic claudication Status: Acute - Assessment and Plan pod#7 s/p Lami Fusion L12 with extended instrumentation up to T10 Pain controlled. Ortho stable. Continue use of lumbar brace when out of bed. Hold dressing changes unless saturated. Medical continuing to manage upper respiratory. Encouraged IS as she recently had bronchitis. No cough Physical therapy to work with patient Discharge probably to SNF versus home when medically stabilized
[2018-09-23] MEDS: levoFLOXacin 750 MG Tablet PO SCH (14:00)
--- NOTE | 2018-09-23 15:35 | P.PNIM ---
Subjective Interval history: Patient is seen sitting up in chair. is at bedside. Patient reports that she is feeling much better. Now on nasal cannula with no distress. Did have an episode of confusion and respiratory distress this morning which was improved after Ativan. Back pain is tolerable. She has been able to ambulate with physical therapy. No fever or chills shortness of breath improved. No chest pain. Physical Exam Vital signs: Last Vital Signs Temp 97.9 F 09/23/18 12:00 Pulse 91 H 09/23/18 15:00 Resp 24 09/23/18 15:00 BP 109/59 L 09/23/18 15:00 Pulse Ox 96 09/23/18 15:00 Intake & Output 09/21/18 09/22/18 09/23/18 09/24/18 06:59 06:59 06:59 06:59 Intake Total 1320 / 1320 840 / 840 640 / 640 Output Total 250 / 250 Balance 1320 / 1320 840 / 840 390 / 390 Weight 79 kg 79 kg 74.2 kg Narrative: GENERAL: Well-nourished, well-developed adult female SKIN: Warm and dry. HEAD: Atraumatic. Normocephalic. CARDIOVASCULAR: Regular rate and rhythm. RESPIRATORY: No accessory muscle use. Rhonchi clears with cough. Breath sounds equal bilaterally. GASTROINTESTINAL: Abdomen soft, non-tender, distended. Positive bowel sounds. MUSCULOSKELETAL: Extremities without clubbing, cyanosis, or edema. No obvious deformities. Bilateral lower extremities neurovascularly intact. Back brace on. NEUROLOGICAL: Awake and alert. No obvious cranial nerve deficits. Motor grossly within normal limits. Normal speech. PSYCHIATRIC: Appropriate mood and affect; insight and judgment good. Urinary Catheter Management Indwelling Urethral Catheter: Cath placed during this visit: yes, but has since been removed by the nurse Insertion date: 09/16/18 Insertion time: 13:30 Removal date: 09/17/18 Removal time: 22:05 Straight: Cath placed during this visit: yes, but has since been removed by the nurse Insertion date: 09/18/18 Insertion time: 10:00 Removal date: 09/18/18 Removal time: 10:05 Results Labs CBC & Chem 7: 09/23/18 10:13 09/23/18 10:13 Procedures Procedures: Lumbar laminectomy L12, lateral recessdecomrpession, posterior spinal fusion and interbody cage L12, segmental instrumentation L1-T10. Assessment and Plan (1) Lumbar spinal stenosis: Code(s): M48.061 - Spinal stenosis, lumbar region without neurogenic claudication Status: Acute Plan Patient is a 73-year-old female with a past medical history of hypertension, hyperlipidemia depression, anxiety, osteoporosis, and chronic back pain with previous surgery. She is admitted with increased back pain with plans for laminectomy. spinal stenosis and chronic back pain - s/p laminectomy- management per ortho. -Postsurgical anemia; improved after transfusion of 2 units PRBCs COPD/SOB/bronchitis -WBC 17.1 on 09/20; improved but still elevated. -Started Levaquin 09/20 - WBC could be reactionary however patient has not had recent steroid use. Will continue Levaquin based on history of recent bronchitis as well as respiratory failure previously post surgery. -Encourage IS; nebs ordered -Monitor for fluid overload; repeat chest x-ray shows some edema -Patient experienced an episode of respiratory distress on the morning of and was transferred to intensive care for additional monitoring and BiPAP. -Solu-Medrol 125 mg IV stat ordered with 80 mg IV scheduled every 12 thereafter -CTA chest negative for PE; showed interstitial infiltrates -Patient improved on BiPAP and was eventually changed to 4 L nasal cannula which she is currently tolerating well. -Suspect component of anxiety/air hunger contributing to respiratory distress. We will continue scheduled benzos. -Nursing did report some respiratory distress this morning so would like to monitor in intensive care overnight; likely can transfer back to Ortho on 09/24 Hypokalemia -Replace and monitor -hypertension -chronic continue Lisinopril -DVT prophylaxis: Lovenox; cleared with orthopedics by medical review coordinator. Discharge planning: Not yet ready for discharge, will likely need rehab. Progress Note: Quality VTE Deep Vein Thrombosis/Pulmonary Embolism Present on Admission: No _ (1) Lumbar spinal stenosis Qualifiers: Neurogenic claudication status:
[2018-09-24 07:34] LABS: Albumin 2.1 g/dL (3.4-5.0); Anion Gap 10 meq/L (5-15); Aspartate Aminotransferase 41 U/L (15-37); Blood Urea Nitrogen 21 mg/dL (7-18); Calcium 8.3 mg/dL (8.5-10.1); Carbon Dioxide 25.8 meq/L (21.0-32.0); Chloride 104 meq/L (98-107); Glomerular Filtration Rate 78 mL/min (>89); Glucose,Random 130 mg/dL (74-106); Potassium 3.9 meq/L (3.5-5.1); Sodium 140 meq/L (136-145)
[2018-09-24 07:37] LABS: Alanine Aminotransferase 46 U/L (10-53); Alkaline Phosphatase 93 U/L (45-117); Total Protein 6.9 g/dL (6.4-8.2)
[2018-09-24] MEDS: Lisinopril 10 MG Tablet PO SCH ×3 (08:31→22:11)
[2018-09-24] MEDS: Multivitamin/Minerals Therapeutic Tablet PO SCH ×2 (08:31→21:02)
[2018-09-24] MEDS: Senna/Docusate Sodium 8.6/50 MG Tablet PO SCH ×2 (08:32→21:02)
[2018-09-24] MEDS: FLUoxetine 20 MG Capsule PO SCH (08:33)
[2018-09-24] MEDS: MethylPREDNISolone Sod Succinate Inj 40 MG/ML Vial IV.PUSH SCH ×2 (08:33→21:01)
[2018-09-24] MEDS: Fenofibrate 145 MG Tablet PO SCH (08:33)
[2018-09-24] MEDS: Enoxaparin Inj 40 MG/0.4 ML Syringe SQ SCH (08:33)
--- NOTE | 2018-09-24 11:20 | P.PNIM ---
Subjective Interval history: Patient seen lying quietly in bed. Initially sleeping but wakes easily. On 4 L nasal cannula; no distress. Much calmer today. Reports that yesterday went really well and that she feels much better. No chest pain. No fever or chills. No nausea vomiting or diarrhea. pain is well controlled. Physical Exam Vital signs: Last Vital Signs Temp 98.7 F 09/24/18 04:00 Pulse 88 09/24/18 07:50 Resp 18 09/24/18 07:50 BP 153/68 H 09/24/18 05:00 Pulse Ox 96 09/24/18 07:50 Intake & Output 09/22/18 09/23/18 09/24/18 09/25/18 06:59 06:59 06:59 06:59 Intake Total 840 / 840 640 / 640 1345 / 1345 Output Total 250 / 250 0 / 0 Balance 840 / 840 390 / 390 1345 / 1345 Weight 79 kg 74.2 kg 74.6 kg Narrative: GENERAL: Well-nourished, well-developed adult female SKIN: Warm and dry. HEAD: Atraumatic. Normocephalic. CARDIOVASCULAR: Regular rate and rhythm. RESPIRATORY: No accessory muscle use. Clear. Breath sounds equal bilaterally. GASTROINTESTINAL: Abdomen soft, non-tender, distended. Positive bowel sounds. MUSCULOSKELETAL: Extremities without clubbing, cyanosis, or edema. No obvious deformities. Bilateral lower extremities neurovascularly intact. NEUROLOGICAL: Awake and alert. No obvious cranial nerve deficits. Motor grossly within normal limits. Normal speech. PSYCHIATRIC: Appropriate mood and affect; insight and judgment good. Urinary Catheter Management Indwelling Urethral Catheter: Cath placed during this visit: yes, but has since been removed by the nurse Insertion date: 09/16/18 Insertion time: 13:30 Removal date: 09/17/18 Removal time: 22:05 Straight: Cath placed during this visit: yes, but has since been removed by the nurse Insertion date: 09/18/18 Insertion time: 10:00 Removal date: 09/18/18 Removal time: 10:05 Results Labs CBC & Chem 7: 09/23/18 10:13 09/24/18 06:08 Procedures Procedures: Lumbar laminectomy L12, lateral recessdecomrpession, posterior spinal fusion and interbody cage L12, segmental instrumentation L1-T10. Assessment and Plan (1) Lumbar spinal stenosis: Code(s): M48.061 - Spinal stenosis, lumbar region without neurogenic claudication Status: Acute Plan Patient is a 73-year-old female with a past medical history of hypertension, hyperlipidemia depression, anxiety, osteoporosis, and chronic back pain with previous surgery. She is admitted with increased back pain with plans for laminectomy. spinal stenosis and chronic back pain - s/p laminectomy- management per ortho. -Postsurgical anemia; improved after transfusion of 2 units PRBCs COPD/SOB/bronchitis -WBC 17.1 on 09/20; improved but still elevated. -Started Levaquin 09/20 - WBC could be reactionary however patient has not had recent steroid use. Will continue Levaquin based on history of recent bronchitis as well as respiratory failure previously post surgery. -Encourage IS; nebs ordered -Monitor for fluid overload; repeat chest x-ray shows some edema -Patient experienced an episode of respiratory distress on the morning of and was transferred to intensive care for additional monitoring and BiPAP. -Solu-Medrol 125 mg IV stat ordered with 80 mg IV scheduled every 12 thereafter; taper use -CTA chest negative for PE; showed interstitial infiltrates -Patient improved on BiPAP and was eventually changed to 4 L nasal cannula which she is currently tolerating well. -Suspect component of anxiety/air hunger contributing to respiratory distress. We will continue scheduled benzos. -Doing well, [facility] Hypokalemia -Replace and monitor -hypertension -chronic continue Lisinopril -DVT prophylaxis: Lovenox; cleared with orthopedics by web sizer. Discharge planning: Not yet ready for discharge, will likely need rehab. Progress Note: Quality VTE Deep Vein Thrombosis/Pulmonary Embolism Present on Admission: No _ (1) Lumbar spinal stenosis Qualifiers: Neurogenic claudication status:
[2018-09-24] MEDS: levoFLOXacin 750 MG Tablet PO SCH (17:32)
--- NOTE | 2018-09-24 21:11 | P.PNOP ---
Subjective Interval history: Patient seen and assessed around 1300 today. No new leg pain. Back pain continues to improve. She states she is 'fairly comfortable'. She walked the halls with her walker this morning without nasal cannula and states she felt well. Feelings of anxiety and chest heaviness have improved. Physical Exam Vital signs: Vital Signs 09/23/18 22:00 09/23/18 23:00 09/23/18 23:03 Temperature Pulse Rate 85 88 Respiratory Rate 16 12 23 Blood Pressure 144/63 H 150/66 H Pulse Oximetry 94 L 96 09/24/18 00:00 09/24/18 01:00 09/24/18 02:00 Temperature 98.6 F Pulse Rate 87 83 83 Respiratory Rate 19 19 20 Blood Pressure 154/67 H 141/64 H 143/66 H Pulse Oximetry 96 97 95 09/24/18 03:00 09/24/18 03:34 09/24/18 04:00 Temperature 98.7 F Pulse Rate 82 84 97 H Respiratory Rate 18 20 27 H Blood Pressure 144/65 H 134/63 Pulse Oximetry 94 L 95 09/24/18 04:11 09/24/18 05:00 09/24/18 06:00 Temperature Pulse Rate 80 85 Respiratory Rate 22 20 21 Blood Pressure 153/68 H 160/126 H Pulse Oximetry 94 L 97 09/24/18 06:08 09/24/18 06:26 09/24/18 07:00 Temperature 98.0 F Pulse Rate 93 H 82 Respiratory Rate 24 20 19 Blood Pressure 147/75 H 137/62 Pulse Oximetry 98 94 L 09/24/18 07:50 09/24/18 08:00 09/24/18 09:00 Temperature 98.2 F 98.4 F Pulse Rate 88 86 89 Respiratory Rate 18 23 28 H Blood Pressure 118/92 H 123/57 L Pulse Oximetry 96 87 L 95 09/24/18 09:53 09/24/18 10:00 09/24/18 10:33 Temperature 98.2 F Pulse Rate 87 86 Respiratory Rate 33 H 23 Blood Pressure 118/92 H 129/61 Pulse Oximetry 87 L 09/24/18 10:34 09/24/18 11:00 09/24/18 12:00 Temperature 98.1 F 98.2 F Pulse Rate 90 88 86 Respiratory Rate 17 20 39 H Blood Pressure 115/59 L 108/76 Pulse Oximetry 87 L 87 L 09/24/18 12:30 09/24/18 13:00 09/24/18 14:00 Temperature Pulse Rate 90 97 H 93 H Respiratory Rate 16 41 H 29 H Blood Pressure 113/56 L 109/55 L Pulse Oximetry 09/24/18 15:00 09/24/18 16:00 09/24/18 16:33 Temperature 98.2 F 98.0 F Pulse Rate 84 80 79 Respiratory Rate 22 24 20 Blood Pressure Pulse Oximetry 09/24/18 17:00 09/24/18 18:00 09/24/18 19:27 Temperature 98.5 F Pulse Rate 94 H 87 86 Respiratory Rate 25 H 22 18 Blood Pressure Pulse Oximetry 94 L Intake & Output 09/24/18 09/24/18 09/25/18 06:59 18:59 06:59 Intake Total 620 / 620 2120 / 2120 Output Total 0 / 0 1700 / 1700 Balance 620 / 620 420 / 420 Weight 74.6 kg Intake: Oral 620 / 620 620 / 620 Anesthesia Amount 1500 / 1500 Output: Urine 250 / 250 Stool 0 / 0 0 / 0 Estimated Blood Loss 500 / 500 Urine Amount (Catheter) 950 / 950 Straight 950 / 950 Other: # Voids 1 1 # Incontinent Voids 1 Date of Last Bowel Movement 09/23/18 # Bowel Movements 0 # Incontinent Bowel Movements 0 Narrative: Sitting up in chair at bedside No acute distress Eating lunch L/S Dressings intact, no new drainage, no erythema +motor hip flexors, +sens bilat Neg homans, minimal swelling LEs - Constitutional no acute distress - Urinary Catheter Management Indwelling Urethral Catheter Cath placed during this visit: yes, but has since been removed by the nurse Reason for continuing: Not indwelling catheter Insertion date: 09/16/18 Insertion time: 13:30 Removal date: 09/17/18 Removal time: 22:05 Straight Cath placed during this visit: yes, but has since been removed by the nurse Reason for continuing: Not indwelling catheter Insertion date: 09/18/18 Insertion time: 10:00 Removal date: 09/18/18 Removal time: 10:05 Results - Labs CBC & Chem 7: 09/23/18 10:13 09/24/18 06:08 Laboratory Results - last 24 hr 09/24/18 06:08 Sodium 140 Potassium 3.9 Chloride 104 Carbon Dioxide 25.8 Anion Gap 10 BUN 21 H Creatinine 0.73 Estimated GFR 78 L Random Glucose 130 H Calcium 8.3 L Total Bilirubin 0.3 AST 41 H ALT 46 Alkaline Phosphatase 93 Total Protein 6.9 Albumin 2.1 L - Procedures Lumbar laminectomy L12, lateral recess decompression, posterior spinal fusion and interbody cage L12, segmental instrumentation L1-T10. Assessment and Plan - Ortho Post Op Day # 8 - Problem List (1) Lumbar spinal stenosis Code(s): M48.061 - Spinal stenosis, lumbar region without neurogenic claudication Status: Acute - Assessment and Plan pod#8 s/p Lami Fusion L12 with extended instrumentation up to T10 Ortho stable. Pain controlled. Her back is 'doing better than everything else'. She has no new leg pain. Anxiety improved. States breathing is not labored. Medical is still monitoring pulmonary function. Continue use of lumbar brace when out of bed. Physical therapy for daily gait training. Hold dressing changes unless saturated. IS encouraged. Discharge SNF vs HHC. If portable O2 is required for basic ambulation she will need to go to SNF. Today she states she has no preference but would prefer discharge rather than continued stay in the hospital. Ok to d/c per ortho when cleared by medical.
[2018-09-25 04:06] VITALS: BP 115/56
[2018-09-25 06:56] LABS: Baso % (Auto) 0.1 % (0.0-2.0); Eos % (Auto) 0.2 % (0.0-4.0); Hemoglobin 9.6 gm/dL (11.6-15.3); Lymph # (Auto) 1.6 th/mm3 (1.0-4.8); Lymph % (Auto) 12.8 % (9.0-44.0); Mean Corpuscular HGB Conc 33.3 % (32.0-36.0); Mean Corpuscular Hemoglobin 29.8 pg (27.0-34.0); Mean Corpuscular Volume 89.5 fL (80.0-100.0); Mean Platelet Volume 6.8 fL (7.0-11.0); Mono # (Auto) 0.9 th/mm3 (0.0-0.9); Mono % (Auto) 6.9 % (0.0-8.0); Neut # (Auto) 10.1 th/mm3 (1.8-7.7); Platelet Count 754 th/mm3 (150-450); Red Blood Count 3.24 mil/mm3 (4.00-5.30); Red Cell Distribution Width 14.9 % (11.6-17.2); White Blood Count 12.7 th/mm3 (4.0-11.0)
--- NOTE | 2018-09-25 08:14 | P.DCO ---
Diagnosis (1) Lumbar spinal stenosis: Status: Acute (2) Respiratory tract infection: Status: Acute (3) Unstable gait: Status: Acute (4) Risk for falls: Status: Acute (5) Physical deconditioning: Status: Acute Home Health Nursing Order: Wound care and dressing changes and Nursing assessment with vital signs Case Management Consult Case Management Consult-Home Health: Yes I have seen patient Yissel Salamanca on 09/25/18. My clinical findings support the need for the requested home health care services because: Patient has SOB, Deconditioned with increased weakness and High risk of falls I certify that my clinical findings support that this patient is homebound because: _ (1) Lumbar spinal stenosis Qualifiers: Neurogenic claudication status:
--- NOTE | 2018-09-25 08:14 | P.PNIM ---
Subjective Interval history: Patient seen sitting up in bed. She is no longer wearing nasal cannula. O2 monitor indicated 92-94% sats during her whole conversation. She says this has been her baseline since her last surgery. States that she feels significantly better as far as both breathing and anxiety go. Back pain has been minimal and she is moving well. She would like to go home if at all possible Physical Exam Vital signs: Last Vital Signs Temp 98.1 F 09/25/18 04:00 Pulse 93 H 09/25/18 06:00 Resp 27 H 09/25/18 06:00 BP 115/56 L 09/25/18 04:00 Pulse Ox 94 L 09/25/18 07:55 Intake & Output 09/23/18 09/24/18 09/25/18 09/26/18 06:59 06:59 06:59 06:59 Intake Total 640 / 640 1345 / 1345 2120 / 2120 Output Total 250 / 250 0 / 0 1700 / 1700 Balance 390 / 390 1345 / 1345 420 / 420 Weight 74.2 kg 74.6 kg 72.8 kg Narrative: GENERAL: Well-nourished, well-developed adult female SKIN: Warm and dry. HEAD: Atraumatic. Normocephalic. CARDIOVASCULAR: Regular rate and rhythm. RESPIRATORY: No accessory muscle use. Clear. Breath sounds equal bilaterally. GASTROINTESTINAL: Abdomen soft, non-tender, distended. Positive bowel sounds. MUSCULOSKELETAL: Extremities without clubbing, cyanosis, or edema. No obvious deformities. Bilateral lower extremities neurovascularly intact. NEUROLOGICAL: Awake and alert. No obvious cranial nerve deficits. Motor grossly within normal limits. Normal speech. PSYCHIATRIC: Appropriate mood and affect; insight and judgment good. Urinary Catheter Management Indwelling Urethral Catheter: Cath placed during this visit: yes, but has since been removed by the nurse Insertion date: 09/16/18 Insertion time: 13:30 Removal date: 09/17/18 Removal time: 22:05 Straight: Cath placed during this visit: yes, but has since been removed by the nurse Insertion date: 09/18/18 Insertion time: 10:00 Removal date: 09/18/18 Removal time: 10:05 Results Labs CBC & Chem 7: 09/25/18 05:46 09/24/18 06:08 Procedures Procedures: Lumbar laminectomy L12, lateral recess decompression, posterior spinal fusion and interbody cage L12, segmental instrumentation L1-T10. Assessment and Plan (1) Lumbar spinal stenosis: Code(s): M48.061 - Spinal stenosis, lumbar region without neurogenic claudication Status: Acute Plan Patient is a 73-year-old female with a past medical history of hypertension, hyperlipidemia depression, anxiety, osteoporosis, and chronic back pain with previous surgery. She is admitted with increased back pain with plans for laminectomy. spinal stenosis and chronic back pain - s/p laminectomy- management per ortho. -Postsurgical anemia; improved after transfusion of 2 units PRBCs -Clear 09/24 for discharge by Ortho COPD/SOB/bronchitis -WBC 17.1 on 09/20; significantly improved but still elevated. -Started Levaquin 09/20 - WBC could be reactionary however patient has not had recent steroid use. Will continue Levaquin based on history of recent bronchitis as well as respiratory failure previously post surgery. Will discharge on Levaquin based on significant improvement and white count reduction. -Encourage IS; nebs ordered. Patient refusing nebulizers as they cause anxiety and she does not feel she needs them anymore. -Monitor for fluid overload; repeat chest x-ray shows some edema. Improved with BiPAP and Lasix. -Patient experienced an episode of respiratory distress on the morning of and was transferred to intensive care for additional monitoring and BiPAP. -Solu-Medrol 125 mg IV stat ordered with 80 mg IV scheduled every 12 thereafter; taper use. Will discharge on Medrol Dosepak. -CTA chest negative for PE; showed interstitial infiltrates -Patient improved on BiPAP and was eventually changed to 4 L nasal cannula. Now on room air with 92-94% sats -Suspect component of anxiety/air hunger contributing to respiratory distress. We will continue scheduled benzos. -Doing well, can discharge today after walk test. Hypokalemia -Replace and monitor -hypertension -chronic continue Lisinopril -DVT prophylaxis: Lovenox; cleared with orthopedics by process control manager. Discharge planning: Patient does not wish to go to rehab and would like to go home if at all possible. We will send with home health and PT. Patient tells me she already has walker and bedside commode. She also tells me that her showers and bathrooms have been modified to support her condition. Progress Note: Quality VTE Deep Vein Thrombosis/Pulmonary Embolism Present on Admission: No _ (1) Lumbar spinal stenosis Qualifiers: Neurogenic claudication status:
--- NOTE | 2018-09-25 08:22 | P.DS ---
DS: Providers Date of admission: 09/16/18 18:06 Primary care physician: Kishan Thayer MD Consults: 09/17/18 11:09 HUB Only Consult Order Routine Consulting Provider: Brittany Mercedes 09/19/18 16:52 Consult to Hospitalist Routine Consulting Provider: Rachel Pedro Reason for Consultation: PT'S CONTINUED POST OP LOW SATURATION Notified:: Service Spoke with:: GENESIS Date Notified:: 09/19/18 Time Notified:: 17:19 Ordering Provider: SAEID 09/22/18 14:59 Consult to Hospitalist Routine Consulting Provider: Rachel Pedro Reason for Consultation: Consult and transfer to hospitalist service for medical management. Critical care will be signing off, please reconsult if needed Notified:: Service Spoke with:: RAMIRO Date Notified:: 09/22/18 Time Notified:: 15:12 Comments:: Ordering Provider: DEYANIRA 09/22/18 15:11 Consult to Resolution Manager Routine Consulting Provider: Luis Santacruz Investments Manager:: Luis Santacruz Reason for Consultation: RESPIRATORY DISTRESS Notified:: Service Spoke with:: BEHZAD Date Notified:: 09/22/18 Time Notified:: 15:22 Ordering Provider: JAYLA Brief History from admission: Ms. Salamanca underwent previous lumbar fusions, most recently in 2017 L2-3. She did very well for 4-6 months. She began having increased low back pain that radiated to the thigh that did not respond to supervised physical therapy and appropriate restrictions. Imaging studies showed adjacent level collapse and spinal stenosis at L12. Her function declined rapidly that last 2 months. Surgical treatment was eventually recommended in the form of laminectomy and decompression L12, posterior interbody fusion with interbody cage L12, with extension posterior segmental instrumentation up to T10. The patient agreed and now presents for the above. DS: Diagnosis Discharge Diagnosis (1) Lumbar spinal stenosis: Status: Acute (2) Respiratory tract infection: Status: Acute (3) Unstable gait: Status: Acute (4) Risk for falls: Status: Acute (5) Physical deconditioning: Status: Acute DS: Summary Patient is a 73-year-old female with a past medical history of hypertension, hyperlipidemia depression, anxiety, osteoporosis, and chronic back pain with previous surgery. She is admitted with increased back pain with plans for laminectomy. spinal stenosis and chronic back pain -significantly improved - s/p laminectomy- management per ortho. -Postsurgical anemia; improved after transfusion of 2 units PRBCs -Clear 09/24 for discharge by Ortho COPD/SOB/bronchitis -improving -Started Levaquin 09/20 - WBC elevation could be reactionary however patient has not had recent steroid use. Will continue Levaquin based on history of recent bronchitis as well as respiratory failure previously post surgery. Will discharge on Levaquin based on significant improvement and white count reduction. -Encourage IS; nebs ordered. Patient refusing nebulizers as they cause anxiety and she does not feel she needs them anymore. -Monitor for fluid overload; repeat chest x-ray shows some edema. Improved with BiPAP and Lasix. -Patient experienced an episode of respiratory distress on the morning of and was transferred to intensive care for additional monitoring and BiPAP. -Solu-Medrol 125 mg IV stat ordered with 80 mg IV scheduled every 12 thereafter; taper use. Will discharge on Medrol Dosepak. -CTA chest negative for PE; showed interstitial infiltrates -Patient improved on BiPAP and was eventually changed to 4 L nasal cannula. Now on room air with 92-94% sats -Suspect component of anxiety/air hunger contributing to respiratory distress. We will continue scheduled benzos. Patient had a mild episode of hypokalemia; replacement was ordered and hypokalemia resolved. Time Spent with Patient Total time spent providing and/or coordinating discharge services: <30 min Quality: VTE Deep Vein Thrombosis/Pulmonary Embolism Present on Admission: No Exam Narrative Exam Narrative: GENERAL: Well-nourished, well-developed adult female SKIN: Warm and dry. HEAD: Atraumatic. Normocephalic. CARDIOVASCULAR: Regular rate and rhythm. RESPIRATORY: No accessory muscle use. Clear. Breath sounds equal bilaterally. GASTROINTESTINAL: Abdomen soft, non-tender, distended. Positive bowel sounds. MUSCULOSKELETAL: Extremities without clubbing, cyanosis, or edema. No obvious deformities. Bilateral lower extremities neurovascularly intact. NEUROLOGICAL: Awake and alert. No obvious cranial nerve deficits. Motor grossly within normal limits. Normal speech. PSYCHIATRIC: Appropriate mood and affect; insight and judgment good. Results Procedures completed during hospitalization: Lumbar laminectomy L12, lateral recess decompression, posterior spinal fusion and interbody cage L12, segmental instrumentation L1-T10. Labs on day of discharge: Labs from last 24 hours 09/25/18 05:46 WBC 12.7 H RBC 3.24 L Hgb 9.6 L Hct 29.0 L MCV 89.5 MCH 29.8 MCHC 33.3 RDW 14.9 Plt Count 754 H MPV 6.8 L Neut % (Auto) 80.0 H Lymph % (Auto) 12.8 [place] % (Auto) 6.9 Eos % (Auto) 0.2 Baso % (Auto) 0.1 Neut # (Auto) 10.1 H Lymph # (Auto) 1.6 [place] # (Auto) 0.9 Eos # (Auto) 0.0 Baso # (Auto) 0.0 WBC Differential . Differential Comment Auto diff final Impressions ITS Impressions Thoracolumbar Spine 09/16/18 00:00 CONCLUSION: Status post multilevel fusion. Chest CTA 09/22/18 00:00 CONCLUSION: 1. This study is negative for pulmonary embolism. 2. Scattered bilateral ground-glass infiltrates are noted consistent with mild pulmonary edema or developing pneumonia. Clinical correlation is recommended. 3. Minimal posterior pleural thickening bilaterally and tiny bilateral pleural effusions 4. Cardiomegaly. 5. Degenerative changes throughout the thoracic spine. Chest X-Ray 09/22/18 08:11 CONCLUSION: Interval improvement with less interstitial edema Venous Doppler Study 09/22/18 08:43 CONCLUSION: 1. The study is negative for bilateral lower extremity deep venous thrombosis. Discharge Plan Discharge Disposition Patient Disposition: W/Home Health Service Discharge Condition Condition: Stable Discharge Order Discharge Orders: Discharge Order (Routine); Ordered 09/19/18 Ordered By: Sreedhar Pinedo Hospitalist Clear for Discharge (Routine); Ordered 09/25/18 Ordered By: Sweta Carranza Discharge Details Anticipated Discharge Date: 09/25/18 Discharge Comment: Please do walk test prior to discharge. Notify provider if home O2 is needed. Physicians Team Primary Care Provider: Kishan Thayer Attending Provider: Sreedhar Pinedo Other Providers: [facility] ; Rachel Pedro ; Luis Santacruz Rxs /Orders / Referrals /Forms Prescriptions: New hydrocodone-acetaminophen 10-325 mg Tablet 1 tab PO Q4H PRN (Reason: Acute Pain) Qty: 42 RF: 0 Continue fluoxetine [Prozac] 40 mg Capsule 80 mg PO DAILY RF: 0 alprazolam 0.25 mg Tablet 0.25 mg PO Q6HR PRN (Reason: Anxiety) RF: 0 lisinopril 10 mg Tablet 10 mg PO BID RF: 0 naproxen sodium [Aleve] 220 mg Tablet 440 mg PO BID RF: 0 aspirin [Aspirin Childrens] 81 mg Tablet,Chewable 1 tab PO DAILY RF: 0 fenofibrate 150 mg Capsule 145 mg PO DAILY RF: 0 cholecalciferol (vitamin D3) [Vitamin D3] 2,000 unit Capsule 2,000 unit PO DAILY RF: 0 Lactobacillus acidoph-L.bulgar [Lactinex] 1 million cell Tablet,Chewable 1 tab PO TID Qty: 30 RF: 0 alendronate 70 mg Tablet 70 mg PO QWEEK RF: 0 Referrals: Kishan Thayer MD [Primary Care Provider] - See Instructions Discharge Instructions Patient Printed Instructions: How to Use an Incentive Spirometer (DC), Laminectomy (DC), Fall Prevention (DC), Lumbar Brace (DC), Deep Vein Thrombosis Prevention (DC) Additional Instructions: Continue use of lumbar brace when out of bed F/U WITH EVY PEREZ PA-C ON 10/01 AT 1:[address] [place] [address].CALL FOR QUESTIONS TAKE MEDS PRESCRIBED IN CASE OF EMERGENCY CALL 911 OR RETURN TO EMERGENCY ROOM Post Discharge Care Plan Care Plan Goals: Your Health Problems: Lumbar spinal stenosis Degenerative disc disease L12 Previous lumbar fusion Goals to Promote Your Health: * To prevent worsening of your condition * To maintain your health at the optimal level Directions to Meet Your Goals: * Take your medications as prescribed * Follow your dietary instruction. A high fiber diet is encouraged for 3-5 days following surgery to help prevent constipation. * Follow activity as directed. Wear your brace time study clerk when you are out of bed. Avoid repetitive bending and lifting. * Remove your brace when in bed and apply ice to the surgical site twice daily for 7-10 days after your surgical procedure. * Keep your appointments as scheduled * Take your immunizations and boosters as scheduled * If your symptoms worsen call your PCP * If no PCP go to Urgent Care or Emergency Room Smoking is dangerous to your health. Avoid second hand smoke. You may reach the 24-hour crisis hotline for domestic abuse at .
[2018-09-25] MEDS: Fenofibrate 145 MG Tablet PO SCH (09:10)
[2018-09-25] MEDS: FLUoxetine 20 MG Capsule PO SCH (09:10)
[2018-09-25] MEDS: Multivitamin/Minerals Therapeutic Tablet PO SCH (09:10)
[2018-09-25] MEDS: Lisinopril 10 MG Tablet PO SCH (09:10)
[2018-09-25] MEDS: MethylPREDNISolone Sod Succinate Inj 40 MG/ML Vial IV.PUSH SCH (09:10)
[2018-09-25] MEDS: Senna/Docusate Sodium 8.6/50 MG Tablet PO SCH (09:11)
[2018-09-25] MEDS: Enoxaparin Inj 40 MG/0.4 ML Syringe SQ SCH (09:11)
[2018-09-25 10:19] VITALS: PULSE 84; RESP 20; TEMP 98.2
[2018-09-25 10:26] VITALS: O2SAT 95
== END 2018-09-25 13:09 | disposition home health service (06) ==
LOC: HSDC 09:53 → EDSTATUS 13:00 → HSDI 18:06 → N06 19:41 → N03 09-22 08:33
PROVIDERS: ADMIT Orthopaedic Surgery Orthopaedic Surgery of the Spine; ATTEND Orthopaedic Surgery Orthopaedic Surgery of the Spine